=== PATIENT | male | born 1935 | race Caucasian/White ===

== ENCOUNTER 2017-01-04 19:06 | Emergency (ER) | payer BC ==
[~2017-01-04] VITALS: Ht 167.6 cm; Wt 77.5 kg
[~2017-01-04 19:06] MED LIST: ALPR0.5T PO; AMIO200T4 PO; ASPI81TA21 PO; FERR1TAB23 PO; LISI40TA PO; MULT-506 PO; NXM/40 PO; RIVA1TAB4 PO; SIMV10TA2 PO
[2017-01-04 19:08] VITALS: TEMP 36.8; Ht 167.6 cm; Wt 77.5 kg
[2017-01-04] MEDS ORDERED: METOPROLOL TARTRATE 1 MG/ML VIAL IV STA (19:35)
--- NOTE | 2017-01-04 19:36 | EMERGENCY ROOM VISIT NOTE ---
History Report prepared by Myriam: Maru Husain Under the Supervision of: Dr. Maico Martinez D.O. First contact with patient: 19:15 Chief Complaint: TACHYCARDIA Stated Complaint: RAPID HEART BEAT History of Present Illness The patient is a 81 year old male who presents to the Emergency Room with complaints of constant tachycardia beginning 2 days ago. The patient states that he had an aortic valve replacement 2 years ago and a few days after surgery had a heart rate of 192 and came back in to the hospital. He reports that he was put on a blood thinner and taken off it since then. Following his surgery, he reports that he has been healthy. Over the last 2 days he notes that he has been feeling his heart racing and notes that he has had a heart rate in the 120s. He denies any anxiety, chest pain, and missing any medication. The patient complains of shortness of breath with walking up a hill. Source of History: patient Onset: 2 days ago Position: other (global) Symptom Intensity: 120s Quality: other (heart racing) Timing: constant Associated Symptoms: + SOB, No chest pain Note: The patient denies any anxiety and missing any medication. Review of Systems See HPI for pertinent positives & negatives. A total of 10 systems reviewed and were otherwise negative. Past Medical & Surgical Medical Problems: (1) Aortic Valve Disorder (2) Hyperlipidemia Nec/Nos (3) Hypertension Nos (4) Piriformis syndrome of right side (5) Piriformis syndrome of right side (6) Sciatica Family History No pertinent family history Social History Smoking Status: Never Smoker Drug Use: none Marital Status: Housing Status: lives with significant other Occupation Status: retired Current/Historical Medications Scheduled Amlodipine (Norvasc), 10 MG PO DAILY Aspirin Enteric Coated (Ecotrin Or Generic), 81 MG PO DAILY Esomeprazole Magnesium (Nexium), 40 MG PO DAILY Ferrous Sulfate (Iron), 150 MG PO DAILY Hydrochlorothiazide (Hydrochlorothiazide), 25 MG PO DAILY Lisinopril (Prinivil), 40 MG PO DAILY Metoprolol Succ (Toprol Xl) (Toprol-Xl), 25 MG PO DAILY Multivitamin (Multivitamin), 1 TAB PO DAILY Rivaroxaban (Xarelto), 1 TAB PO DAILY Valacyclovir (Valtrex), 500 MG PO DAILY Scheduled PRN Alprazolam (Xanax), 0.5 MG PO TID PRN for Anxiety/Agitation Allergies Coded Allergies: Penicillins (Verified Allergy, Unknown, ., 06/29/14) Hydrocodone (Verified Adverse Reaction, Intermediate, hallucinations, ) Physical Exam Vital Signs Date Time Temp Pulse Resp B/P Pulse Ox O2 Delivery O2 Flow Rate FiO2 01/04/17 21:38 96 22 107/68 93 Room Air 01/04/17 20:18 80 18 92/62 96 Room Air 01/04/17 20:02 98 18 92/57 96 Room Air 01/04/17 19:52 126 94/57 01/04/17 19:41 96 Room Air 01/04/17 19:37 95 01/04/17 19:37 95 Room Air 01/04/17 19:33 124 01/04/17 19:08 36.8 128 16 98/68 90 Room Air Physical Exam CONSTITUTIONAL/VITAL SIGNS: Reviewed / noted above. GENERAL: Non-toxic in appearance. INTEGUMENTARY: Warm, dry, and [place]. HEAD: Normocephalic. EYES: without scleral icterus or trauma. ENT/OROPHARYNX: clear and moist. LYMPHADENOPATHY/NECK: Is supple without lymphadenopathy or meningismus. RESPIRATORY: Lungs clear and equal. CARDIOVASCULAR:Tachycardic rate and rhythm. GI/ABDOMEN: Soft and nontender. No organomegaly or pulsatile mass. No rebound or guarding. Normal bowel sounds. EXTREMITIES: Warm and well perfused. BACK: No CVA tenderness. NEUROLOGICAL: Intact without focal deficits. PSYCHIATRIC: normal affect. MUSCULOSKELETAL: Normally developed with good muscle tone. Medical Decision & Procedures ER Provider Diagnostic Interpretation: X ray results and stated below per my interpretation and radiology interpretation. CHEST ONE VIEW PORTABLE FINDINGS: There are median sternotomy wires. Cardiomegaly is unchanged. There is no evidence of pulmonary edema. Bibasilar opacities favor atelectasis. No consolidation is identified to suggest pneumonia. IMPRESSION: 1. No acute findings. 2. Stable cardiomegaly. 3. Linear bibasilar opacities suggestive of atelectasis. Electronically signed by: Ben Godoy M.D. 01/04/2017 8:17 PM Dictated Date/Time: 01/04/2017 8:16 PM Laboratory Results 01/04/17 19:30 Red Blood Count 5.44, Mean Corpuscular Volume 86.2, Mean Corpuscular Hemoglobin 31.3, Mean Corpuscular Hemoglobin Concent 36.2, Mean Platelet Volume 10.8, Neutrophils (%) (Auto) 69.5, Lymphocytes (%) (Auto) 20.3, Monocytes (%) (Auto) 7.6, Eosinophils (%) (Auto) 1.8, Basophils (%) (Auto) 0.2, Neutrophils # (Auto) 5.77, Lymphocytes # (Auto) 1.69, Monocytes # (Auto) 0.63, Eosinophils # (Auto) 0.15, Basophils # (Auto) 0.02 01/04/17 19:30 Test 01/04/17 19:30 White Blood Count 8.31 K/uL (4.8-10.8) Red Blood Count 5.44 M/uL (4.7-6.1) Hemoglobin 17.0 g/dL (14.0-18.0) Hematocrit 46.9 % (42-52) Mean Corpuscular Volume 86.2 fL (80-100) Mean Corpuscular Hemoglobin 31.3 pg (25-34) Mean Corpuscular Hemoglobin Concent 36.2 g/dl (32-36) Platelet Count 141 K/uL (130-400) Mean Platelet Volume 10.8 fL (7.4-10.4) Neutrophils (%) (Auto) 69.5 % Lymphocytes (%) (Auto) 20.3 % Monocytes (%) (Auto) 7.6 % Eosinophils (%) (Auto) 1.8 % Basophils (%) (Auto) 0.2 % Neutrophils # (Auto) 5.77 K/uL (1.4-6.5) Lymphocytes # (Auto) 1.69 K/uL (1.2-3.4) Monocytes # (Auto) 0.63 K/uL (0.11-0.59) Eosinophils # (Auto) 0.15 K/uL (0-0.5) Basophils # (Auto) 0.02 K/uL (0-0.2) RDW Standard Deviation 42.9 fL (36.4-46.3) RDW Coefficient of Variation 13.9 % (11.5-14.5) Immature Granulocyte % (Auto) 0.6 % Immature Granulocyte # (Auto) 0.05 K/uL (0.00-0.02) Prothrombin Time 11.3 SECONDS (9.0-12.0) Prothromb Time International Ratio 1.1 (0.9-1.1) Activated Partial Thromboplast Time 28.3 SECONDS (21.0-31.0) Partial Thromboplastin Ratio 1.1 D-Dimer 400 ug/L FEU (0-500) Anion Gap 13.0 mmol/L (3-11) Est Creatinine Clear Calc Drug Dose 36.1 ml/min Estimated GFR () 46.5 Estimated GFR (Non- 40.1 BUN/Creatinine Ratio 15.4 (10-20) Calcium Level 9.0 mg/dl (8.5-10.1) Total Creatine Kinase 144 U/L (39-308) Creatine Kinase MB 4.8 ng/ml (0.5-3.6) Creatine Kinase MB Ratio 3.3 (0-3.0) Troponin I < 0.015 ng/ml (0-0.045) Lipase 186 U/L (73-393) Thyroid Stimulating Hormone (TSH) 2.320 uIu/ml (0.300-4.500) Laboratory results as stated above per my review. Medications Administered Medications (Trade) Dose Ordered Sig/Umberto Route Start Time Stop Time Status Last Admin Dose Admin Metoprolol Tartrate (Lopressor Iv) 5 mg NOW STAT IV 01/04/17 19:35 01/04/17 19:36 DC 01/04/17 19:52 5 MG Metoprolol Succinate 12.5 mg 12.5 mg ONE ONCE PO 01/04/17 21:30 01/04/17 21:31 DC 01/04/17 21:46 12.5 MG Sodium Chloride (Nss 500ml) 500 ml @ 999 mls/hr Q31M STAT IV 01/04/17 21:27 01/04/17 21:57 DC 01/04/17 21:50 999 MLS/HR Rivaroxaban (Xarelto Tab) 20 mg ONE ONCE PO 01/04/17 21:45 01/04/17 21:46 DC 01/04/17 21:47 20 MG ECG Indication: other (heart racing) Rate (beats per minute): 122 Rhythm: other (accelerated junction 122) Findings: T-wave inversion (Lateral) Comparison ECG Date: 15-NOV-2014 Change: T wave inversions are unchanged, tachycardic rate is new. EKG 2: A-Fib, 103, no acute injury, no ectopy. ED Course 1914: Previous medical records were reviewed. The patient was evaluated in room C3. A complete history and physical examination was performed. 1934: Lopressor IV 5mg IV. 2113: The patient is in A-Fib. We are getting a repeat EKG. 2126: Sodium Chloride 500 ml @ 999 mls/hr IV. 2129: Metoprolol Succinate 12.5mg PO. 2123: I discussed the patients case with Dr. Morelos of cardiology. The patient will be discharged after medication. 2144: Xarelto Tab 20mg PO. 2149: On reevaluation, the patient is hemodynamically stable. I discussed the results and findings with the patient. He verbalized agreement of the treatment plan. The patient was discharged home. 899: Xarelto Tab 20mg PO. Medical Decision The differential was considered includes acute myocardial infarction, acute coronary syndrome, myocarditis, pericarditis, pericardial effusions /tamponade, esophageal perforation, thoracic aortic dissection, pulmonary embolism, pneumonia, pneumothorax, pancreatitis, shingles, acute cholecystitis, perforated abdominal viscus. This is an 81-year-old male who presents to the ED with a chief complaint of tachycardic heart rate. The patient states that he knows to symptoms today. He denies any other symptoms. Denies recent illness, fever or cough. Denies any chest pains or shortness of breath. Physical exam reveals tachycardic rhythm. His initial EKG showed what appeared to be a junctional rhythm at a rate of about 122. After 5 mg IV Lopressor, the patient's EKG revealed A. fib. At a rate of 100. D-dimer is negative. BUN was 25 and creatinine 1.6. Troponin was negative. TSH is normal. Chest x-ray did not show acute disease. The patient is asymptomatic. I spoke with Dr. Morelos about the patient. The patient was hydrated with IV fluids. His heart rate appears to be under control with the 5 mg IV Lopressor. After talking with Dr. Morelos, the patient will be started on Xaralto and Metoprolol XL and discontinue Norvasc (after asking the patient, he showed me a list and he is not taking Norvasc). He was given those medications here. He is felt to be stable for discharge. He will follow-up with Dr. Morelos later this week. Consults Time Called: 2119 Consulting Physician: Dr. Morelos - Cardiology Returned Call: [phone] I discussed the patients case with Dr. Morelos of cardiology. The patient will be discharged after medication. Impression Primary Impression: Atrial fibrillation with rapid ventricular response Scribe Attestation The scribe's documentation has been prepared under my direction and personally reviewed by me in its entirety. I confirm that the note above accurately reflects all work, treatment, procedures, and medical decision making performed by me. Departure Information Dispostion Home / Self-Care Prescriptions Metoprolol Succ (Toprol Xl) (Toprol-Xl) 25 Mg Tabcr 25 MG PO DAILY, #30 TAB Prov: Maico Martinez D.O. 01/04/17 Rivaroxaban (XARELTO) 20 Mg Tab 1 TAB PO DAILY for 30 Days, #30 TAB 11 Refills Prov: Maico Martinez D.O. 01/04/17 Referrals Martinez Riley JrD.O. (PCP) Patient Instructions My [facility] Additional Instructions STOP Norvasc. START: Xaralto and Toprol XL as prescribed. supply requirements officer at [facility] pharmacy tomorrow. Call the office and follow-up with Dr. Morelos this week. Return for any concerns.
[2017-01-04 19:37] VITALS: O2SAT 95
[2017-01-04 19:42] LABS: BASO % 0.2 %; BASO ABS # 0.02 K/uL (0-0.2); COMPLETE YES; EOS % 1.8 %; HEMATOCRIT 46.9 % (42-52); IG% 0.6 %; LYMPH % 20.3 %; LYMPH ABS # 1.69 K/uL (1.2-3.4); MEAN CELL VOLUME 86.2 fL (80-100); MEAN CORPUSCULAR HEMOGLOBIN 31.3 pg (25-34); MEAN CORPUSCULAR HGB CONC 36.2 g/dl (32-36); MEAN PLATELET VOLUME 10.8 fL (7.4-10.4); MONO % 7.6 %; NEUT % 69.5 %; PLATELET COUNT 141 K/uL (130-400); RED BLOOD COUNT 5.44 M/uL (4.7-6.1); WHITE BLOOD COUNT 8.31 K/uL (4.8-10.8)
[2017-01-04 19:53] LABS: INR 1.1 (0.9-1.1); PARTIAL THROMBOPLASTIN RATIO 1.1; PROTHROMBIN TIME (PATIENT) 11.3 SECONDS (9.0-12.0)
[2017-01-04 19:59] LABS: BLOOD UREA NITROGEN 25 mg/dl (7-18); BUN/CREATININE RATIO 15.4 (10-20); CARBON DIOXIDE 23 mmol/L (21-32); CHLORIDE 107 mmol/L (98-107); GLUCOSE 157 mg/dl (70-99); SODIUM 143 mmol/L (136-145)
[2017-01-04 20:10] LABS: CKMB/CK RATIO 3.3 (0-3.0)
[2017-01-04] MEDS ORDERED: VALA500T60 PO (20:10)
[2017-01-04] MEDS ORDERED: HYDR25TA5 PO (20:10)
[2017-01-04] MEDS ORDERED: AMLO-114 PO (20:10)
--- NOTE | 2017-01-04 20:18 | DIAGNOSTIC IMAGING REPORT ---
CHEST ONE VIEW PORTABLE CLINICAL HISTORY: Fever. Sepsis. COMPARISON STUDY: Chest radiograph November 14, 2014. FINDINGS: There are median sternotomy wires. Cardiomegaly is unchanged. There is no evidence of pulmonary edema. Bibasilar opacities favor atelectasis. No consolidation is identified to suggest pneumonia. IMPRESSION: 1. No acute findings. 2. Stable cardiomegaly. 3. Linear bibasilar opacities suggestive of atelectasis. Electronically signed by: Ben Godoy M.D. 01/04/2017 8:17 PM Dictated Date/Time: 01/04/2017 8:16 PM
[2017-01-04] MEDS ORDERED: SODIUM CHLORIDE 0.9% 500ML 500 ML IV STA (21:27)
[2017-01-04] MEDS ORDERED: METOPROLOL SUCC 25MG EXT REL TAB PO ONE (21:30)
[2017-01-04] MEDS ORDERED: METO25TA3 PO (21:38)
[2017-01-04] MEDS ORDERED: RIVA1TAB4 PO (21:38)
[2017-01-04] MEDS ORDERED: RIVAROXABAN 20 MG TAB PO ONE (21:45)
[2017-01-04 22:12] VITALS: BP 114/78; PULSE 101; O2SAT 95
[2017-01-05] MEDS ORDERED: RIVAROXABAN 20 MG TAB PO SCH (09:00)
[2017-04-18] MEDS ORDERED: ATOR10TA88 PO (07:07)
== END 2017-01-04 22:21 | disposition home or self-care (01) ==
LOC: C.EDB 19:07 → C.EDC 22:21
DX: I48.0 Paroxysmal atrial fibrillation (principal); Z95.2 Presence of prosthetic heart valve; E78.5 Hyperlipidemia, unspecified; I10 Essential (primary) hypertension; M54.30 Sciatica, unspecified side; Z79.82 Long term (current) use of aspirin; Z79.01 Long term (current) use of anticoagulants; Z79.899 Other long term (current) drug therapy

== ENCOUNTER 2017-04-18 06:50 | Emergency (ER) | payer BC ==
[~2017-04-18] VITALS: Ht 167.6 cm; Wt 76.5 kg
[~2017-04-18 06:50] MED LIST changes: -AMIO200T4 PO; +AMLO-114 PO; +HYDR25TA5 PO; +METO25TA3 PO; -SIMV10TA2 PO; +VALA500T60 PO
[2017-04-18 06:56] VITALS: TEMP 36.5; Ht 167.6 cm; Wt 76.5 kg
[2017-04-18] MEDS ORDERED: ATOR10TA82 PO (07:07)
--- NOTE | 2017-04-18 07:12 | EMERGENCY ROOM VISIT NOTE ---
History Report prepared by Myriam: Antwon Phelps Under the Supervision of: Dr. Camron Louis M.D. First contact with patient: 06:50 Chief Complaint: BLEEDING Stated Complaint: RECTAL BLEEDING/SPITTING UP BLOOD History of Present Illness The patient is an 81 year old male who presents to the Emergency Room with complaints of persistent rectal bleeding that started this morning. The patient woke up to the taste of blood in his mouth and noticed some blood mixed in with his spit. The patient also noticed bright red blood mixed in with his stool this morning. The stool itself was brown and normal. He did not have any treatments prior to arrival and knows of no worsening or relieving factors. The patient denies any chest pain, shortness of breath, cough, abdominal pain, or easy bruising. He is feeling fine and plans to go fishing later today. The patient is on Xarelto. He has not taken extra doses of Xarelto or Aspirin. Patient denies any recent trauma or injury. He has a history of GERD but denies history of ulcers. He denies any history of bleeding problems. The patient has had hemorrhoids in the past. Source of History: patient Onset: this morning Position: other (rectal) Quality: other (bleeding) Timing: other (persistent) Associated Symptoms: No SOB, No abdominal pain, No chest pain, No cough Note: Patient also had blood in his mouth this morning. Review of Systems See HPI for pertinent positives & negatives. A total of 10 systems reviewed and were otherwise negative. Past Medical & Surgical Medical Problems: (1) Aortic Valve Disorder (2) Hyperlipidemia Nec/Nos (3) Hypertension Nos (4) Piriformis syndrome of right side (5) Piriformis syndrome of right side (6) Sciatica Family History No pertinent family history Social History Smoking Status: Never Smoker Drug Use: none Marital Status: Housing Status: lives with significant other Occupation Status: retired Current/Historical Medications Scheduled Aspirin Enteric Coated (Ecotrin Or Generic), 81 MG PO DAILY Atorvastatin (Lipitor), 10 MG PO DAILY Azithromycin (Zithromax Z-Jameel), 1 PKT PO UD Esomeprazole Magnesium (Nexium), 40 MG PO DAILY Ferrous Sulfate (Iron), 150 MG PO DAILY Hydrochlorothiazide (Hydrochlorothiazide), 25 MG PO DAILY Lisinopril (Prinivil), 40 MG PO DAILY Metoprolol Succinate (Toprol Xl), 25 MG PO DAILY Multivitamin (Multivitamin), 1 TAB PO DAILY Rivaroxaban (Xarelto), 20 MG PO DAILY Valacyclovir (Valtrex), 500 MG PO DAILY Scheduled PRN Alprazolam (Xanax), 0.5 MG PO TID PRN for Anxiety/Agitation Allergies Coded Allergies: Penicillins (Verified Allergy, Unknown, ., 06/29/14) Hydrocodone (Verified Adverse Reaction, Intermediate, hallucinations, ) Physical Exam Vital Signs Date Time Temp Pulse Resp B/P Pulse Ox O2 Delivery O2 Flow Rate FiO2 04/18/17 08:38 53 16 150/82 95 04/18/17 08:08 53 16 150/82 95 Room Air 04/18/17 06:56 36.5 55 20 155/90 96 Room Air Physical Exam GENERAL: Patient is well appearing and in no acute distress. HEENT: No acute trauma, normocephalic atraumatic, mucous membranes moist, no nasal congestion, no scleral icterus. NECK: No stridor, no adenopathy, no meningismus, trachea is midline. LUNGS: No dyspnea. Clear to auscultation and equal bilaterally. No wheeze, no rhonchi. HEART: Regular rate and rhythm. No murmurs, rubs, gallops appreciated. ABDOMEN: Soft, nontender, bowel sounds positive, no masses appreciated, no peritonitis. BACK: No midline tenderness, no CVA tenderness EXTREMITIES: Normal motion all extremities, no cyanosis, no edema. NEUROLOGIC: Alert and oriented, no acute motor or sensory deficits, no focal weakness, cranial nerves grossly intact. SKIN: No rash, no jaundice, no diaphoresis. RECTAL: Large discolored hemorrhoid left anus with mild active bleeding medially. Normal rectal exam with large prostate. Brown-stool heme negative. Medical Decision & Procedures ER Provider Diagnostic Interpretation: X ray results are stated below per my interpretation and the radiologist's interpretation. SINGLE VIEW CHEST CLINICAL HISTORY: Hemoptysis. FINDINGS: An AP, portable, upright chest radiograph is compared to study dated 01/04/2017 and correlated with chest CT dated 07/18/2008. The examination is degraded by portable technique and patient rotation. The patient is status post midline sternotomy. The heart is enlarged. The pulmonary vasculature is noncongested. Chronic residual thickening is similar to previous. Left basilar airspace opacities likely represent atelectasis. The lungs and pleural spaces are otherwise clear. No pneumothorax is seen. The skeletal structures are osteopenic. The bony thorax is grossly intact. IMPRESSION: 1. Cardiomegaly without radiographic evidence of congestive failure. 2. There are left basilar airspace opacities. This likely represents atelectasis. Cortical clinically for evidence of a mild infectious/inflammatory pneumonitis. Electronically signed by: Hiram Perkins M.D. 04/18/2017 7:41 AM Dictated Date/Time: 04/18/2017 7:39 AM Laboratory Results 04/18/17 07:10 Red Blood Count 5.07, Mean Corpuscular Volume 87.4, Mean Corpuscular Hemoglobin 31.0, Mean Corpuscular Hemoglobin Concent 35.4, Mean Platelet Volume 10.8, Neutrophils (%) (Auto) 66.6, Lymphocytes (%) (Auto) 20.3, Monocytes (%) (Auto) 9.1, Eosinophils (%) (Auto) 3.6, Basophils (%) (Auto) 0.2, Neutrophils # (Auto) 3.68, Lymphocytes # (Auto) 1.12, Monocytes # (Auto) 0.50, Eosinophils # (Auto) 0.20, Basophils # (Auto) 0.01 04/18/17 07:10 Test 04/18/17 07:10 04/18/17 07:19 04/18/17 08:00 White Blood Count 5.52 K/uL (4.8-10.8) Red Blood Count 5.07 M/uL (4.7-6.1) Hemoglobin 15.7 g/dL (14.0-18.0) Hematocrit 44.3 % (42-52) Mean Corpuscular Volume 87.4 fL (80-100) Mean Corpuscular Hemoglobin 31.0 pg (25-34) Mean Corpuscular Hemoglobin Concent 35.4 g/dl (32-36) Platelet Count 119 K/uL (130-400) Mean Platelet Volume 10.8 fL (7.4-10.4) Neutrophils (%) (Auto) 66.6 % Lymphocytes (%) (Auto) 20.3 % Monocytes (%) (Auto) 9.1 % Eosinophils (%) (Auto) 3.6 % Basophils (%) (Auto) 0.2 % Neutrophils # (Auto) 3.68 K/uL (1.4-6.5) Lymphocytes # (Auto) 1.12 K/uL (1.2-3.4) Monocytes # (Auto) 0.50 K/uL (0.11-0.59) Eosinophils # (Auto) 0.20 K/uL (0-0.5) Basophils # (Auto) 0.01 K/uL (0-0.2) RDW Standard Deviation 42.6 fL (36.4-46.3) RDW Coefficient of Variation 13.4 % (11.5-14.5) Immature Granulocyte % (Auto) 0.2 % Immature Granulocyte # (Auto) 0.01 K/uL (0.00-0.02) Prothrombin Time 13.4 SECONDS (9.0-12.0) Prothromb Time International Ratio 1.2 (0.9-1.1) Activated Partial Thromboplast Time 37.1 SECONDS (21.0-31.0) Partial Thromboplastin Ratio 1.4 Est Creatinine Clear Calc Drug Dose 35.4 ml/min Estimated GFR () 50.2 Estimated GFR (Non- 43.3 BUN/Creatinine Ratio 14.3 (10-20) Calcium Level 8.1 mg/dl (8.5-10.1) Total Bilirubin 1.1 mg/dl (0.2-1) Direct Bilirubin 0.2 mg/dl (0-0.2) Aspartate Amino Transf (AST/SGOT) 17 U/L (15-37) Alanine Aminotransferase (ALT/SGPT) 28 U/L (12-78) Alkaline Phosphatase 63 U/L (45-117) Troponin I < 0.015 ng/ml (0-0.045) Total Protein 6.1 gm/dl (6.4-8.2) Albumin 3.5 gm/dl (3.4-5.0) Lipase 283 U/L (73-393) Bedside Hemoglobin 14.6 g/dl (14.0-18.0) Bedside Hematocrit 43 % (42-52) Bedside Sodium 140 mEq/L (135-144) Bedside Potassium 3.7 mEq/L (3.3-5.0) Bedside Chloride 100 mEq/L (101-112) Bedside Total CO2 26 mEq/l (24-31) Anion Gap 19.0 mmol/L (16-25) Bedside Blood Urea Nitrogen 22 mg/dl (7-18) Bedside Creatinine 1.2 mg/dl (0.6-1.3) Bedside Glucose (other) 113 mg/dl (70-99) Bedside Ionized Calcium (Bren) 1.14 mmol/l (1.12-1.32) Urine Color YELLOW Urine Appearance CLEAR (CLEAR) Urine pH 7.5 (4.5-7.5) Urine Specific [place] 1.015 (1.000-1.030) Urine Protein NEG (NEG) Urine Glucose (UA) NEG (NEG) Urine Ketones NEG (NEG) Urine Occult Blood NEG (NEG) Urine Nitrite NEG (NEG) Urine Bilirubin NEG (NEG) Urine Urobilinogen NEG (NEG) Urine Leukocyte Esterase NEG (NEG) Urine WBC (Auto) 0 /hpf (0-5) Urine RBC (Auto) 0-4 /hpf (0-4) Urine Hyaline Casts (Auto) 0 /lpf (0-5) Urine Epithelial Cells (Auto) 0-5 /lpf (0-5) Urine Bacteria (Auto) NEG (NEG) Laboratory results as reviewed by me. ECG Indication: other (anticoagulated) Rate (beats per minute): 53 Rhythm: sinus bradycardia Findings: 1st degree AV block, no acute ischemic change ED Course 0650: The patient was evaluated in room A2. A complete history and physical exam was performed. 0800: Reassessed the patient. He feels great and would like to go home. Discussed the findings with him. He verbalized understanding and agreement. The patient is ready for discharge. Medical Decision Differential: Diverticulitis, AVM, Coagulopathy, Colitis, Malignancy, Upper GI bleed, Fissure, Hemorrhoids, amongst other pathologies entertained. 81 yr old male arrives with complaint of blood in sputum and in stool. No nausea, vomiting, sore throat, cough, sob. Unclear where blood from upper came from but denies it was vomiting. May have just been some posterior pharynx btu with some atelectasis on CXR which could be infiltrate will treat with course zpack. Blood in stool is clearly coming from hemorrhoid. Stool is brown, heme negative. Patient is not anemic, has normal vitals and feels fine. Long history of hemorrhoids with periodic bleeding. Likely a bit more with being on blood thinner. Minor bleeding currently thus will continue normal meds at home with monitoring closely. States he will be with throughout afternoon and will return immediately if worsening or other concerns. Stable and feeling well at discharge. Impression Primary Impression: Bleeding external hemorrhoids Additional Impression: Blood-tinged sputum Scribe Attestation The scribe's documentation has been prepared under my direction and personally reviewed by me in its entirety. I confirm that the note above accurately reflects all work, treatment, procedures, and medical decision making performed by me. Departure Information Dispostion Home / Self-Care Prescriptions Azithromycin (ZITHROMAX Z-JAMEEL) 250 Mg Tab 1 PKT PO UD, #1 PKT Prov: Camron Louis M.D. 04/18/17 Referrals Martinez Riley Jr,D.O. (PCP) Forms HOME CARE DOCUMENTATION FORM, IMPORTANT VISIT INFORMATION Patient Instructions My [facility] Additional Instructions Your blood levels looked good today. It is important to have them rechecked in near future by your primary care provider. It is possible you have a small pneumonia starting. We will start antibiotics just in case Return immediately if increased bleeding, difficulty breathing, chest pain, passing out, or other concerns. Discuss Hemorrhoid surgery with your primary care provider. Problem Qualifiers
[2017-04-18] MEDS ORDERED: RIVA1TAB4 PO (07:13)
[2017-04-18] MEDS ORDERED: METO25TA3 PO (07:14)
[2017-04-18 07:31] LABS: ISTAT CREATININE 1.2 mg/dl (0.6-1.3); ISTAT HEMOGLOBIN 14.6 g/dl (14.0-18.0); ISTAT IONIZED CALCIUM 1.14 mmol/l (1.12-1.32)
[2017-04-18 07:42] LABS: BASO % 0.2 %; BASO ABS # 0.01 K/uL (0-0.2); COMPLETE YES; EOS % 3.6 %; HEMATOCRIT 44.3 % (42-52); IG% 0.2 %; LYMPH % 20.3 %; LYMPH ABS # 1.12 K/uL (1.2-3.4); MEAN CELL VOLUME 87.4 fL (80-100); MEAN CORPUSCULAR HGB CONC 35.4 g/dl (32-36); MEAN PLATELET VOLUME 10.8 fL (7.4-10.4); MONO % 9.1 %; NEUT % 66.6 %; PLATELET COUNT 119 K/uL (130-400); RED BLOOD COUNT 5.07 M/uL (4.7-6.1); WHITE BLOOD COUNT 5.52 K/uL (4.8-10.8)
--- NOTE | 2017-04-18 07:43 | DIAGNOSTIC IMAGING REPORT ---
SINGLE VIEW CHEST CLINICAL HISTORY: Hemoptysis. FINDINGS: An AP, portable, upright chest radiograph is compared to study dated 01/04/2017 and correlated with chest CT dated 07/18/2008. The examination is degraded by portable technique and patient rotation. The patient is status post midline sternotomy. The heart is enlarged. The pulmonary vasculature is noncongested. Chronic residual thickening is similar to previous. Left basilar airspace opacities likely represent atelectasis. The lungs and pleural spaces are otherwise clear. No pneumothorax is seen. The skeletal structures are osteopenic. The bony thorax is grossly intact. IMPRESSION: 1. Cardiomegaly without radiographic evidence of congestive failure. 2. There are left basilar airspace opacities. This likely represents atelectasis. Cortical clinically for evidence of a mild infectious/inflammatory pneumonitis. Electronically signed by: Hiram Perkins M.D. 04/18/2017 7:41 AM Dictated Date/Time: 04/18/2017 7:39 AM
[2017-04-18 07:50] LABS: ALT/SGPT 28 U/L (12-78); AST/SGOT 17 U/L (15-37); BLOOD UREA NITROGEN 21 mg/dl (7-18); BUN/CREATININE RATIO 14.3 (10-20); CALCIUM 8.1 mg/dl (8.5-10.1); CARBON DIOXIDE 28 mmol/L (21-32); CHLORIDE 108 mmol/L (98-107); GLUCOSE 113 mg/dl (70-99); POTASSIUM 3.7 mmol/L (3.5-5.1); SODIUM 142 mmol/L (136-145)
[2017-04-18 07:55] LABS: ALKALINE PHOSPHATASE 63 U/L (45-117)
[2017-04-18 07:56] LABS: INR 1.2 (0.9-1.1); PARTIAL THROMBOPLASTIN RATIO 1.4; PROTHROMBIN TIME (PATIENT) 13.4 SECONDS (9.0-12.0)
[2017-04-18] MEDS ORDERED: AZITTAB PO (08:09)
[2017-04-18 08:15] LABS: URINE APPEARANCE CLEAR (CLEAR); URINE BILIRUBIN NEG (NEG); URINE COLOR YELLOW; URINE EPITHELIAL CELL AUTO 0-5 /lpf (0-5); URINE NITRITE NEG (NEG); URINE PH 7.5 (4.5-7.5); URINE SPECIFIC GRAVITY 1.015 (1.000-1.030); UROBILINOGEN NEG (NEG); ZZUR CULT IF INDIC CLEAN CATCH NO
[2017-04-18 08:21] LABS: MANUAL MICROSCOPIC REQUIRED? NO; REVIEW REQ? NO
[2017-04-18 08:38] VITALS: BP 150/82; PULSE 53; O2SAT 95
== END 2017-04-18 08:41 | disposition home or self-care (01) ==
LOC: C.EDA 06:50
DX: K64.4 Residual hemorrhoidal skin tags (principal); I44.0 Atrioventricular block, first degree; I10 Essential (primary) hypertension; E78.5 Hyperlipidemia, unspecified; I35.9 Nonrheumatic aortic valve disorder, unspecified; Z79.82 Long term (current) use of aspirin; Z79.899 Other long term (current) drug therapy; Z88.0 Allergy status to penicillin; Z88.5 Allergy status to narcotic agent

== ENCOUNTER → 2017-04-27 | Outpatient (CLI) | payer BC ==
[~2017-04-27] MED LIST changes: -AMLO-114 PO; +ATOR10TA82 PO; +AZITTAB PO
[2017-04-27 09:56] LABS: ALT/SGPT 32 U/L (12-78); AST/SGOT 20 U/L (15-37); BLOOD UREA NITROGEN 25 mg/dl (7-18); CARBON DIOXIDE 29 mmol/L (21-32); CHLORIDE 107 mmol/L (98-107); CHOLESTEROL 134 mg/dl (0-200); GLUCOSE 107 mg/dl (70-99); SODIUM 144 mmol/L (136-145); TRIGLYCERIDES 93 mg/dl (0-150); VERY LOW DENSITY LIPOPROT CALC 19 mg/dl
[2017-04-27 09:58] LABS: CALCIUM 8.9 mg/dl (8.5-10.1)
[2017-04-27 09:59] LABS: HDL CHOLESTEROL 45 mg/dl; LDL CHOLESTEROL CALCULATED 70 mg/dl
== END | disposition home or self-care (01) ==
LOC: C.LAB 08:12
DX: E78.5 Hyperlipidemia, unspecified (principal); I10 Essential (primary) hypertension

== ENCOUNTER → 2017-06-30 | Outpatient (CLI) | payer BC ==
[~2017-06-30] MED LIST changes: -ATOR10TA82 PO; +ATOR10TA88 PO; -AZITTAB PO
== END | disposition home or self-care (01) ==
LOC: C.LAB 08:57
PROVIDERS: ATTEND Internal Medicine Cardiovascular Disease
DX: E78.5 Hyperlipidemia, unspecified (principal)

== ENCOUNTER → 2017-07-31 | Outpatient (CLI) | payer BC ==
[2017-07-31 09:34] LABS: BASO % 0.2 %; BASO ABS # 0.01 K/uL (0-0.2); COMPLETE YES; EOS % 3.6 %; HEMATOCRIT 47.9 % (42-52); IG% 0.3 %; LYMPH % 24.4 %; LYMPH ABS # 1.51 K/uL (1.2-3.4); MEAN CELL VOLUME 88.1 fL (80-100); MEAN CORPUSCULAR HEMOGLOBIN 29.8 pg (25-34); MEAN CORPUSCULAR HGB CONC 33.8 g/dl (32-36); MEAN PLATELET VOLUME 11.4 fL (7.4-10.4); MONO % 7.6 %; NEUT % 63.9 %; PLATELET COUNT 128 K/uL (130-400); RED BLOOD COUNT 5.44 M/uL (4.7-6.1); WHITE BLOOD COUNT 6.19 K/uL (4.8-10.8)
[2017-07-31 09:52] LABS: ALT/SGPT 34 U/L (12-78); AST/SGOT 19 U/L (15-37); BLOOD UREA NITROGEN 20 mg/dl (7-18); BUN/CREATININE RATIO 15.4 (10-20); CALCIUM 8.8 mg/dl (8.5-10.1); CARBON DIOXIDE 30 mmol/L (21-32); CHLORIDE 106 mmol/L (98-107); GLUCOSE 106 mg/dl (70-99); POTASSIUM 3.9 mmol/L (3.5-5.1); SODIUM 139 mmol/L (136-145)
[2017-07-31 09:57] LABS: FERRITIN 30.1 ng/ml (8.0-388.0); PROSTATE SPECIFIC ANTIGEN < 0.010 ng/ml (0.000-4.000)
== END | disposition home or self-care (01) ==
LOC: C.LAB 07:20
DX: C61 Malignant neoplasm of prostate (principal); K62.5 Hemorrhage of anus and rectum; E78.5 Hyperlipidemia, unspecified

== ENCOUNTER → 2017-11-03 | Outpatient (CLI) | payer BC ==
[~2017-11-03] MED LIST changes: +AMIO200T4 PO; +ATOR10TA82 PO; -ATOR10TA88 PO; +FERR324T PO; +SENNTAB23
[2017-11-03 13:06] LABS: BLOOD UREA NITROGEN 19 mg/dl (7-18); BUN/CREATININE RATIO 14.5 (10-20); CALCIUM 9.1 mg/dl (8.5-10.1); CARBON DIOXIDE 30 mmol/L (21-32); CHLORIDE 100 mmol/L (98-107); CREATININE 1.33 mg/dl (0.60-1.40); GLUCOSE 77 mg/dl (70-99); POTASSIUM 3.7 mmol/L (3.5-5.1); SODIUM 135 mmol/L (136-145)
== END | disposition home or self-care (01) ==
LOC: C.LAB1850 11:36
PROVIDERS: ATTEND Internal Medicine Cardiovascular Disease
DX: I48.92 Unspecified atrial flutter (principal)

== ENCOUNTER → 2017-11-05 | Day surgery (SDC) | payer BC ==
[~2017-11-05] VITALS: Ht 167.6 cm; Wt 75.0 kg
[~2017-11-05] MED LIST changes: +ATROPINE SULFATE 0.1 MG/ML 5ML SYR IV PRN; +EpHEDrine SULFATE INJ 50 MG/ML AMP IV PRN; +PROPOFOL IV EMULSION 10 MG/ML 20 ML VIAL IV ONE
[2017-11-05 07:07] VITALS: BP 109/82; PULSE 95; TEMP 36.5; O2SAT 98; Ht 167.6 cm; Wt 75.0 kg
[2017-11-05 08:00] VITALS: BP 109/87; PULSE 95; O2SAT 99
[2017-11-05 08:10] VITALS: BP 100/69; PULSE 94; O2SAT 99
[2017-11-05 08:15] VITALS: BP 102/62; PULSE 97; O2SAT 95
--- NOTE | 2017-11-05 08:27 | Cardiology Procedure Brief Nt ---
Preliminary Cardiology Note Procedure Date Nov 05, 2017. Pre-Procedure Diagnosis Atrial flutter with a rapid ventricular response Post-Procedure Diagnosis Normal sinus rhythm Procedure(s) Performed Electrical cardioversion Sports Intern Jethro Speech/Language Therapist(s) Ever Estimated Blood Loss None Medication(s) per anesthesia Preliminary Findings NSR Recommendations Continue current medications Specimens None Drains None Anesthesia Ever Complication(s) None Disposition
--- NOTE | 2017-11-05 08:33 | Discharge Instructions ---
Discharge Instructions Date of Service Nov 05, 2017. Admission Reason for Admission: Afib * W/ Anesthesia* Discharge Discharge Diagnosis / Problem: Normal sinus rhythm Discharge Goals Goal(s): Improve function Activity Recommendations Activity Limitations: resume your previous activity Lifting Limitations: none Exercise/Sports Limitations: none May Resume Sexual Activity: when tolerated Shower/Bathe: no limitations Driving or Machine Use: resume 1 day after discharge No driving today . Current Hospital Diet Patient's current hospital diet: Discharge Diet Recommended Diet: Regular Diet Fluid Restriction: None Procedures Procedures Performed: Electrical cardioversion Pending Studies Studies pending at discharge: no Medical Emergencies . Who to Call and When: Medical Emergencies: If at any time you feel your situation is an emergency, please call 911 immediately. . Non-Emergent Contact Non-Emergency issues call your: [employer] Call Non-Emergent contact if: you have a fever . Past History Medical & Surgical History: (1) Atrial fibrillation with rapid ventricular response . "Provider Documentation" section prepared by Akhil Morelos. . VTE Core Measure Inpt VTE Proph given/why not?: Other Anticoagulation
--- NOTE | 2017-11-05 08:49 | CARDIOVERSION ---
DATE OF OPERATION: 11/05/2017 DATE: 11/05/2017 PRINCIPAL PROCEDURE: Elective electrical cardioversion. PROTOCOL: After informed consent was obtained, and a timeout was undertaken, the patient was sedated smoothly by Dr. Andrea from anesthesia. The patient was given 100 joules of biphasic energy via hands off paddles. He successfully converted to normal sinus rhythm. Blood pressure remained stable throughout the procedure. The patient awoke and was stable. He did not have complaints. There were no complications. CONCLUSIONS: Successful cardioversion to normal sinus rhythm. I attest to the content of the Intraoperative Record and any orders documented therein. Any exception s are noted below.
--- NOTE | 2017-11-05 08:49 | Anesthesiology Progress Note ---
Anesthesia Post Op Note Date & Time Nov 05, 2017 at 08:49 Vital Signs Pain Intensity: 0 Vital Signs Past 12 Hours Date Time Temp Pulse Resp B/P (MAP) Pulse Ox O2 Delivery O2 Flow Rate FiO2 11/05/17 08:30 48 18 87/52 (64) 94 Room Air 11/05/17 08:20 52 18 88/51 (63) 94 Room Air 11/05/17 08:15 97 18 102/62 95 Nasal Cannula 4 11/05/17 08:10 94 18 100/69 99 Room Air 11/05/17 08:00 95 18 109/87 99 Room Air 11/05/17 07:07 36.5 95 18 109/82 98 Room Air Notes Mental Status: alert / awake / arousable, participated in evaluation Pt Amnestic to Procedure: Yes Nausea / Vomiting: adequately controlled Pain: adequately controlled Airway Patency, RR, SpO2: stable & adequate BP & HR: stable & adequate Hydration State: stable & adequate Anesthetic Complications: no major complications apparent
[2017-11-05 09:00] VITALS: BP 98/63; PULSE 58; O2SAT 95
== END ==
LOC: C.CATH 06:55
PROVIDERS: ATTEND Internal Medicine Cardiovascular Disease
DX: I48.0 Paroxysmal atrial fibrillation (principal); I71.2 Thoracic aortic aneurysm, without rupture; I35.1 Nonrheumatic aortic (valve) insufficiency; Z95.2 Presence of prosthetic heart valve; I10 Essential (primary) hypertension; Z79.82 Long term (current) use of aspirin; Z79.899 Other long term (current) drug therapy; Z79.01 Long term (current) use of anticoagulants; Z83.3 Family history of diabetes mellitus; Z82.49 Family history of ischemic heart disease and other diseases of the circulatory system; Z88.0 Allergy status to penicillin; Z88.5 Allergy status to narcotic agent

== ENCOUNTER → 2017-12-10 | Outpatient (CLI) | payer BC ==
[~2017-12-10] MED LIST changes: -ATROPINE SULFATE 0.1 MG/ML 5ML SYR IV PRN; -EpHEDrine SULFATE INJ 50 MG/ML AMP IV PRN; -FERR1TAB23 PO; -PROPOFOL IV EMULSION 10 MG/ML 20 ML VIAL IV ONE
--- NOTE | 2017-12-10 13:09 | DIAGNOSTIC IMAGING REPORT ---
TESTICULAR ULTRASOUND HISTORY: RT SCROTAL MASS COMPARISON: None. FINDINGS: Right testis: 4.3 x 1.9 x 3.1 cm. There is a 1.8 x 1.7 x 1.6 cm epididymal head cyst. There are few additional adjacent intratesticular cystic lesions with the largest measuring 7 mm. These have a simple appearance and are likely benign. These are adjacent to the rete testes. Normal color-flow within the right testis. Left testis: 4.4 x 3.2 x 1.7 cm. There are no intratesticular masses. Normal color flow. No hydrocele. The epididymis is unremarkable. IMPRESSION: 1. A 1.8 x 1.7 x 1.6 cm right epididymal head cyst. This corresponds the patient's abnormality. 2. There are few additional intratesticular cysts with the largest measuring 7 mm. These have a simple appearance are likely benign. Six-month follow-up is recommended to ensure stability. 3. Normal left testis. Electronically signed by: Drew Mac M.D. 12/10/2017 1:08 PM Dictated Date/Time: 12/10/2017 1:03 PM
== END | disposition home or self-care (01) ==
LOC: C.ULTRBC 12:12
DX: N50.3 Cyst of epididymis (principal); N44.2 Benign cyst of testis

== ENCOUNTER → 2018-06-11 | Outpatient (CLI) | payer BC ==
[~2018-06-11] MED LIST changes: +ASPI-319 PO; -ASPI81TA21 PO; -METO25TA3 PO; +METO25TA4 PO
[2018-06-11 09:27] LABS: BASO % 0.2 %; BASO ABS # 0.01 K/uL (0-0.2); EOS % 2.1 %; HEMATOCRIT 41.4 % (42-52); HEMOGLOBIN 13.5 g/dL (14.0-18.0); IG# 0.04 K/uL (0.00-0.02); LYMPH % 19.7 %; LYMPH ABS # 0.94 K/uL (1.2-3.4); MEAN CELL VOLUME 82.3 fL (80-100); MEAN CORPUSCULAR HEMOGLOBIN 26.8 pg (25-34); MEAN CORPUSCULAR HGB CONC 32.6 g/dl (32-36); MEAN PLATELET VOLUME 10.2 fL (7.4-10.4); MONO % 9.6 %; MONO ABS # 0.46 K/uL (0.11-0.59); NEUT % 67.6 %; NEUT ABS # 3.22 K/uL (1.4-6.5); PLATELET COUNT 123 K/uL (130-400); RED CELL DISTRIBUTION WIDTH CV 14.5 % (11.5-14.5); RED CELL DISTRIBUTION WIDTH SD 43.5 fL (36.4-46.3); WHITE BLOOD COUNT 4.77 K/uL (4.8-10.8)
[2018-06-11 10:27] LABS: ALT/SGPT 39 U/L (12-78); AST/SGOT 23 U/L (15-37); CHOLESTEROL 156 mg/dl (0-200); LDL CHOLESTEROL CALCULATED 78 mg/dl
== END | disposition home or self-care (01) ==
LOC: C.LAB 08:43
DX: E78.5 Hyperlipidemia, unspecified (principal); I10 Essential (primary) hypertension; I48.91 Unspecified atrial fibrillation; C61 Malignant neoplasm of prostate

== ENCOUNTER → 2018-06-25 | Outpatient (CLI) | payer BC ==
[2018-06-25 09:49] LABS: HEMATOCRIT 40.6 % (42-52); HEMOGLOBIN 13.9 g/dL (14.0-18.0); IG# 0.04 K/uL (0.00-0.02); LYMPH % 7.4 %; LYMPH ABS # 0.78 K/uL (1.2-3.4); MEAN CORPUSCULAR HEMOGLOBIN 28.1 pg (25-34); MEAN CORPUSCULAR HGB CONC 34.2 g/dl (32-36); MEAN PLATELET VOLUME 10.6 fL (7.4-10.4); MONO % 3.5 %; MONO ABS # 0.37 K/uL (0.11-0.59); NEUT % 88.7 %; NEUT ABS # 9.33 K/uL (1.4-6.5); PLATELET COUNT 170 K/uL (130-400); RED CELL DISTRIBUTION WIDTH CV 15.2 % (11.5-14.5); RED CELL DISTRIBUTION WIDTH SD 44.5 fL (36.4-46.3); RETIC COUNT % 2.8 % (0.5-2.0); WHITE BLOOD COUNT 10.52 K/uL (4.8-10.8)
--- NOTE | 2018-07-22 12:29 | CODING QUERY NO DIAGNOSIS ---
TREATMENT RENDERED WITHOUT A DIAGNOSIS : 36 To promote full compliance with coding requirements relating to patient care, physician participation is requested in all cases of welder gas uncertainty. Please assist us with providing a diagnosis/symptom for the test(s) below: A diagnosis/symptom was not documented on your Order. A valid diagnosis/symptom is required to bill all insurances. Please remember that we are unable to code a diagnosis of rule out, probable, possible, questionable, or suspected. Tests that require a diagnosis: DOS: 06/25/18 * CBC WITH AUTO DIFFER DIAGNOSIS: * RETIC COUNT DIAGNOSIS: * ERYTHROCYTE SEDIMENT DIAGNOSIS: * VITAMIN B12 DIAGNOSIS: * FOLIC ACID DIAGNOSIS: * FERRITIN DIAGNOSIS: * IRON DIAGNOSIS: * TRANSFERRIN DIAGNOSIS: * HAPTOGLOBIN DIAGNOSIS: Provider Signature: Date: Thank you Nuha Bolaños Health Information Management Once completed, please kindly fax back to [phone] For questions please call [phone]
== END | disposition home or self-care (01) ==
LOC: C.LAB 08:57
DX: D64.9 Anemia, unspecified (principal)

== ENCOUNTER → 2018-06-26 | Outpatient (CLI) | payer BC ==
[2018-06-28 16:16] LABS: FECAL OCCULT BLOOD #1 NEGATIVE (NEGATIVE); FECAL OCCULT BLOOD #2 NEGATIVE (NEGATIVE); FECAL OCCULT BLOOD #3 NEGATIVE (NEGATIVE)
== END | disposition home or self-care (01) ==
LOC: C.LABSPEC 15:03
DX: D64.9 Anemia, unspecified (principal)

== ENCOUNTER 2020-05-08 08:44 | Inpatient (IN) ==
[2020-05-08] MEDS ORDERED: NITROGLYCERIN SL 0.4 MG/TAB TAB ONE (08:57)
[2020-05-08] MEDS ORDERED: NITROGLYCERIN SL 0.4 MG/TAB TAB SL STA (08:58)
--- NOTE | 2020-05-08 09:05 | Emergency Department Note ---
History of Present Illness General Chief complaint: Abdominal Pain Stated complaint: abd pain Time Seen by Provider: 05/08/20 08:49 Source: patient, family (), EMS, RN notes reviewed and old records reviewed Mode of arrival: EMS Limitations: no limitations History of Present Illness Provider complaint: epigastric pain Onset (ago): hour(s) 2 Location: abdomen Radiation: non-radiation Severity: severe Pain Consistency: + colicky Current Pain Intensity: 10 Quality: + stabbing Relieved By: + immobilization Exacerbated By: + movement Associated symptoms: + nausea/vomiting; no chest pain, no diaphoresis, no fever/chills and no shortness of breath Treatments prior to arrival: none This is an 84-year-old male who has a history of aortic valve replacement that presents the emergency department complaining of severe epigastric pain that started at approximately 5 this morning. The patient reports the pain woke him from sleep. He called an ambulance. The ambulance did not give him anything for the pain. Upon arrival to the emergency department the patient is describing the pain as stabbing and 10 out of 10. He is requesting something for the pain. He reports he has never had pain like this before. He denies any history of stents. Home Medications Home Medications Medication Instructions Recorded Confirmed Type alprazolam 0.5 mg tablet 0.5 mg PO HS tab 08/23/19 05/08/20 History atorvastatin 10 mg tablet 10 mg PO QDD tab 08/23/19 05/08/20 History esomeprazole magnesium 40 mg 40 mg PO QAM cap 08/23/19 05/08/20 History capsule,delayed release ferrous sulfate 325 mg (65 mg 325 mg PO QAM tab 08/23/19 05/08/20 History iron) tablet lisinopril 40 mg tablet 40 mg PO QAM tab 08/23/19 05/08/20 History multivitamin 1 tab PO QAM 08/23/19 05/08/20 History valacyclovir 500 mg tablet 500 mg PO QDD tab 08/23/19 05/08/20 History amiodarone 200 mg PO HS 05/08/20 05/08/20 History aspirin 81 mg PO QAM 05/08/20 05/08/20 History docusate sodium [Colace] 100 mg PO QDD 05/08/20 05/08/20 History hydrochlorothiazide 12.5 mg PO QAM 05/08/20 05/08/20 History levothyroxine 100 mcg PO SUMOTUWETHFR 05/08/20 05/08/20 History rivaroxaban 20 mg PO QDD 05/08/20 05/08/20 History Allergies Allergy/AdvReac Type Severity Reaction Status Date / Time codeine Allergy Unknown HALLUCINATI Verified 05/08/20 10:10 ONS oxycodone [From OxyContin] Allergy Unknown Verified 05/08/20 10:10 Penicillins Allergy Unknown CAN'T Verified 05/08/20 10:10 REMEMBER hydrocodone AdvReac Intermediate hallucinati Verified 05/08/20 10:10 ons Past Med/Surg History Medical History Aortic regurgitation due to bicuspid aortic valve (Inactive) Atrial flutter, paroxysmal (Acute) Depression (Acute) GERD (gastroesophageal reflux disease) (Acute) Hypertension (Acute) Hypothyroidism PAF (paroxysmal atrial fibrillation) Piriformis syndrome of right side (Resolved) Prostate cancer (Acute) Subconjunctival hematoma (Inactive) Surgical History H/O hernia repair (Acute) inguinal H/O prostatectomy (Acute) S/P aortic valve replacement Family History Mother Hypertension Diabetes Father , age 50 Myocardial infarction Social History Preferred Language: Brazilian Communication Ability: Effective Grain Shipper Required: No Beliefs That Will Affect Care: None marital status: Current Living Situation: Spouse Current Living Situation Comment: lives in [place] current occupational status: retired current occupation: [employer] Other Information That Helps Us Care for You: No other: 1 daughter Feels Safe at Home: Yes Safety Concerns: Feels Safe At This Time Smoking Status: Never smoker Do You Dip or Chew Tobacco: No ; Second Hand Exposure: No ; Tobacco Cessation Education Requested by Patient: No Hx Alcohol Use: Yes Alcohol type: wine Alcohol type Comment: 1 glass wine Alcohol Intake Frequency: Daily Hx Substance Use: No Review of Systems A total of 10 systems reviewed and were otherwise negative Physical Exam Vital Signs Vital Signs - 24 hr 05/08/20 08:53 05/08/20 08:59 05/08/20 09:00 Temperature 36.9 C Temperature Source Oral Pulse Rate 60 64 58 L Pulse Rate from SpO2 Sensor 62 58 L Pulse Rhythm Regular Pulse Strength Normal Respiratory Rate 25 H 18 29 H Respiratory Effort / Characteristics Non-Labored Spontaneous Respiratory Depth Normal Respiratory Pattern Regular Blood Pressure 139/72 120/63 Blood Pressure Mean 94 79 Pulse Oximetry 94 94 94 Oxygen Delivery Method Room Air Oxygen Flow Rate Sepsis Recent Fever Within 48 Hours No Sepsis New/Unexplained Change in Mental Status No Sepsis Action Taken by Nursing No Action Required 05/08/20 09:08 05/08/20 09:10 05/08/20 09:11 Temperature Temperature Source Pulse Rate 56 L 55 L 54 L Pulse Rate from SpO2 Sensor 56 L 55 L 54 L Pulse Rhythm Pulse Strength Respiratory Rate 30 H 35 H 29 H Respiratory Effort / Characteristics Respiratory Depth Respiratory Pattern Blood Pressure 91/69 L 99/59 L 99/59 L Blood Pressure Mean 83 69 69 Pulse Oximetry 87 L 91 90 Oxygen Delivery Method Oxygen Flow Rate Sepsis Recent Fever Within 48 Hours Sepsis New/Unexplained Change in Mental Status Sepsis Action Taken by Nursing 05/08/20 09:15 05/08/20 09:20 05/08/20 09:22 Temperature Temperature Source Pulse Rate 52 L 49 L 49 L Pulse Rate from SpO2 Sensor 52 L 49 L 50 L Pulse Rhythm Pulse Strength Respiratory Rate 23 16 22 Respiratory Effort / Characteristics Respiratory Depth Respiratory Pattern Blood Pressure 90/52 L 80/49 L Blood Pressure Mean 62 63 Pulse Oximetry 91 91 91 Oxygen Delivery Method Nasal Cannula Nasal Cannula Nasal Cannula Oxygen Flow Rate 3 Sepsis Recent Fever Within 48 Hours Sepsis New/Unexplained Change in Mental Status Sepsis Action Taken by Nursing 05/08/20 09:23 05/08/20 09:41 05/08/20 09:43 Temperature Temperature Source Pulse Rate 49 L 51 L Pulse Rate from SpO2 Sensor 49 L 50 L 52 L Pulse Rhythm Pulse Strength Respiratory Rate 19 20 Respiratory Effort / Characteristics Respiratory Depth Respiratory Pattern Blood Pressure 82/49 L 125/62 Blood Pressure Mean 56 70 Pulse Oximetry 93 99 100 Oxygen Delivery Method Nasal Cannula Nasal Cannula Nasal Cannula Oxygen Flow Rate 3 Sepsis Recent Fever Within 48 Hours Sepsis New/Unexplained Change in Mental Status Sepsis Action Taken by Nursing 05/08/20 09:46 05/08/20 09:50 05/08/20 10:00 Temperature Temperature Source Pulse Rate 51 L 51 L 52 L Pulse Rate from SpO2 Sensor 51 L 51 L 52 L Pulse Rhythm Pulse Strength Respiratory Rate 20 14 19 Respiratory Effort / Characteristics Respiratory Depth Respiratory Pattern Blood Pressure 130/61 132/68 Blood Pressure Mean 72 80 Pulse Oximetry 99 99 99 Oxygen Delivery Method Room Air Oxygen Flow Rate Sepsis Recent Fever Within 48 Hours Sepsis New/Unexplained Change in Mental Status Sepsis Action Taken by Nursing 05/08/20 10:10 05/08/20 10:15 05/08/20 10:20 Temperature Temperature Source Pulse Rate 53 L 52 L 51 L Pulse Rate from SpO2 Sensor 53 L 53 L 51 L Pulse Rhythm Pulse Strength Respiratory Rate 17 20 22 Respiratory Effort / Characteristics Respiratory Depth Respiratory Pattern Blood Pressure 121/62 Blood Pressure Mean 75 Pulse Oximetry 99 99 99 Oxygen Delivery Method Oxygen Flow Rate Sepsis Recent Fever Within 48 Hours Sepsis New/Unexplained Change in Mental Status Sepsis Action Taken by Nursing 05/08/20 10:30 05/08/20 10:40 05/08/20 10:45 Temperature Temperature Source Pulse Rate 53 L 53 L 52 L Pulse Rate from SpO2 Sensor 53 L 53 L 52 L Pulse Rhythm Pulse Strength Respiratory Rate 20 17 20 Respiratory Effort / Characteristics Respiratory Depth Respiratory Pattern Blood Pressure 142/75 H 133/72 Blood Pressure Mean 83 82 Pulse Oximetry 99 99 99 Oxygen Delivery Method Oxygen Flow Rate Sepsis Recent Fever Within 48 Hours Sepsis New/Unexplained Change in Mental Status Sepsis Action Taken by Nursing 05/08/20 10:50 05/08/20 11:00 05/08/20 11:10 Temperature Temperature Source Pulse Rate 53 L 53 L 53 L Pulse Rate from SpO2 Sensor 53 L 53 L 55 L Pulse Rhythm Pulse Strength Respiratory Rate 17 15 30 H Respiratory Effort / Characteristics Respiratory Depth Respiratory Pattern Blood Pressure 142/79 H Blood Pressure Mean 85 Pulse Oximetry 98 99 90 Oxygen Delivery Method Oxygen Flow Rate Sepsis Recent Fever Within 48 Hours Sepsis New/Unexplained Change in Mental Status Sepsis Action Taken by Nursing 05/08/20 11:20 05/08/20 11:30 05/08/20 11:40 Temperature Temperature Source Pulse Rate 52 L 51 L 51 L Pulse Rate from SpO2 Sensor 52 L 51 L Pulse Rhythm Pulse Strength Respiratory Rate 20 18 25 H Respiratory Effort / Characteristics Respiratory Depth Respiratory Pattern Blood Pressure 160/86 H Blood Pressure Mean 96 Pulse Oximetry 98 95 Oxygen Delivery Method Nasal Cannula Nasal Cannula Oxygen Flow Rate 3 3 Sepsis Recent Fever Within 48 Hours Sepsis New/Unexplained Change in Mental Status Sepsis Action Taken by Nursing VITAL SIGNS - Vital signs and nursing notes were reviewed. GENERAL - 84-year-old male appearing stated age who is in no acute distress. Communicates well with provider and answers questions appropriately. SKIN - Without rashes. HEAD - NC/AT. EYES - PERRL with EOMI bilaterally. Sclera anicteric. Palpebral conjunctiva pink and moist with no injection noted. EARS - No deformities of external structures noted on gross examination bilate rally. No pain elicited with palpation of the tragus bilaterally. External auditory canals without discharge or otorrhea. Tympanic membranes pearly sparrow without retraction or bulging. No fluid or purulent material visualized behind the TM. Handle of malleus, umbo, cone of light, pars tensa/flaccid all easily visualized. NOSE - Midline and without cyanosis. No epistaxis or purulent drainage noted. Septum midline without deviation or septal hematoma noted. MOUTH/OROPHARYNX - Without perioral cyanosis. Buccal mucosa pink and moist and without leukoplakia. Tongue midline with equal elevation of palate bilaterally. No tonsillar hypertrophy, erythema, or exudates noted. dentition noted. NECK - Neck with FROM. Supple to palpation. lymphadenopathy noted. No nuchal rigidity. LUNGS - Chest wall symmetric without accessory muscle use, intercostals retractions, or central cyanosis. Normal vesicular breath sounds CTA B/L. No wheezes, rales, or rhonchi appreciated. CARDIAC - RRR with S1/S2. No murmur, rubs, or gallops appreciated. ABDOMEN - Abdominal contour without pulsations or visible masses. BS normoactive all four quadrants. mild tenderness No palpable masses, hepatosplenomegaly, or ascites noted. EXTREMITIES - No clubbing or peripheral cyanosis. No pretibial edema present. +3/5 radial, posterior tibial, and dorsalis pedis pulses palpated throughout. +5/5 strength noted in UE/LE bilaterally. NEUROLOGIC - Cranial nerves II through XII grossly intact. Sensory intact to light touch throughout. Patellar reflexes +2/4. PSYCH - A&Ox3 and cooperates fully with examiner. Pt is very pleasant and interacts well with examiner. Course Administered Medications Lactated Ringer's (Lr) 1,000 mls @ 200 mls/hr IV .Q5H JASMEET Stop: 05/08/20 16:29 Last Admin: 05/08/20 14:20 Dose: 200 mls/hr Documented by: [id number] Famotidine 20 mg/ Syringe 5 mls @ 2.5 mls/min IV BID JASMEET Stop: 06/07/20 13:59 Last Admin: 05/08/20 14:20 Dose: 2.5 mls/min Documented by: [id number] Cefoxitin Sodium 2,000 mg/ (Dextrose) 60 mls @ 100 mls/hr IV Q8H JASMEET; Protocol Stop: 05/18/20 13:59 Last Admin: 05/08/20 14:20 Dose: 100 mls/hr Documented by: [id number] Discontinued Medications Hydromorphone HCl (Dilaudid) 0.5 mg IV Q15M PRN PRN Reason: Pain Stop: 05/22/20 09:07 Last Admin: 05/08/20 12:46 Dose: 0.5 mg Documented by: [id number] Admin: 05/08/20 10:44 Dose: 0.5 mg Documented by: [id number] Admin: 05/08/20 09:15 Dose: 0.5 mg Documented by: [id number] Acetaminophen (Ofirmev) 1,000 mg in 100 mls @ 400 mls/hr IV NOW STA Stop: 05/08/20 09:22 Last Infusion: 05/08/20 09:43 Dose: 0 mls/hr Documented by: [id number] Admin: 05/08/20 09:15 Dose: 400 mls/hr Documented by: [id number] Sodium Chloride (Nss 1000ml) 1,000 mls @ 999 mls/hr IV .Q1H1M ONE Stop: 05/08/20 10:47 Last Infusion: 05/08/20 12:16 Dose: 0 mls/hr Documented by: [id number] Admin: 05/08/20 10:11 Dose: 999 mls/hr Documented by: [id number] Ceftriaxone Sodium (Rocephin) 2,000 mg in 70 mls @ 140 mls/hr IV NOW STA Stop: 05/08/20 11:00 Last Infusion: 05/08/20 12:16 Dose: 0 mls/hr Documented by: [id number] Admin: 05/08/20 10:44 Dose: 140 mls/hr Documented by: [id number] Ioversol (Optiray 320 125ml) 119 ml IV ONCE PRN PRN Reason: Interaction Checking Stop: 05/12/20 09:37 Last Admin: 05/08/20 09:39 Dose: 119 ml Documented by: [id number] Nitroglycerin (Nitrostat) Confirm Administered Dose 0.4 mg .ROUTE .STK-MED ONE Stop: 05/08/20 08:58 Last Admin: 05/08/20 10:11 Dose: Not Given Documented by: [id number] Nitroglycerin (Nitrostat) 0.4 mg SL NOW STA Stop: 05/08/20 08:59 Last Admin: 05/08/20 08:58 Dose: 0.4 mg Documented by: [id number] Ondansetron HCl (Zofran) 4 mg IV NOW STA Stop: 05/08/20 09:09 Last Admin: 05/08/20 09:14 Dose: 4 mg Documented by: [id number] Medical Decision Making Differential Diagnosis Cardiac ischemia, aortic dissection, pulmonary embolism, pneumothorax, pneumonia, pericarditis, myocarditis, esophageal rupture, GERD, cholecystitis, pancreatitis, musculoskeletal, as well as other pathologies. Medical Records Attestation: I reviewed the patient's medical records. Home Medications Current Medication List: was personally reviewed by me Laboratory Data Attestation: I reviewed the patient's lab results. Result diagrams: 05/08/20 09:05 05/08/20 09:43 Lab Results 05/08/20 05/08/20 05/08/20 Range/Units 09:05 09:05 09:05 WBC 11.85 H (4.8-10.8) K/uL RBC 5.84 (4.7-6.1) M/uL Hgb 18.7 H (14.0-18.0) g/dL POC Hgb (14.0-18.0) g/dl Hct 52.0 (42-52) % POC Hct (42-52) % MCV 89.0 (80-100) fL MCH 32.0 (25-34) pg MCHC 36.0 (32-36) g/dL RDW Std Deviation 45.1 (36.4-46.3) fL RDW Coeff of Tanvir 14.1 (11.5-14.5) % Plt Count 135 (130-400) K/uL MPV 10.6 H (7.4-10.4) fL Immature Gran % (Auto) 0.3 % Neut % (Auto) 75.4 % Lymph % (Auto) 17.0 % Crook % (Auto) 6.1 % Eos % (Auto) 1.1 % Baso % (Auto) 0.1 % Immature Gran # (Auto) 0.04 H (0.00-0.02) K/uL Neut # (Auto) 8.94 H (1.4-6.5) K/uL Lymph # (Auto) 2.01 (1.2-3.4) K/uL Crook # (Auto) 0.72 H (0.11-0.59) K/uL Eos # (Auto) 0.13 (0-0.5) K/uL Baso # (Auto) 0.01 (0-0.2) K/uL ESR (0-14) mm/hr PT Cancelled INR Cancelled APTT Cancelled PTT Ratio Cancelled POC Sodium (135-144) mmol/L Sodium Cancelled POC Potassium (3.3-5.0) mmol/L Potassium Cancelled POC Chloride (101-112) mmol/L Chloride Cancelled Carbon Dioxide Cancelled POC Total CO2 (24-31) mmol/L Anion Gap Cancelled POC Anion Gap (16-25) mmol/L POC BUN (7-18) mg/dl BUN Cancelled Creatinine Cancelled POC Creatinine (0.6-1.3) mg/dl Est Cr Clr Drug Dosing Cancelled Est GFR ( Amer) Cancelled Est GFR (Non-Af Amer) Cancelled BUN/Creatinine Ratio Cancelled Glucose Cancelled POC Glucose (other) (70-99) mg/dl Calcium Cancelled POC Ioniz Calcium Rben (1.12-1.32) mmol/l Magnesium (1.8-2.4) mg/dl Ferritin (8-388) ng/ml Total Bilirubin Cancelled AST Cancelled ALT Cancelled Alkaline Phosphatase Cancelled Lactate Dehydrogenase (87-241) U/L Total Creatine Kinase Cancelled CK-MB (CK-2) Cancelled CK/CKMB % Calc Cancelled Troponin I Cancelled C-Reactive Protein (0-0.29) mg/dl Total Protein Cancelled Albumin Cancelled Globulin Cancelled Albumin/Globulin Ratio Cancelled Lipase Cancelled Procalcitonin (0-0.5) ng/ml 05/08/20 05/08/20 05/08/20 Range/Units 09:05 09:11 09:43 WBC (4.8-10.8) K/uL RBC (4.7-6.1) M/uL Hgb (14.0-18.0) g/dL POC Hgb 18.4 H (14.0-18.0) g/dl Hct (42-52) % POC Hct 54 H (42-52) % MCV (80-100) fL MCH (25-34) pg MCHC (32-36) g/dL RDW Std Deviation (36.4-46.3) fL RDW Coeff of Tanvir (11.5-14.5) % Plt Count (130-400) K/uL MPV (7.4-10.4) fL Immature Gran % (Auto) % Neut % (Auto) % Lymph % (Auto) % Crook % (Auto) % Eos % (Auto) % Baso % (Auto) % Immature Gran # (Auto) (0.00-0.02) K/uL Neut # (Auto) (1.4-6.5) K/uL Lymph # (Auto) (1.2-3.4) K/uL Crook # (Auto) (0.11-0.59) K/uL Eos # (Auto) (0-0.5) K/uL Baso # (Auto) (0-0.2) K/uL ESR 2 (0-14) mm/hr PT INR APTT PTT Ratio POC Sodium 139 (135-144) mmol/L Sodium 140 POC Potassium 4.2 (3.3-5.0) mmol/L Potassium 3.8 POC Chloride 103 (101-112) mmol/L Chloride 108 H Carbon Dioxide 28 POC Total CO2 28 (24-31) mmol/L Anion Gap 4.0 POC Anion Gap 12.0 L (16-25) mmol/L POC BUN 22 H (7-18) mg/dl BUN 18 Creatinine 1.26 POC Creatinine 1.3 (0.6-1.3) mg/dl Est Cr Clr Drug Dosing 43.8 Est GFR ( Amer) 60.7 Est GFR (Non-Af Amer) 52.4 BUN/Creatinine Ratio 14.4 Glucose 154 H POC Glucose (other) 150 H (70-99) mg/dl Calcium 7.8 L POC Ioniz Calcium Bren 1.16 (1.12-1.32) mmol/l Magnesium (1.8-2.4) mg/dl Ferritin 97.6 (8-388) ng/ml Total Bilirubin 1.3 H AST 24 ALT 36 Alkaline Phosphatase 61 Lactate Dehydrogenase (87-241) U/L Total Creatine Kinase CK-MB (CK-2) 3.1 CK/CKMB % Calc Troponin I 0.026 C-Reactive Protein < 0.29 (0-0.29) mg/dl Total Protein 4.8 L Albumin 2.7 L Globulin 2.1 L Albumin/Globulin Ratio 1.3 Lipase 83312 H Procalcitonin (0-0.5) ng/ml 05/08/20 05/08/20 05/08/20 Range/Units 09:43 09:43 09:43 WBC (4.8-10.8) K/uL RBC (4.7-6.1) M/uL Hgb (14.0-18.0) g/dL POC Hgb (14.0-18.0) g/dl Hct (42-52) % POC Hct (42-52) % MCV (80-100) fL MCH (25-34) pg MCHC (32-36) g/dL RDW Std Deviation (36.4-46.3) fL RDW Coeff of Tanvir (11.5-14.5) % Plt Count (130-400) K/uL MPV (7.4-10.4) fL Immature Gran % (Auto) % Neut % (Auto) % Lymph % (Auto) % Crook % (Auto) % Eos % (Auto) % Baso % (Auto) % Immature Gran # (Auto) (0.00-0.02) K/uL Neut # (Auto) (1.4-6.5) K/uL Lymph # (Auto) (1.2-3.4) K/uL Crook # (Auto) (0.11-0.59) K/uL Eos # (Auto) (0-0.5) K/uL Baso # (Auto) (0-0.2) K/uL ESR (0-14) mm/hr PT 14.6 H INR 1.4 H APTT 33.7 H PTT Ratio 1.2 POC Sodium (135-144) mmol/L Sodium POC Potassium (3.3-5.0) mmol/L Potassium POC Chloride (101-112) mmol/L Chloride Carbon Dioxide POC Total CO2 (24-31) mmol/L Anion Gap POC Anion Gap (16-25) mmol/L POC BUN (7-18) mg/dl BUN Creatinine POC Creatinine (0.6-1.3) mg/dl Est Cr Clr Drug Dosing Est GFR ( Amer) Est GFR (Non-Af Amer) BUN/Creatinine Ratio Glucose POC Glucose (other) (70-99) mg/dl Calcium POC Ioniz Calcium Bren (1.12-1.32) mmol/l Magnesium (1.8-2.4) mg/dl Ferritin (8-388) ng/ml Total Bilirubin AST ALT Alkaline Phosphatase Lactate Dehydrogenase 177 (87-241) U/L Total Creatine Kinase CK-MB (CK-2) CK/CKMB % Calc Troponin I C-Reactive Protein (0-0.29) mg/dl Total Protein Albumin Globulin Albumin/Globulin Ratio Lipase Procalcitonin < 0.05 (0-0.5) ng/ml 05/08/20 Range/Units 09:43 WBC (4.8-10.8) K/uL RBC (4.7-6.1) M/uL Hgb (14.0-18.0) g/dL POC Hgb (14.0-18.0) g/dl Hct (42-52) % POC Hct (42-52) % MCV (80-100) fL MCH (25-34) pg MCHC (32-36) g/dL RDW Std Deviation (36.4-46.3) fL RDW Coeff of Tanvir (11.5-14.5) % Plt Count (130-400) K/uL MPV (7.4-10.4) fL Immature Gran % (Auto) % Neut % (Auto) % Lymph % (Auto) % Crook % (Auto) % Eos % (Auto) % Baso % (Auto) % Immature Gran # (Auto) (0.00-0.02) K/uL Neut # (Auto) (1.4-6.5) K/uL Lymph # (Auto) (1.2-3.4) K/uL Crook # (Auto) (0.11-0.59) K/uL Eos # (Auto) (0-0.5) K/uL Baso # (Auto) (0-0.2) K/uL ESR (0-14) mm/hr PT INR APTT PTT Ratio POC Sodium (135-144) mmol/L Sodium POC Potassium (3.3-5.0) mmol/L Potassium POC Chloride (101-112) mmol/L Chloride Carbon Dioxide POC Total CO2 (24-31) mmol/L Anion Gap POC Anion Gap (16-25) mmol/L POC BUN (7-18) mg/dl BUN Creatinine POC Creatinine (0.6-1.3) mg/dl Est Cr Clr Drug Dosing Est GFR ( Amer) Est GFR (Non-Af Amer) BUN/Creatinine Ratio Glucose POC Glucose (other) (70-99) mg/dl Calcium POC Ioniz Calcium Bren (1.12-1.32) mmol/l Magnesium 1.8 (1.8-2.4) mg/dl Ferritin (8-388) ng/ml Total Bilirubin AST ALT Alkaline Phosphatase Lactate Dehydrogenase (87-241) U/L Total Creatine Kinase CK-MB (CK-2) CK/CKMB % Calc Troponin I C-Reactive Protein (0-0.29) mg/dl Total Protein Albumin Globulin Albumin/Globulin Ratio Lipase Procalcitonin (0-0.5) ng/ml Imaging Data Radiologist's Impression: [place] [phone] XRay Report Patient: KANIKA TOM Admit Date: 05/08/20 MR#: [id number] Address1: [address] [place] [address] Acct ID:[id number] Address2: Date: 1935 [facility] Zip: [place] [address] Age: 84 Location: ED Sex: M Room/Bed: Att Phy: Diagnosis: abd pain Tonja Phy: Martinez Riley Jr, DO Service Date: 05/08/20 Fam Phy: Interpreting Phy: Estuardo Hernandez MD Admit Phy: Ordering Phy: Maico Arias MD cc: ~ XR chest 1V portable CLINICAL HISTORY: Chest Pain dyspnea COMPARISON STUDY: 07/12/2019 FINDINGS: Mild stable cardiomegaly. Prior median sternotomy. Infiltrate left base. Lungs otherwise appear clear. IMPRESSION: Infiltrate left base. ACT 112: Negative or not required by law. The above report was generated using voice recognition software. It may contain grammatical, syntax or spelling errors. Electronically signed by: Estuardo Hernandez M.D. 05/08/2020 9:23 AM Dictated: 05/08/20921 Transcribed: 05/08/20921 [facility] [place] [phone] Ultrasound Report Patient: KANIKA TOM Admit Date: 05/08/20 MR#: [id number] Address1: [address] [place] [address] Acct ID:[id number] Address2: Date: 1935 [facility] Zip: [place] [address] Age: 84 Location: ED Sex: M Room/Bed: Att Phy: Diagnosis: abd pain Tonja Phy: Martinez Riley Jr, DO Service Date: 05/08/20 Fam Phy: Interpreting Phy: Estuardo Hernandez MD Admit Phy: Ordering Phy: Luis Caldwell MD cc: ~ US gallbladder HISTORY: Pain pancreatitis; abnormal gall bladder on CT COMPARISON: CT 05/08/2020 FINDINGS: Trace of pelvic ascites. The pancreas is not seen due to overlying bowel content. Trace pericholecystic fluid. Gallbladder wall 3 mm. No shadowing gallstones. Right kidney is negative for hydronephrosis. Common bile duct is 7 mm. IMPRESSION: 1. Nonvisibility of the pancreas due to overlying bowel content. 2. Slight prominence of the gallbladder wall with a trace amount of pericholecystic fluid. 3. No shadowing gallstones. 4. Possibility of acalculous acute cholecystitis is considered. 5. Slight prominence of the common bile duct at 7 mm. ACT 112: Negative or not required by law. The above report was generated using voice recognition software. It may contain grammatical, syntax or spelling errors. Electronically signed by: Estuardo Hernandez M.D. 05/08/2020 12:13 PM Dictated: 05/08/201209 Transcribed: 05/08/201209 [facility] [place] [phone] CT Scan Report Patient: KANIKA TOM Admit Date: 05/08/20 MR#: [id number] Address1: [address] Acct ID:[id number] Address2: Date: 1935 [facility] Zip: [place] [id number] Age: 84 Location: ED Sex: M Room/Bed: Att Phy: Diagnosis: abd pain Tonja Phy: Martinez Riley Jr, DO Service Date: Fam Phy: Interpreting Phy: Hiram Perkins MD Admit Phy: Ordering Phy: Maico Arias MD cc: ~ CT ANGIOGRAM OF THE ABDOMEN AND PELVIS COMBO CLINICAL HISTORY: Epigastric abdominal pain. COMPARISON STUDY: Abdominal CT dated 07/18/2008. TECHNIQUE: Before and following the IV administration of 119 cc of Optiray 320, CT angiogram of the abdomen and pelvis was performed from the lung bases the proximal femora. Images are reviewed in the axial, sagittal, and coronal planes. 3-D MIPS images are created and assessed. IV contrast was administered without complication. A dose lowering technique was utilized adhering to the principles of ALARA. CT DOSE: 1229.21 mGy.cm FINDINGS: Lower chest: The patient is status post midline sternotomy. The heart is enlarged and without pericardial effusion. The coronary arteries are densely calcified. A small hiatal hernia is noted. The lung bases are clear noting dependent atelectasis. There is a small hiatal hernia. Liver: The contrast-enhanced liver is normal in size, contour, and attenuation. There is moderate intrahepatic biliary ductal dilatation. Gallbladder: The gallbladder is distended but otherwise normal in appearance. Spleen: Normal in size and attenuation noting heterogeneous arterial phase enhancement. Pancreas: The pancreas is enlarged and edematous. There is extensive peripancreatic inflammation and fluid, and the appearance is consistent with acute pancreatitis. No organized peripancreatic fluid collection is identified. The parenchyma enhances throughout. The splenic vein is not well opacified but appears patent. Adrenal glands: Unremarkable. Kidneys: The contrast enhanced kidneys demonstrate cortical atrophy and are without hydronephrosis. No renal calculi are identified on the unenhanced series. The kidneys enhance symmetrically. There are 2 left renal cysts measuring up to 5 cm. Abdominal aorta and iliac arteries: The abdominal aorta is normal in course and caliber noting moderate atherosclerotic calcification. The abdominal aorta is widely patent, and no dissection is seen. The iliac arteries are widely patent bilaterally. Major branches of the abdominal aorta: The left gastric artery arises directly from the abdominal aorta. The celiac trunk, superior mesenteric, and inferior mesenteric arteries are widely patent. Hepatic arterial anatomy is conventional. The splenic artery is patent. Single bilateral renal arteries are patent. There is mild stenosis at the origin of the left renal artery. Bowel: There is no bowel obstruction. Fecal retention is noted throughout the colon. Wall thickening and edema of the duodenum is likely related to adjacent pancreatitis. The appendix is normal as visualized. Peritoneum: No intraperitoneal free air is seen. There is. Fluid, is also trace free fluid in the pelvis. There is a small fat-containing umbilical hernia. Lymphadenopathy: None. Pelvic viscera: The prostate gland is not identified and presumed surgically absent. The bladder wall appears mildly thickened and trabeculated suggesting the sequelae of chronic outlet obstruction. There is a small fat-containing right inguinal hernia. Skeletal structures: The skeletal structures are osteopenic. There is moderate lumbosacral spondylosis. No destructive bony lesions are seen. IMPRESSION: 1. Findings are consistent with severe acute pancreatitis. 2. The pancreatic parenchyma enhances throughout and no organized peripancreatic fluid collection is identified. 3. There is intrahepatic biliary ductal dilatation as well as distention of the gallbladder. The appearance suggests biliary obstruction. 4. Wall thickening and edema of the duodenum is likely related to adjacent pancreatitis. 5. Unremarkable CT angiogram of the abdominal aorta and its major branches. 6. Marked cardiomegaly. 7. Trace pelvic ascites is likely on a reactive basis. 8. Additional findings as above. ACT 112: Negative or not required by law. Electronically signed by: Hiram Perkins M.D. 05/08/2020 10:13 AM Dictated: 05/08/20958 Transcribed: 05/08/20 [address] [place], [place] [phone] CT Scan Report Patient: KANIKA TOM JR Admit Date: 05/08/20 MR#: [id number] Address1: [address] [place] [address] Acct ID:[id number] Address2: Date: [address] [facility] Zip: [place] [address] Age: 84 Location: ED Sex: M Room/Bed: Att Phy: Diagnosis: abd pain Tonja Phy: Martinez Riley Jr, DO Service Date: 05/08/20 [facility] Phy: Interpreting Phy: Will Lee Admit Phy: Ordering Phy: Maico Arias MD cc: ~ CT angio chest dissec wo/w con HISTORY: 84 years-old Male Pt hx of aorta repair, severe chest pain acute severe chest pain with epigastric pain. History of prior aortic repair. COMPARISON: CTA abdomen pelvis of same day, chest radiograph 07/18/2008 TECHNIQUE: CTA of the chest was obtained both with and without the use of 119 mL Optiray 320. 3-D coronal and sagittal MIPS were obtained from the axial data set and were submitted for review. All measurements were obtained according to NASCET criteria. A dose lowering technique was used consistent with the principals of JACOB. FINDINGS: CTA: Moderate to marked cardiomegaly. No pericardial effusion. Moderate mixed plaque of the thoracic aortic arch. No thoracic aortic aneurysm or dissection. Patency of the imaged great vessels. Prior median sternotomy with CABG. Dilation of the main pulmonary artery, 4.2 cm transversely. No filling defects to suggest thromboembolic disease. No intramural or mediastinal hematoma. CT CHEST: No thyroid nodule. Nonspecific prominent precarinal lymph nodes measure up to 9 mm. No pneumothorax or pleural effusion. No overt pulmonary edema. Mild dependent bibasilar groundglass densities suggest atelectasis. 3 mm subpleural solid nodule of the inferior segment lingular, image 168 of series 9, unchanged compatible with benign etiology. There is a linear consolidative opacity of the medial basal segment right lower lobe on image 149 series 9 which measures 3.3 x 1.6 cm suggestive of probable scarring/atelectasis. Central airways are patent. Partially imaged intraparenchymal and peripancreatic inflammatory stranding. Mild gallbladder distention. Soft tissues are unremarkable. Degenerative changes of the shoulders and spine. IMPRESSION: 1. 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 2. No aortic aneurysm or dissection. 3. Suggestion of pulmonary artery hypertension. 4. Partially imaged findings of acute pancreatitis. Correlate with the CT abdomen and pelvis study of same day. ACT 112: Negative or not required by law. The above report was generated using voice recognition software. It may contain grammatical, syntax or spelling errors. Electronically signed by: Mani Lee M.D. 05/08/2020 10:23 AM Dictated: 05/08/2045 Transcribed: 05/08/20944 ECG Data Attestation: I personally reviewed and interpreted this ECG as follows: Indication: abdominal pain Rate (beats per minute): 57 Rhythm: sinus bradycardia Findings: + Q waves (Anterior) and + T-wave inversion (Lateral) Comparison ECG Date: from (11/11/2018) Change: no significant change Additional Comments: Reverse: 8:55 sinus bradycardia rate of 59 old anterior lateral infarct no ST elevation or depression QTC is 441. MDM Narrative Patient was seen and evaluated as above in room C11B. Review was performed of nursing notes and vital signs. I did review pertinent previous visits and patient history. After obtaining a thorough history and physical examination the above work up was performed. An order was placed for continuous cardiac monitoring. The monitor shows a rate of 51 with Normal Sinus rhythm. This is an 84-year-old male who presents emergency department complaining of acute epigastric pain. The patient does admit to drinking 1 alcoholic beverage per night. Due to the patient's acuity he was immediately sent for CAT scan of the chest abdomen and pelvis. This is concerning for acute pancreatitis. His lipase was found to be grossly elevated and he does have an elevation in his white blood cell count. For this reason the patient was pancultured and started on broad-spectrum antibiotics. I did discuss the case with the hospitalist service who did agree to admit the patient. Patient was given Dilaudid here for his pain. Patient and are in agreement with the treatment plan. The patient was evaluated during the global COVID-19 pandemic, and that diagnosis was suspected/considered upon their initial presentation. Their evaluation, treatment and testing was consistent with current guidelines for patients who present with complaints or symptoms that may be related to COVID- 19. Impression & Plan Acute pancreatitis, Abdominal pain, acute, epigastric Discharge Plan Visit Data *Final* Discharge Date/Time: 05/08/20 12:49 Chief Complaint: Abdominal Pain Stated Complaint: abd pain ED Provider: Maico Arias Discharge Problem: Acute pancreatitis, Abdominal pain, acute, epigastric Patient Disposition: Admitted As Inpatient Discharge Instructions Interventions: ED Discharge Assessment Last Done: 05/08/20 12:49 Discharge Problem: Acute pancreatitis Qualifiers: Pancreatitis type: unspecified pancreatitis type Acute pancreatitis complication: unspecified Qualified Code(s): K85.90 - Acute pancreatitis without necrosis or infection, unspecified
[2020-05-08] MEDS ORDERED: ONDANSETRON INJ 2 MG/ML 2 ML VIAL IV STA (09:08)
[2020-05-08] MEDS ORDERED: ACETAMINOPHEN 1,000 MG/100 ML VIAL IV STA (09:08)
[2020-05-08] MEDS: HYDROmorphone INJ 0.5 MG/0.5 ML SYR IV PRN ×4 (09:15→20:07)
[2020-05-08 09:23] LABS: iSTAT Creatinine 1.3 mg/dl (0.6-1.3); iSTAT Hemoglobin 18.4 g/dl (14.0-18.0); iSTAT Ionized Calcium 1.16 mmol/l (1.12-1.32); iSTAT Potassium 4.2 mmol/L (3.3-5.0)
--- NOTE | 2020-05-08 09:24 | XRay Report ---
XR chest 1V portable CLINICAL HISTORY: Chest Pain dyspnea COMPARISON STUDY: 07/12/2019 FINDINGS: Mild stable cardiomegaly. Prior median sternotomy. Infiltrate left base. Lungs otherwise appear clear. IMPRESSION: Infiltrate left base. ACT 112: Negative or not required by law. The above report was generated using voice recognition software. It may contain grammatical, syntax or spelling errors. Electronically signed by: Estuardo Hernandez M.D. 05/08/2020 9:23 AM
[2020-05-08 09:27] LABS: Basophils # (auto) 0.01 K/uL (0-0.2); Basophils % (auto) 0.1 %; Eosinophils # (auto) 0.13 K/uL (0-0.5); Eosinophils % (auto) 1.1 %; Hemoglobin 18.7 g/dL (14.0-18.0); Immature Granulocytes # (auto) 0.04 K/uL (0.00-0.02); Immature Granulocytes % (auto) 0.3 %; Lymphocytes # (auto) 2.01 K/uL (1.2-3.4); Mean Platelet Volume 10.6 fL (7.4-10.4); Monocytes # (auto) 0.72 K/uL (0.11-0.59); Monocytes % (auto) 6.1 %; Neutrophils # (auto) 8.94 K/uL (1.4-6.5); Neutrophils % (auto) 75.4 %; Platelet Count 135 K/uL (130-400); RDW Coefficient of Variation 14.1 % (11.5-14.5); RDW Standard Deviation 45.1 fL (36.4-46.3); Red Blood Count 5.84 M/uL (4.7-6.1); White Blood Count 11.85 K/uL (4.8-10.8)
[2020-05-08] MEDS ORDERED: OPTIRAY 320 125ml IV PRN (09:38)
[2020-05-08] MEDS ORDERED: SODIUM CHLORIDE 0.9% 1000ML 1,000 ML IV ONE (09:47)
--- NOTE | 2020-05-08 10:14 | CT Scan Report ---
CT ANGIOGRAM OF THE ABDOMEN AND PELVIS COMBO CLINICAL HISTORY: Epigastric abdominal pain. COMPARISON STUDY: Abdominal CT dated 07/18/2008. TECHNIQUE: Before and following the IV administration of 119 cc of Optiray 320, CT angiogram of the a bdomen and pelvis was performed from the lung bases the proximal femora. Images are reviewed in the a xial, sagittal, and coronal planes. 3-D MIPS images are created and assessed. IV contrast was adminis tered without complication. A dose lowering technique was utilized adhering to the principles of ALA RA. CT DOSE: 1229.21 mGy.cm FINDINGS: Lower chest: The patient is status post midline sternotomy. The heart is enlarged and without pericar dial effusion. The coronary arteries are densely calcified. A small hiatal hernia is noted. The lung bases are clear noting dependent atelectasis. There is a small hiatal hernia. Liver: The contrast-enhanced liver is normal in size, contour, and attenuation. There is moderate int rahepatic biliary ductal dilatation. Gallbladder: The gallbladder is distended but otherwise normal in appearance. Spleen: Normal in size and attenuation noting heterogeneous arterial phase enhancement. Pancreas: The pancreas is enlarged and edematous. There is extensive peripancreatic inflammation and fluid, and the appearance is consistent with acute pancreatitis. No organized peripancreatic fluid co llection is identified. The parenchyma enhances throughout. The splenic vein is not well opacified bu t appears patent. Adrenal glands: Unremarkable. Kidneys: The contrast enhanced kidneys demonstrate cortical atrophy and are without hydronephrosis. N o renal calculi are identified on the unenhanced series. The kidneys enhance symmetrically. There are 2 left renal cysts measuring up to 5 cm. Abdominal aorta and iliac arteries: The abdominal aorta is normal in course and caliber noting modera te atherosclerotic calcification. The abdominal aorta is widely patent, and no dissection is seen. Th e iliac arteries are widely patent bilaterally. Major branches of the abdominal aorta: The left gastric artery arises directly from the abdominal aor ta. The celiac trunk, superior mesenteric, and inferior mesenteric arteries are widely patent. Hepati c arterial anatomy is conventional. The splenic artery is patent. Single bilateral renal arteries are patent. There is mild stenosis at the origin of the left renal artery. Bowel: There is no bowel obstruction. Fecal retention is noted throughout the colon. Wall thickening and edema of the duodenum is likely related to adjacent pancreatitis. The appendix is normal as visu alized. Peritoneum: No intraperitoneal free air is seen. There is. Fluid, is also trace free fluid in the pelvis. There is a small fat-containing umbilical hernia. Lymphadenopathy: None. Pelvic viscera: The prostate gland is not identified and presumed surgically absent. The bladder wall appears mildly thickened and trabeculated suggesting the sequelae of chronic outlet obstruction. The re is a small fat-containing right inguinal hernia. Skeletal structures: The skeletal structures are osteopenic. There is moderate lumbosacral spondylosi s. No destructive bony lesions are seen. IMPRESSION: 1. Findings are consistent with severe acute pancreatitis. 2. The pancreatic parenchyma enhances throughout and no organized peripancreatic fluid collection is identified. 3. There is intrahepatic biliary ductal dilatation as well as distention of the gallbladder. The appe arance suggests biliary obstruction. 4. Wall thickening and edema of the duodenum is likely related to adjacent pancreatitis. 5. Unremarkable CT angiogram of the abdominal aorta and its major branches. 6. Marked cardiomegaly. 7. Trace pelvic ascites is likely on a reactive basis. 8. Additional findings as above. ACT 112: Negative or not required by law. Electronically signed by: Hiram Perkins M.D. 05/08/2020 10:13 AM
[2020-05-08 10:16] LABS: INR 1.4 (0.9-1.1); Partial Thromboplastin Ratio 1.2; Partial Thromboplastin Time 33.7 Seconds (21.0-31.0); Prothrombin Time 14.6 Seconds (9.0-12.0)
[2020-05-08 10:21] LABS: Alanine Aminotransferase 36 U/L (12-78); Albumin Level 2.7 gm/dl (3.4-5.0); Aspartate Aminotransferase 24 U/L (15-37); BUN Creatinine Ratio 14.4 (10-20); Blood Urea Nitrogen 18 mg/dl (7-18); Calcium 7.8 mg/dl (8.5-10.1); Carbon Dioxide 28 mmol/L (21-32); Chloride 108 mmol/L (98-107); Creatinine Clr Calc Pharmacy 43.8 ml/min; Est GFR (African American) 60.7; Est GFR (Non-African American) 52.4; Glucose 154 mg/dl (70-99); Potassium 3.8 mmol/L (3.5-5.1); Sodium 140 mmol/L (136-145)
--- NOTE | 2020-05-08 10:24 | CT Scan Report ---
CT angio chest dissec wo/w con HISTORY: 84 years-old Male Pt hx of aorta repair, severe chest pain acute severe chest pain with epi gastric pain. History of prior aortic repair. COMPARISON: CTA abdomen pelvis of same day, chest radiograph 07/18/2008 TECHNIQUE: CTA of the chest was obtained both with and without the use of 119 mL Optiray 320. 3-D cor onal and sagittal MIPS were obtained from the axial data set and were submitted for review. All measu rements were obtained according to NASCET criteria. A dose lowering technique was used consistent wit h the principals junito JAMES. FINDINGS: CTA: Moderate to marked cardiomegaly. No pericardial effusion. Moderate mixed plaque of the thoracic aorti c arch. No thoracic aortic aneurysm or dissection. Patency of the imaged great vessels. Prior median sternotomy with CABG. Dilation of the main pulmonary artery, 4.2 cm transversely. No filling defects to suggest thromboembolic disease. No intramural or mediastinal hematoma. CT CHEST: No thyroid nodule. Nonspecific prominent precarinal lymph nodes measure up to 9 mm. No pneumothorax o r pleural effusion. No overt pulmonary edema. Mild dependent bibasilar groundglass densities suggest atelectasis. 3 mm subpleural solid nodule of the inferior segment lingular, image 168 of series 9, un changed compatible with benign etiology. There is a linear consolidative opacity of the medial basal segment right lower lobe on image 149 series 9 which measures 3.3 x 1.6 cm suggestive of probable sca rring/atelectasis. Central airways are patent. Partially imaged intraparenchymal and peripancreatic inflammatory stranding. Mild gallbladder distent ion. Soft tissues are unremarkable. Degenerative changes of the shoulders and spine. IMPRESSION: 1. 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 2. No aortic aneurysm or dissection. 3. Suggestion of pulmonary artery hypertension. 4. Partially imaged findings of acute pancreatitis. Correlate with the CT abdomen and pelvis study of same day. ACT 112: Negative or not required by law. The above report was generated using voice recognition software. It may contain grammatical, syntax o r spelling errors. Electronically signed by: Mani Lee M.D. 05/08/2020 10:23 AM
[2020-05-08 10:27] LABS: Albumin Globulin Ratio 1.3 (0.9-2); Alkaline Phosphatase 61 U/L (45-117); Bilirubin,Total 1.3 mg/dl (0.2-1); C Reactive Protein < 0.29 mg/dl (0-0.29); Creatine Kinase MB 3.1 ng/ml (0.5-3.6); Ferritin 97.6 ng/ml (8-388); Globulin 2.1 gm/dl (2.5-4.0); Total Protein 4.8 gm/dl (6.4-8.2); Troponin I 0.026 ng/ml (0-0.045)
[2020-05-08] MEDS ORDERED: cefTRIAXone SODIUM 2,000 MG/70 ML BAG IV STA (10:31)
[2020-05-08 10:45] LABS: Lipase 22775 U/L (73-393)
--- NOTE | 2020-05-08 10:49 | History & Physical Report ---
Date of Service May 08, 2020 Assessment & Plan (1) Acute pancreatitis: Biochemically, clinically and radiographically. Lipase >20,000. Drinks 1 glass of wine/night thus doubtful that etoh is the culprit. Distended gall bladder on CT with intra-hepatic biliary ductal dilatation and minimally elevated total bili. Concerning that the pancreatitis is due to biliary tract disease. Plan - * NPO * copious IVF -- LR at 200cc/hr x 1 liter, then 150cc/hr thereafter * dilaudid prn pain * zofran prn nausea/emesis * STAT gall bladder u/s * if u/s is unrevealing consider MRCP * results of imaging will dictate plan of care (GI consultation, gen surg consultation, etc) * hold ISAAC as ISAAC inhibitor class can cause pancreatitis * no recent illness to suggest viral etiology (2) Hypertension: hold ISAAC due to pancreatitis hold HCTZ due to need for copious IVF if BP control is needed consider hydralazine IV prn avoid beta guillermo due to bradycardia (3) PAF (paroxysmal atrial fibrillation): place on tele hold xarelto in the event he needs a procedure (ERCP, lap parviz, etc) cont amiodarone (4) Hypothyroidism: TSH 03/2020 wnl cont synthroid at home dosing (5) Dyslipidemia: hold statin for now triglycerides last month were <150 (6) GERD (gastroesophageal reflux disease): hold PO PPI place on IV pepcid BID (7) Abnormal EKG: ST segment depressions in I/AVL anterior Q waves no h/o CAD, acute [place], etc. 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 no significant murmur on exam I cannot find a recent echo in the EMR consider echo this admission if surgery is needed (9) DVT prophylaxis: hold xarelto in the event he needs a surgical procedure SCDs has dementia pt is primary care companion for her I informed social media project manager in ER of this situation we are making arrangements for her to be with him in his patient room daughter coming from [place] later today who will then pick her up on her arrival I updated daughter by phone this am History of Present Illness Chief Complaint: abdominal pain Primary Care Provider: Martinez Riley Jr, DO 84yo male with h/o bicuspid aortic valve s/p bioprosthetic AVR, atrial flutter/fib on amiodarone & xarelto, hypothyroidism, and HTN who presents with severe abdominal pain. He woke up about 0730 this morning and had the pain right away. Present in the epigastric region. Had emesis in the ER. No fever. No radiation of pain. Constant in nature. Pain was 10/10 upon arrival to ER; now 6/10. No recent abdominal pain episodes or indigestion. He has felt well over the last few weeks/months and keeping an active lifestyle (fishes nearly daily). Denies fevers/chills. No chest pain or dyspnea. Allergies Allergy/AdvReac Type Severity Reaction Status Date / Time codeine Allergy Unknown HALLUCINATI Verified 05/08/20 10:10 ONS oxycodone [From OxyContin] Allergy Unknown Verified 05/08/20 10:10 Penicillins Allergy Unknown CAN'T Verified 05/08/20 10:10 REMEMBER hydrocodone AdvReac Intermediate hallucinati Verified 05/08/20 10:10 ons Home Medications Home Medications Medication Instructions Recorded Confirmed Type alprazolam 0.5 mg tablet 0.5 mg PO HS tab 08/23/19 05/08/20 History atorvastatin 10 mg tablet 10 mg PO QDD tab 08/23/19 05/08/20 History esomeprazole magnesium 40 mg 40 mg PO QAM cap 08/23/19 05/08/20 History capsule,delayed release ferrous sulfate 325 mg (65 mg 325 mg PO QAM tab 08/23/19 05/08/20 History iron) tablet lisinopril 40 mg tablet 40 mg PO QAM tab 08/23/19 05/08/20 History multivitamin 1 tab PO QAM 08/23/19 05/08/20 History valacyclovir 500 mg tablet 500 mg PO QDD tab 08/23/19 05/08/20 History amiodarone 200 mg PO HS 05/08/20 05/08/20 History aspirin 81 mg PO QAM 05/08/20 05/08/20 History docusate sodium [Colace] 100 mg PO QDD 05/08/20 05/08/20 History hydrochlorothiazide 12.5 mg PO QAM 05/08/20 05/08/20 History levothyroxine 100 mcg PO SUMOTUWETHFR 05/08/20 05/08/20 History rivaroxaban 20 mg PO QDD 05/08/20 05/08/20 History Past Med/Surg History Medical History (Updated 05/08/20 @ 11:58 by Luis Caldwell) Aortic regurgitation due to bicuspid aortic valve (Inactive) Atrial flutter, paroxysmal (Acute) Depression (Acute) GERD (gastroesophageal reflux disease) (Acute) Hypertension (Acute) Hypothyroidism PAF (paroxysmal atrial fibrillation) Piriformis syndrome of right side (Resolved) Prostate cancer (Acute) Subconjunctival hematoma (Inactive) Surgical History (Updated 05/08/20 @ 12:04 by Luis Caldwell) H/O hernia repair (Acute) inguinal H/O prostatectomy (Acute) S/P aortic valve replacement Family History Mother Hypertension Diabetes Father , age 50 Myocardial infarction Social History (Updated 05/08/20 @ 11:20 by Luis Caldwell) Preferred Language: Mongolian Communication Ability: Effective Grants Administrator Required: No Beliefs That Will Affect Care: None marital status: Current Living Situation: Spouse Current Living Situation Comment: lives in [place] current occupational status: retired current occupation: [employer] Other Information That Helps Us Care for You: No other: 1 daughter Feels Safe at Home: Yes Safety Concerns: Feels Safe At This Time Smoking Status: Never smoker Do You Dip or Chew Tobacco: No ; Second Hand Exposure: No ; Tobacco Cessation Education Requested by Patient: No Hx Alcohol Use: Yes Alcohol type: wine Alcohol type Comment: 1 glass wine Alcohol Intake Frequency: Daily Hx Substance Use: No Review of Systems Constitutional: no fever, no chills, no anorexia and no weight loss Eyes: no worsening vision Ear, Nose, Mouth, Throat: no sore throat and no dysphagia loss of taste/smell x 2 years Respiratory: + cough (intermittent; x 2 years ); no dyspnea Cardiovascular: no chest pain, no orthopnea, no paroxysmal nocturnal dyspnea and no edema Gastrointestinal: + nausea and + vomiting; no diarrhea/loose stools and no blood in stools Genitourinary: no dysuria Musculoskeletal: no back pain and no neck pain Integumentary: no rash Neurologic: no loss of sensation Psychiatric: no depression Endocrine: no diabetes Hematologic / Lymphatic: + easy bruising Physical Exam Constitutional: well developed and well nourished; no acute distress and no altered mental status Eyes: + anicteric sclerae and PERRL ENMT: external ear and nose normal, oropharynx normal Mouth: + lip abnormality (healed ulceration/tissue injury lower lip) Neck: trachea midline, no thyromegaly Respiratory: normal respiratory effort, lungs clear to auscultation Cardiovascular: Rate/Rhythm: regular rate and regular rhythm Heart Sounds: normal S1 and normal S2; no murmur Vessels: posterior tibial pulses present and dorsalis pedis pulses present; no JVD Extremities: + varicosities; no edema Gastrointestinal (Abdomen): Inspection/Auscultation: + abdomen distended (minimal) and normal bowel sounds Percussion/Palpation: + abdomen tender (RUQ and epigastric region ) and + hernia (tiny - periumbilical ); no guarding and no hepatosplenomegaly Musculoskeletal: no cyanosis or clubbing, extremities motor strength 5/5 Skin: no rashes, warm and dry Neurologic: deep tendon reflexes 2+ bilaterally and moves all extremities Psychiatric: A+Ox3, euthymic affect Lymphatic: no cervical lymphadenopathy Results & Data Results & Data ([facility]) Vital Signs (Past 12 Hours) Vital Signs Temp Pulse Resp BP Pulse Ox 05/08/20 08:59 36.9 C 64 18 139/72 94 Laboratory Results Laboratory Results - last 24 hr 05/08/20 05/08/20 05/08/20 09:05 09:05 09:05 WBC 11.85 H RBC 5.84 Hgb 18.7 H POC Hgb Hct 52.0 POC Hct MCV 89.0 MCH 32.0 MCHC 36.0 RDW Std Deviation 45.1 RDW Coeff of Tanvir 14.1 Plt Count 135 MPV 10.6 H Immature Gran % (Auto) 0.3 Neut % (Auto) 75.4 Lymph % (Auto) 17.0 Kimble % (Auto) 6.1 Eos % (Auto) 1.1 Baso % (Auto) 0.1 Immature Gran # (Auto) 0.04 H Neut # (Auto) 8.94 H Lymph # (Auto) 2.01 Kimble # (Auto) 0.72 H Eos # (Auto) 0.13 Baso # (Auto) 0.01 ESR PT Cancelled INR Cancelled APTT Cancelled PTT Ratio Cancelled POC Sodium Sodium Cancelled POC Potassium Potassium Cancelled POC Chloride Chloride Cancelled Carbon Dioxide Cancelled POC Total CO2 Anion Gap Cancelled POC Anion Gap POC BUN BUN Cancelled Creatinine Cancelled POC Creatinine Est Cr Clr Drug Dosing Cancelled Est GFR ( Amer) Cancelled Est GFR (Non-Af Amer) Cancelled BUN/Creatinine Ratio Cancelled Glucose Cancelled POC Glucose (other) Calcium Cancelled POC Ioniz Calcium Bren Ferritin Total Bilirubin Cancelled AST Cancelled ALT Cancelled Alkaline Phosphatase Cancelled Lactate Dehydrogenase Total Creatine Kinase Cancelled CK-MB (CK-2) Cancelled CK/CKMB % Calc Cancelled Troponin I Cancelled C-Reactive Protein Total Protein Cancelled Albumin Cancelled Globulin Cancelled Albumin/Globulin Ratio Cancelled Lipase Cancelled Procalcitonin 05/08/20 05/08/20 05/08/20 09:05 09:11 09:43 WBC RBC Hgb POC Hgb 18.4 H Hct POC Hct 54 H MCV MCH MCHC RDW Std Deviation RDW Coeff of Tanvir Plt Count MPV Immature Gran % (Auto) Neut % (Auto) Lymph % (Auto) Kimble % (Auto) Eos % (Auto) Baso % (Auto) Immature Gran # (Auto) Neut # (Auto) Lymph # (Auto) Kimble # (Auto) Eos # (Auto) Baso # (Auto) ESR 2 PT INR APTT PTT Ratio POC Sodium 139 Sodium 140 POC Potassium 4.2 Potassium 3.8 POC Chloride 103 Chloride 108 H Carbon Dioxide 28 POC Total CO2 28 Anion Gap 4.0 POC Anion Gap 12.0 L POC BUN 22 H BUN 18 Creatinine 1.26 POC Creatinine 1.3 Est Cr Clr Drug Dosing 43.8 Est GFR ( Amer) 60.7 Est GFR (Non-Af Amer) 52.4 BUN/Creatinine Ratio 14.4 Glucose 154 H POC Glucose (other) 150 H Calcium 7.8 L POC Ioniz Calcium Bren 1.16 Ferritin 97.6 Total Bilirubin 1.3 H AST 24 ALT 36 Alkaline Phosphatase 61 Lactate Dehydrogenase Total Creatine Kinase CK-MB (CK-2) 3.1 CK/CKMB % Calc Troponin I 0.026 C-Reactive Protein < 0.29 Total Protein 4.8 L Albumin 2.7 L Globulin 2.1 L Albumin/Globulin Ratio 1.3 Lipase 66648 H Procalcitonin 05/08/20 05/08/20 05/08/20 09:43 09:43 09:43 WBC RBC Hgb POC Hgb Hct POC Hct MCV MCH MCHC RDW Std Deviation RDW Coeff of Tanvir Plt Count MPV Immature Gran % (Auto) Neut % (Auto) Lymph % (Auto) Kimble % (Auto) Eos % (Auto) Baso % (Auto) Immature Gran # (Auto) Neut # (Auto) Lymph # (Auto) Kimble # (Auto) Eos # (Auto) Baso # (Auto) ESR PT 14.6 H INR 1.4 H APTT 33.7 H PTT Ratio 1.2 POC Sodium Sodium POC Potassium Potassium POC Chloride Chloride Carbon Dioxide POC Total CO2 Anion Gap POC Anion Gap POC BUN BUN Creatinine POC Creatinine Est Cr Clr Drug Dosing Est GFR ( Amer) Est GFR (Non-Af Amer) BUN/Creatinine Ratio Glucose POC Glucose (other) Calcium POC Ioniz Calcium Bren Ferritin Total Bilirubin AST ALT Alkaline Phosphatase Lactate Dehydrogenase 177 Total Creatine Kinase CK-MB (CK-2) CK/CKMB % Calc Troponin I C-Reactive Protein Total Protein Albumin Globulin Albumin/Globulin Ratio Lipase Procalcitonin < 0.05 Diagnostic Findings 1. CTA chest - IMPRESSION: 1. 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 2. No aortic aneurysm or dissection. 3. Suggestion of pulmonary artery hypertension. 4. Partially imaged findings of acute pancreatitis. Correlate with the CT abdomen and pelvis study of same day. 2. CTA abd/pelvis - IMPRESSION: 1. Findings are consistent with severe acute pancreatitis. 2. The pancreatic parenchyma enhances throughout and no organized peripancreatic fluid collection is identified. 3. There is intrahepatic biliary ductal dilatation as well as distention of the gallbladder. The appearance suggests biliary obstruction. 4. Wall thickening and edema of the duodenum is likely related to adjacent pancreatitis. 5. Unremarkable CT angiogram of the abdominal aorta and its major branches. 6. Marked cardiomegaly. 7. Trace pelvic ascites is likely on a reactive basis. 3. EKG - my reading - NSR with PACs, first degree AV block, ST segment depression I/AVL; anterior Q waves Code Status & VTE Plan Code Status full - but would NOT want indefinite ventilation VTE Prophylaxis Plan VTE Prophylaxis will be ordered: Yes PG Care Time/CCT Total # of Minutes Spent Total Time Spent with Patient: Total time spent is greater than 50% in coordination of care (as documented) at patient's floor/unit and/or counseling patient: Coding Level of Care Code 09684 Initial Inpt Care Lvl 3 Diagnoses Acute pancreatitis K85.80 Pancreatitis type: other Acute pancreatitis complication: no infection or necrosis Hypertension I10 Hypertension type: essential hypertension PAF (paroxysmal atrial fibrillation) I48.0 Hypothyroidism E03.9 Hypothyroidism type: acquired Dyslipidemia E78.5 GERD (gastroesophageal reflux disease) K21.9 Esophagitis presence: esophagitis presence not specified Abnormal EKG R94.31 S/P aortic valve replacement Z95.2 DVT prophylaxis Z29.9 (1) Hypothyroidism Hypothyroidism type: acquired Qualified Code(s): E03.9 - Hypothyroidism, unspecified (2) GERD (gastroesophageal reflux disease) Esophagitis presence: esophagitis presence not specified Qualified Code(s): K21.9 - Gastro-esophageal reflux disease without esophagitis (3) Hypertension Hypertension type: essential hypertension Qualified Code(s): I10 - Essential (primary) hypertension (4) Acute pancreatitis Pancreatitis type: other Acute pancreatitis complication: no infection or necrosis Qualified Code(s): K85.80 - Other acute pancreatitis without necrosis or infection
[2020-05-08] MEDS ORDERED: LACTATED RINGER'S 1,000 ML IV SCH (11:30)
[2020-05-08] MEDS ORDERED: HYDROmorphone INJ 0.5 MG/0.5 ML SYR IV PRN (11:46)
--- NOTE | 2020-05-08 12:15 | Ultrasound Report ---
US gallbladder HISTORY: Pain pancreatitis; abnormal gall bladder on CT COMPARISON: CT 05/08/2020 FINDINGS: Trace of pelvic ascites. The pancreas is not seen due to overlying bowel content. Trace pericholecystic fluid. Gallbladder wall 3 mm. No shadowing gallstones. Right kidney is negative for hydronephrosis. Common bile duct is 7 mm. IMPRESSION: 1. Nonvisibility of the pancreas due to overlying bowel content. 2. Slight prominence of the gallbladder wall with a trace amount of pericholecystic fluid. 3. No shadowing gallstones. 4. Possibility of acalculous acute cholecystitis is considered. 5. Slight prominence of the common bile duct at 7 mm. ACT 112: Negative or not required by law. The above report was generated using voice recognition software. It may contain grammatical, syntax or spelling errors. Electronically signed by: Estuardo Hernandez M.D. 05/08/2020 12:13 PM
--- NOTE | 2020-05-08 12:19 | Electrocardiogram Report ---
Test Reason : Blood Pressure : / mmHG Vent. Rate : 057 BPM Atrial Rate : 057 BPM P-R Int : 208 ms QRS Dur : 112 ms QT Int : 456 ms P-R-T Axes : 041 015 110 degrees QTc Int : 443 ms Poor data quality, interpretation may be adversely affected Sinus bradycardia with Premature atrial complexes Abnormal ECG When compared with ECG of 11-NOV-2018 09:57, Premature atrial complexes are now Present ST now depressed in Lateral leads Confirmed by Russell Tripathi ([id number]) on 05/08/2020 12:18:46 PM Referred By: Confirmed By:Thaddeus Tripathi
--- NOTE | 2020-05-08 12:20 | Electrocardiogram Report ---
Test Reason : Blood Pressure : / mmHG Vent. Rate : 059 BPM Atrial Rate : 058 BPM P-R Int : 000 ms QRS Dur : 100 ms QT Int : 446 ms P-R-T Axes : 000 018 123 degrees QTc Int : 441 ms Poor data quality, interpretation may be adversely affected Sinus rhythm with PACs and 1st degree AV block Anterolateral infarct (cited on or before 11-NOV-2018) Abnormal ECG Confirmed by Russell Tripathi ([id number]) on 05/08/2020 12:19:36 PM Referred By: Confirmed By:Thaddeus Tripathi
[2020-05-08] MEDS ORDERED: ONDANSETRON INJ 2 MG/ML 2 ML VIAL IV PRN (13:16)
[2020-05-08] MEDS ORDERED: HydrALAZINE HCL 20 MG/ML VIAL IV PRN (13:16)
--- NOTE | 2020-05-08 14:10 | Surgery Consultation ---
Date of Consultation May 08, 2020 Assessment & Plan (1) Acute pancreatitis: This is an 84yM with a PMH of afib on xarelto, aortic valve replacement, prostate cancer, GERD and hypothyroidism who presents to the [facility] ED on 05/08/20 with complaints of severe abdominal pain. Workup in the ED revealed findings consistent for severe acute pancreatitis with a lipase: 37429. LFTs show tbili: 1.3, AST: 24, ALT: 36, Alkp:61. Imaging revealed no gallstones and patient without history of significant alcohol intake. At this time we recommend a formal consultation by GI and probable MRCP for further workup. Patient will need cardiac clearance and possible echo if patient ultimately requires surgery. Pt seen and examined with Dr. Koenig Supervising Physician Co-Signing Physician Notes Patient seen and examined, labs and imaging reviewed, agree with above. 84-year-old male admitted with acute pancreatitis. Lipase 22,000, CT scan with biliary duct dilatation and distended gallbladder as well as acute pancreatitis. Ultrasound showed distended gallbladder with 7 mm common bile duct and some pericholecystic fluid, no evidence of gallstones. On exam he is tender to palpation in the epigastrium and right upper quadrant, negative Lugo sign. He drinks 1 glass of red wine with dinner each night and had no changes in this prior to this event. No prior episodes, no history of postprandial pain. At this point there is no evidence that he has a biliary source for his pancreatitis. He would benefit from an MRCP, as well as GI consultation to consider ERCP and/or endoscopic ultrasound. If he does not have an up-to-date echocardiogram this should be performed as well as a possible cardiology consultation. Hold his anticoagulation if he does need procedures or surgeries during this stay. Surgery will continue to follow, call with questions or concerns History of Present Illness Attending Physician: Luis Caldwell History of Present Illness This is an 84yM with a PMH of afib on xarelto, aortic valve replacement, prostate cancer, GERD and hypothyroidism who presents to the [facility] ED on 05/08/20 with complaints of severe abdominal pain. Patient reports the pain started around 7:30 AM when he woke up this morning. The pain was severe so he came to the ED for further evaluation. In the ED workup revealed a WBC: 11.8, Lipase: 87435, and CT a/p with signs concerning for severe acute pancreatitis with no organized fluid collection. It also showed distention of the gallbladder with intrahepatic ductal dilation. A RUQ US showed no gallstones with slight prominence of the gallbladder wall and trace amount of pericholecystic fluid. Since admission patient's pain is still present, but lessened. He reports he drinks 1 glass of wine a night with dinner, but does not drink much else otherwise. Past abdominal surgical history includes an inguinal hernia repair. Allergies Allergy/AdvReac Type Severity Reaction Status Date / Time codeine Allergy Unknown HALLUCINATI Verified 05/08/20 10:10 ONS oxycodone [From OxyContin] Allergy Unknown Verified 05/08/20 10:10 Penicillins Allergy Unknown CAN'T Verified 05/08/20 10:10 REMEMBER hydrocodone AdvReac Intermediate hallucinati Verified 05/08/20 10:10 ons Home Medications Home Medications Medication Instructions Recorded Confirmed Type alprazolam 0.5 mg tablet 0.5 mg PO HS tab 08/23/19 05/08/20 History atorvastatin 10 mg tablet 10 mg PO QDD tab 08/23/19 05/08/20 History esomeprazole magnesium 40 mg 40 mg PO QAM cap 08/23/19 05/08/20 History capsule,delayed release ferrous sulfate 325 mg (65 mg 325 mg PO QAM tab 08/23/19 05/08/20 History iron) tablet lisinopril 40 mg tablet 40 mg PO QAM tab 08/23/19 05/08/20 History multivitamin 1 tab PO QAM 08/23/19 05/08/20 History valacyclovir 500 mg tablet 500 mg PO QDD tab 08/23/19 05/08/20 History amiodarone 200 mg PO HS 05/08/20 05/08/20 History aspirin 81 mg PO QAM 05/08/20 05/08/20 History docusate sodium [Colace] 100 mg PO QDD 05/08/20 05/08/20 History hydrochlorothiazide 12.5 mg PO QAM 05/08/20 05/08/20 History levothyroxine 100 mcg PO SUMOTUWETHFR 05/08/20 05/08/20 History rivaroxaban 20 mg PO QDD 05/08/20 05/08/20 History Patient History Medical History Aortic regurgitation due to bicuspid aortic valve (Inactive) Atrial flutter, paroxysmal (Acute) Depression (Acute) GERD (gastroesophageal reflux disease) (Acute) Hypertension (Acute) Hypothyroidism PAF (paroxysmal atrial fibrillation) Piriformis syndrome of right side (Resolved) Prostate cancer (Acute) Subconjunctival hematoma (Inactive) Surgical History H/O hernia repair (Acute) inguinal H/O prostatectomy (Acute) S/P aortic valve replacement Family History Mother Hypertension Diabetes Father , age 50 Myocardial infarction Social History Preferred Language: Marshallese Communication Ability: Effective Operations Officer Required: No Beliefs That Will Affect Care: None marital status: Current Living Situation: Spouse Current Living Situation Comment: lives in [place] current occupational status: retired current occupation: [employer] Other Information That Helps Us Care for You: No other: 1 daughter Feels Safe at Home: Yes Safety Concerns: Feels Safe At This Time Smoking Status: Never smoker Do You Dip or Chew Tobacco: No ; Second Hand Exposure: No ; Tobacco Cessation Education Requested by Patient: No Hx Alcohol Use: Yes Alcohol type: wine Alcohol type Comment: 1 glass wine Alcohol Intake Frequency: Daily Hx Substance Use: No Review of Systems Gastrointestinal: + abdominal pain (upper abdominal pain), + nausea and + vomiting Physical Exam Physical Exam: awake/alert Gastrointestinal (Abdomen): Percussion/Palpation: + abdomen tender (ttp in epigastric region and minimal RUQ tenderness) and abdomen soft Results & Data Vital Signs (Past 12 Hours) Vital Signs Temp Pulse Resp BP Pulse Ox 05/08/20 12:46 52 L 18 161/81 H 93 05/08/20 12:40 52 L 23 90 05/08/20 12:30 52 L 26 H 90 05/08/20 12:25 51 L 21 158/61 H 94 05/08/20 12:24 50 L 19 05/08/20 11:40 51 L 25 H 95 05/08/20 11:30 51 L 18 160/86 H 05/08/20 11:20 52 L 20 98 05/08/20 11:10 53 L 30 H 90 05/08/20 11:00 53 L 15 142/79 H 99 05/08/20 10:50 53 L 17 98 05/08/20 10:45 52 L 20 133/72 99 05/08/20 10:40 53 L 17 99 05/08/20 10:30 53 L 20 142/75 H 99 05/08/20 10:20 51 L 22 99 05/08/20 10:15 52 L 20 121/62 99 05/08/20 10:10 53 L 17 99 05/08/20 10:00 52 L 19 132/68 99 05/08/20 09:50 51 L 14 99 05/08/20 09:46 51 L 20 130/61 99 05/08/20 09:43 51 L 20 125/62 100 05/08/20 09:41 99 05/08/20 09:23 49 L 19 82/49 L 93 05/08/20 09:22 49 L 22 80/49 L 91 05/08/20 09:20 49 L 16 91 05/08/20 09:15 52 L 23 90/52 L 91 05/08/20 09:11 54 L 29 H 99/59 L 90 05/08/20 09:10 55 L 35 H 99/59 L 91 05/08/20 09:08 56 L 30 H 91/69 L 87 L 05/08/20 09:00 58 L 29 H 120/63 94 05/08/20 08:59 36.9 C 64 18 139/72 94 05/08/20 08:53 60 25 H 94 US gallbladder HISTORY: Pain pancreatitis; abnormal gall bladder on CT COMPARISON: CT 05/08/2020 FINDINGS: Trace of pelvic ascites. The pancreas is not seen due to overlying bowel content. Trace pericholecystic fluid. Gallbladder wall 3 mm. No shadowing gallstones. Right kidney is negative for hydronephrosis. Common bile duct is 7 mm. IMPRESSION: 1. Nonvisibility of the pancreas due to overlying bowel content. 2. Slight prominence of the gallbladder wall with a trace amount of pericholecystic fluid. 3. No shadowing gallstones. 4. Possibility of acalculous acute cholecystitis is considered. 5. Slight prominence of the common bile duct at 7 mm. ACT 112: Negative or not required by law. The above report was generated using voice recognition software. It may contain grammatical, syntax or spelling errors. Electronically signed by: Estuardo Hernandez M.D. 05/08/2020 12:13 PM Dictated: 05/08/20 1210 Transcribed: 05/08/[address] ANGIOGRAM OF THE ABDOMEN AND PELVIS COMBO CLINICAL HISTORY: Epigastric abdominal pain. COMPARISON STUDY: Abdominal CT dated 07/18/2008. TECHNIQUE: Before and following the IV administration of 119 cc of Optiray 320, CT angiogram of the abdomen and pelvis was performed from the lung bases the proximal femora. Images are reviewed in the axial, sagittal, and coronal planes. 3-D MIPS images are created and assessed. IV contrast was administered without complication. A dose lowering technique was utilized adhering to the principles of ALARA. CT DOSE: 1229.21 mGy.cm FINDINGS: Lower chest: The patient is status post midline sternotomy. The heart is enlarged and without pericardial effusion. The coronary arteries are densely calcified. A small hiatal hernia is noted. The lung bases are clear noting dependent atelectasis. There is a small hiatal hernia. Liver: The contrast-enhanced liver is normal in size, contour, and attenuation. There is moderate intrahepatic biliary ductal dilatation. Gallbladder: The gallbladder is distended but otherwise normal in appearance. Spleen: Normal in size and attenuation noting heterogeneous arterial phase enhancement. Pancreas: The pancreas is enlarged and edematous. There is extensive peripancreatic inflammation and fluid, and the appearance is consistent with acute pancreatitis. No organized peripancreatic fluid collection is identified. The parenchyma enhances throughout. The splenic vein is not well opacified but appears patent. Adrenal glands: Unremarkable. Kidneys: The contrast enhanced kidneys demonstrate cortical atrophy and are without hydronephrosis. No renal calculi are identified on the unenhanced series. The kidneys enhance symmetrically. There are 2 left renal cysts measuring up to 5 cm. Abdominal aorta and iliac arteries: The abdominal aorta is normal in course and caliber noting moderate atherosclerotic calcification. The abdominal aorta is widely patent, and no dissection is seen. The iliac arteries are widely patent bilaterally. Major branches of the abdominal aorta: The left gastric artery arises directly from the abdominal aorta. The celiac trunk, superior mesenteric, and inferior mesenteric arteries are widely patent. Hepatic arterial anatomy is conventional. The splenic artery is patent. Single bilateral renal arteries are patent. There is mild stenosis at the origin of the left renal artery. Bowel: There is no bowel obstruction. Fecal retention is noted throughout the colon. Wall thickening and edema of the duodenum is likely related to adjacent pancreatitis. The appendix is normal as visualized. Peritoneum: No intraperitoneal free air is seen. There is. Fluid, is also trace free fluid in the pelvis. There is a small fat-containing umbilical hernia. Lymphadenopathy: None. Pelvic viscera: The prostate gland is not identified and presumed surgically ab sent. The bladder wall appears mildly thickened and trabeculated suggesting the sequelae of chronic outlet obstruction. There is a small fat-containing right inguinal hernia. Skeletal structures: The skeletal structures are osteopenic. There is moderate lumbosacral spondylosis. No destructive bony lesions are seen. IMPRESSION: 1. Findings are consistent with severe acute pancreatitis. 2. The pancreatic parenchyma enhances throughout and no organized peripancreatic fluid collection is identified. 3. There is intrahepatic biliary ductal dilatation as well as distention of the gallbladder. The appearance suggests biliary obstruction. 4. Wall thickening and edema of the duodenum is likely related to adjacent pancreatitis. 5. Unremarkable CT angiogram of the abdominal aorta and its major branches. 6. Marked cardiomegaly. 7. Trace pelvic ascites is likely on a reactive basis. 8. Additional findings as above. ACT 112: Negative or not required by law. Electronically signed by: Hiram Perkins M.D. 05/08/2020 10:13 AM PG Care Time/CCT Total # of Minutes Spent Total Time Spent with Patient: Total time spent is greater than 50% in coordination of care (as documented) at patient's floor/unit and/or counseling patient: Coding Level of Care Code 89237 Initial Inpt Care Lvl 1 Diagnoses Acute pancreatitis K85.90 Acute pancreatitis complication: unspecified Pancreatitis type: unspecified pancreatitis type (1) Acute pancreatitis Acute pancreatitis complication: unspecified Pancreatitis type: unspecified pancreatitis type Qualified Code(s): K85.90 - Acute pancreatitis without necrosis or infection, unspecified
[2020-05-08] MEDS: cefOXitin 2,000 MG in DEXTROSE 5% 50 ML IV SCH ×2 (14:20→21:44)
[2020-05-08] MEDS: FAMOTIDINE 20 MG in SYRINGE 3 ML IV SCH ×2 (14:20→20:11)
--- NOTE | 2020-05-08 15:43 | Gastrointestinal Consultation ---
Date of Consultation May 08, 2020 History of Present Illness Attending Physician: Luis Caldwell 84 yo M admitted with abrupt onset of severe epigastric pain last night, associated with one episode of vomiting. No prior fever, jaundice/pruritus/dark urine. No prodromal symptoms. No prior h/o similar symptoms. On admit, noted to have marked increased lipase, increased hgb to 18, creat at baseline, normal transaminases, bili 1.3. Imaging showed IHDD, severe intertitiatl pancreatitis. No concern for cholangitis, with no fever and normal procalcitonin. Denies EtOH, trigs prev ok. PE: Appears comfortable HEENT: anicteric, mildly dry CV: RRR Resp: CTA Abd: tender epigastrium without rebound/guarding Labs reviewed A/P: Pancreatitis, presumbaly gallstones - no cholangitis and bili < 4. Agree with hydration, analgesia. Plan MRCP tomorrow. Will follow with you. Allergies Allergy/AdvReac Type Severity Reaction Status Date / Time codeine Allergy Unknown HALLUCINATI Verified 05/08/20 10:10 ONS oxycodone [From OxyContin] Allergy Unknown Verified 05/08/20 10:10 Penicillins Allergy Unknown CAN'T Verified 05/08/20 10:10 REMEMBER hydrocodone AdvReac Intermediate hallucinati Verified 05/08/20 10:10 ons Home Medications Home Medications Medication Instructions Recorded Confirmed Type alprazolam 0.5 mg tablet 0.5 mg PO HS tab 08/23/19 05/08/20 History atorvastatin 10 mg tablet 10 mg PO QDD tab 08/23/19 05/08/20 History esomeprazole magnesium 40 mg 40 mg PO QAM cap 08/23/19 05/08/20 History capsule,delayed release ferrous sulfate 325 mg (65 mg 325 mg PO QAM tab 08/23/19 05/08/20 History iron) tablet lisinopril 40 mg tablet 40 mg PO QAM tab 08/23/19 05/08/20 History multivitamin 1 tab PO QAM 08/23/19 05/08/20 History valacyclovir 500 mg tablet 500 mg PO QDD tab 08/23/19 05/08/20 History amiodarone 200 mg PO HS 05/08/20 05/08/20 History aspirin 81 mg PO QAM 05/08/20 05/08/20 History docusate sodium [Colace] 100 mg PO QDD 05/08/20 05/08/20 History hydrochlorothiazide 12.5 mg PO QAM 05/08/20 05/08/20 History levothyroxine 100 mcg PO SUMOTUWETHFR 05/08/20 05/08/20 History rivaroxaban 20 mg PO QDD 05/08/20 05/08/20 History Patient History Medical History Aortic regurgitation due to bicuspid aortic valve (Inactive) Atrial flutter, paroxysmal (Acute) Depression (Acute) GERD (gastroesophageal reflux disease) (Acute) Hypertension (Acute) Hypothyroidism PAF (paroxysmal atrial fibrillation) Piriformis syndrome of right side (Resolved) Prostate cancer (Acute) Subconjunctival hematoma (Inactive) Surgical History H/O hernia repair (Acute) inguinal H/O prostatectomy (Acute) S/P aortic valve replacement Family History Mother Hypertension Diabetes Father , age 50 Myocardial infarction Social History Preferred Language: Mongolian Communication Ability: Effective Chief Psychology Required: No Beliefs That Will Affect Care: None marital status: Current Living Situation: Spouse Current Living Situation Comment: lives in [place] current occupational status: retired current occupation: [employer] Other Information That Helps Us Care for You: No other: 1 daughter Feels Safe at Home: Yes Safety Concerns: Feels Safe At This Time Smoking Status: Never smoker Do You Dip or Chew Tobacco: No ; Second Hand Exposure: No ; Tobacco Cessation Education Requested by Patient: No Hx Alcohol Use: Yes Alcohol type: wine Alcohol type Comment: 1 glass wine Alcohol Intake Frequency: Daily Hx Substance Use: No Results & Data ([facility]) Vital Signs (Past 12 Hours) Vital Signs Temp Pulse Resp BP Pulse Ox 05/08/20 12:46 52 L 18 161/81 H 93 05/08/20 12:40 52 L 23 90 05/08/20 12:30 52 L 26 H 90 05/08/20 12:25 51 L 21 158/61 H 94 05/08/20 12:24 50 L 19 05/08/20 11:40 51 L 25 H 95 05/08/20 11:30 51 L 18 160/86 H 05/08/20 11:20 52 L 20 98 05/08/20 11:10 53 L 30 H 90 05/08/20 11:00 53 L 15 142/79 H 99 05/08/20 10:50 53 L 17 98 05/08/20 10:45 52 L 20 133/72 99 05/08/20 10:40 53 L 17 99 05/08/20 10:30 53 L 20 142/75 H 99 05/08/20 10:20 51 L 22 99 05/08/20 10:15 52 L 20 121/62 99 05/08/20 10:10 53 L 17 99 05/08/20 10:00 52 L 19 132/68 99 05/08/20 09:50 51 L 14 99 05/08/20 09:46 51 L 20 130/61 99 05/08/20 09:43 51 L 20 125/62 100 05/08/20 09:41 99 05/08/20 09:23 49 L 19 82/49 L 93 05/08/20 09:22 49 L 22 80/49 L 91 05/08/20 09:20 49 L 16 91 05/08/20 09:15 52 L 23 90/52 L 91 05/08/20 09:11 54 L 29 H 99/59 L 90 05/08/20 09:10 55 L 35 H 99/59 L 91 05/08/20 09:08 56 L 30 H 91/69 L 87 L 05/08/20 09:00 58 L 29 H 120/63 94 05/08/20 08:59 36.9 C 64 18 139/72 94 05/08/20 08:53 60 25 H 94
[2020-05-08] MEDS: LEVOTHYROXINE SODIUM 100 MCG TABLET PO SCH (15:57)
[2020-05-08] MEDS: VALACYCLOVIR HCL 500 MG TABLET PO SCH (17:11)
[2020-05-08] MEDS: LACTATED RINGER'S 1,000 ML IV SCH (17:41)
[2020-05-08] MEDS: AMIODARONE 200 MG TAB PO SCH (20:08)
[2020-05-08] MEDS: ALPRAZolam 0.5 MG TABLET PO SCH (21:44)
[2020-05-09] MEDS: HYDROmorphone INJ 0.5 MG/0.5 ML SYR IV PRN ×6 (00:33→22:58)
[2020-05-09] MEDS: LACTATED RINGER'S 1,000 ML IV SCH ×5 (03:34→22:58)
[2020-05-09] MEDS: LEVOTHYROXINE SODIUM 100 MCG TABLET PO SCH (05:46)
[2020-05-09] MEDS: cefOXitin 2,000 MG in DEXTROSE 5% 50 ML IV SCH ×3 (05:51→22:09)
[2020-05-09 06:10] LABS: Hematocrit (blood only) 50.2 % (42-52); Hemoglobin 17.6 g/dL (14.0-18.0); Mean Corpuscular Hemoglobin 31.7 pg (25-34); Mean Corpuscular Hgb Conc 35.1 g/dL (32-36); Mean Corpuscular Volume 90.3 fL (80-100); Mean Platelet Volume 10.6 fL (7.4-10.4); Platelet Count 118 K/uL (130-400); RDW Coefficient of Variation 14.3 % (11.5-14.5); RDW Standard Deviation 46.7 fL (36.4-46.3); Red Blood Count 5.56 M/uL (4.7-6.1); White Blood Count 13.53 K/uL (4.8-10.8)
[2020-05-09 06:53] LABS: Albumin Globulin Ratio 1.3 (0.9-2); Albumin Level 3.2 gm/dl (3.4-5.0); BUN Creatinine Ratio 12.3 (10-20); Bilirubin,Total 1.3 mg/dl (0.2-1); Calcium 8.2 mg/dl (8.5-10.1); Creatinine Clr Calc Pharmacy 39.5 ml/min; Est GFR (African American) 59.6; Est GFR (Non-African American) 51.4; Globulin 2.5 gm/dl (2.5-4.0); Potassium 4.7 mmol/L (3.5-5.1); Total Protein 5.7 gm/dl (6.4-8.2)
--- NOTE | 2020-05-09 09:03 | Gastroenterology Progress Note ---
Date of Service May 09, 2020 Assessment & Plan (1) Acute pancreatitis: 84 year old male with acute pancreatitis, rule out gallstone etiology, MRCP pending - Given age, severity of pancreatitis, consider telemetry monitoring - I will reach out to the primary team to discuss - Ensure DVT prophylaxis - Clears as tolerated. -- Decrease IVF's. 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 Please call with any acute changes, questions or concerns. Please see addendum below with additional recommendation from my supervising physician. Present on Admission?: Yes Admission and Anticipated Discharge Date Admission Date: May 08, 2020 Supervising Physician Co-Signing Physician Notes Attg add: I interviewed and examined pt, reviewed chart and labs. Pt with persistent pain that is mildly improved compared to yesterday. Decreased Appetite, minimal flatus. On exam, he has persistent tenderness in epigastrium. Pancreatitis - stones? Occult cancer? F/u MRCP. Decrease IVFs to 150 cc/hr. Subjective Pt was seen and evaluated, chart reviewed. No acute changes overnight Persistent abd pain No nausea, vomiting Passing gas, no stool MRCP yet to be obtained TB 1.3 w/ normal transaminases Lipase 3000 Review of Systems Constitutional: no fever and no chills Respiratory: no cough and no dyspnea Cardiovascular: no chest pain and no dyspnea Gastrointestinal: + abdominal pain and + nausea; no coffee ground emesis, no hematemesis, no blood in stools and no melena Physical Exam Constitutional: no acute distress elderly appearing male Neck: trachea midline Respiratory: normal respiratory effort Cardiovascular: Rate/Rhythm: regular rate and regular rhythm Gastrointestinal (Abdomen): Percussion/Palpation: + abdomen tender and abdomen soft; no guarding and abdomen not rigid Skin: no rashes, warm and dry Results & Data ([facility]) Vital Signs (Past 12 Hours) Vital Signs Temp Pulse Pulse Resp BP BP Pulse Ox 05/09/20 07:52 154/77 H 05/09/20 07:20 36.7 C 64 18 184/90 H 95 05/09/20 03:05 87 L 05/09/20 03:04 37.0 C 64 18 170/85 H 92 05/09/20 00:21 63 05/08/20 23:33 37.0 C 72 21 175/81 H 95 05/08/20 21:43 165/83 H Laboratory Results 05/09/20 05/09/20 05/08/20 Range/Units 05:29 05:29 09:43 WBC 13.53 H (4.8-10.8) K/uL RBC 5.56 (4.7-6.1) M/uL Hgb 17.6 (14.0-18.0) g/dL POC Hgb (14.0-18.0) g/dl Hct 50.2 (42-52) % POC Hct (42-52) % MCV 90.3 (80-100) fL MCH 31.7 (25-34) pg MCHC 35.1 (32-36) g/dL RDW Std Deviation 46.7 H (36.4-46.3) fL RDW Coeff of Tanvir 14.3 (11.5-14.5) % Plt Count 118 L (130-400) K/uL MPV 10.6 H (7.4-10.4) fL Immature Gran % (Auto) % Neut % (Auto) % Lymph % (Auto) % [place] % (Auto) % Eos % (Auto) % Baso % (Auto) % Immature Gran # (Auto) (0.00-0.02) K/uL Neut # (Auto) (1.4-6.5) K/uL Lymph # (Auto) (1.2-3.4) K/uL [place] # (Auto) (0.11-0.59) K/uL Eos # (Auto) (0-0.5) K/uL Baso # (Auto) (0-0.2) K/uL ESR (0-14) mm/hr PT INR APTT PTT Ratio POC Sodium (135-144) mmol/L Sodium 140 POC Potassium (3.3-5.0) mmol/L Potassium 4.7 D POC Chloride (101-112) mmol/L Chloride 106 Carbon Dioxide 28 POC Total CO2 (24-31) mmol/L Anion Gap 6.0 POC Anion Gap (16-25) mmol/L POC BUN (7-18) mg/dl BUN 16 Creatinine 1.28 POC Creatinine (0.6-1.3) mg/dl Est Cr Clr Drug Dosing 39.5 Est GFR ( Amer) 59.6 Est GFR (Non-Af Amer) 51.4 BUN/Creatinine Ratio 12.3 Glucose 132 H POC Glucose (other) (70-99) mg/dl Calcium 8.2 L POC Ioniz Calcium Bren (1.12-1.32) mmol/l Magnesium 1.8 (1.8-2.4) mg/dl Ferritin (8-388) ng/ml Total Bilirubin 1.3 H AST 20 ALT 42 Alkaline Phosphatase 69 Lactate Dehydrogenase (87-241) U/L Total Creatine Kinase CK-MB (CK-2) CK/CKMB % Calc Troponin I C-Reactive Protein (0-0.29) mg/dl Total Protein 5.7 L Albumin 3.2 L Globulin 2.5 Albumin/Globulin Ratio 1.3 Lipase 2764 H Procalcitonin (0-0.5) ng/ml 05/08/20 05/08/20 05/08/20 Range/Units 09:43 09:43 09:43 WBC (4.8-10.8) K/uL RBC (4.7-6.1) M/uL Hgb (14.0-18.0) g/dL POC Hgb (14.0-18.0) g/dl Hct (42-52) % POC Hct (42-52) % MCV (80-100) fL MCH (25-34) pg MCHC (32-36) g/dL RDW Std Deviation (36.4-46.3) fL RDW Coeff of Tanvir (11.5-14.5) % Plt Count (130-400) K/uL MPV (7.4-10.4) fL Immature Gran % (Auto) % Neut % (Auto) % Lymph % (Auto) % [place] % (Auto) % Eos % (Auto) % Baso % (Auto) % Immature Gran # (Auto) (0.00-0.02) K/uL Neut # (Auto) (1.4-6.5) K/uL Lymph # (Auto) (1.2-3.4) K/uL [place] # (Auto) (0.11-0.59) K/uL Eos # (Auto) (0-0.5) K/uL Baso # (Auto) (0-0.2) K/uL ESR (0-14) mm/hr PT 14.6 H INR 1.4 H APTT 33.7 H PTT Ratio 1.2 POC Sodium (135-144) mmol/L Sodium POC Potassium (3.3-5.0) mmol/L Potassium POC Chloride (101-112) mmol/L Chloride Carbon Dioxide POC Total CO2 (24-31) mmol/L Anion Gap POC Anion Gap (16-25) mmol/L POC BUN (7-18) mg/dl BUN Creatinine POC Creatinine (0.6-1.3) mg/dl Est Cr Clr Drug Dosing Est GFR ( Amer) Est GFR (Non-Af Amer) BUN/Creatinine Ratio Glucose POC Glucose (other) (70-99) mg/dl Calcium POC Ioniz Calcium Bren (1.12-1.32) mmol/l Magnesium (1.8-2.4) mg/dl Ferritin (8-388) ng/ml Total Bilirubin AST ALT Alkaline Phosphatase Lactate Dehydrogenase 177 (87-241) U/L Total Creatine Kinase CK-MB (CK-2) CK/CKMB % Calc Troponin I C-Reactive Protein (0-0.29) mg/dl Total Protein Albumin Globulin Albumin/Globulin Ratio Lipase Procalcitonin < 0.05 (0-0.5) ng/ml 05/08/20 05/08/20 05/08/20 Range/Units 09:43 09:11 09:05 WBC (4.8-10.8) K/uL RBC (4.7-6.1) M/uL Hgb (14.0-18.0) g/dL POC Hgb 18.4 H (14.0-18.0) g/dl Hct (42-52) % POC Hct 54 H (42-52) % MCV (80-100) fL MCH (25-34) pg MCHC (32-36) g/dL RDW Std Deviation (36.4-46.3) fL RDW Coeff of Tanvir (11.5-14.5) % Plt Count (130-400) K/uL MPV (7.4-10.4) fL Immature Gran % (Auto) % Neut % (Auto) % Lymph % (Auto) % [place] % (Auto) % Eos % (Auto) % Baso % (Auto) % Immature Gran # (Auto) (0.00-0.02) K/uL Neut # (Auto) (1.4-6.5) K/uL Lymph # (Auto) (1.2-3.4) K/uL [place] # (Auto) (0.11-0.59) K/uL Eos # (Auto) (0-0.5) K/uL Baso # (Auto) (0-0.2) K/uL ESR 2 (0-14) mm/hr PT INR APTT PTT Ratio POC Sodium 139 (135-144) mmol/L Sodium 140 POC Potassium 4.2 (3.3-5.0) mmol/L Potassium 3.8 POC Chloride 103 (101-112) mmol/L Chloride 108 H Carbon Dioxide 28 POC Total CO2 28 (24-31) mmol/L Anion Gap 4.0 POC Anion Gap 12.0 L (16-25) mmol/L POC BUN 22 H (7-18) mg/dl BUN 18 Creatinine 1.26 POC Creatinine 1.3 (0.6-1.3) mg/dl Est Cr Clr Drug Dosing 43.8 Est GFR ( Amer) 60.7 Est GFR (Non-Af Amer) 52.4 BUN/Creatinine Ratio 14.4 Glucose 154 H POC Glucose (other) 150 H (70-99) mg/dl Calcium 7.8 L POC Ioniz Calcium Bren 1.16 (1.12-1.32) mmol/l Magnesium (1.8-2.4) mg/dl Ferritin 97.6 (8-388) ng/ml Total Bilirubin 1.3 H AST 24 ALT 36 Alkaline Phosphatase 61 Lactate Dehydrogenase (87-241) U/L Total Creatine Kinase CK-MB (CK-2) 3.1 CK/CKMB % Calc Troponin I 0.026 C-Reactive Protein < 0.29 (0-0.29) mg/dl Total Protein 4.8 L Albumin 2.7 L Globulin 2.1 L Albumin/Globulin Ratio 1.3 Lipase 94261 H Procalcitonin (0-0.5) ng/ml 05/08/20 05/08/20 05/08/20 Range/Units 09:05 09:05 09:05 WBC 11.85 H (4.8-10.8) K/uL RBC 5.84 (4.7-6.1) M/uL Hgb 18.7 H (14.0-18.0) g/dL POC Hgb (14.0-18.0) g/dl Hct 52.0 (42-52) % POC Hct (42-52) % MCV 89.0 (80-100) fL MCH 32.0 (25-34) pg MCHC 36.0 (32-36) g/dL RDW Std Deviation 45.1 (36.4-46.3) fL RDW Coeff of Tanvir 14.1 (11.5-14.5) % Plt Count 135 (130-400) K/uL MPV 10.6 H (7.4-10.4) fL Immature Gran % (Auto) 0.3 % Neut % (Auto) 75.4 % Lymph % (Auto) 17.0 % [place] % (Auto) 6.1 % Eos % (Auto) 1.1 % Baso % (Auto) 0.1 % Immature Gran # (Auto) 0.04 H (0.00-0.02) K/uL Neut # (Auto) 8.94 H (1.4-6.5) K/uL Lymph # (Auto) 2.01 (1.2-3.4) K/uL [place] # (Auto) 0.72 H (0.11-0.59) K/uL Eos # (Auto) 0.13 (0-0.5) K/uL Baso # (Auto) 0.01 (0-0.2) K/uL ESR (0-14) mm/hr PT Cancelled INR Cancelled APTT Cancelled PTT Ratio Cancelled POC Sodium (135-144) mmol/L Sodium Cancelled POC Potassium (3.3-5.0) mmol/L Potassium Cancelled POC Chloride (101-112) mmol/L Chloride Cancelled Carbon Dioxide Cancelled POC Total CO2 (24-31) mmol/L Anion Gap Cancelled POC Anion Gap (16-25) mmol/L POC BUN (7-18) mg/dl BUN Cancelled Creatinine Cancelled POC Creatinine (0.6-1.3) mg/dl Est Cr Clr Drug Dosing Cancelled Est GFR ( Amer) Cancelled Est GFR (Non-Af Amer) Cancelled BUN/Creatinine Ratio Cancelled Glucose Cancelled POC Glucose (other) (70-99) mg/dl Calcium Cancelled POC Ioniz Calcium Bren (1.12-1.32) mmol/l Magnesium (1.8-2.4) mg/dl Ferritin (8-388) ng/ml Total Bilirubin Cancelled AST Cancelled ALT Cancelled Alkaline Phosphatase Cancelled Lactate Dehydrogenase (87-241) U/L Total Creatine Kinase Cancelled CK-MB (CK-2) Cancelled CK/CKMB % Calc Cancelled Troponin I Cancelled C-Reactive Protein (0-0.29) mg/dl Total Protein Cancelled Albumin Cancelled Globulin Cancelled Albumin/Globulin Ratio Cancelled Lipase Cancelled Procalcitonin (0-0.5) ng/ml (1) Acute pancreatitis Acute pancreatitis complication: unspecified Pancreatitis type: unspecified pancreatitis type Qualified Code(s): K85.90 - Acute pancreatitis without necrosis or infection, unspecified
[2020-05-09] MEDS: FAMOTIDINE 20 MG in SYRINGE 3 ML IV SCH ×2 (09:23→20:46)
--- NOTE | 2020-05-09 09:40 | Surgery Progress Note ---
Date of Service May 09, 2020 Assessment & Plan (1) Acute pancreatitis: Patient here with acute pancreatitis Patient's pain is about the same, some relief with prn pain meds Lipase downtrending 2764 today LFTs show Tbili: 1.3, AST: 20, ALT: 42, Alkp: 69 GI ordered MRCP for today, will follow up on results Supervising Physician Co-Signing Physician Notes Patient seen and examined, labs and imaging reviewed, agree with above. Pancreatitis appears to be resolving, lipase downtrending and abdominal pain improving. Still with some tenderness in the upper abdomen. MRCP pending today, appreciate GI input. Continue n.p.o., continue to hold Xarelto. If evidence of biliary source, then will plan for laparoscopic cholecystectomy as pancreatitis improves. We did briefly discuss the risks and benefits of surgery . Subjective Patient states his pain is about the same. When he doesn't get pain meds he rates it an 8/10. Currently denies nausea, last emesis was yesterday in the ED . Physical Exam Physical Exam: awake/alert Gastrointestinal (Abdomen): Inspection/Auscultation: + abdomen distended (mild) Percussion/Palpation: + abdomen tender (ttp mostly in epigastric region) and abdomen soft Results & Data Vital Signs (Past 12 Hours) Vital Signs Temp Pulse Pulse Resp BP BP Pulse Ox 05/09/20 07:52 154/77 H 05/09/20 07:20 36.7 C 64 18 184/90 H 95 05/09/20 03:05 87 L 05/09/20 03:04 37.0 C 64 18 170/85 H 92 05/09/20 00:21 63 05/08/20 23:33 37.0 C 72 21 175/81 H 95 05/08/20 21:43 165/83 H PG Care Time/CCT Total # of Minutes Spent Total Time Spent with Patient: Total time spent is greater than 50% in coordination of care (as documented) at patient's floor/unit and/or counseling patient: Coding Level of Care Code 34112 Subseq Hosp Care Lvl 1 Diagnoses Acute pancreatitis K85.90 Acute pancreatitis complication: unspecified Pancreatitis type: unspecified pancreatitis type (1) Acute pancreatitis Acute pancreatitis complication: unspecified Pancreatitis type: unspecified pancreatitis type Qualified Code(s): K85.90 - Acute pancreatitis without necrosis or infection, unspecified
--- NOTE | 2020-05-09 16:02 | Magnetic Resonance Report ---
MRCP CLINICAL HISTORY: Pancreatitis. COMPARISON STUDY: Abdominal CT and abdominal ultrasound dated 05/08/2020. TECHNIQUE: Abdominal MRCP is performed using various T2-weighted sequences in the axial and coronal p lanes. IV contrast was not administered for this examination. 3-D reformats are created and assessed. FINDINGS: The gallbladder is distended. The gallbladder wall appears mildly thickened and there is pericholecys tic fluid. No gallstones are identified. There is no intra or extrahepatic biliary ductal dilatation. The common bile duct measures up to 5 mm in diameter. There are no filling defects to suggest choled ocholithiasis. The pancreatic duct is normal in caliber. There is peripancreatic inflammation and fluid consistent with acute pancreatitis. No peripancreatic fluid collection is identified. There is a small volume of upper abdominal ascites as well as small p leural effusions. A subcentimeter cyst is noted in the right lobe of the liver. The unenhanced liver and spleen are grossly unremarkable. The kidneys demonstrate cortical atrophy and are without hydrone phrosis. There are 2 left renal cyst which measure up to 5 cm. The abdominal aorta is normal in calib er. No upper abdominal lymphadenopathy is identified. There is no bowel obstruction. Fecal retention is noted in the colon. The heart is enlarged and midline sternotomy wires are noted. There is no pericardial effusion. A sma ll hiatal hernia is noted. No osseous abnormality is identified. IMPRESSION: 1. Findings are consistent with acute pancreatitis. No organized peripancreatic fluid collection is i dentified. 2. No gallstones are identified. There is no intra or extrahepatic biliary duct dilatation, and no ev idence of choledocholithiasis. 3. The gallbladder appears distended and abnormal. Findings are equivocal for acute cholecystitis. If there is clinical concern for cholecystitis a nuclear hepatobiliary scan should be considered. 4. Upper abdominal ascites and small pleural effusions. 5. Additional findings as above. Electronically signed by: Hiram Perkins M.D. 05/09/2020 4:01 PM
[2020-05-09] MEDS: VALACYCLOVIR HCL 500 MG TABLET PO SCH (16:08)
[2020-05-09] MEDS: ALPRAZolam 0.5 MG TABLET PO SCH (20:42)
[2020-05-09] MEDS: AMIODARONE 200 MG TAB PO SCH (20:42)
--- NOTE | 2020-05-09 23:17 | Hospitalist Progress Note ---
Date of Service May 09, 2020 Assessment & Plan (1) Acute pancreatitis: Biochemically, clinically and radiographically. Lipase >20,000. Drinks 1 glass of wine/night thus doubtful that etoh is the culprit. Distended gall bladder on CT with intra-hepatic biliary ductal dilatation and minimally elevated total bili. Concerning that the pancreatitis is due to biliary tract disease. Plan - * Will NPO * Lipase has significantly improved. * Patient will remain in med on tele monitor. * continue LR 150 ml/hr * dilaudid prn pain * zofran prn nausea/emesis * consider MRCP * awaiting input from GI and Gen surgery. * hold ISAAC as ISAAC inhibitor class can cause pancreatitis * no recent illness to suggest viral etiology (2) Hypertension: hold ISAAC due to pancreatitis hold HCTZ due to need for copious IVF if BP control is needed consider hydralazine IV prn avoid beta guillermo due to bradycardia (3) PAF (paroxysmal atrial fibrillation): place on tele hold xarelto in the event he needs a procedure (ERCP, lap parviz, etc) cont amiodarone (4) Hypothyroidism: TSH 03/2020 wnl cont synthroid at home dosing (5) Dyslipidemia: hold statin for now triglycerides last month were <150 (6) GERD (gastroesophageal reflux disease): hold PO PPI place on IV pepcid BID (7) Abnormal EKG: ST segment depressions in I/AVL anterior Q waves no h/o CAD, acute TX, etc. 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 Patient reports he no longer is having nausea, or vomiting. Patient is curious and asking if he can eat. Review of Systems Ear, Nose, Mouth, Throat: loss of taste/smell x 2 years Respiratory: + cough (intermittent; x 2 years ); no dyspnea Gastrointestinal: no nausea, no vomiting, no diarrhea/loose stools and no blood in stools Endocrine: no diabetes Hematologic / Lymphatic: + easy bruising Physical Exam Physical Exam: Constitutional: well developed and well nourished; no acute distress and no altered mental status Eyes: + anicteric sclerae and PERRL ENMT: external ear and nose normal, oropharynx normal Mouth: + lip abnormality (healed ulceration/tissue injury lower lip) Neck: trachea midline, no thyromegaly Respiratory: normal respiratory effort, lungs clear to auscultation Cardiovascular: Rate/Rhythm: regular rate and regular rhythm Heart Sounds: normal S1 and normal S2; no murmur Vessels: posterior tibial pulses present and dorsalis pedis pulses present; no JVD Extremities: + varicosities; no edema Gastrointestinal (Abdomen): Inspection/Auscultation: + abdomen distended (minimal) and normal bowel sounds Percussion/Palpation: + abdomen tender (RUQ and epigastric region ) and + hernia (tiny - periumbilical ); no guarding and no hepatosplenomegaly Musculoskeletal: no cyanosis or clubbing, extremities motor strength 5/5 Skin: no rashes, warm and dry Neurologic: deep tendon reflexes 2+ bilaterally and moves all extremities Psychiatric: A+Ox3, euthymic affect Lymphatic: no cervical lymphadenopathy Results & Data Results & Data ([facility]) Vital Signs (Past 12 Hours) Vital Signs Temp Pulse Pulse Resp BP BP Pulse Ox 05/09/20 19:32 37.4 C 74 18 170/78 H 90 05/09/20 16:02 65 05/09/20 11:38 37 C 63 18 150/97 H 95 PG Care Time/CCT Total # of Minutes Spent Total Time Spent with Patient: Total time spent is greater than 50% in coordination of care (as documented) at patient's floor/unit and/or counseling patient: Coding Level of Care Code 59573 Subseq Hosp Care Lvl 3 Diagnoses Acute pancreatitis K85.90 Acute pancreatitis complication: unspecified Pancreatitis type: unspecified pancreatitis type Hypertension I10 Hypertension type: essential hypertension PAF (paroxysmal atrial fibrillation) I48.0 Hypothyroidism E03.9 Hypothyroidism type: acquired Dyslipidemia E78.5 GERD (gastroesophageal reflux disease) K21.9 Esophagitis presence: esophagitis presence not specified Abnormal EKG R94.31 S/P aortic valve replacement Z95.2 DVT prophylaxis Z29.9 Time Spent (min) 35 (1) Hypothyroidism Hypothyroidism type: acquired Qualified Code(s): E03.9 - Hypothyroidism, unspecified (2) GERD (gastroesophageal reflux disease) Esophagitis presence: esophagitis presence not specified Qualified Code(s): K21.9 - Gastro-esophageal reflux disease without esophagitis (3) Hypertension Hypertension type: essential hypertension Qualified Code(s): I10 - Essential (primary) hypertension (4) Acute pancreatitis Acute pancreatitis complication: unspecified Pancreatitis type: unspecified pancreatitis type Qualified Code(s): K85.90 - Acute pancreatitis without necrosis or infection, unspecified
[2020-05-10] MEDS: LEVOTHYROXINE SODIUM 100 MCG TABLET PO SCH (05:35)
[2020-05-10] MEDS: cefOXitin 2,000 MG in DEXTROSE 5% 50 ML IV SCH ×3 (05:37→21:02)
[2020-05-10] MEDS: HYDROmorphone INJ 0.5 MG/0.5 ML SYR IV PRN ×2 (05:38→07:57)
[2020-05-10] MEDS: LACTATED RINGER'S 1,000 ML IV SCH ×3 (05:42→21:02)
[2020-05-10 07:05] LABS: Creatinine Clr Calc Pharmacy 41.4 ml/min; Est GFR (African American) 63.2; Est GFR (Non-African American) 54.5
[2020-05-10] MEDS: FAMOTIDINE 20 MG in SYRINGE 3 ML IV SCH ×2 (08:24→21:02)
[2020-05-10 08:36] LABS: Basophils # (auto) 0.01 K/uL (0-0.2); Basophils % (auto) 0.1 %; Eosinophils # (auto) 0.01 K/uL (0-0.5); Eosinophils % (auto) 0.1 %; Hemoglobin 15.4 g/dL (14.0-18.0); Immature Granulocytes # (auto) 0.06 K/uL (0.00-0.02); Immature Granulocytes % (auto) 0.3 %; Lymphocytes % (auto) 3.4 %; Mean Corpuscular Hemoglobin 31.4 pg (25-34); Mean Corpuscular Hgb Conc 34.2 g/dL (32-36); Mean Corpuscular Volume 91.6 fL (80-100); Mean Platelet Volume 10.5 fL (7.4-10.4); Monocytes # (auto) 1.07 K/uL (0.11-0.59); Neutrophils # (auto) 15.99 K/uL (1.4-6.5); Neutrophils % (auto) 90.1 %; Platelet Count 101 K/uL (130-400); RDW Standard Deviation 46.4 fL (36.4-46.3); Red Blood Count 4.91 M/uL (4.7-6.1); White Blood Count 17.74 K/uL (4.8-10.8)
[2020-05-10 08:41] LABS: Albumin Globulin Ratio 1.1 (0.9-2); Albumin Level 2.8 gm/dl (3.4-5.0); BUN Creatinine Ratio 9.7 (10-20); Calcium 8.4 mg/dl (8.5-10.1); Creatinine Clr Calc Pharmacy 40.7 ml/min; Est GFR (African American) 61.9; Est GFR (Non-African American) 53.4; Globulin 2.7 gm/dl (2.5-4.0); Potassium 3.9 mmol/L (3.5-5.1); Total Protein 5.5 gm/dl (6.4-8.2)
--- NOTE | 2020-05-10 08:59 | Gastroenterology Progress Note ---
Date of Service May 10, 2020 Assessment & Plan (1) Acute pancreatitis: 84 year old male with acute pancreatitis, rule out gallstone etiology, MRCP without evidence of biliary obstruction to consider CCY today given concern for acute cholecystitis - GI to watch peripherally - CCY per general surgery - Ensure DVT prophylaxis - IVF's maintenance - Antiemetics PRN - Analgesia PRN - OP EUS in 4-6 weks Thank you for allowing us to participate in the care of this patient. Please call with any acute changes, questions or concerns. Please see addendum below with additional recommendation from my supervising physician. Admission and Anticipated Discharge Date Admission Date: May 08, 2020 Subjective MRCP reviewed. No acute concerns overnight. Persistent abd pain No nausea, vomiting. Tentative plan for CCY. Review of Systems Constitutional: no fever, no chills and no fatigue Respiratory: no cough and no dyspnea Cardiovascular: no chest pain and no dyspnea Gastrointestinal: + abdominal pain; no nausea, no coffee ground emesis, no blood in stools and no melena Physical Exam Constitutional: well developed and well nourished; no acute distress Respiratory: normal respiratory effort, lungs clear to auscultation Cardiovascular: Rate/Rhythm: regular rate Gastrointestinal (Abdomen): normal bowel sounds, soft, nontender, no hepatosplenomegaly Skin: no rashes, warm and dry Results & Data ([facility]) Vital Signs (Past 12 Hours) Vital Signs Temp Pulse Pulse Resp BP BP Pulse Ox 05/10/20 07:10 37 C 75 18 181/84 H 94 05/10/20 04:03 88 05/10/20 03:17 36.6 C 66 22 162/66 H 96 05/09/20 23:00 37.5 C 81 18 168/83 H 90 (1) Acute pancreatitis Pancreatitis type: unspecified pancreatitis type Acute pancreatitis complication: unspecified Qualified Code(s): K85.90 - Acute pancreatitis without necrosis or infection, unspecified
--- NOTE | 2020-05-10 09:54 | Surgery Progress Note ---
Date of Service May 10, 2020 Assessment & Plan (1) Cholecystitis: 84-year-old male admitted with pancreatitis which appears to be resolving, and also concern for cholecystitis. None of his imaging studies have demonstrated gallstones, however discussion with the patient and GI it was agree d that he would benefit from cholecystectomy. Plan for laparoscopic cholecystectomy with possible cholangiogram The risk of the procedure were discussed to include but not limited to bleeding, infection, open surgery, retained stone, bile leak, damage to surrounding structures including common bile duct, need for future more extensive surgery, failure to treat symptoms, and the risk of anesthesia (2) Acute pancreatitis: (3) S/P aortic valve replacement: (4) Hypertension: (5) PAF (paroxysmal atrial fibrillation): Subjective 84-year-old male admitted with pancreatitis of unknown etiology. His pain is somewhat improved this morning, and his lipase is downtrending. He is still having some discomfort however, and feels like it may be more in the right upper quadrant. His MRCP yesterday showed no bile duct obstruction or mass, but did again demonstrated dilated gallbladder with some pericholecystic fluid. Physical Exam Constitutional: WD/WN, vitals as above Gastrointestinal (Abdomen): Percussion/Palpation: + abdomen tender (Tenderness to palpation in epigastrium and right upper quadrant, negative Lugo sign) and abdomen soft; no guarding, abdomen not rigid and no hepatosplenomegaly Results & Data Vital Signs (Past 12 Hours) Vital Signs Temp Pulse Pulse Resp BP BP Pulse Ox 05/10/20 09:02 165/83 H 05/10/20 07:10 37 C 75 18 181/84 H 94 05/10/20 04:03 88 05/10/20 03:17 36.6 C 66 22 162/66 H 96 05/09/20 23:00 37.5 C 81 18 168/83 H 90 Laboratory Results Laboratory Results - last 24 hr 05/10/20 05/10/20 05/10/20 05:57 06:02 06:02 WBC 17.74 H RBC 4.91 Hgb 15.4 Hct 45.0 MCV 91.6 MCH 31.4 MCHC 34.2 RDW Std Deviation 46.4 H RDW Coeff of Tanvir 14.0 Plt Count 101 L MPV 10.5 H Immature Gran % (Auto) 0.3 Neut % (Auto) 90.1 Lymph % (Auto) 3.4 Harney % (Auto) 6.0 Eos % (Auto) 0.1 Baso % (Auto) 0.1 Immature Gran # (Auto) 0.06 H Neut # (Auto) 15.99 H Lymph # (Auto) 0.60 L Harney # (Auto) 1.07 H Eos # (Auto) 0.01 Baso # (Auto) 0.01 Sodium 135 L Potassium 3.9 D Chloride 101 Carbon Dioxide 28 Anion Gap 6.0 BUN 12 Creatinine 1.22 1.24 Est Cr Clr Drug Dosing 41.4 40.7 Est GFR ( Amer) 63.2 61.9 Est GFR (Non-Af Amer) 54.5 53.4 BUN/Creatinine Ratio 9.7 L Glucose 120 H Calcium 8.4 L Total Bilirubin 2.0 H D AST 18 ALT 29 Alkaline Phosphatase 66 Total Protein 5.5 L Albumin 2.8 L Globulin 2.7 Albumin/Globulin Ratio 1.1 Lipase 590 H Diagnostic Findings MRCP CLINICAL HISTORY: Pancreatitis. COMPARISON STUDY: Abdominal CT and abdominal ultrasound dated 05/08/2020. TECHNIQUE: Abdominal MRCP is performed using various T2-weighted sequences in the axial and coronal planes. IV contrast was not administered for this examination. 3-D reformats are created and assessed. FINDINGS: The gallbladder is distended. The gallbladder wall appears mildly thickened and there is pericholecystic fluid. No gallstones are identified. There is no intra or extrahepatic biliary ductal dilatation. The common bile duct measures up to 5 mm in diameter. There are no filling defects to suggest choledocholithiasis. The pancreatic duct is normal in caliber. There is peripancreatic inflammation and fluid consistent with acute pancreatitis. No peripancreatic fluid collection is identified. There is a small volume of upper abdominal ascites as well as small pleural effusions. A subcentimeter cyst is noted in the right lobe of the liver. The unenhanced liver and spleen are grossly unremarkable. The kidneys demonstrate cortical atrophy and are without hydronephrosis. There are 2 left renal cyst which measure up to 5 cm. The abdominal aorta is normal in caliber. No upper abdominal lymphadenopathy is identified. There is no bowel obstruction. Fecal retention is noted in the colon. The heart is enlarged and midline sternotomy wires are noted. There is no pericardial effusion. A small hiatal hernia is noted. No osseous abnormality is identified. IMPRESSION: 1. Findings are consistent with acute pancreatitis. No organized peripancreatic fluid collection is identified. 2. No gallstones are identified. There is no intra or extrahepatic biliary duct dilatation, and no evidence of choledocholithiasis. 3. The gallbladder appears distended and abnormal. Findings are equivocal for acute cholecystitis. If there is clinical concern for cholecystitis a nuclear hepatobiliary scan should be considered. 4. Upper abdominal ascites and small pleural effusions. 5. Additional findings as above. PG Care Time/CCT Total # of Minutes Spent Total Time Spent with Patient: Total time spent is greater than 50% in coordination of care (as documented) at patient's floor/unit and/or counseling patient: Coding Level of Care Code 39259 Subseq Hosp Care Lvl 2 Diagnoses Cholecystitis K81.9 Acute pancreatitis K85.90 Pancreatitis type: unspecified pancreatitis type Acute pancreatitis complication: unspecified S/P aortic valve replacement Z95.2 Hypertension I10 Hypertension type: essential hypertension PAF (paroxysmal atrial fibrillation) I48.0 (1) Acute pancreatitis Pancreatitis type: unspecified pancreatitis type Acute pancreatitis complication: unspecified Qualified Code(s): K85.90 - Acute pancreatitis without necrosis or infection, unspecified (2) Hypertension Hypertension type: essential hypertension Qualified Code(s): I10 - Essential (primary) hypertension
--- NOTE | 2020-05-10 11:34 | Communication Note ---
Date of Service: May 10, 2020 Patient is low -intermediate risk for a low intermediate risk procedure. Given rising WBC, and elevated bilirrubin, do not feel any additional testing should be obtained prior to surgery. Patient currently is hemodynamically stable and does not show signs of congestive heart failure after being seen by me this AM..
[2020-05-10] MEDS ORDERED: BUPIVACAINE 0.5 % 5 MG/1 ML MPF 30ML VIAL ONE (11:39)
[2020-05-10] MEDS ORDERED: CONRAY 60% 50 ML VIAL ONE (11:39)
[2020-05-10] MEDS ORDERED: fentaNYL citrate 100 MCG/2 ML VIAL ONE ×2 (11:54→13:51)
[2020-05-10] MEDS ORDERED: ROCURONIUM BROMIDE 10 MG/ML 5 ML VIAL IV ONE (11:56)
[2020-05-10] MEDS ORDERED: LIDOCAINE HCL 2% 2 ML VIAL/AMP(20MG/ML) INFIL ONE (11:56)
[2020-05-10] MEDS ORDERED: ONDANSETRON INJ 2 MG/ML 2 ML VIAL ONE (11:56)
[2020-05-10] MEDS ORDERED: DEXAMETHASONE SOD INJ 4 MG/ML VIAL ONE (11:56)
[2020-05-10] MEDS ORDERED: PROPOFOL IV EMULSION 10 MG/ML 20 ML VIAL IV ONE (11:56)
--- NOTE | 2020-05-10 12:01 | Anesthesiology Consultation ---
Date of Service May 10, 2020 Assessment & Plan (1) Encounter for pre-operative examination: Chart Review Chart Review: Acceptable Risk for Surgery and Patient NOT seen in Pre Admission Testing Consults Requested none Per hospitalist, cardiac clearance and echo are no longer indicated prior to going to the operating room ASA [id number] Proposed Anesthesia Anesthesia Type: General Risk / Benefits Reviewed With: PT / POA / Parent / Guardian, Accepts Plan and Informed Consent Obtained History Surgery Operation Date: 05/10/20 10:40 Proposed Procedures p Laparoscopic Cholecystectomy, Possible Cholangiogram - Edi Koenig DO, FACS Height/Weight Height: 5 ft 6 in Weight: 75.4 kg Allergies Allergy/AdvReac Type Severity Reaction Status Date / Time codeine Allergy Unknown HALLUCINATI Verified 05/08/20 10:10 ONS oxycodone [From OxyContin] Allergy Unknown Verified 05/08/20 10:10 Penicillins Allergy Unknown CAN'T Verified 05/08/20 10:10 REMEMBER hydrocodone AdvReac Intermediate hallucinati Verified 05/08/20 10:10 ons Medications Home Medications Medication Instructions Recorded Confirmed Last Taken alprazolam 0.5 mg tablet 0.5 mg PO HS tab 08/23/19 05/08/20 05/07/20 atorvastatin 10 mg tablet 10 mg PO QDD tab 08/23/19 05/08/20 05/07/20 esomeprazole magnesium 40 mg 40 mg PO QAM cap 08/23/19 05/08/20 05/07/20 capsule,delayed release ferrous sulfate 325 mg (65 mg 325 mg PO QAM tab 08/23/19 05/08/20 05/07/20 iron) tablet lisinopril 40 mg tablet 40 mg PO QAM tab 08/23/19 05/08/20 05/07/20 multivitamin 1 tab PO QAM 08/23/19 05/08/20 05/07/20 valacyclovir 500 mg tablet 500 mg PO QDD tab 08/23/19 05/08/20 05/07/20 amiodarone 200 mg PO HS 05/08/20 05/08/20 05/07/20 aspirin 81 mg PO QAM 05/08/20 05/08/20 05/07/20 docusate sodium [Colace] 100 mg PO QDD 06/16/20 06/16/20 06/15/20 hydrochlorothiazide 12.5 mg PO QAM 05/08/20 05/08/20 05/07/20 levothyroxine 100 mcg PO SUMOTUWETHFR 05/08/20 05/08/20 05/07/20 rivaroxaban 20 mg PO QDD 05/08/20 05/08/20 05/07/20 Active Medications Generic Name Dose Route Start Last Admin Trade Name Freq PRN Reason Stop Dose Admin Alprazolam 0.5 mg 05/08/20 21:00 05/09/20 20:42 Xanax PO 06/07/20 20:59 0.5 mg HS JASMEET Administration Amiodarone HCl 200 mg 05/08/20 21:00 05/09/20 20:42 Cordarone PO 06/07/20 20:59 200 mg HS JASMEET Administration Hydralazine HCl 5 mg 05/08/20 13:16 05/10/20 07:57 Hydralazine Hcl IV 06/07/20 13:15 5 mg Q8H PRN Administration for systolic BP > 170 Hydromorphone HCl 0.5 mg 05/09/20 08:42 05/10/20 07:57 Dilaudid IV 05/22/20 19:41 0.5 mg Q3H PRN Administration Pain Lactated Ringer's 1,000 mls @ 150 mls/hr 05/08/20 16:30 05/10/20 05:42 Lr IV 06/07/20 16:29 150 mls/hr .Q6H40M JASMEET Administration Famotidine 20 mg/ Syringe 5 mls @ 2.5 mls/min 05/08/20 14:00 05/10/20 08:24 IV 06/07/20 13:59 2.5 mls/min BID JASMEET Administration Cefoxitin Sodium 2,000 mg/ 60 mls @ 100 mls/hr 05/08/20 14:00 05/10/20 06:22 Dextrose IV 05/18/20 13:59 Infused Q8H JASMEET Infusion Protocol Levothyroxine Sodium 100 mcg 05/08/20 13:45 05/10/20 05:35 Synthroid PO 06/07/20 13:44 Not Given [id number] JASMEET Ondansetron HCl 4 mg 05/08/20 13:16 05/08/20 17:42 Zofran IV 06/07/20 13:15 4 mg Q6H PRN Administration Nausea Valacyclovir HCl 500 mg 05/08/20 16:30 05/09/20 16:08 Valtrex PO 06/07/20 16:29 500 mg QDD JASMEET Administration NPO Date Last Intake of Fluids: 05/09/20 Time Last Intake of Fluids: 19:00 Date Last Intake of Solids: 05/09/20 Time Last Intake of Solids: 19:00 Past Medical History Medical History Aortic regurgitation due to bicuspid aortic valve (Inactive) Atrial flutter, paroxysmal (Acute) Cholecystitis Depression (Acute) GERD (gastroesophageal reflux disease) (Acute) Hypertension (Acute) Hypothyroidism PAF (paroxysmal atrial fibrillation) Piriformis syndrome of right side (Resolved) Prostate cancer (Acute) Subconjunctival hematoma (Inactive) Exercise / Class Metabolic Activity II 4-5 Yardwork/Stairs/Walk up hill Negative for chest pain or shortness of breath. Past Family History Family History Mother Hypertension Diabetes Father , age 50 Myocardial infarction Past Surgical History Surgical History H/O hernia repair (Acute) inguinal H/O prostatectomy (Acute) S/P aortic valve replacement Past Anesthesia History No Hx of Anesthesia Complications History of PONV No Hx of PONV Social History Smoking Status: Never smoker Do You Dip or Chew Tobacco: No Hx Alcohol Use: Yes Alcohol type: wine alcohol intake frequency: other Alcohol Intake Frequency Comment: daily Hx Substance Use: No substance use type: does not use Review of Systems Patient denies active symptoms of GERD. Physical Exam Vital Signs Last Vital Signs Temp 36.9 C 05/10/20 11:20 Pulse 69 05/10/20 11:25 Resp 20 05/10/20 11:20 BP 148/81 H 05/10/20 11:20 Pulse Ox 95 05/10/20 11:20 Constitutional not obese ENMT Mouth: no TMJ abnormality and oral opening not small Thyromental Distance: > or= 3.5 Finger Breadths Mallampati Class: II Neck normal visual inspection; neck extension not limited Respiratory normal respiratory effort Auscultation: lungs clear to auscultation bilaterally Cardiovascular Rate/Rhythm: regular rate and regular rhythm Heart Sounds: no murmur Neurologic moves all extremities Psychiatric Orientation: alert and oriented x 3 Testing Laboratory Results 05/10/20 06:02 05/10/20 06:02 PT 14.6 Seconds (9.0-12.0) H 05/08/20 09:43 INR 1.4 (0.9-1.1) H 05/08/20 09:43 APTT 33.7 Seconds (21.0-31.0) H 05/08/20 09:43 05/08/20 10:23 Aerobic Blood Culture - Preliminary Blood No growth in Aerobic bottle after 24 hours. Anaerobic Blood Culture - Final 05/08/20 10:07 Aerobic Blood Culture - Preliminary Blood No growth in Aerobic bottle after 24 hours. Anaerobic Blood Culture - Preliminary No growth in Anaerobic bottle after 24 hours. Electrocardiogram Date: 05/08/20 Sinus rhythm with PACs and 1st degree AV block Anterolateral infarct (cited on or before 11-NOV-2018)
[2020-05-10] MEDS ORDERED: ATROPINE SULFATE 0.1 MG/ML 10ML SYR IV PRN ×2 (12:37→14:25)
[2020-05-10] MEDS ORDERED: ePHEDrine sulfate 50 MG/ML AMP IV PRN ×2 (12:37→14:25)
[2020-05-10] MEDS ORDERED: ONDANSETRON INJ 2 MG/ML 2 ML VIAL IV PRN ×3 (12:37→15:55)
[2020-05-10] MEDS ORDERED: fentaNYL citrate 100 MCG/2 ML VIAL IV PRN ×2 (12:37→14:25)
[2020-05-10] MEDS ORDERED: ePHEDrine sulfate 50 MG/ML SYR ONE (13:01)
[2020-05-10] MEDS ORDERED: PHENYLEPHRINE 100MCG/ML 5ML SYR ONE (13:05)
[2020-05-10] MEDS ORDERED: HydrALAZINE HCL 20 MG/ML VIAL ONE (13:26)
[2020-05-10] MEDS ORDERED: NEOSTIGMINE METHYLSULFATE 5 MG/5 ML SYR ONE (13:46)
[2020-05-10] MEDS ORDERED: GLYCOPYRROLATE 0.2 MG/ML VIAL ONE (13:46)
--- NOTE | 2020-05-10 14:03 | Operative Report ---
PG Post Operative Report Pre & Post Diagnosis Operation Date: 05/10/20 10:40 Pre-Op Diagnosis: Acute Pancreatitis Post-Op Diagnosis: Acute Pancreatitis I identified the patient and participated in the time-out.: Yes Procedure Operation Date: 05/10/20 10:40 Actual Procedures p Laparoscopic Cholecystectomy with Intraoperative Cholangiogram(Not Applicable) - Edi Koenig DO, FACS Surgeon Edi Koenig DO, JOSE Program Attendant Ofelia Venegas Estimated Blood Loss 5 Findings Consistent with Post-Op Diagnosis Reactive ascites in the right upper quadrant. Mild chronic cholecystitis. Critical view of safety obtained. Cholangiogram performed with no filling defects. Cystic duct and artery doubly clipped and divided. Specimens Gallbladder incontinent Anesthesia Type General Complications none Disposition Accompanied Patient To Recovery: No Disposition: Recovery Room Indications 84-year-old male admitted with pancreatitis. MRCP with no filling defects or stones, but multiple studies suggest cholecystitis. After discussion with the patient and gastroenterology, plan for laparoscopic cholecystectomy with possible cholangiogram. The risks of the procedure were discussed, all questions were answered, and the patient agreed to proceed with surgery as planned. Description of Procedure The patient was properly identified, consented, and taken to the operating room where he was placed in the supine position. General endotracheal anesthesia was induced. SCDs and a safety belt were placed. Preoperative antibiotics were administered. The patient's abdomen was prepped and draped in the standard sterile fashion. A surgical timeout was performed and all parties were in agreement that this was the correct patient and procedure to be performed and we continued as planned. An incision was made superior and to the left of the umbilicus overlying the rectus muscle and the Veress needle was inserted. Saline drop test confirmed entry into the peritoneum. The abdomen was insufflated with carbon dioxide which the patient tolerated without incident. The abdomen was then entered using the Optiview technique and a 5 mm trocar. The laparoscope was inserted and no damage from initial trocar or Veress needle placement was noted, no gross abnormalities were noted within the 4 quadrants of the abdomen. An 11 mm port was placed in the subxiphoid position and two 5 mm ports were then placed in the right subcostal position. The patient was placed in reverse Trendelenburg position and rotated towards the left. There was some mild reactive ascites in the right upper quadrant which was suctioned. The gallbladder appeared mildly and chronically inflamed. The dome of the gallbladder was retracted towards the left upper quadrant and the infundibulum was retracted toward the right lower quadrant revealing Calot's triangle. Peritoneal attachments were taken down with electrocautery and blunt dissection. The cystic duct and artery were circumferentially dissected. A window of safety was obtained showing the cystic duct entering the gallbladder with no aberrant structures noted. A David cholangiocatheter was then inserted after making a small opening in the cystic duct. Cholangiogram was performed which showed no filling defects in the common bile duct with some filling of the hepatic radicles. Contrast flowed freely into the duodenum. The cholangiocatheter was removed and the the cystic duct and artery were doubly clipped and divided. The gallbladder was then lifted off the gallbladder fossa with electrocautery. The gallbladder was placed in an Endo Catch bag and removed through the subxiphoid port site. The right upper quadrant was irrigated and hemostasis was found to be good. The remainder of the abdomen was inspected and there appeared to be a slight ileus but no other abnormalities were noted. 5 mm trochars were removed under direct visualization and the abdomen was allowed to collapse. The subxiphoid port site fascia was closed with 0 Vicryl suture utilizing the Arash-Florence device. The wound was irrigated, and the skin of all ports was closed with 4-0 Monocryl subcuticular sutures. Dermabond was placed over the wounds. The patient was extubated in the operating room and taken to the PACU where he recovered without apparent incident. All sponge, instrument and needle counts were correct at the conclusion of the procedure. The patient tolerated the procedure well. The physician's facilities assistant was present and scrubbed for the entirety of the case and was essential in positioning the patient, prepping and draping, retraction and exposure, driving the laparoscope, removal of the gallbladder, closure the incisions, and placement of the dressings. I attest to the content of the Intraoperative Record and any orders documented therein. Any exceptions are noted below.
--- NOTE | 2020-05-10 14:11 | Fluoroscopy Report ---
[place] cholangiogram OR HISTORY: Post cholecystectomy. FLUOROSCOPY TIME: 24 seconds. FINDINGS: Fluoroscopy was provided for an intraoperative cholangiogram status post cholecystectomy. C ontrast was injected through the cystic duct remnant. The common bile duct is normal in course and ca liber. There are no filling defects seen within the common bile duct to suggest a retained stone. Co ntrast extends into the small bowel. There is no intrahepatic bile duct dilatation. IMPRESSION: Fluoroscopy provided for an intraoperative cholangiogram status post cholecystectomy. No filling defects within the common bile duct. ACT 112: Negative or not required by law. The above report was generated using voice recognition software. It may contain grammatical, syntax or spelling errors. Electronically signed by: Estuardo Hernandez M.D. 05/10/2020 2:10 PM
[2020-05-10] MEDS ORDERED: IPRATROPIUM BROMIDE NEB SOLN 0.02% 2.5 ML VIAL INH PRN (14:55)
--- NOTE | 2020-05-10 15:24 | Anesthesiology Progress Note ---
Date of Service May 10, 2020 Anesthesia Post Procedure Vital Signs Vital Signs: Temp Pulse Pulse Pulse Resp BP BP 05/10/20 15:05 73 21 125/63 05/10/20 14:55 72 20 120/57 L 05/10/20 14:45 74 23 127/62 05/10/20 14:35 79 21 127/63 05/10/20 14:28 36.7 C 77 21 115/61 05/10/20 11:25 69 05/10/20 11:20 36.9 C 72 20 148/81 H 05/10/20 09:02 165/83 H 05/10/20 07:10 37 C 75 18 181/84 H 05/10/20 04:03 88 05/10/20 03:17 36.6 C 66 22 162/66 H 05/09/20 23:00 37.5 C 81 18 168/83 H 05/09/20 19:32 37.4 C 74 18 170/78 H 05/09/20 16:02 65 Pulse Ox 05/10/20 15:05 90 05/10/20 14:55 90 05/10/20 14:45 93 05/10/20 14:35 94 05/10/20 14:28 93 05/10/20 11:25 05/10/20 11:20 95 05/10/20 09:02 05/10/20 07:10 94 05/10/20 04:03 05/10/20 03:17 96 05/09/20 23:00 90 05/09/20 19:32 90 05/09/20 16:02 Pain Intensity Bilateral Upper Abdomen: Pain Intensity: 0 Transfer of Care Handoff Completed per policy Notes Mental Status: alert / awake / arousable and participated in evaluation Patient Amnestic to Procedure: Yes Nausea / Vomiting: adequately controlled Pain: adequately controlled Airway Patency, RR, SpO2: stable & adequate BP & HR: stable & adequate Hydration State: stable & adequate Anesthetic Complications: no major complications apparent and Pt Satisfied with anesthetic care
[2020-05-10] MEDS ORDERED: TRAMADOL HCL 50 MG TABLET PO PRN ×2 (15:55)
[2020-05-10] MEDS ORDERED: HYDROmorphone INJ 1 MG/ML SYRINGE IV PRN (15:55)
[2020-05-10] MEDS ORDERED: HYDROmorphone INJ 0.5 MG/0.5 ML SYR IV PRN (15:55)
[2020-05-10] MEDS: VALACYCLOVIR HCL 500 MG TABLET PO SCH (16:40)
[2020-05-10] MEDS: AMIODARONE 200 MG TAB PO SCH (21:01)
[2020-05-10] MEDS: ALPRAZolam 0.5 MG TABLET PO SCH (21:01)
--- NOTE | 2020-05-10 22:32 | Hospitalist Progress Note ---
Date of Service May 10, 2020 Assessment & Plan (1) Acute pancreatitis: Biochemically, clinically and radiographically. Lipase >20,000. Drinks 1 glass of wine/night thus doubtful that etoh is the culprit. Distended gall bladder on CT with intra-hepatic biliary ductal dilatation and minimally elevated total bili. Concerning that the pancreatitis is due to biliary tract disease. Plan - * Will NPO * Lipase has significantly improved. * Patient will remain in med on tele monitor. * continue LR 150 ml/hr * Going for cholecystectomy today. * dilaudid prn pain * zofran prn nausea/emesis * hold ISAAC as ISAAC inhibitor class can cause pancreatitis * no recent illness to suggest viral etiology (2) Hypertension: hold ISAAC due to pancreatitis hold HCTZ due to need for copious IVF if BP control is needed consider hydralazine IV prn avoid beta guillermo due to bradycardia (3) PAF (paroxysmal atrial fibrillation): place on tele hold xarelto in the event he needs a procedure (ERCP, lap parviz, etc) cont amiodarone (4) Hypothyroidism: TSH 03/2020 wnl cont synthroid at home dosing (5) Dyslipidemia: hold statin for now triglycerides last month were <150 (6) GERD (gastroesophageal reflux disease): hold PO PPI place on IV pepcid BID (7) Abnormal EKG: ST segment depressions in I/AVL anterior Q waves no h/o CAD, acute [place], etc. 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 (9) DVT prophylaxis: hold xarelto in the event he needs a surgical procedure [facility] Admission and Anticipated Discharge Date Admission Date: May 08, 2020 Subjective 84 yo male reports feeling well. He has some mild discomfort in his abdomen. He states he is ready for surgery and is agreeable to the cholecystectomy. Review of Systems Review of Systems: All systems reviewed & are unremarkable except as noted in HPI & below Physical Exam Physical Exam: Constitutional: well developed and well nourished; no acute distress and no altered mental status Eyes: + anicteric sclerae and PERRL ENMT: external ear and nose normal, oropharynx normal Mouth: + lip abnormality (healed ulceration/tissue injury lower lip) Neck: trachea midline, no thyromegaly Respiratory: normal respiratory effort, lungs clear to auscultation Cardiovascular: Rate/Rhythm: regular rate and regular rhythm Heart Sounds: normal S1 and normal S2; no murmur Vessels: posterior tibial pulses present and dorsalis pedis pulses present; no JVD Extremities: + varicosities; no edema Gastrointestinal (Abdomen): Inspection/Auscultation: + abdomen distended (minimal) and normal bowel sounds Percussion/Palpation: + abdomen tender (RUQ and epigastric region ) and + hernia (tiny - periumbilical ); no guarding and no hepatosplenomegaly Musculoskeletal: no cyanosis or clubbing, extremities motor strength 5/5 Skin: no rashes, warm and dry Neurologic: deep tendon reflexes 2+ bilaterally and moves all extremities Psychiatric: A+Ox3, euthymic affect Lymphatic: no cervical lymphadenopathy Results & Data Results & Data ([facility]) Vital Signs (Past 12 Hours) Vital Signs Temp Pulse Pulse Pulse Resp BP BP 05/10/20 19:58 36.7 C 69 20 134/67 05/10/20 15:25 71 20 116/64 05/10/20 15:15 36.8 C 71 26 H 123/62 05/10/20 15:05 73 21 125/63 05/10/20 14:55 72 20 120/57 L 05/10/20 14:45 74 23 127/62 05/10/20 14:35 79 21 127/63 05/10/20 14:28 36.7 C 77 21 115/61 05/10/20 11:25 69 05/10/20 11:20 36.9 C 72 20 148/81 H Pulse Ox 05/10/20 19:58 92 05/10/20 15:25 97 05/10/20 15:15 97 05/10/20 15:05 90 05/10/20 14:55 90 05/10/20 14:45 93 05/10/20 14:35 94 05/10/20 14:28 93 05/10/20 11:25 05/10/20 11:20 95 PG Care Time/CCT Total # of Minutes Spent Total Time Spent with Patient: Total time spent is greater than 50% in coordination of care (as documented) at patient's floor/unit and/or counseling patient: Coding Level of Care Code 58024 Subseq Hosp Care Lvl 3 Diagnoses Acute pancreatitis K85.90 Acute pancreatitis complication: unspecified Pancreatitis type: unspecified pancreatitis type Hypertension I10 Hypertension type: essential hypertension PAF (paroxysmal atrial fibrillation) I48.0 Hypothyroidism E03.9 Hypothyroidism type: acquired Dyslipidemia E78.5 GERD (gastroesophageal reflux disease) K21.9 Esophagitis presence: esophagitis presence not specified Abnormal EKG R94.31 S/P aortic valve replacement Z95.2 DVT prophylaxis Z29.9 Time Spent (min) 35 (1) Hypothyroidism Hypothyroidism type: acquired Qualified Code(s): E03.9 - Hypothyroidism, unspecified (2) GERD (gastroesophageal reflux disease) Esophagitis presence: esophagitis presence not specified Qualified Code(s): K21.9 - Gastro-esophageal reflux disease without esophagitis (3) Hypertension Hypertension type: essential hypertension Qualified Code(s): I10 - Essential (primary) hypertension (4) Acute pancreatitis Acute pancreatitis complication: unspecified Pancreatitis type: unspecified pancreatitis type Qualified Code(s): K85.90 - Acute pancreatitis without necrosis or infection, unspecified
[2020-05-11] MEDS: LACTATED RINGER'S 1,000 ML IV SCH ×3 (03:41→19:03)
[2020-05-11] MEDS: cefOXitin 2,000 MG in DEXTROSE 5% 50 ML IV SCH ×3 (05:24→22:02)
[2020-05-11] MEDS: LEVOTHYROXINE SODIUM 100 MCG TABLET PO SCH (06:03)
[2020-05-11] MEDS: FAMOTIDINE 20 MG in SYRINGE 3 ML IV SCH ×2 (07:35→20:10)
[2020-05-11 08:09] LABS: Hemoglobin 14.1 g/dL (14.0-18.0); Mean Corpuscular Hemoglobin 31.3 pg (25-34); Mean Corpuscular Hgb Conc 35.3 g/dL (32-36); Mean Corpuscular Volume 88.9 fL (80-100); RDW Coefficient of Variation 13.7 % (11.5-14.5); RDW Standard Deviation 44.8 fL (36.4-46.3); White Blood Count 15.27 K/uL (4.8-10.8)
[2020-05-11 08:27] LABS: Platelet Count 92 K/uL (130-400)
[2020-05-11 08:28] LABS: Basophils # (auto) 0.01 K/uL (0-0.2); Basophils % (auto) 0.1 %; Immature Granulocytes # (auto) 0.05 K/uL (0.00-0.02); Immature Granulocytes % (auto) 0.3 %; Lymphocytes # (auto) 0.39 K/uL (1.2-3.4); Lymphocytes % (auto) 2.6 %; Monocytes # (auto) 0.93 K/uL (0.11-0.59); Monocytes % (auto) 6.1 %; Neutrophils # (auto) 13.89 K/uL (1.4-6.5); Neutrophils % (auto) 90.9 %; Platelet Estimate Decreased (Normal)
[2020-05-11 08:37] LABS: Albumin Level 2.4 gm/dl (3.4-5.0); BUN Creatinine Ratio 10.6 (10-20); Bilirubin Direct 0.4 mg/dl (0-0.2); Calcium 8.4 mg/dl (8.5-10.1); Creatinine Clr Calc Pharmacy 35.1 ml/min; Est GFR (African American) 51.7; Est GFR (Non-African American) 44.6; Potassium 3.7 mmol/L (3.5-5.1)
[2020-05-11 08:40] LABS: Albumin Globulin Ratio 0.8 (0.9-2); Bilirubin,Total 1.8 mg/dl (0.2-1); Total Protein 5.4 gm/dl (6.4-8.2)
--- NOTE | 2020-05-11 10:11 | Surgery Progress Note ---
Date of Service May 11, 2020 Assessment & Plan (1) Cholecystitis: POD #1 laparoscopic cholecystectomy with cholangiogram, doing well Advanced diet as tolerated Plan for likely discharge tomorrow Activity restrictions and wound care instructions reviewed Dr. Ramos covering over the weekend Subjective 84-year-old male admitted with pancreatitis and cholecystitis, POD #1 laparoscopic cholecystectomy with cholangiogram. Overall doing well, no pain, feels better than he has in days. Physical Exam Constitutional: WD/WN, vitals as above Gastrointestinal (Abdomen): normal bowel sounds, soft, nontender, no hepatosplenomegaly Inspection/Auscultation: + abdominal surgical incision (Incisions with Dermabond in place, healing well) Percussion/Palpation: abdomen soft; abdomen nontender, no guarding, abdomen not rigid and no hepatosplenomegaly Results & Data Vital Signs (Past 12 Hours) Vital Signs Temp Pulse Pulse Resp BP BP Pulse Ox 05/11/20 08:13 75 05/11/20 08:06 36.9 C 73 18 155/83 H 91 05/11/20 04:00 37.0 C 78 16 116/62 90 05/10/20 23:31 81 05/10/20 23:00 36.8 C 94 H 16 154/70 H 90 Laboratory Results Laboratory Results - last 24 hr 05/11/20 05/11/20 07:56 07:56 WBC 15.27 H RBC 4.50 L Hgb 14.1 Hct 40.0 L MCV 88.9 MCH 31.3 MCHC 35.3 RDW Std Deviation 44.8 RDW Coeff of Tanvir 13.7 Plt Count 92 L MPV 10.0 Immature Gran % (Auto) 0.3 Neut % (Auto) 90.9 Lymph % (Auto) 2.6 Kenedy % (Auto) 6.1 Eos % (Auto) 0.0 Baso % (Auto) 0.1 Immature Gran # (Auto) 0.05 H Neut # (Auto) 13.89 H Lymph # (Auto) 0.39 L K[place]y # (Auto) 0.93 H Eos # (Auto) 0.00 Baso # (Auto) 0.01 Platelet Estimate Decreased L Sodium 136 Potassium 3.7 Chloride 103 Carbon Dioxide 25 Anion Gap 8.0 BUN 15 Creatinine 1.44 H Est Cr Clr Drug Dosing 35.1 Est GFR ( Amer) 51.7 Est GFR (Non-Af Amer) 44.6 BUN/Creatinine Ratio 10.6 Glucose 132 H Calcium 8.4 L Total Bilirubin 1.8 H Direct Bilirubin 0.4 H AST 28 ALT 44 Alkaline Phosphatase 64 Total Protein 5.4 L Albumin 2.4 L Globulin 3.0 Albumin/Globulin Ratio 0.8 L Lipase 104 PG Care Time/CCT Total # of Minutes Spent Total Time Spent with Patient: Total time spent is greater than 50% in coordination of care (as documented) at patient's floor/unit and/or counseling patient: Coding Level of Care Code None Diagnoses Cholecystitis K81.9
[2020-05-11] MEDS: VALACYCLOVIR HCL 500 MG TABLET PO SCH (15:33)
[2020-05-11] MEDS: ALPRAZolam 0.5 MG TABLET PO SCH (20:10)
[2020-05-11] MEDS: AMIODARONE 200 MG TAB PO SCH (20:10)
--- NOTE | 2020-05-11 22:40 | Hospitalist Progress Note ---
Date of Service May 11, 2020 Assessment & Plan (1) Acute pancreatitis: Biochemically, clinically and radiographically. Lipase >20,000. Drinks 1 glass of wine/night thus doubtful that etoh is the culprit. Distended gall bladder on CT with intra-hepatic biliary ductal dilatation and minimally elevated total bili. Concerning that the pancreatitis is due to biliary tract disease. Plan - * Advanced diet, tolerated full liquid. * Will place on regular for the evening. * Lipase has close to normalize * Patient will remain in med on tele monitor. * continue LR 150 ml/hr * S/P cholecystectomu * dilaudid prn pain * zofran prn nausea/emesis * hold ISAAC as ISAAC inhibitor class can cause pancreatitis * no recent illness to suggest viral etiology (2) Hypertension: hold ISAAC due to pancreatitis hold HCTZ due to need for copious IVF if BP control is needed consider hydralazine IV prn avoid beta guillermo due to bradycardia (3) PAF (paroxysmal atrial fibrillation): place on tele hold xarelto in the event he needs a procedure (ERCP, lap parviz, etc) cont amiodarone (4) Hypothyroidism: TSH 03/2020 wnl cont synthroid at home dosing (5) Dyslipidemia: hold statin for now triglycerides last month were <150 (6) GERD (gastroesophageal reflux disease): hold PO PPI place on IV pepcid BID (7) Abnormal EKG: ST segment depressions in I/AVL anterior Q waves no h/o CAD, acute [place], etc. 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 (9) DVT prophylaxis: hold xarelto in the event he needs a surgical procedure [facility] Admission and Anticipated Discharge Date Admission Date: May 08, 2020 Subjective Patient reports feeling well. He has no new complaints. He is asking to have his diet advanced to a regular diet. He has no abd. pain, nausea, or vomiting. Review of Systems Review of Systems: All systems reviewed & are unremarkable except as noted in HPI & below Physical Exam Physical Exam: Constitutional: well developed and well nourished; no acute distress and no altered mental status Eyes: + anicteric sclerae and PERRL ENMT: external ear and nose normal, oropharynx normal Mouth: + lip abnorm ality (healed ulceration/tissue injury lower lip) Neck: trachea midline, no thyromegaly Respiratory: normal respiratory effort, lungs clear to auscultation Cardiovascular: Rate/Rhythm: regular rate and regular rhythm Heart Sounds: normal S1 and normal S2; no murmur Vessels: posterior tibial pulses present and dorsalis pedis pulses present; no JVD Extremities: + varicosities; no edema Gastrointestinal (Abdomen): Inspection/Auscultation: + abdomen distended (minimal) and normal bowel sounds Percussion/Palpation:non-tender and + hernia (tiny - periumbilical ); no guarding and no hepatosplenomegaly Musculoskeletal: no cyanosis or clubbing, extremities motor strength 5/5 Skin: no rashes, warm and dry Neurologic: deep tendon reflexes 2+ bilaterally and moves all extremities Psychiatric: A+Ox3, euthymic affect Lymphatic: no cervical lymphadenopathy Results & Data Results & Data ([facility]) Vital Signs (Past 12 Hours) Vital Signs Temp Pulse Resp BP Pulse Ox 05/11/20 11:17 36.3 C L 74 18 166/84 H 94 PG Care Time/CCT Total # of Minutes Spent Total Time Spent with Patient: Total time spent is greater than 50% in coordination of care (as documented) at patient's floor/unit and/or counseling patient: Coding Level of Care Code 47833 Subseq Hosp Care Lvl 3 Diagnoses Acute pancreatitis K85.90 Acute pancreatitis complication: unspecified Pancreatitis type: unspecified pancreatitis type Hypertension I10 Hypertension type: essential hypertension PAF (paroxysmal atrial fibrillation) I48.0 Hypothyroidism E03.9 Hypothyroidism type: acquired Dyslipidemia E78.5 GERD (gastroesophageal reflux disease) K21.9 Esophagitis presence: esophagitis presence not specified Abnormal EKG R94.31 S/P aortic valve replacement Z95.2 DVT prophylaxis Z29.9 Time Spent (min) 35 (1) Hypothyroidism Hypothyroidism type: acquired Qualified Code(s): E03.9 - Hypothyroidism, unspecified (2) GERD (gastroesophageal reflux disease) Esophagitis presence: esophagitis presence not specified Qualified Code(s): K21.9 - Gastro-esophageal reflux disease without esophagitis (3) Hypertension Hypertension type: essential hypertension Qualified Code(s): I10 - Essential (primary) hypertension (4) Acute pancreatitis Acute pancreatitis complication: unspecified Pancreatitis type: unspecified pancreatitis type Qualified Code(s): K85.90 - Acute pancreatitis without necrosis or infection, unspecified
[2020-05-12] MEDS: LACTATED RINGER'S 1,000 ML IV SCH ×2 (01:48→08:59)
[2020-05-12] MEDS: cefOXitin 2,000 MG in DEXTROSE 5% 50 ML IV SCH (06:03)
[2020-05-12 08:18] LABS: Creatinine Clr Calc Pharmacy 42.3 ml/min; Est GFR (African American) 58.5; Est GFR (Non-African American) 50.5
[2020-05-12] MEDS: FAMOTIDINE 20 MG in SYRINGE 3 ML IV SCH (08:59)
--- NOTE | 2020-05-12 09:27 | Surgery Progress Note ---
Date of Service May 12, 2020 Assessment & Plan (1) Cholecystitis: Postoperative day 2 status post laparoscopic cholecystectomy Platelet count noted Doing well from surgical standpoint Can be discharged to home Will need to follow-up with Dr. Koenig in about 2 weeks Discussed postoperative activity restrictions Subjective Postoperative day #2 status post laparoscopic cholecystectomy Had pancreatitis Feels very well this morning Tolerated regular diet without nausea or vomiting Has not had much pain and it is under good control Has not been able to sleep well because of the bed Physical Exam Gastrointestinal (Abdomen): Inspection/Auscultation: normal bowel sounds; abdomen not distended Percussion/Palpation: abdomen soft; abdomen nontender Results & Data Vital Signs (Past 12 Hours) Vital Signs Temp Pulse Resp BP Pulse Ox 05/12/20 07:30 36.6 C 73 18 164/80 H 93 05/11/20 23:15 36.9 C 18 162/88 H 93 Laboratory Results 05/12/20 Range/Units 07:20 Creatinine 1.30 (0.6-1.4) mg/dl Est Cr Clr Drug Dosing 42.3 ml/min Est GFR ( Amer) 58.5 Est GFR (Non-Af Amer) 50.5
[2020-05-12 09:58] LABS: Albumin Level 2.5 gm/dl (3.4-5.0); BUN Creatinine Ratio 9.6 (10-20); Calcium 8.3 mg/dl (8.5-10.1); Creatinine Clr Calc Pharmacy 40.7 ml/min; Est GFR (African American) 55.9; Est GFR (Non-African American) 48.2; Potassium 3.7 mmol/L (3.5-5.1)
[2020-05-12 10:01] LABS: Albumin Globulin Ratio 0.8 (0.9-2); Globulin 3.1 gm/dl (2.5-4.0); Total Protein 5.6 gm/dl (6.4-8.2)
[2020-05-12 11:00] LABS: Basophils # (auto) 0.01 K/uL (0-0.2); Basophils % (auto) 0.1 %; Eosinophils # (auto) 0.17 K/uL (0-0.5); Hematocrit (blood only) 43.4 % (42-52); Immature Granulocytes # (auto) 0.05 K/uL (0.00-0.02); Immature Granulocytes % (auto) 0.3 %; Lymphocytes # (auto) 0.59 K/uL (1.2-3.4); Lymphocytes % (auto) 3.6 %; Mean Corpuscular Hemoglobin 31.2 pg (25-34); Mean Corpuscular Hgb Conc 34.6 g/dL (32-36); Mean Corpuscular Volume 90.2 fL (80-100); Mean Platelet Volume 10.3 fL (7.4-10.4); Monocytes % (auto) 8.5 %; Neutrophils # (auto) 14.22 K/uL (1.4-6.5); Neutrophils % (auto) 86.5 %; Platelet Count 124 K/uL (130-400); RDW Coefficient of Variation 13.6 % (11.5-14.5); RDW Standard Deviation 44.6 fL (36.4-46.3); Red Blood Count 4.81 M/uL (4.7-6.1); White Blood Count 16.44 K/uL (4.8-10.8)
[2020-05-12 11:41] LABS: Appearance Urine Clear (Clear); Bacteria Urine Automated Negative (Negative); Bilirubin Urine Negative (Negative); Blood Urine Trace (Negative); Color Urine Yellow; Glucose Urine UA Negative (Negative); Ketones Urine Trace (Negative); Leukocyte Esterase Urine Negative (Negative); Nitrite Urine Negative (Negative); RBC Urine Automated 0-4 /hpf (0-4); Specific Gravity Urine 1.015 (1.000-1.030); Urobilinogen Urine Negative (Negative); pH Urine 8.5 (4.5-7.5)
[2020-05-12 11:57] LABS: Protein Urine 1+ (Negative); Sulfosalicylic Acid Urine Positive (Negative)
--- NOTE | 2020-05-20 08:46 | Discharge Summary ---
Date of Service May 12, 2020 Admission HPI Per Admitting Provider 84yo male with h/o bicuspid aortic valve s/p bioprosthetic AVR, atrial flutter/fib on amiodarone & xarelto, hypothyroidism, and HTN who presents with severe abdominal pain. He woke up about 0730 this morning and had the pain right away. Present in the epigastric region. Had emesis in the ER. No fever. No radiation of pain. Constant in nature. Pain was 10/10 upon arrival to ER; now 6/10. No recent abdominal pain episodes or indigestion. He has felt well over the last few weeks/months and keeping an active lifestyle (fishes nearly daily). Denies fevers/chills. No chest pain or dyspnea. Principal Diagnosis Acute Pancreatitis Discharge Exam Constitutional: well developed and well nourished; no acute distress and no altered mental status Eyes: + anicteric sclerae and PERRL ENMT: external ear and nose normal, oropharynx normal Mouth: + lip abnormality (healed ulceration/tissue injury lower lip) Neck: trachea midline, no thyromegaly Respiratory: normal respiratory effort, lungs clear to auscultation Cardiovascular: Rate/Rhythm: regular rate and regular rhythm Heart Sounds: normal S1 and normal S2; no murmur Vessels: posterior tibial pulses present and dorsalis pedis pulses present; no JVD Extremities: + varicosities; no edema Gastrointestinal (Abdomen): Inspection/Auscultation: + abdomen distended (minimal) and normal bowel sounds Percussion/Palpation:non-tender and + hernia (tiny - periumbilical ); no guarding and no hepatosplenomegaly Musculoskeletal: no cyanosis or clubbing, extremities motor strength 5/5 Skin: no rashes, warm and dry Neurologic: deep tendon reflexes 2+ bilaterally and moves all extremities Psychiatric: A+Ox3, euthymic affect Lymphatic: no cervical lymphadenopathy Discharge Data Allergies Allergy/AdvReac Type Severity Reaction Status Date / Time codeine Allergy Unknown HALLUCINATI Verified 05/14/20 12:30 ONS oxycodone [From OxyContin] Allergy Unknown Verified 05/14/20 12:30 Penicillins Allergy Unknown CAN'T Verified 05/14/20 12:30 REMEMBER hydrocodone AdvReac Intermediate hallucinati Verified 05/14/20 12:30 ons Consultations 05/08/20 10:54 ED Decision to Admit Stat 05/08/20 13:36 Consult Gastroenterology Routine Consult General Surgery Routine Procedures Performed Operation Date: 05/10/20 10:40 Actual Procedures p Laparoscopic Cholecystectomy with Intraoperative Cholangiogram(Not Applicable) - Edi Koenig, DO, FACS Ordered Studies 05/08/20 08:58 CT angio chest dissec wo/w con Stat 05/08/20 09:06 CT angio abd pelvis wo/w con Stat 05/08/20 11:26 US gallbladder Stat 05/09/20 07:53 MR MRCP Routine 05/10/20 13:36 [place] cholangiogram OR Routine Hospital Course (1) Acute pancreatitis: Biochemically, clinically and radiographically. Lipase >20,000. Drinks 1 glass of wine/night thus doubtful that etoh is the culprit. Distended gall bladder on CT with intra-hepatic biliary ductal dilatation and minimally elevated total bili. Concerning that the pancreatitis is due to biliary tract disease. Plan - * Advanced diet, tolerated regular diet * Lipase has close to normalize * on med surg * S/P cholecystectomu * dilaudid prn pain * zofran prn nausea/emesis * hold ISAAC as ISAAC inhibitor class can cause pancreatitis * no recent illness to suggest viral etiology * WBC is gradually going up, howwver no signs of sepsis, no tachycardia, fever, chills. * Patient has no symptoms and feels like he is back to his baseline. * will discharge. * However, will have patient repeat CBC in 1-2 days as well as bilirrubin. * D/W gen surgery (2) Hypertension: held ISAAC due to pancreatitis held HCTZ due to need for copious IVF/ this james be resumed avoid beta guillermo due to bradycardia (3) PAF (paroxysmal atrial fibrillation): place on tele hold xarelto in the event he needs a procedure (ERCP, lap parviz, etc) cont amiodarone (4) Hypothyroidism: TSH 03/2020 wnl cont synthroid at home dosing (5) Dyslipidemia: hold statin for now triglycerides last month were <150 (6) GERD (gastroesophageal reflux disease): will resume PO PPI (7) Abnormal EKG: ST segment depressions in I/AVL anterior Q waves no h/o CAD, acute WA, etc. 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 (9) DVT prophylaxis: SCDs Total Time Total Time Spent Total Time Spent (In Minutes): 35 Discharge Plan Discharge Items Patient Disposition: Home - Self-Care Reason For Visit: ACUTE PANCREATITIS Discharge Diagnosis: Acute pancreatitis Activity: Resume your previous activity Lifting: No more than 10 pounds Bathing Comment: may shower, no soaking in tubs Exercise/Sports: Wait until after follow-up appointment Driving/Machine Use: Resume 3 days after discharge Non-emergency contact: Primary Care Provider Call non-emergency contact if: you have any medication questions, your symptoms worsen, your pain is not controlled, your pain is worsening, your pain is unusual for you, you have a fever, your temperature is above 101.5, your wound has increased redness, your wound has increased drainage and your wound pain has increased Follow-up/Referrals: Edi Koenig DO, JOSE [Physician] - (Please call to schedule follow up in clinic within 2 weeks) Martinez Riley Jr, DO [Primary Care Provider] - Diet: Heart Healthy Addmichelle Attending Provider Instructions: You have been hospitalized for an acute medical problem. During your stay at [facility], we have made an effort to correct the problem that brought you to the hospital while keeping you as comfortable as possible. Medications were used to bring your condition under control and your discharge instructions will include directions for any medications you should take after leaving the hospital. Please make sure you see your Primary Care Provider as part of your follow up plan. Recommend rechecking labs in 2-3 days. Followup with PCP in 1-2 weeks. Addtl Telecine Operator Provider Instructions: Post-Surgical ~Discharge Instructions Activity Recommendations: - lifting limitation: (10 pounds for 2 weeks), - exercise/sex/sports limit: (nonstrenuous for 2 weeks), - driving or machine use limit: (none for 1 week), - Shower/bathe limit: (may shower beginning tomorrow) Diet: - Resume previous diet SPECIAL CARE INSTRUCTIONS: - May shower in 24 hours. Let water run over area and pat dry. - Call the surgeon's office with any questions or concerns - (ex. temperature higher than 101 degrees F, excessive bleeding or pain). MEDICATIONS: - Resume previous medications unless instructed otherwise by your surgeon. - Ibuprofen 600 mg every 6 hours with food - Percocet 1 every 4 hours, as needed for pain FOLLOW UP VISIT: - If not already scheduled, please call the office to schedule a follow-up appointment. Office number Pending Studies at Discharge: No Stand-Alone Forms: My [facility], Smoking Cessation Medications and DC Order Prescriptions: Continued alprazolam 0.5 mg tablet 0.5 mg PO HS RF: 0 esomeprazole magnesium 40 mg capsule,delayed release(DR/EC) 40 mg PO QAM RF: 0 valacyclovir 500 mg tablet 500 mg PO QDD RF: 0 ferrous sulfate 325 mg (65 mg iron) tablet 325 mg PO QAM RF: 0 multivitamin [Daily Multi-Vitamin] tablet 1 tab PO QAM RF: 0 docusate sodium [Colace] 100 mg Capsule 100 mg PO HS RF: 0 hydrochlorothiazide 25 mg Tablet 12.5 mg PO QAM RF: 0 amiodarone 200 mg tablet 200 mg PO HS RF: 0 levothyroxine 100 mcg tablet 100 mcg PO 6XWK RF: 0 rivaroxaban 20 mg tablet 20 mg PO QDD RF: 0 Discontinued lisinopril 40 mg tablet 40 mg PO QAM RF: 0 atorvastatin 10 mg tablet 10 mg PO QDD RF: 0 aspirin 81 mg Tablet,Delayed Release (Dr/Ec) 81 mg PO QAM RF: 0 Discharge Orders: Discharge Order (Routine); Ordered 05/12/20 Ordered By: Celio Joseph/Other Patient Handouts: Having Laparoscopic Cholecystectomy, Cholecystectomy Laparoscopic Dc Admission Data Admit Date/Time: 05/08/20 11:42 Attending Provider: Celio Quigley Admit Provider: Luis Caldwell Primary Care Provider: Martinez Riley Jr Other Providers: Edi Koenig ; Juan Raines ; Taina Monk ; Estuardo Ramos Other Interventions: Discharge Summary Assessment (RN) Last Done: 05/12/20 10:46 DC Date/Time DO NOT enter until pt leaves facility: 05/12/20 12:32 Coding Level of Care Code D/C Day Management >30 mins Diagnoses Acute pancreatitis K85.90 Pancreatitis type: unspecified pancreatitis type Acute pancreatitis complication: unspecified Hypertension I10 Hypertension type: essential hypertension PAF (paroxysmal atrial fibrillation) I48.0 Hypothyroidism E03.9 Hypothyroidism type: acquired Dyslipidemia E78.5 GERD (gastroesophageal reflux disease) K21.9 Esophagitis presence: esophagitis presence not specified Abnormal EKG R94.31 S/P aortic valve replacement Z95.2 DVT prophylaxis Z29.9 Time Spent (min) 35
== END 2020-05-12 12:32 | disposition home or self-care (01) | DRG 417 ==
LOC: ED 08:44 → 2N 11:42 → SUATTDRO 11:42 → 2N 12:49 → 3N 05-11 11:49
DX: E03.9 Hypothyroidism, unspecified; K81.0 Acute cholecystitis; E78.5 Hyperlipidemia, unspecified; I48.0 Paroxysmal atrial fibrillation; I10 Essential (primary) hypertension; K21.9 Gastro-esophageal reflux disease without esophagitis; Z95.2 Presence of prosthetic heart valve; Z79.899 Other long term (current) drug therapy; K85.10 Biliary acute pancreatitis without necrosis or infection; R94.31 Abnormal electrocardiogram [ECG] [EKG]; Z79.01 Long term (current) use of anticoagulants; Z79.890 Hormone replacement therapy; Z88.0 Allergy status to penicillin; Z88.5 Allergy status to narcotic agent; Z79.82 Long term (current) use of aspirin; Z82.49 Family history of ischemic heart disease and other diseases of the circulatory system

== ENCOUNTER 2020-05-14 11:02 | Inpatient (IN) ==
[2020-05-14] MEDS ORDERED: SODIUM CHLORIDE 0.9% 1000ML 1,000 ML IV SCH (11:45)
[2020-05-14 11:48] LABS: Basophils # (auto) 0.02 K/uL (0-0.2); Basophils % (auto) 0.1 %; Eosinophils # (auto) 0.14 K/uL (0-0.5); Eosinophils % (auto) 0.6 %; Hematocrit (blood only) 49.1 % (42-52); Hemoglobin 17.6 g/dL (14.0-18.0); Immature Granulocytes # (auto) 0.21 K/uL (0.00-0.02); Lymphocytes # (auto) 1.06 K/uL (1.2-3.4); Lymphocytes % (auto) 4.8 %; Mean Corpuscular Hemoglobin 32.1 pg (25-34); Mean Corpuscular Hgb Conc 35.8 g/dL (32-36); Mean Corpuscular Volume 89.4 fL (80-100); Mean Platelet Volume 10.1 fL (7.4-10.4); Monocytes # (auto) 1.29 K/uL (0.11-0.59); Monocytes % (auto) 5.9 %; Neutrophils # (auto) 19.19 K/uL (1.4-6.5); Neutrophils % (auto) 87.6 %; Platelet Count 184 K/uL (130-400); RDW Coefficient of Variation 13.5 % (11.5-14.5); RDW Standard Deviation 44.2 fL (36.4-46.3); Red Blood Count 5.49 M/uL (4.7-6.1); White Blood Count 21.91 K/uL (4.8-10.8)
[2020-05-14 11:56] LABS: Alanine Aminotransferase 53 U/L (12-78); Aspartate Aminotransferase 23 U/L (15-37); BUN Creatinine Ratio 13.3 (10-20); Blood Urea Nitrogen 18 mg/dl (7-18); Calcium 8.7 mg/dl (8.5-10.1); Carbon Dioxide 27 mmol/L (21-32); Chloride 98 mmol/L (98-107); Est GFR (African American) 54.4; Est GFR (Non-African American) 46.9; Glucose 190 mg/dl (70-99); Magnesium 2.1 mg/dl (1.8-2.4); Potassium 3.1 mmol/L (3.5-5.1); Sodium 134 mmol/L (136-145)
--- NOTE | 2020-05-14 12:04 | Electrocardiogram Report ---
Test Reason : Blood Pressure : / mmHG Vent. Rate : 069 BPM Atrial Rate : 069 BPM P-R Int : 200 ms QRS Dur : 106 ms QT Int : 430 ms P-R-T Axes : 094 -05 137 degrees QTc Int : 460 ms Normal sinus rhythm Anterior infarct (cited on or before 08-MAY-2020) Left ventricular hypertrophy 2st Abnormal ECG When compared with ECG of 08-MAY-2020 08:55, No significant change Confirmed by Akhil Morelos ([id number]) on 05/14/2020 12:04:30 PM Referred By: Confirmed By:Akhil Morelos
[2020-05-14 12:06] LABS: Albumin Globulin Ratio 0.7 (0.9-2); Alkaline Phosphatase 110 U/L (45-117); Bilirubin,Total 2.1 mg/dl (0.2-1); Globulin 4.2 gm/dl (2.5-4.0); Total Protein 7.2 gm/dl (6.4-8.2); Troponin I 0.018 ng/ml (0-0.045)
[2020-05-14] MEDS ORDERED: cefOXitin 2,000 MG/60 ML BAG IV STA (12:06)
[2020-05-14 12:07] LABS: INR 1.2 (0.9-1.1); Partial Thromboplastin Ratio 1.2; Partial Thromboplastin Time 33.6 Seconds (21.0-31.0); Prothrombin Time 12.6 Seconds (9.0-12.0)
--- NOTE | 2020-05-14 12:22 | XRay Report ---
XR chest 1V portable CLINICAL HISTORY: weakness COMPARISON STUDY: 05/08/2020 FINDINGS: There are postsurgical changes of midline sternotomy. The heart is mildly enlarged. There a re linear basilar opacities likely representing subsegmental atelectasis. There are no large pleural effusions.[ IMPRESSION: Mild cardiomegaly and basilar subsegmental atelectatic changes. No evidence of failure. N o evidence of lobar consolidation ACT 112: Negative or not required by law. Electronically signed by: Mele Grant M.D. 05/14/2020 12:20 PM
[2020-05-14] MEDS ORDERED: IOVERSOL 100ml IV PRN (12:58)
--- NOTE | 2020-05-14 13:16 | CT Scan Report ---
CT OF THE ABDOMEN AND PELVIS WITH IV CONTRAST CLINICAL HISTORY: Status post cholecystectomy. Nausea and vomiting. Generalized abdominal pain. COMPARISON STUDY: Abdominal CT dated 05/08/2020. TECHNIQUE: Following the IV administration of 94 cc of Optiray 320, CT scan of the abdomen and pelvis was performed from the lung bases the proximal femora. Images are reviewed in the axial, sagittal, a nd coronal planes. IV contrast was administered without complication. A dose lowering technique was utilized adhering to the principles of ALARA. CT DOSE: 653.90 mGycm FINDINGS: Lower chest: The patient is status post midline sternotomy. The heart is enlarged and without pericar dial effusion. The coronary arteries are densely calcified. A small hiatal hernia is noted. There are small right and trace left pleural effusions with dependent atelectasis. There is a small hiatal her areli. Liver: The contrast-enhanced liver is normal in size, contour, and attenuation. There is no intrahepa tic biliary ductal dilatation. The hepatic veins and portal veins are patent. Scattered subcentimeter hepatic cysts are noted. Gallbladder: The gallbladder is surgically absent noting clips in the gallbladder fossa. Trace fluid in the gallbladder fossa is an expected postoperative finding. No organized fluid collection is ident ified. Spleen: Normal in size and attenuation noting heterogeneous arterial phase enhancement. Pancreas: The pancreas is enlarged and edematous. There is extensive peripancreatic inflammation and fluid, and the appearance is consistent with acute pancreatitis. No organized peripancreatic fluid co llection is identified. The parenchyma enhances throughout. The splenic vein is patent. Adrenal glands: Unremarkable. Kidneys: The contrast enhanced kidneys demonstrate cortical atrophy and are without hydronephrosis. T he kidneys enhance symmetrically. There are 2 left renal cysts measuring up to 5 cm. Additional subce ntimeter cortical hypodensities also likely represent cysts but are too small for definitive characte rization. Abdominal vasculature: The abdominal aorta is normal in caliber noting moderate to advanced atheroscl erotic calcification. Bowel: There is no bowel obstruction. Fecal retention is noted throughout the colon. Wall thickening and edema of the duodenum is likely related to adjacent pancreatitis. A transient intussusception of small bowel is incidentally noted on image #[id number]. This is of doubtful significance. Residual enteric c ontrast is noted in the colon. The appendix is normal as visualized. Peritoneum: No intraperitoneal free air is seen. Trace free fluid is noted in the paracolic gutters a nd pelvis. There is a small fat-containing umbilical hernia. Lymphadenopathy: None. Pelvic viscera: The prostate gland is not identified and presumed surgically absent. The bladder is n ormal as visualized. There is a small fat-containing right inguinal hernia. Skeletal structures: The skeletal structures are osteopenic. There is moderate lumbosacral spondylosi s. No destructive bony lesions are seen. IMPRESSION: 1. Findings of acute pancreatitis are similar to the 05/08/2020 examination. 2. The pancreatic parenchyma enhances throughout and no organized peripancreatic fluid collection is identified. 3. The gallbladder is surgically absent. There is no CT evidence of operative complication. 4. Wall thickening and edema of the duodenum is likely related to adjacent pancreatitis. 5. Trace abdominopelvic ascites. 6. Marked cardiomegaly. 7. Small right and trace left pleural effusions. 8. Additional findings as above. ACT 112: Negative or not required by law. Electronically signed by: Hiram Perkins M.D. 05/14/2020 1:15 PM
[2020-05-14] MEDS ORDERED: SODIUM CHLORIDE 0.9% 1000ML 500 ML IV ONE (13:36)
--- NOTE | 2020-05-14 13:44 | Emergency Department Note ---
History of Present Illness General Chief complaint: Weakness Stated complaint: POST SURG THURS, CAN'T PEE/BOWEL MOVEMENT, SLEEPY Time Seen by Provider: 05/14/20 11:25 Source: patient Mode of arrival: ambulatory Limitations: no limitations History of Present Illness Provider complaint: Abdominal pain, fatigue Onset (ago): day(s) 2 Maximum Pain Intensity: 7 This patient is an 84-year-old male who presents emergency department with complaints of generalized fatigue and "the double flu." Patient states he was admitted to the hospital last week with an acute pancreatitis and had a cholecystectomy performed towards the end of the week. He was discharged 2 days ago and was advised to have laboratory work performed, which she had done yesterday. Patient states he feels badly enough that he "does not care if (I) live or ." Patient denies any fevers, vomiting, severe abdominal pain or diarrhea. He has been eating and does not have significant pain afterwards although his appetite is diminished. He admits he has been urinating without difficulty but has not had a bowel movement in the better part of a week. Home Medications Home Medications Medication Instructions Recorded Confirmed Type alprazolam 0.5 mg tablet 0.5 mg PO HS tab 08/23/19 05/14/20 History esomeprazole magnesium 40 mg 40 mg PO QAM cap 08/23/19 05/14/20 History capsule,delayed release ferrous sulfate 325 mg (65 mg 325 mg PO QAM tab 08/23/19 05/14/20 History iron) tablet multivitamin 1 tab PO QAM 08/23/19 05/14/20 History valacyclovir 500 mg tablet 500 mg PO QDD tab 08/23/19 05/14/20 History amiodarone 200 mg PO HS 05/08/20 05/14/20 History docusate sodium [Colace] 100 mg PO HS 05/08/20 05/14/20 History hydrochlorothiazide 12.5 mg PO QAM 05/08/20 05/14/20 History levothyroxine 100 mcg PO 6XWK 05/08/20 05/14/20 History rivaroxaban 20 mg PO QDD 05/08/20 05/14/20 History Allergies Allergy/AdvReac Type Severity Reaction Status Date / Time codeine Allergy Unknown HALLUCINATI Verified 05/14/20 12:30 ONS oxycodone [From OxyContin] Allergy Unknown Verified 05/14/20 12:30 Penicillins Allergy Unknown CAN'T Verified 05/14/20 12:30 REMEMBER hydrocodone AdvReac Intermediate hallucinati Verified 05/14/20 12:30 ons Past Med/Surg History Medical History Aortic regurgitation due to bicuspid aortic valve (Inactive) Atrial flutter, paroxysmal (Acute) Cholecystitis Depression (Acute) GERD (gastroesophageal reflux disease) (Acute) Hypertension (Acute) Hypothyroidism PAF (paroxysmal atrial fibrillation) Piriformis syndrome of right side (Resolved) Prostate cancer (Acute) Subconjunctival hematoma (Inactive) Surgical History H/O hernia repair (Acute) inguinal H/O prostatectomy (Acute) S/P aortic valve replacement Family History Mother Hypertension Diabetes Father , age 50 Myocardial infarction Social History Preferred Language: Moldovan Communication Ability: Effective [employer] Reading Teacher Required: No Beliefs That Will Affect Care: None marital status: Current Living Situation: Spouse Current Living Situation Comment: lives in [place] current occupational status: retired current occupation: [employer] other: 1 daughter Feels Safe at Home: Yes Smoking Status: Never smoker Second Hand Exposure: No ; Hx Alcohol Use: Yes Alcohol type: wine Alcohol type Comment: 1 glass wine Alcohol Intake Frequency: Daily Hx Substance Use: No Review of Systems See HPI for pertinent positives & negatives. and A total of 10 systems reviewed and were otherwise negative Physical Exam Vital Signs Vital Signs - 24 hr 05/14/20 11:06 05/14/20 11:30 05/14/20 11:41 Temperature 36.9 C Temperature Source Oral Pulse Rate - Lying Pulse Rate - Sitting Pulse Rate - Standing Pulse Rate 72 Respiratory Rate 18 Blood Pressure - Lying Blood Pressure - Sitting Blood Pressure- Standing Blood Pressure 162/82 H Blood Pressure Mean 108 Blood Pressure Position Sitting Pulse Oximetry 94 Oxygen Delivery Method Room Air Room Air Sepsis Recent Fever Within 48 Hours No Sepsis New/Unexplained Change in Mental Status No Sepsis Action Taken by Nursing No Action Required 05/14/20 11:48 05/14/20 11:50 05/14/20 11:55 Temperature Temperature Source Pulse Rate - Lying 65 Pulse Rate - Sitting 70 Pulse Rate - Standing 77 Pulse Rate 70 69 Respiratory Rate 18 25 H Blood Pressure - Lying 108/55 L Blood Pressure - Sitting 93/52 L Blood Pressure- Standing 97/68 L Blood Pressure 97/68 L Blood Pressure Mean 83 Blood Pressure Position Pulse Oximetry Oxygen Delivery Method Sepsis Recent Fever Within 48 Hours Sepsis New/Unexplained Change in Mental Status Sepsis Action Taken by Nursing 05/14/20 12:00 05/14/20 12:10 05/14/20 12:30 Temperature Temperature Source Pulse Rate - Lying Pulse Rate - Sitting Pulse Rate - Standing Pulse Rate 68 67 67 Respiratory Rate 25 H 18 Blood Pressure - Lying Blood Pressure - Sitting Blood Pressure- Standing Blood Pressure 115/59 L Blood Pressure Mean 83 Blood Pressure Position Pulse Oximetry Oxygen Delivery Method Sepsis Recent Fever Within 48 Hours Sepsis New/Unexplained Change in Mental Status Sepsis Action Taken by Nursing 05/14/20 13:04 05/14/20 13:30 05/14/20 14:00 Temperature Temperature Source Pulse Rate - Lying Pulse Rate - Sitting Pulse Rate - Standing Pulse Rate 61 60 61 Respiratory Rate 23 21 21 Blood Pressure - Lying Blood Pressure - Sitting Blood Pressure- Standing Blood Pressure Blood Pressure Mean Blood Pressure Position Pulse Oximetry 99 Oxygen Delivery Method Room Air Sepsis Recent Fever Within 48 Hours Sepsis New/Unexplained Change in Mental Status Sepsis Action Taken by Nursing 05/14/20 14:27 05/14/20 14:30 05/14/20 15:00 Temperature Temperature Source Pulse Rate - Lying Pulse Rate - Sitting Pulse Rate - Standing Pulse Rate 60 61 58 L Respiratory Rate 23 25 H 19 Blood Pressure - Lying Blood Pressure - Sitting Blood Pressure- Standing Blood Pressure 136/65 149/74 H 139/79 Blood Pressure Mean 78 80 109 Blood Pressure Position Pulse Oximetry Oxygen Delivery Method Sepsis Recent Fever Within 48 Hours Sepsis New/Unexplained Change in Mental Status Sepsis Action Taken by Nursing Vital signs reviewed. General: Well-appearing 84 yo male, in no significant distress. HEENT: No scleral icterus, PERRLA, neck supple. Atraumatic. Cardiovascular: Regular rate and rhythm, no extra sounds. Pulmonary: Clear to auscultation bilaterally, normal work of breathing. Abdomen: Soft, tender to palpation of the epigastrium, nondistended, positive bowel sounds. Musculoskeletal: Atraumatic, no peripheral edema. Neurologic: Patient awake alert and oriented x 3 Skin: Warm, dry, several postsurgical incisions that appear to be well-healing with ecchymosis to the most dependent portion of the abdomen Course Administered Medications Sodium Chloride (Nss 1000ml) 1,000 mls @ 125 mls/hr IV .Q8H JASMEET Stop: 05/14/20 19:44 Last Admin: 05/14/20 11:59 Dose: 125 mls/hr Documented by: [id number] Ioversol (Optiray 320 100ml) 94 ml IV ONCE PRN PRN Reason: Interaction Checking Stop: 05/18/20 12:57 Last Admin: 05/14/20 12:58 Dose: 94 ml Documented by: [id number] Discontinued Medications Cefoxitin Sodium (Mefoxin) 2,000 mg in 60 mls @ 100 mls/hr IV NOW STA Stop: 05/14/20 12:41 Last Infusion: 05/14/20 13:06 Dose: 0 mls/hr Documented by: [id number] Admin: 05/14/20 12:26 Dose: 100 mls/hr Documented by: [id number] Sodium Chloride (Nss 1000ml) 500 mls @ 999 mls/hr IV .Q31M ONE Stop: 05/14/20 14:06 Last Admin: 05/14/20 13:51 Dose: 999 mls/hr Documented by: [id number] Medical Decision Making Differential Diagnosis Differential diagnosis: Etiologies such as bile leak, hepatitis, pancreatitis, cardiac disease, pancreatitis, gastritis, peptic ulcer disease, appendicitis, cystitis, diverticulitis, mesenteric ischemia, inflammatory bowel disease, ileus, bowel obstruction, testicular torsion, aortic pathology, shingles, as well as others were considered. Home Medications Current Medication List: was personally reviewed by me Laboratory Data Attestation: I reviewed the patient's lab results. Result diagrams: 05/14/20 11:27 05/14/20 11:27 Lab Results 05/14/20 05/14/20 05/14/20 Range/Units 11:27 11:27 11:27 WBC 21.91 H (4.8-10.8) K/uL RBC 5.49 (4.7-6.1) M/uL Hgb 17.6 (14.0-18.0) g/dL Hct 49.1 (42-52) % MCV 89.4 (80-100) fL MCH 32.1 (25-34) pg MCHC 35.8 (32-36) g/dL RDW Std Deviation 44.2 (36.4-46.3) fL RDW Coeff of Tanvir 13.5 (11.5-14.5) % Plt Count 184 (130-400) K/uL MPV 10.1 (7.4-10.4) fL Immature Gran % (Auto) 1.0 % Neut % (Auto) 87.6 % Lymph % (Auto) 4.8 % [place] % (Auto) 5.9 % Eos % (Auto) 0.6 % Baso % (Auto) 0.1 % Neut # (Auto) 19.19 H (1.4-6.5) K/uL Lymph # (Auto) 1.06 L (1.2-3.4) K/uL [place] # (Auto) 1.29 H (0.11-0.59) K/uL Eos # (Auto) 0.14 (0-0.5) K/uL Baso # (Auto) 0.02 (0-0.2) K/uL Immature Gran # (Auto) 0.21 H (0.00-0.02) K/uL PT 12.6 H (9.0-12.0) Seconds INR 1.2 H (0.9-1.1) APTT 33.6 H (21.0-31.0) Seconds PTT Ratio 1.2 Sodium 134 L (136-145) mmol/L Potassium 3.1 L (3.5-5.1) mmol/L Chloride 98 (98-107) mmol/L Carbon Dioxide 27 (21-32) mmol/L Anion Gap 9.0 (3-11) BUN 18 (7-18) mg/dl Creatinine 1.38 (0.6-1.4) mg/dl Est Cr Clr Drug Dosing Not Reportable Est GFR ( Amer) 54.4 Est GFR (Non-Af Amer) 46.9 BUN/Creatinine Ratio 13.3 (10-20) Glucose 190 H (70-99) mg/dl Calcium 8.7 (8.5-10.1) mg/dl Magnesium 2.1 (1.8-2.4) mg/dl Total Bilirubin 2.1 H (0.2-1) mg/dl AST 23 (15-37) U/L ALT 53 (12-78) U/L Alkaline Phosphatase 110 (45-117) U/L Troponin I 0.018 (0-0.045) ng/ml Total Protein 7.2 (6.4-8.2) gm/dl Albumin 3.0 L (3.4-5.0) gm/dl Globulin 4.2 H (2.5-4.0) gm/dl Albumin/Globulin Ratio 0.7 L (0.9-2) Amylase (25-115) U/L Lipase (73-393) U/L TSH 2.170 (0.300-4.500) uIu/ml 05/14/20 Range/Units 11:27 WBC (4.8-10.8) K/uL RBC (4.7-6.1) M/uL Hgb (14.0-18.0) g/dL Hct (42-52) % MCV (80-100) fL MCH (25-34) pg MCHC (32-36) g/dL RDW Std Deviation (36.4-46.3) fL RDW Coeff of Tanvir (11.5-14.5) % Plt Count (130-400) K/uL MPV (7.4-10.4) fL Immature Gran % (Auto) % Neut % (Auto) % Lymph % (Auto) % [place] % (Auto) % Eos % (Auto) % Baso % (Auto) % Neut # (Auto) (1.4-6.5) K/uL Lymph # (Auto) (1.2-3.4) K/uL [place] # (Auto) (0.11-0.59) K/uL Eos # (Auto) (0-0.5) K/uL Baso # (Auto) (0-0.2) K/uL Immature Gran # (Auto) (0.00-0.02) K/uL PT (9.0-12.0) Seconds INR (0.9-1.1) APTT (21.0-31.0) Seconds PTT Ratio Sodium (136-145) mmol/L Potassium (3.5-5.1) mmol/L Chloride (98-107) mmol/L Carbon Dioxide (21-32) mmol/L Anion Gap (3-11) BUN (7-18) mg/dl Creatinine (0.6-1.4) mg/dl Est Cr Clr Drug Dosing Est GFR ( Amer) Est GFR (Non-Af Amer) BUN/Creatinine Ratio (10-20) Glucose (70-99) mg/dl Calcium (8.5-10.1) mg/dl Magnesium (1.8-2.4) mg/dl Total Bilirubin (0.2-1) mg/dl AST (15-37) U/L ALT (12-78) U/L Alkaline Phosphatase (45-117) U/L Troponin I (0-0.045) ng/ml Total Protein (6.4-8.2) gm/dl Albumin (3.4-5.0) gm/dl Globulin (2.5-4.0) gm/dl Albumin/Globulin Ratio (0.9-2) Amylase 67 (25-115) U/L Lipase 341 (73-393) U/L TSH (0.300-4.500) uIu/ml Imaging Data Radiologist's Impression: XR chest 1V portable CLINICAL HISTORY: weakness COMPARISON STUDY: 05/08/2020 FINDINGS: There are postsurgical changes of midline sternotomy. The heart is mildly enlarged. There are linear basilar opacities likely representing subsegmental atelectasis. There are no large pleural effusions.[ IMPRESSION: Mild cardiomegaly and basilar subsegmental atelectatic changes. No evidence of failure. No evidence of lobar consolidation ACT 112: Negative or not required by law. Electronically signed by: Mele Grant M.D. 05/14/2020 12:20 PM Dictated: 05/14/20 1220 Transcribed: 05/14/[address] OF THE ABDOMEN AND PELVIS WITH IV CONTRAST CLINICAL HISTORY: Status post cholecystectomy. Nausea and vomiting. Generalized abdominal pain. COMPARISON STUDY: Abdominal CT dated 05/08/2020. TECHNIQUE: Following the IV administration of 94 cc of Optiray 320, CT scan of the abdomen and pelvis was performed from the lung bases the proximal femora. Images are reviewed in the axial, sagittal, and coronal planes. IV contrast was administered without complication. A dose lowering technique was utilized adhering to the principles of ALARA. CT DOSE: 653.90 mGycm FINDINGS: Lower chest: The patient is status post midline sternotomy. The heart is enlarged and without pericardial effusion. The coronary arteries are densely calcified. A small hiatal hernia is noted. There are small right and trace left pleural effusions with dependent atelectasis. There is a small hiatal hernia. Liver: The contrast-enhanced liver is normal in size, contour, and attenuation. There is no intrahepatic biliary ductal dilatation. The hepatic veins and portal veins are patent. Scattered subcentimeter hepatic cysts are noted. Gallbladder: The gallbladder is surgically absent noting clips in the gallbladder fossa. Trace fluid in the gallbladder fossa is an expected postoperative finding. No organized fluid collection is identified. Spleen: Normal in size and attenuation noting heterogeneous arterial phase enhancement. Pancreas: The pancreas is enlarged and edematous. There is extensive peripancreatic inflammation and fluid, and the appearance is consistent with acute pancreatitis. No organized peripancreatic fluid collection is identified. The parenchyma enhances throughout. The splenic vein is patent. Adrenal glands: Unremarkable. Kidneys: The contrast enhanced kidneys demonstrate cortical atrophy and are without hydronephrosis. The kidneys enhance symmetrically. There are 2 left renal cysts measuring up to 5 cm. Additional subcentimeter cortical hypodensities also likely represent cysts but are too small for definitive characterization. Abdominal vasculature: The abdominal aorta is normal in caliber noting moderate to advanced atherosclerotic calcification. Bowel: There is no bowel obstruction. Fecal retention is noted throughout the colon. Wall thickening and edema of the duodenum is likely related to adjacent pancreatitis. A transient intussusception of small bowel is incidentally noted on image #[id number]. This is of doubtful significance. Residual enteric contrast is noted in the colon. The appendix is normal as visualized. Peritoneum: No intraperitoneal free air is seen. Trace free fluid is noted in the paracolic gutters and pelvis. There is a small fat-containing umbilical hernia. Lymphadenopathy: None. Pelvic viscera: The prostate gland is not identified and presumed surgically absent. The bladder is normal as visualized. There is a small fat-containing right inguinal hernia. Skeletal structures: The skeletal structures are osteopenic. There is moderate lumbosacral spondylosis. No destructive bony lesions are seen. IMPRESSION: 1. Findings of acute pancreatitis are similar to the 05/08/2020 examination. 2. The pancreatic parenchyma enhances throughout and no organized peripancreatic fluid collection is identified. 3. The gallbladder is surgically absent. There is no CT evidence of operative complication. 4. Wall thickening and edema of the duodenum is likely related to adjacent pancreatitis. 5. Trace abdominopelvic ascites. 6. Marked cardiomegaly. 7. Small right and trace left pleural effusions. 8. Additional findings as above. ACT 112: Negative or not required by law. Electronically signed by: Hiram Perkins M.D. 05/14/2020 1:15 PM Dictated: 05/14/20 1303 Transcribed: 05/14/20 1303 ECG Data Attestation: I personally reviewed and interpreted this ECG as follows: Indication: + abdominal pain and + weakness Rate (beats per minute): 69 Rhythm: + normal sinus ECG Intervals/blocks: + Normal QT-c ECG ST segments: + Nonspecific ST abnormalities ECG Findings: + Q waves (Anterior) Blood Pressure Blood Pressure Findings: Elevated blood pressure Blood Pressure Disposition: further management by hospitalist MDM Narrative This patient is an 84-year-old male who presents emergency department with complaints of generalized weakness, flulike symptoms. He did not appear to be in any significant distress on my evaluation. An order for cardiac monitoring was placed and the patient is found to be in a normal sinus rhythm at 60 bpm. IV fluids were initiated. The patient declined the need for any pain medication. Laboratory evaluation reveals a white blood cell count of 21,000. CT imaging was performed of the abdomen which is consistent with an unchanged pancreatitis from about 1 week ago. Lipase is 340 today. Incidentally the patient has had a cholecystectomy in the meantime. 2 g of IV Mefoxin were ordered and a 500 cc bolus of normal saline solution for slightly positive orthostatics. Urinalysis is ordered but has yet to be provided. Patient's case was discussed with the hospitalist service, Dr. Lawton who will evaluate the patient for admission and further management. Patient is aware of the plan and agrees. Impression & Plan Acute pancreatitis, Status post cholecystectomy Discharge Plan Visit Data Chief Complaint: Weakness Stated Complaint: POST SURG THURS, CAN'T PEE/BOWEL MOVEMENT, SLEEPY ED Provider: Kristi Nicholas Discharge Problem: Acute pancreatitis, Status post cholecystectomy Discharge Instructions Interventions: ED Discharge Assessment Last Done: 05/14/20 15:17 Discharge Problem: Acute pancreatitis Qualifiers: Pancreatitis type: other Acute pancreatitis complication: no infection or necrosis Qualified Code(s): K85.80 - Other acute pancreatitis without necrosis or infection
[2020-05-14 13:52] LABS: Amylase 67 U/L (25-115); Lipase 341 U/L (73-393)
--- NOTE | 2020-05-14 14:38 | History & Physical Report ---
Date of Service May 14, 2020 Assessment & Plan (1) Pancreatitis: Continuation of recent pancreatitis on last admission due to biliary obstruction although no stones seen on MRCP, he was confirmed to have cholecystitis and underwent cholecystectomy on May [address] Koenig with subsequent surgical pathology confirming chronic mild cholecystitis. Increasing lipase (mildly), WBC since discharge with ongoing stable inflammation of the pancreas on imaging No change in LFTs to suggest obstruction to liver Plan for EBUS as outpatient Lipid panel in AM to assess for triglycerides for completeness Clear Liquids IV LR 125ml/hr (2) Leukocytosis: Trending up since May 11, despite continuation of cefoxitin until May 12 and significant IV fluids also until discharge on May 12. No indication of source to suggest need to continue antibiotics currently, no significant RUQ pain to suggest cholangitis No fluid collection to suggest abscess Cefoxitin notably given in ER but will hold off further antibiotics at this time (3) Fecal retention: No bowel movement since May 08 prior to his last admission. MiraLAX QID Colace 100mg HS If no BM overnight consider addition of Senna (4) Right lower quadrant abdominal pain: Suspect related to fecal retention as above (5) GERD (gastroesophageal reflux disease): Switch esomeprazole for pantoprazole as per hospital formulary (6) S/P aortic valve replacement: Noted history of this. Porcine. (7) CAD (coronary artery disease): Continue rivaroxaban, (8) PAF (paroxysmal atrial fibrillation): Continue amiodarone for rhythm control Continue rivaroxaban (9) Hypertension: Hold HCTZ as likely contributing towards dehydration and patient unable to keep up with fluid intake (10) Prostate cancer: History of this. PSAs consistently negative (last performed May 2019) (11) DVT prophylaxis: Continue rivaroxaban Admission and Anticipated Discharge Date Admission Date: May 14, 2020 History of Present Illness Chief Complaint: Generalized weakness, fatigue, poor appetite Primary Care Provider: Martinez Riley Jr, DO Luis Herring is an 84-year-old male who presents to the ER after recent discharge for acute pancreatitis and cholecystitis with ongoing generalized weakness, fatigue, poor appetite. He reports not having a bowel movement since May 08 (prior to his recent admission for pancreatitis and cholecystitis). Since coming to the ER and receiving IV fluids and antibiotics he feels significantly improved. He denies any abdominal pain, nausea or vomiting although reports he never had these symptoms recently when he was diagnosed with pancreatitis with a lipase of over 20,000. The patient reports he was actually getting more sleep at home and his appetite was improving. In the ER he underwent CT scan showing ongoing inflammation of the pancreas. Of most concern his white blood count has been rising since discharge. Review of his previous hospitalization shows he given cefoxitin throughout his admission. He was not given any antibiotics on discharge. He was also given lactated Ringer's 150 mL/h throughout admission until discharge. On discussion with his daughter over the phone. She reports his appetite has been extremely poor since discharge, which is her biggest concern. He has been lethargic and sleeping throughout a lot of the day. Allergies Allergy/AdvReac Type Severity Reaction Status Date / Time codeine Allergy Unknown HALLUCINATI Verified 05/14/20 12:30 ONS oxycodone [From OxyContin] Allergy Unknown Verified 05/14/20 12:30 Penicillins Allergy Unknown CAN'T Verified 05/14/20 12:30 REMEMBER hydrocodone AdvReac Intermediate hallucinati Verified 05/14/20 12:30 ons Home Medications Home Medications Medication Instructions Recorded Confirmed Type alprazolam 0.5 mg tablet 0.5 mg PO HS tab 08/23/19 05/14/20 History esomeprazole magnesium 40 mg 40 mg PO QAM cap 08/23/19 05/14/20 History capsule,delayed release ferrous sulfate 325 mg (65 mg 325 mg PO QAM tab 08/23/19 05/14/20 History iron) tablet multivitamin 1 tab PO QAM 08/23/19 05/14/20 History valacyclovir 500 mg tablet 500 mg PO QDD tab 08/23/19 05/14/20 History amiodarone 200 mg PO HS 05/08/20 05/14/20 History docusate sodium [Colace] 100 mg PO HS 05/08/20 05/14/20 History hydrochlorothiazide 12.5 mg PO QAM 05/08/20 05/14/20 History levothyroxine 100 mcg PO 6XWK 05/08/20 05/14/20 History rivaroxaban 20 mg PO QDD 05/08/20 05/14/20 History Past Med/Surg History Medical History Aortic regurgitation due to bicuspid aortic valve (Inactive) Atrial flutter, paroxysmal (Acute) Cholecystitis Depression (Acute) GERD (gastroesophageal reflux disease) (Acute) Hypertension (Acute) Hypothyroidism PAF (paroxysmal atrial fibrillation) Piriformis syndrome of right side (Resolved) Prostate cancer (Acute) Subconjunctival hematoma (Inactive) Surgical History H/O hernia repair (Acute) inguinal H/O prostatectomy (Acute) S/P aortic valve replacement Family History Mother Hypertension Diabetes Father , age 50 Myocardial infarction Social History Preferred Language: Moldovan Communication Ability: Effective Hub Inventory Specialist Required: No Beliefs That Will Affect Care: None marital status: Current Living Situation: Spouse and Family Current Living Situation Comment: lives in [place] current occupational status: retired current occupation: [employer] Other Information That Helps Us Care for You: No other: 1 daughter Feels Safe at Home: Yes Safety Concerns: Feels Safe At This Time Smoking Status: Never smoker Second Hand Exposure: No ; Hx Alcohol Use: Yes Alcohol type: wine Alcohol type Comment: 1 glass wine Alcohol Intake Frequency: Daily Hx Substance Use: No Review of Systems Review of Systems: All systems reviewed & are unremarkable except as noted in HPI & below Physical Exam Constitutional: well developed; + not well nourished and no acute distress Eyes: + anicteric sclerae; normal pupil size ENMT: external ear and nose normal, oropharynx normal Neck: trachea midline, no thyromegaly Respiratory: normal respiratory effort, lungs clear to auscultation Cardiovascular: Rate/Rhythm: regular rate and regular rhythm Heart Sounds: no murmur Vessels: no JVD Extremities: normal capillary refill; no calf tenderness and no pedal edema Gastrointestinal (Abdomen): Inspection/Auscultation: normal bowel sounds; abdomen not distended Percussion/Palpation: + abdomen tender (RLQ on deep palpation) and abdomen soft; no guarding and abdomen not rigid Musculoskeletal: no cyanosis or clubbing, extremities motor strength 5/5 Skin: no rashes, warm and dry Neurologic: moves all extremities and awake; no focal motor deficits and not confused Speech / Cognition: normal speech Motor/Sensory: no tremor, no pronator drift and no sensory deficit Psychiatric: A+Ox3, euthymic affect Genitourinary: no CVA tenderness Lymphatic: no cervical or axillary lymphadenopathy Results & Data Results & Data ([facility]) Vital Signs (Past 12 Hours) Vital Signs Temp Pulse Resp BP Pulse Ox 05/14/20 13:04 61 23 99 05/14/20 12:30 67 18 05/14/20 12:10 67 115/59 L 05/14/20 12:00 68 25 H 05/14/20 11:50 69 25 H 05/14/20 11:48 70 18 97/68 L 05/14/20 11:06 36.9 C 72 18 162/[address] OF THE ABDOMEN AND PELVIS WITH IV CONTRAST IMPRESSION: 1. Findings of acute pancreatitis are similar to the 05/08/2020 examination. 2. The pancreatic parenchyma enhances throughout and no organized peripancreatic fluid collection is identified. 3. The gallbladder is surgically absent. There is no CT evidence of operative complication. 4. Wall thickening and edema of the duodenum is likely related to adjacent pancreatitis. 5. Trace abdominopelvic ascites. 6. Marked cardiomegaly. 7. Small right and trace left pleural effusions. 8. Additional findings as above. ECG Indication: weakness Rate (beats per minute): 69 Rhythm: normal sinus Comparison ECG Date: from (May 08, 2020) Change: no significant change Code Status & VTE Plan Code Status Full, as discussed with the patient VTE Prophylaxis Plan VTE Prophylaxis will be ordered: Yes PG Care Time/CCT Total # of Minutes Spent Total Time Spent with Patient: Total time spent is greater than 50% in coordination of care (as documented) at patient's floor/unit and/or counseling patient: Coding Level of Care Code 25417 Initial Inpt Care Lvl 3 Diagnoses Pancreatitis K85.10 Acute pancreatitis complication: no infection or necrosis Chronicity: acute Pancreatitis type: biliary Leukocytosis D72.829 Fecal retention K59.00 Right lower quadrant abdominal pain R10.31 GERD (gastroesophageal reflux disease) K21.9 Esophagitis presence: esophagitis presence not specified S/P aortic valve replacement Z95.2 CAD (coronary artery disease) I25.10 PAF (paroxysmal atrial fibrillation) I48.0 Hypertension I10 Hypertension type: essential hypertension Prostate cancer C61 DVT prophylaxis Z29.9 (1) Pancreatitis Acute pancreatitis complication: no infection or necrosis Chronicity: acute Pancreatitis type: biliary Qualified Code(s): K85.10 - Biliary acute pancreatitis without necrosis or infection (2) GERD (gastroesophageal reflux disease) Esophagitis presence: esophagitis presence not specified Qualified Code(s): K21.9 - Gastro-esophageal reflux disease without esophagitis (3) Hypertension Hypertension type: essential hypertension Qualified Code(s): I10 - Essential (primary) hypertension
[2020-05-14] MEDS ORDERED: ALUMINUM/MAGNESIUM SUSP 30 ML UDC PO PRN (16:03)
[2020-05-14] MEDS ORDERED: MAGNESIUM HYDROXIDE SUSP 30 ML UDC PO PRN (16:03)
[2020-05-14] MEDS ORDERED: ONDANSETRON INJ 2 MG/ML 2 ML VIAL IV PRN (16:03)
[2020-05-14] MEDS ORDERED: POLYETHYLENE (MIRALAX) 17 GM PACK PO PRN (16:03)
[2020-05-14] MEDS ORDERED: ACETAMINOPHEN 325 MG TAB PO PRN (16:03)
[2020-05-14] MEDS ORDERED: RIVAROXABAN 15 MG TAB PO SCH (16:45)
[2020-05-14] MEDS: VALACYCLOVIR HCL 500 MG TABLET PO SCH (17:52)
[2020-05-14] MEDS: POLYETHYLENE (MIRALAX) 17 GM PACK PO SCH ×2 (17:59→20:46)
[2020-05-14] MEDS ORDERED: POTASSIUM CHLORIDE 20 MEQ TABCR PO ONE (20:00)
[2020-05-14] MEDS ORDERED: ALPRAZolam 0.5 MG TABLET PO SCH (21:00)
[2020-05-14] MEDS ORDERED: AMIODARONE 200 MG TAB PO SCH (21:00)
[2020-05-14] MEDS ORDERED: DOCUSATE SODIUM 100 MG CAP PO SCH (21:00)
[2020-05-14 21:01] LABS: Appearance Urine Clear (Clear); Bacteria Urine Automated Negative (Negative); Bilirubin Urine Negative (Negative); Blood Urine 1+ (Negative); Color Urine Dark Yellow; Glucose Urine UA Negative (Negative); Ketones Urine Trace (Negative); Leukocyte Esterase Urine Negative (Negative); Nitrite Urine Negative (Negative); Protein Urine 1+ (Negative); Specific Gravity Urine > 1.045 (1.000-1.030); Urobilinogen Urine Negative (Negative)
[2020-05-14] MEDS: LACTATED RINGER'S 1,000 ML IV SCH (22:21)
[2020-05-15] MEDS: LACTATED RINGER'S 1,000 ML IV SCH ×2 (05:00→12:38)
[2020-05-15 05:59] LABS: Basophils # (auto) 0.02 K/uL (0-0.2); Basophils % (auto) 0.1 %; Eosinophils # (auto) 0.18 K/uL (0-0.5); Eosinophils % (auto) 1.2 %; Hemoglobin 14.7 g/dL (14.0-18.0); Immature Granulocytes # (auto) 0.19 K/uL (0.00-0.02); Immature Granulocytes % (auto) 1.3 %; Lymphocytes # (auto) 0.68 K/uL (1.2-3.4); Lymphocytes % (auto) 4.5 %; Mean Corpuscular Hemoglobin 30.1 pg (25-34); Mean Corpuscular Hgb Conc 33.4 g/dL (32-36); Mean Platelet Volume 10.1 fL (7.4-10.4); Monocytes # (auto) 1.67 K/uL (0.11-0.59); Neutrophils % (auto) 81.9 %; Platelet Count 152 K/uL (130-400); RDW Coefficient of Variation 13.6 % (11.5-14.5); RDW Standard Deviation 44.4 fL (36.4-46.3); Red Blood Count 4.89 M/uL (4.7-6.1); White Blood Count 15.14 K/uL (4.8-10.8)
[2020-05-15 06:29] LABS: Albumin Globulin Ratio 0.7 (0.9-2); Albumin Level 2.3 gm/dl (3.4-5.0); Bilirubin,Total 1.7 mg/dl (0.2-1); Calcium 7.9 mg/dl (8.5-10.1); Est GFR (African American) 78.4; Est GFR (Non-African American) 67.7; Globulin 3.2 gm/dl (2.5-4.0); Potassium 3.6 mmol/L (3.5-5.1); Total Protein 5.5 gm/dl (6.4-8.2)
[2020-05-15] MEDS ORDERED: LEVOTHYROXINE SODIUM 100 MCG TABLET PO SCH (06:30)
[2020-05-15] MEDS ORDERED: MULTIVITAMIN TAB PO SCH (09:00)
[2020-05-15] MEDS ORDERED: PANTOprazole 40 MG TAB PO SCH (09:00)
[2020-05-15] MEDS: POLYETHYLENE (MIRALAX) 17 GM PACK PO SCH ×3 (09:00→18:11)
[2020-05-15] MEDS: VALACYCLOVIR HCL 500 MG TABLET PO SCH (17:25)
--- NOTE | 2020-05-15 18:23 | Discharge Summary ---
Date of Service May 15, 2020 Admission HPI Per Admitting Provider Luis Herring is an 84-year-old male who presents to the ER after recent discharge for acute pancreatitis and cholecystitis with ongoing generalized weakness, fatigue, poor appetite. He reports not having a bowel movement since May 08 (prior to his recent admission for pancreatitis and cholecystitis). Since coming to the ER and receiving IV fluids and antibiotics he feels significantly improved. He denies any abdominal pain, nausea or vomiting although reports he never had these symptoms recently when he was diagnosed with pancreatitis with a lipase of over 20,000. The patient reports he was actually getting more sleep at home and his appetite was improving. In the ER he underwent CT scan showing ongoing inflammation of the pancreas. Of most concern his white blood count has been rising since discharge. Review of his previous hospitalization shows he given cefoxitin throughout his admission. He was not given any antibiotics on discharge. He was also given lactated Ringer's 150 mL/h throughout admission until discharge. On discussion with his daughter over the phone. She reports his appetite has been extremely poor since discharge, which is her biggest concern. He has been lethargic and sleeping throughout a lot of the day. Principal Diagnosis Fecal retention Discharge Exam Constitutional WD/WN, vitals as above Eyes PERRL, conjunctivae normal, anicteric sclerae Neck normal visual inspection Respiratory normal respiratory effort, lungs clear to auscultation Cardiovascular Rate/Rhythm: regular rate and regular rhythm Heart Sounds: normal S1 and normal S2; no gallop, no murmur and no cardiac rub Gastrointestinal (Abdomen) normal bowel sounds, soft, nontender, no hepatosplenomegaly Musculoskeletal no cyanosis or clubbing, extremities motor strength 5/5 Skin no rashes, warm and dry Psychiatric A+Ox3, euthymic affect Discharge Data Allergies Allergy/AdvReac Type Severity Reaction Status Date / Time codeine Allergy Unknown HALLUCINATI Verified 05/14/20 12:30 ONS oxycodone [From OxyContin] Allergy Unknown Verified 05/14/20 12:30 Penicillins Allergy Unknown CAN'T Verified 05/14/20 12:30 REMEMBER hydrocodone AdvReac Intermediate hallucinati Verified 05/14/20 12:30 ons Consultations 05/14/20 14:22 ED Decision to Admit Stat Ordered Studies 05/14/20 12:05 CT abd pelvis IV con only Stat Hospital Course (1) Fecal retention: - CT abdomen/pelvis: Fecal retention is noted throughout the colon. Wall thickening and edema of the duodenum is likely related to adjacent pancreatitis. - after having several bowel movements throughout the day, had relief of abdominal discomfort - tolerated oral intake of clear liquids, full liquids, and regular meals - constipation likely secondary to recent abdominal surgery and inflammation secondary to pancreatitis - goals following discharge are to maintain at least one bowel movement daily, with continuation of metamucil and OTC miralax as needed; while maintaining hydration and continuing to maintain oral intake through smaller meals throughout the day to limit gastric distention Total Time Total Time Spent Total Time Spent (In Minutes): <30 Discharge Plan Discharge Items Patient Disposition: Home - Self-Care Reason For Visit: PANCREATITIS Discharge Diagnosis: Constipation Activity: Per Instructions section Non-emergency contact: Primary Care Provider Call non-emergency contact if: you have any medication questions, your symptoms worsen and you have a fever Follow-up/Referrals: Martinez Riley Jr, DO [Primary Care Provider] - Diet: Regular Addtl Attending Provider Instructions: You were seen and admitted for some lower abdominal pain; during this admission, your abdominal scanned demonstrated that you had a large amount of stool throughout your colon and after several large bowel movements your abdominal pain improved. As you were able to tolerate a regular diet, and have not had return of your abdominal pain, it seems appropriate to discharge you at this time. With your recent history of pancreatitis, it is common to have slowed bowel movements due to the amount of inflammation of the surrounding area. As a result of this, it is important to continue to have bowel movements and continue to eat food on a regular basis. This is important to continue to keep your strength up, and make sure that you continue to heal well following your surgery. Pending Studies at Discharge: No Stand-Alone Forms: My [facility] [employer], Smoking Cessation Medications and DC Order Prescriptions: Continued alprazolam 0.5 mg tablet 0.5 mg PO HS RF: 0 esomeprazole magnesium 40 mg capsule,delayed release(DR/EC) 40 mg PO QAM RF: 0 valacyclovir 500 mg tablet 500 mg PO QDD RF: 0 ferrous sulfate 325 mg (65 mg iron) tablet 325 mg PO QAM RF: 0 multivitamin [Daily Multi-Vitamin] tablet 1 tab PO QAM RF: 0 docusate sodium [Colace] 100 mg Capsule 100 mg PO HS RF: 0 hydrochlorothiazide 25 mg Tablet 12.5 mg PO QAM RF: 0 amiodarone 200 mg tablet 200 mg PO HS RF: 0 levothyroxine 100 mcg tablet 100 mcg PO 6XWK RF: 0 rivaroxaban 20 mg tablet 20 mg PO QDD RF: 0 Discharge Orders: Discharge Order (Routine); Ordered 05/15/20 Ordered By: Ronan Joseph/Other Patient Handouts: Cholecystectomy, Understanding Pancreatitis, Discharge Instructions for Acute Pancreatitis Admission Data Admit Date/Time: 05/14/20 14:33 Attending Provider: Payam Calvillo Admit Provider: Luis Lawton Primary Care Provider: Martinez Riley Jr Other Providers: Luis Lawton Other Interventions: Discharge Summary Assessment (RN) Last Done: 05/15/20 18:44 DC Date/Time DO NOT enter until pt leaves facility: 05/15/20 19:45 Supervising Physician Co-Signing Physician Notes I personally examined the patient and verified all padilla points of history and exam, discussed case, and agree with decision making with Dr Winston. feeling better after several large BMs. eating well and very much wants to go home. vitals noted nad heent nc at mmm breathing unlabored no accessory muscles good effort abd soft nd nt no masses no organomegaly abdominal pain / poor PO intake -given large amount of stool on CT, as well as how much better he felt/ate after large BMs - and given that this would fit with a common scenario after pancreatitis - i strongly suspect he was suffering from post pancreatitis related constipation (vs mild ileus, either way -has resolved) rather than ongoing or worsening of the pancreatitis itself. his lipase was normal, he was able to eat, had no epigastric tenderness, and on visualization on CT while pancreas appeared swollen in both - seemed a little more clearly delineated in most recent (would defer to radiology in this regard, but i would consider this a "soft" finding anyway given the rest of his clinical picture looking so improved from a pancreatitis standpoint and so c/w a constipation type standpoint) stable for home Resident Activity Tracking Resident Involvement: Resident Care Provided Care Provided: Adult Hospital Medicine
[2020-05-15] MEDS ORDERED: APIXABAN 2.5 MG TAB PO SCH (21:00)
--- NOTE | 2020-05-16 17:17 | Billing Data ---
Date of Service May 15, 2020 Coding Level of Care Code D/C Day Management <30 mins
--- NOTE | 2020-05-18 07:40 | Coding Query ---
CODING QUERY To promote full compliance with coding requirements relating to patient care, provider participation is requested in all cases of annual campaign manager uncertainty. Please assist us with the question(s) below: Coding Question(s): The Discharge Summary documents possible mild ileus. Please specify below, in your clinical opinion, regarding the most likely etiology of the possible mild ileus. ( ) possible mild ileus due to Unspecified etiology ( ) possible mild ileus due to possible complication resulting from recent cholecystectomy surgery ( x) possible mild ileus due to recent pancreatitis ( ) possible mild ileus due to Other: Please Specify Physician's Response(s): Thank you Yolanda Turner Principal Diagnosis: "that condition established after study, to be chiefly responsible for occasioning the admission of the patient to the hospital for care." Co-Existing Principal Diagnosis: "when two or more diagnoses equally meet the criteria for principal diagnosis as determined by the circumstances of admission, diagnostic work up, and/or therapy provided, and the Alphabetic Index, Tabular List, or another coding guideline does not provide sequencing direction, any one of the diagnoses may be sequenced first." "When the physician has documented what appears to be a current diagnosis in the body of the record, but has not included the diagnosis in the final diagnostic statement, the physician should be asked whether the diagnosis should be added." (Source Coding [facility] 2 QTR90. p3-4) LEATHA
== END 2020-05-15 19:45 | disposition home or self-care (01) | DRG 388 ==
LOC: ED 11:02 → SUATTDRO 14:33 → 2N 14:33 → 3W 05-15 00:55

== ENCOUNTER 2020-06-27 01:27 | Observation (INO) ==
[2020-06-27] MEDS ORDERED: fentaNYL citrate 100 MCG/2 ML VIAL IV STA (01:41)
[2020-06-27] MEDS ORDERED: ONDANSETRON INJ 2 MG/ML 2 ML VIAL IV STA (01:41)
--- NOTE | 2020-06-27 01:48 | Emergency Department Note ---
History of Present Illness General Chief complaint: Abdominal Pain Stated complaint: ABDOMINAL PAIN History of Present Illness Maximum Pain Intensity: 9 This 85-year-old presents to the ER complaining of abdominal pain Location: Epigastric region Quality: Painful Severity: Moderate Duration: Yesterday Timing: Started shortly after he was discharged Context: Pain persisted and patient came in Modifying factors: better with nothing; worse with nothing Patient has gallbladder removed last month. He had an ERCP done yesterday and had a stent removed. Since he has gotten home he has had increasing pain. Feels similar to his prior pancreatitis. Patient denies chest pain, dyspnea, fevers, vomiting, diarrhea. Home Medications Home Medications Medication Instructions Recorded Confirmed Type alprazolam 0.5 mg tablet 0.5 mg PO HS tab 08/23/19 06/27/20 History esomeprazole magnesium 40 mg 40 mg PO QAM cap 08/23/19 06/27/20 History capsule,delayed release ferrous sulfate 325 mg (65 mg 325 mg PO QAM tab 08/23/19 06/27/20 History iron) tablet multivitamin 1 tab PO QAM 08/23/19 06/27/20 History valacyclovir 500 mg tablet 500 mg PO QDD tab 08/23/19 06/27/20 History amiodarone 200 mg PO HS 05/08/20 06/27/20 History docusate sodium [Colace] 100 mg PO HS 05/08/20 06/27/20 History levothyroxine 100 mcg PO 6XWK 05/08/20 06/27/20 History rivaroxaban 20 mg PO QDD 05/08/20 06/27/20 History aspirin 81 mg tablet,delayed 81 mg PO DAILY 06/22/20 06/27/20 History release atorvastatin 10 mg PO HS 06/27/20 06/27/20 History ciprofloxacin HCl 500 mg PO BID 06/27/20 06/27/20 History lisinopril 40 mg PO DAILY 06/27/20 06/27/20 History Allergies Allergy/AdvReac Type Severity Reaction Status Date / Time codeine Allergy Unknown HALLUCINATI Verified 06/27/20 02:05 ONS oxycodone [From OxyContin] Allergy Unknown CAN'T Verified 06/27/20 02:05 REMEMBER Penicillins Allergy Unknown CAN'T Verified 06/27/20 02:05 REMEMBER hydrocodone AdvReac Intermediate hallucinati Verified 06/27/20 02:05 ons Past Med/Surg History Medical History Aortic regurgitation due to bicuspid aortic valve (Inactive) Atrial flutter, paroxysmal (Acute) Cholecystitis Depression (Acute) GERD (gastroesophageal reflux disease) (Acute) Hypertension (Acute) Hypothyroidism PAF (paroxysmal atrial fibrillation) Piriformis syndrome of right side (Resolved) Prostate cancer (Acute) Subconjunctival hematoma (Inactive) Surgical History H/O hernia repair (Acute) inguinal H/O prostatectomy (Acute) S/P aortic valve replacement S/P laparoscopic cholecystectomy (05/28/20) Laparoscopic Cholecystectomy with Intraoperative Cholangiogram Dr. Koenig 05/10/20 Family History Mother Hypertension Diabetes Father , age 50 Myocardial infarction Social History Smoking Status: Never smoker Second Hand Exposure: No; Hx Alcohol Use: Yes Alcohol type: wine Alcohol type Comment: 1 glass wine Hx Substance Use: No Preferred Language: Mexican Communication Ability: Effective Seaweed Harvester Required: No Beliefs That Will Affect Care: None marital status: Current Living Situation: Spouse and Family Current Living Situation Comment: lives in [place] current occupational status: retired current occupation: [employer] other: 1 daughter Feels Safe at Home: Yes Review of Systems A total of 10 systems reviewed and were otherwise negative Physical Exam Vital Signs Vital Signs - 24 hr 06/27/20 01:30 06/27/20 01:33 06/27/20 01:46 Temperature 36.5 C Temperature Source Oral Pulse Rate 63 67 Pulse Rate from SpO2 Sensor 64 Respiratory Rate 22 12 Respiratory Effort / Characteristics Non-Labored Spontaneous Respiratory Depth Normal Blood Pressure 167/91 H 167/91 H Blood Pressure Mean 107 116 Blood Pressure Position Sitting Pulse Oximetry 97 95 97 Oxygen Delivery Method Room Air Room Air Sepsis Recent Fever Within 48 Hours No Sepsis New/Unexplained Change in Mental Status No Sepsis Action Taken by Nursing No Action Required 06/27/20 02:00 06/27/20 02:39 Temperature Temperature Source Pulse Rate 60 59 L Pulse Rate from SpO2 Sensor 60 59 L Respiratory Rate 16 23 Respiratory Effort / Characteristics Respiratory Depth Blood Pressure 141/79 H 133/71 Blood Pressure Mean 104 85 Blood Pressure Position Pulse Oximetry 92 96 Oxygen Delivery Method Sepsis Recent Fever Within 48 Hours Sepsis New/Unexplained Change in Mental Status Sepsis Action Taken by Nursing VITALS: Vitals are noted on the nurse's note and reviewed by myself. Vital signs stable. GENERAL: Pleasant male who appears in pain, in no acute distress, nondiaphoretic, well-developed well-nourished. SKIN: Capillary reflex less than 2 seconds. HEENT: Normocephalic. PERRLA. EOMI. Nares patent. Mucous membranes moist. Neck is supple without nuchal rigidity. HEART: Regular rate and rhythm LUNGS: Clear to auscultation bilaterally without wheezes, rales or rhonchi. No retractions or accessory muscle use. ABDOMEN: Positive bowel sounds x 4. Normal tympanic percussion. Soft, tender to palpation epigastric region, without masses or organomegaly. Lugo sign negative. No guarding or rebound tenderness. MUSCULOSKELETAL: No gross musculoskeletal defects. NEURO: Patient was alert and oriented to person place and time. No focal neurological deficits. Course Administered Medications Ciprofloxacin (Cipro / D5w) 400 mg in 200 mls @ 100 mls/hr IV NOW STA; Protocol Stop: 06/27/20 04:53 Last Admin: 06/27/20 03:00 Dose: 100 mls/hr Documented by: [id number] Metronidazole (Flagyl) 500 mg in 100 mls @ 100 mls/hr IV NOW STA Stop: 06/27/20 03:53 Last Admin: 06/27/20 03:01 Dose: 100 mls/hr Documented by: [id number] Discontinued Medications Fentanyl Citrate (Fentanyl Citrate) 50 mcg IV NOW STA Stop: 06/27/20 01:42 Last Admin: 06/27/20 01:51 Dose: 50 mcg Documented by: [id number] Ioversol (Optiray 320 100ml) 100 ml IV ONCE ONE Stop: 06/27/20 02:17 Last Admin: 06/27/20 02:16 Dose: 93 ml Documented by: [id number] Ondansetron HCl (Zofran) 4 mg IV NOW STA Stop: 06/27/20 01:42 Last Admin: 06/27/20 01:52 Dose: 4 mg Documented by: [id number] Medical Decision Making Medical Records Attestation: I reviewed the patient's medical records. Home Medications Current Medication List: was personally reviewed by me Laboratory Data Attestation: I reviewed the patient's lab results. Result diagrams: 06/27/20 01:40 06/27/20 01:40 Lab Results 06/27/20 06/27/20 Range/Units 01:40 01:40 WBC 8.96 (4.8-10.8) K/uL RBC 4.77 (4.7-6.1) M/uL Hgb 14.9 (14.0-18.0) g/dL Hct 41.8 L (42-52) % MCV 87.6 (80-100) fL MCH 31.2 (25-34) pg MCHC 35.6 (32-36) g/dL RDW Std Deviation 46.5 H (36.4-46.3) fL RDW Coeff of Tanvir 14.5 (11.5-14.5) % Plt Count 120 L (130-400) K/uL MPV 10.2 (7.4-10.4) fL Immature Gran % (Auto) 0.4 % Neut % (Auto) 91.5 % Lymph % (Auto) 3.9 % Kings % (Auto) 4.2 % Eos % (Auto) 0.0 % Baso % (Auto) 0.0 % Neut # (Auto) 8.19 H (1.4-6.5) K/uL Lymph # (Auto) 0.35 L (1.2-3.4) K/uL Kings # (Auto) 0.38 (0.11-0.59) K/uL Eos # (Auto) 0.00 (0-0.5) K/uL Baso # (Auto) 0.00 (0-0.2) K/uL Immature Gran # (Auto) 0.04 H (0.00-0.02) K/uL Sodium 141 (136-145) mmol/L Potassium 4.1 (3.5-5.1) mmol/L Chloride 109 H (98-107) mmol/L Carbon Dioxide 24 (21-32) mmol/L Anion Gap 8.0 (3-11) BUN 15 (7-18) mg/dl Creatinine 1.07 (0.6-1.4) mg/dl Est Cr Clr Drug Dosing 42.9 ml/min Est GFR ( Amer) 73.5 Est GFR (Non-Af Amer) 63.4 BUN/Creatinine Ratio 14.2 (10-20) Glucose 125 H (70-99) mg/dl Calcium 8.0 L (8.5-10.1) mg/dl Total Bilirubin 1.9 H (0.2-1) mg/dl AST 93 H (15-37) U/L ALT 87 H (12-78) U/L Alkaline Phosphatase 139 H (45-117) U/L Troponin I 0.022 (0-0.045) ng/ml Total Protein 6.2 L (6.4-8.2) gm/dl Albumin 3.4 (3.4-5.0) gm/dl Globulin 2.8 (2.5-4.0) gm/dl Albumin/Globulin Ratio 1.2 (0.9-2) Lipase 902 H (73-393) U/L Imaging Data Attestation: I personally reviewed and interpreted this imaging study as follows: Blood Pressure Blood Pressure Findings: Elevated blood pressure Blood Pressure Disposition: Referred to patients primary care provider [facility] Narrative Prior records/ancillary studies reviewed. Triage Nursing notes reviewed. The patient's history was concerning for abdominal pain. Differential diagnosis: Etiologies such as post procedure complication, appendicitis, diverticulitis, PUD, biliary pathology, UTI, pancreatitis, obstruction, mesenteric ischemia, aortic pathology, infections, inflammatory bowel disease, renal colic, as well as others were entertained. Physical examination findings: As above. ER treatment provided: An order was placed for continuous cardiac monitoring. The monitor shows a rate of 60-100 with a sinus rhythm. Fentanyl, Zofran On reassessment the patient felt better. Diagnostics interpreted by me: ECG: Ordered for epigastric pain EKG: Normal sinus, first-degree AV block, no acute ST-T wave changes, rate of 63. Impression first-degree AV block interpreted by myself I think arrhythmia is unlikely. EKG shows normal sinus rhythm with no interval abnormalities such as QT prolongation or WPW. There are no findings to suggest Brugada syndrome. Cardiac monitoring in the emergency department reveals no tachycardic or bradycardic dysrhythmia. Hypertrophic cardiomyopathy was considered but there are no clear historical elements pointing toward this. EKG is not suggestive. The QRS voltage is not extremely large and there are no suggestive Q waves. The labs revealed elevated lipase. Negative troponin Imaging studies: Chest x-ray with no acute consolidation, pneumothorax or free air per my interpretation CT ABDOMEN & PELVIS With Contrast: Comparison: 05/14/2020 No change in aortic root and coronary calcifications. Mild cardiomegaly. Small hiatal hernia. Status post cholecystectomy with increased mild intrahepatic ductal dilation. Peripancreatic streaky changes and the fat consistent with pancreatitis. Stent is seen extending from the duodenum into the pancreatic duct up to the neck of the pancreas. Tiny focus of gas is also seen. Please correlate with clinical/surgical history to evaluate if this is the inten ded position versus stent migration. Mild splenomegaly Gastrohepatic ligament scattered small lymph nodes are unchanged. Decreased inflammatory fluid. Bilateral renal cysts largest measuring up to 5.6 cm and posterior left kidney midpole. Small right pelvic free fluid. Bones: No lytic or blastic bony lesion. Mild convex left curvature of the lumbar spine. Multilevel vacuum disc phenomena. Radiologist: Enoc Lofton MD Consultation: A consultation was placed with the GI, Dr. Hobson. The case was discussed and diagnostics were reviewed. She recommends medical admission and antibiotics. GI will evaluate the patient in the morning. Medicine was consulted and will evaluate the patient. Exam and history seem consistent with pancreatitis most likely related to recent ERCP with stone removal. Patient was started on antibiotics and medicated as above. Medicine and GI were consulted. He will be evaluated for possible admission. Patient is agreeable treatment plan of admission. By the evaluation outlined above emergent etiologies such as appendicitis, diverticulitis, PUD, UTI, obstruction, mesenteric ischemia, aortic pathology, inflammatory bowel disease, renal colic, as well as others were deemed relatively unlikely. The pt informed about the findings as listed above. All questions were answered and pleased with the treatment. The chart was completed utilizing [employer] voice recognition software. Grammatical errors, random word insertions, pronoun errors, and incomplete sentences are an occassional consequence of this system due to software limitat ions, ambient noise, and hardware issues. Any formal questions or concerns about the content, text, or information contained within the body of this dictation should be directly addressed to the physician assistant gm of content & delivery for clarification. Impression & Plan Pancreatitis Discharge Plan Visit Data Chief Complaint: Abdominal Pain Stated Complaint: ABDOMINAL PAIN ED Provider: Annamaria Singh ED Midlevel Provider: Ivelisse Bowie Discharge Problem: Pancreatitis Patient Disposition: Being Evaluated by Hospitalist Condition: Fair Forms Stand Alone Forms: My [facility] Prescriptions Prescriptions: No Action aspirin [Adult Low Dose Aspirin] 81 mg tablet,delayed release (DR/EC) 81 mg PO DAILY RF: 0 alprazolam 0.5 mg tablet 0.5 mg PO HS RF: 0 esomeprazole magnesium 40 mg capsule,delayed release(DR/EC) 40 mg PO QAM RF: 0 valacyclovir 500 mg tablet 500 mg PO QDD RF: 0 ferrous sulfate 325 mg (65 mg iron) tablet 325 mg PO QAM RF: 0 multivitamin [Daily Multi-Vitamin] tablet 1 tab PO QAM RF: 0 atorvastatin 10 mg tablet 10 mg PO HS RF: 0 ciprofloxacin HCl 500 mg tablet 500 mg PO BID RF: 0 lisinopril 40 mg tablet 40 mg PO DAILY RF: 0 docusate sodium [Colace] 100 mg Capsule 100 mg PO HS RF: 0 amiodarone 200 mg tablet 200 mg PO HS RF: 0 levothyroxine 100 mcg tablet 100 mcg PO 6XWK RF: 0 rivaroxaban 20 mg tablet 20 mg PO QDD RF: 0 Referrals Referrals: Martinez Riley Jr, [Primary Care Provider] -
[2020-06-27 01:55] LABS: Hematocrit (blood only) 41.8 % (42-52); Hemoglobin 14.9 g/dL (14.0-18.0); Immature Granulocytes # (auto) 0.04 K/uL (0.00-0.02); Immature Granulocytes % (auto) 0.4 %; Lymphocytes # (auto) 0.35 K/uL (1.2-3.4); Lymphocytes % (auto) 3.9 %; Mean Corpuscular Hemoglobin 31.2 pg (25-34); Mean Corpuscular Hgb Conc 35.6 g/dL (32-36); Mean Corpuscular Volume 87.6 fL (80-100); Mean Platelet Volume 10.2 fL (7.4-10.4); Monocytes # (auto) 0.38 K/uL (0.11-0.59); Monocytes % (auto) 4.2 %; Neutrophils # (auto) 8.19 K/uL (1.4-6.5); Neutrophils % (auto) 91.5 %; Platelet Count 120 K/uL (130-400); RDW Coefficient of Variation 14.5 % (11.5-14.5); RDW Standard Deviation 46.5 fL (36.4-46.3); Red Blood Count 4.77 M/uL (4.7-6.1); White Blood Count 8.96 K/uL (4.8-10.8)
[2020-06-27 02:12] LABS: Albumin Level 3.4 gm/dl (3.4-5.0); BUN Creatinine Ratio 14.2 (10-20); Creatinine Clr Calc Pharmacy 42.9 ml/min; Est GFR (African American) 73.5; Est GFR (Non-African American) 63.4; Potassium 4.1 mmol/L (3.5-5.1)
[2020-06-27] MEDS ORDERED: IOVERSOL 100ml IV ONE (02:16)
[2020-06-27 02:17] LABS: Albumin Globulin Ratio 1.2 (0.9-2); Bilirubin,Total 1.9 mg/dl (0.2-1); Globulin 2.8 gm/dl (2.5-4.0); Total Protein 6.2 gm/dl (6.4-8.2); Troponin I 0.022 ng/ml (0-0.045)
[2020-06-27] MEDS ORDERED: metroNIDAZOLE 500 MG/100 ML BAG IV STA (02:54)
[2020-06-27] MEDS ORDERED: CIPROFLOXACIN / D5W 400 MG/200 ML BAG IV STA (02:54)
--- NOTE | 2020-06-27 03:14 | Emergency Department Note ---
ED Visit Note Patient seen at bedside after discussion with Ivelisse Bowie PA-C. Please refer to her note for additional details. Patient states his pain is much better following a dose of fentanyl. Patient is awaiting evaluation by the inpatient hospitalist team. Vital signs are stable at this time. Patient states he is aware of all results and plan. .
--- NOTE | 2020-06-27 03:55 | History & Physical Report ---
Date of Service June 27, 2020 Assessment & Plan (1) Post-ERCP acute pancreatitis: Post ERCP acute pancreatitis/status post stent placement- Admit to medical surgical floor. NPO except essential medications NSS + KCl 20 mEq at 100 mils per hour Cipro 400 mg IV every 12 hours Flagyl 500 mg IV every 8 hours Zofran 4 mg IV every 6 hours PRN Famotidine 20 mg IV every 12 hours Dilaudid 0.2 mg IV every 3 hours as needed severe pain Consult gastroenterology Present on Admission?: Yes (2) Status post cholecystectomy: Operation performed on 05/10/2020 Present on Admission?: Yes (3) CAD (coronary artery disease): CAD/hypertension/status post AVR/paroxysmal atrial flutter and fibrillation- Continue amiodarone 200 mg p.o. daily Per post procedure notes, patient was to resume Xarelto 48 hours after procedure. Hold aspirin and lisinopril Present on Admission?: Yes (4) S/P aortic valve replacement: See above Present on Admission?: Yes (5) On amiodarone therapy: See above Present on Admission?: Yes (6) Atrial flutter, paroxysmal: See above Present on Admission?: Yes (7) Hypothyroidism: Hold levothyroxine Present on Admission?: Yes History of Present Illness Chief Complaint: The patient presents to the emergency department with complaint of severe abdominal pain that worsened as he was going to bed this evening. Primary Care Provider: Martinez Riley Jr, DO The patient is a 85-year-old male with a past medical history including AVR, prostate cancer, GERD, paroxysmal atrial fibrillation/flutter, hypothyroidism, dyslipidemia, depression with anxiety, aortic arch aneurysm, CAD, hypertension and pancreatitis. Patient underwent ERCP with stone extraction and stent placement at [facility] earlier in the day on 06/26. He reports that he had some discomfort postprocedure, but upon going to bed this evening the pain became significantly worse,, and he presented to the emergency department for assessment. Work-up in ED included laboratories which showed elevated lipase of 902, AST of 93, ALT 87 and total bilirubin of 1.9. CT scan of the abdomen and pelvis was consistent with pancreatitis. A stent from the duodenum to the pancreatic duct to the neck of the pancreas was noted. Allergies Allergy/AdvReac Type Severity Reaction Status Date / Time codeine Allergy Unknown HALLUCINATI Verified 06/27/20 02:05 ONS oxycodone [From OxyContin] Allergy Unknown CAN'T Verified 06/27/20 02:05 REMEMBER Penicillins Allergy Unknown CAN'T Verified 06/27/20 02:05 REMEMBER hydrocodone AdvReac Intermediate hallucinati Verified 06/27/20 02:05 ons Home Medications Home Medications Medication Instructions Recorded Confirmed Type alprazolam 0.5 mg tablet 0.5 mg PO HS tab 08/23/19 06/27/20 History esomeprazole magnesium 40 mg 40 mg PO QAM cap 08/23/19 06/27/20 History capsule,delayed release ferrous sulfate 325 mg (65 mg 325 mg PO QAM tab 08/23/19 06/27/20 History iron) tablet multivitamin 1 tab PO QAM 08/23/19 06/27/20 History valacyclovir 500 mg tablet 500 mg PO QDD tab 08/23/19 06/27/20 History amiodarone 200 mg PO HS 05/08/20 06/27/20 History docusate sodium [Colace] 100 mg PO HS 05/08/20 06/27/20 History levothyroxine 100 mcg PO 6XWK 05/08/20 06/27/20 History rivaroxaban 20 mg PO QDD 05/08/20 06/27/20 History aspirin 81 mg tablet,delayed 81 mg PO DAILY 06/22/20 06/27/20 History release atorvastatin 10 mg PO HS 06/27/20 06/27/20 History ciprofloxacin HCl 500 mg PO BID 06/27/20 06/27/20 History lisinopril 40 mg PO DAILY 06/27/20 06/27/20 History Past Med/Surg History Medical History Aortic regurgitation due to bicuspid aortic valve (Inactive) Atrial flutter, paroxysmal (Acute) Cholecystitis Depression (Acute) GERD (gastroesophageal reflux disease) (Acute) Hypertension (Acute) Hypothyroidism PAF (paroxysmal atrial fibrillation) Piriformis syndrome of right side (Resolved) Prostate cancer (Acute) Subconjunctival hematoma (Inactive) Surgical History H/O hernia repair (Acute) inguinal H/O prostatectomy (Acute) S/P aortic valve replacement S/P laparoscopic cholecystectomy (05/28/20) Laparoscopic Cholecystectomy with Intraoperative Cholangiogram Dr. Koenig 05/10/20 Family History Mother Hypertension Diabetes Father , age 50 Myocardial infarction Social History Smoking Status: Never smoker Second Hand Exposure: No; Hx Alcohol Use: Yes Alcohol type: wine Alcohol type Comment: 1 glass wine Hx Substance Use: No Preferred Language: Turkmen Communication Ability: Effective Wage Hand Required: No Beliefs That Will Affect Care: None marital status: Current Living Situation: Spouse and Family Current Living Situation Comment: lives in [place] current occupational status: retired current occupation: [employer] other: 1 daughter Feels Safe at Home: Yes Review of Systems Review of Systems: The patient denies chest pain, palpitations, shortness of breath, dyspnea on exertion, cough, lower extremity swelling, sore throat, fevers, chills, sweats, vomiting, diarrhea , constipation, blood in urine or stool, dysuria, urinary frequency or urgency, lightheadedness, dizziness, headache, memory loss, loss of consciousness, rash, abnormal bruising or bleeding, imbalance, focal or generalized weakness, numbness or tingling in arms or legs, generalized arthralgias or myalgias, neck pain, or night sweats. The review of systems is otherwise negative other than for that already noted above, and at least 10 systems have been reviewed. Physical Exam Physical Exam: The patient is awake, alert and oriented 3, normocephalic and atraumatic, lying in bed and in no acute distress. HEENT--PERRL, EOMI, mucous membranes and oropharynx dry. Neck--supple. No JVD. No bruits. Thyroid normal, trachea midline, no adenopathy. Heart--normal S1 and S2. No murmurs, rubs or gallops. Lungs--clear bilaterally, no respiratory distress, no accessory muscle use. Abdomen--normal bowel sounds and soft. Nontender post fentanyl IV. Nondistended Extremities--no cyanosis or clubbing. No edema. Dermatologic--normal skin turgor, normal color, no abnormal lymph nodes, no rash. Neurologic--cranial nerves II through XII grossly intact. Rheumatologic--normal range of motion. Psychiatric--normal affect. Results & Data Results & Data ([facility]) Vital Signs (Past 12 Hours) Vital Signs Temp Pulse Resp BP Pulse Ox 06/27/20 03:30 57 L 16 137/72 94 06/27/20 02:39 59 L 23 133/71 96 06/27/20 02:00 60 16 141/79 H 92 06/27/20 01:46 97 06/27/20 01:33 97.7 F 67 12 167/91 H 95 06/27/20 01:30 63 22 167/91 H 97 Laboratory Results Laboratory Results WBC 8.96 K/uL (4.8-10.8) 06/27/20 01:40 RBC 4.77 M/uL (4.7-6.1) 06/27/20 01:40 Hgb 14.9 g/dL (14.0-18.0) 06/27/20 01:40 Hct 41.8 % (42-52) L 06/27/20 01:40 MCV 87.6 fL (80-100) 06/27/20 01:40 MCH 31.2 pg (25-34) 06/27/20 01:40 MCHC 35.6 g/dL (32-36) 06/27/20 01:40 RDW Std Deviation 46.5 fL (36.4-46.3) H 06/27/20 01:40 RDW Coeff of Tanvir 14.5 % (11.5-14.5) 06/27/20 01:40 Plt Count 120 K/uL (130-400) L 06/27/20 01:40 MPV 10.2 fL (7.4-10.4) 06/27/20 01:40 Immature Gran % (Auto) 0.4 % 06/27/20 01:40 Neut % (Auto) 91.5 % 06/27/20 01:40 Lymph % (Auto) 3.9 % 06/27/20 01:40 Haskell % (Auto) 4.2 % 06/27/20 01:40 Eos % (Auto) 0.0 % 06/27/20 01:40 Baso % (Auto) 0.0 % 06/27/20 01:40 Neut # (Auto) 8.19 K/uL (1.4-6.5) H 06/27/20 01:40 Lymph # (Auto) 0.35 K/uL (1.2-3.4) L 06/27/20 01:40 Haskell # (Auto) 0.38 K/uL (0.11-0.59) 06/27/20 01:40 Eos # (Auto) 0.00 K/uL (0-0.5) 06/27/20 01:40 Baso # (Auto) 0.00 K/uL (0-0.2) 06/27/20 01:40 Immature Gran # (Auto) 0.04 K/uL (0.00-0.02) H 06/27/20 01:40 Sodium 141 mmol/L (136-145) 06/27/20 01:40 Potassium 4.1 mmol/L (3.5-5.1) 06/27/20 01:40 Chloride 109 mmol/L (98-107) H 06/27/20 01:40 Carbon Dioxide 24 mmol/L (21-32) 06/27/20 01:40 Anion Gap 8.0 (3-11) 06/27/20 01:40 BUN 15 mg/dl (7-18) 06/27/20 01:40 Creatinine 1.07 mg/dl (0.6-1.4) 06/27/20 01:40 Est Cr Clr Drug Dosing 42.9 ml/min 06/27/20 01:40 Est GFR ( Amer) 73.5 06/27/20 01:40 Est GFR (Non-Af Amer) 63.4 06/27/20 01:40 BUN/Creatinine Ratio 14.2 (10-20) 06/27/20 01:40 Glucose 125 mg/dl (70-99) H 06/27/20 01:40 Calcium 8.0 mg/dl (8.5-10.1) L 06/27/20 01:40 Total Bilirubin 1.9 mg/dl (0.2-1) H 06/27/20 01:40 AST 93 U/L (15-37) H 06/27/20 01:40 ALT 87 U/L (12-78) H 06/27/20 01:40 Alkaline Phosphatase 139 U/L (45-117) H 06/27/20 01:40 Troponin I 0.022 ng/ml (0-0.045) 06/27/20 01:40 Total Protein 6.2 gm/dl (6.4-8.2) L 06/27/20 01:40 Albumin 3.4 gm/dl (3.4-5.0) 06/27/20 01:40 Globulin 2.8 gm/dl (2.5-4.0) 06/27/20 01:40 Albumin/Globulin Ratio 1.2 (0.9-2) 06/27/20 01:40 Lipase 902 U/L (73-393) H 06/27/20 01:40 Diagnostic Findings [facility] Patient: KANIKA TOM JR (Male) : 37 Status: ER Date: 06/27/20 02:40 Room #: History: SEVERE EPIGASTRIC PAIN, ERCP DONE ON 06-25-20, STONE REMOVED Slices: [phone] Priors: Tech: Addy Lorenzo @ [phone] Exams: CT ABDOMEN & PELVIS With Contrast Contrast: IV Amt: 93 ML OPTIRAY 320 Accession Numbers: [id number] Preliminary Findings Only See Final Report For Complete Findings CT ABDOMEN & PELVIS With Contrast: Comparison: 05/14/2020 No change in aortic root and coronary calcifications. Mild cardiomegaly. Small hiatal hernia. Status post cholecystectomy with increased mild intrahepatic ductal dilation. Peripancreatic streaky changes and the fat consistent with pancreatitis. Stent is seen extending from the duodenum into the pancreatic duct up to the neck of the pancreas. Tiny focus of gas is also seen. Please correlate with clinical/surgical history to evaluate if this is the intended position versus stent migration. Mild splenomegaly Gastrohepatic ligament scattered small lymph nodes are unchanged. Decreased inflammatory fluid. Bilateral renal cysts largest measuring up to 5.6 cm and posterior left kidney midpole. Small right pelvic free fluid. Bones: No lytic or blastic bony lesion. Mild convex left curvature of the lumbar spine. Multilevel vacuum disc phenomena. Radiologist: Enoc Lofton MD Study ready at 02:43 and initial results transmitted at 02:51 *This report constitutes a preliminary interpretation only. Non-acute findings felt to be unrelated to the clinical presentation may not be discussed in this report. The study will be interpreted and a final report will be generated by the local Radiologist the following shift. To reach the hospital radiology department call [phone]. If a discrepancy is found between the preliminary and final interpretations of this study, please notify us via our Client Portal at [email or web address] QA Exams.You can also fax this report with a description of the discrepancy, or include the final report, to our daytime fax number [phone].If faxing, please indicate the severity of discrepancy using one of the following categories: [ ] 1 - Agree/Informational [ ] 2 - Unlikely to Affect Management [ ] 3 - Possible Eventual Change of Management [ ] 4 - Probable Immediate Change of Management For all other patient related information, please fax us at [phone]. [id number] Code Status & VTE Plan Code Status Full code VTE Prophylaxis Plan VTE Prophylaxis will be ordered: Yes PG Care Time/CCT Total # of Minutes Spent Total Time Spent with Patient: Total time spent is greater than 50% in coordination of care (as documented) at patient's floor/unit and/or counseling patient: Coding Level of Care Code 09092 OBS Care - Level 3 Diagnoses Post-ERCP acute pancreatitis K91.89; K85.90 Status post cholecystectomy Z90.49 CAD (coronary artery disease) I25.10 S/P aortic valve replacement Z95.2 On amiodarone therapy Z79.899 Atrial flutter, paroxysmal I48.92 Hypothyroidism E03.9 Hypothyroidism type: acquired (1) Hypothyroidism Hypothyroidism type: acquired Qualified Code(s): E03.9 - Hypothyroidism, unspecified
[2020-06-27 04:38] LABS: Appearance Urine Clear (Clear); Bilirubin Urine Negative (Negative); Blood Urine Negative (Negative); Color Urine Yellow; Glucose Urine UA Negative (Negative); Ketones Urine Trace (Negative); Leukocyte Esterase Urine Negative (Negative); Nitrite Urine Negative (Negative); Protein Urine Negative (Negative); Specific Gravity Urine 1.042 (1.000-1.030); Urobilinogen Urine Negative (Negative)
[2020-06-27] MEDS ORDERED: NSS + 20MEQ KCL 20 MEQ/1,000 ML BAG IV SCH (04:43)
[2020-06-27] MEDS ORDERED: ONDANSETRON INJ 2 MG/ML 2 ML VIAL IV PRN (04:43)
[2020-06-27] MEDS: HYDROmorphone INJ 0.5 MG/0.5 ML SYR IV PRN ×3 (05:00→14:11)
--- NOTE | 2020-06-27 06:42 | XRay Report ---
XR chest 1V portable CLINICAL HISTORY: epi pain pain COMPARISON STUDY: 05/14/2020 FINDINGS: Moderate cardiomegaly. Prior median sternotomy. Lungs are clear. IMPRESSION: Moderate cardiomegaly. No acute process. ACT 112: Negative or not required by law. The above report was generated using voice recognition software. It may contain grammatical, syntax or spelling errors. Electronically signed by: Estuardo Hernandez M.D. 06/27/2020 6:41 AM
--- NOTE | 2020-06-27 07:20 | CT Scan Report ---
CT abd pelvis IV con only CT DOSE: 475.01 mGycm HISTORY: Pain severe epi pain, ERCP yesterday w/ stone removal TECHNIQUE: Multiaxial CT images of the abdomen and pelvis were performed following the use of intrave nous contrast. A dose lowering technique was utilized adhering to the principles of ALARA. COMPARISON STUDY: 05/14/2020 FINDINGS: Slightly progressive bibasilar interstitial change. Moderately improved pleural effusion ri ght lung base with previous the noted basilar atelectatic change. Slight increase in biliary ductal prominence compared to the prior study. Interval placement of a beard creatic duct stent. Moderately improved inflammatory tissue in the region of the celiac axis versus improving reactive ad enopathy. Infiltrative change and peripancreatic region is moderately improved. No evidence for drainable abscess or collection. Pancreas itself remains mildly edematous. There is a stent extending from the duodenal sweep to t the pancreatic duct. Mild reactive wall thickening of the duodenal sweep. No evidence for drainable abscess or collection. Prior cholecystectomy. Trace free fluid within the pelvic cul-de-sac. Bladder is midline. Bowel timoteo meme is nonobstructive. IMPRESSION: 1. Interval placement of a stent extending from the duodenum into the pancreatic duct. 2. Interval development of mildly progressive prominence of the intrahepatic biliary ductal system. 3. Prior cholecystectomy. 4. Mildly improved pancreatitis with improved inflammatory/reactive adenopathy changes in the region of the celiac axis. 5. No evidence for drainable abscess or collection. ACT 112: Negative or not required by law. The above report was generated using voice recognition software. It may contain grammatical, syntax or spelling errors. Electronically signed by: Estuardo Hernandez M.D. 06/27/2020 7:18 AM
--- NOTE | 2020-06-27 08:05 | Gastrointestinal Consultation ---
Date of Consultation June 27, 2020 Assessment & Plan (1) Acute pancreatitis: Most likely secondary to recent ERCP. Plan: 1. IV fluids: LR at 150 cc/hr 2. Bowel rest 3. No indication for antibiotics 4. Will continue to follow Present on Admission?: Yes Supervising Physician Co-Signing Physician Notes Attg add (late entry, patient examined and interviewed yesterday): I interviewed and examined pt, reviewed chart and labs. Pt with moderate abdominal pain post recent ERCP. Lipase increased, mildly increased bili. Ct shows PD stent in place and mild pancreatitis. Plan IVFs, bowel rest, analgesics, laxatives. History of Present Illness Reason for Consultation: post ERCP pancreatitis Requesting Physician: Dr. Beach Attending Physician: Payam Calvillo, History of Present Illness Mr. Luis Herring is an 85 yr old male patient of Dr. Riley with a history of CAD, hyperlipidemia, hypertension, depression, hypothyroidism, A. fib (on ri varoxaban), valvular heart disease status post valve replacement who experienced acute pancreatitis in April 2020 and underwent laparoscopic cholecystectomy. ON Thursday, 06/25, he underwent EUS with findings of a CBD stone. Then, yesterday he underwent ERCP with sphincterotomy, sweeping of the bile duct, removing a distal CBD stone. A Pancreatic stent was placed. Last evening, he had mild upper abd omen discomfort that escalated and he presented to the ED early this morning. On arrival, lipase = 902, LFTs are mildly elevated with AST 93, ALT 87, T bili 1.9, alk phos 139. CT with IV contrast on arrival showed inflammation suggestive of acute pancreatitis though improved compared to April 2020. He does not have fever, leukocytosis or tachycardia and kidney function is normal. He tells me that he currently has minimal abdominal pain but that the pain returns near the end of the narcotic dosing interval. Allergies Allergy/AdvReac Type Severity Reaction Status Date / Time codeine Allergy Unknown HALLUCINATI Verified 06/27/20 02:05 ONS oxycodone [From OxyContin] Allergy Unknown CAN'T Verified 06/27/20 02:05 REMEMBER Penicillins Allergy Unknown CAN'T Verified 06/27/20 02:05 REMEMBER hydrocodone AdvReac Intermediate hallucinati Verified 06/27/20 02:05 ons Home Medications Home Medications Medication Instructions Recorded Confirmed Type alprazolam 0.5 mg tablet 0.5 mg PO HS tab 08/23/19 06/27/20 History esomeprazole magnesium 40 mg 40 mg PO QAM cap 08/23/19 06/27/20 History capsule,delayed release ferrous sulfate 325 mg (65 mg 325 mg PO QAM tab 08/23/19 06/27/20 History iron) tablet multivitamin 1 tab PO QAM 08/23/19 06/27/20 History valacyclovir 500 mg tablet 500 mg PO QDD tab 08/23/19 06/27/20 History amiodarone 200 mg PO HS 05/08/20 06/27/20 History docusate sodium [Colace] 100 mg PO HS 05/08/20 06/27/20 History levothyroxine 100 mcg PO 6XWK 05/08/20 06/27/20 History rivaroxaban 20 mg PO QDD 05/08/20 06/27/20 History aspirin 81 mg tablet,delayed 81 mg PO DAILY 06/22/20 06/27/20 History release atorvastatin 10 mg PO HS 06/27/20 06/27/20 History ciprofloxacin HCl 500 mg PO BID 06/27/20 06/27/20 History lisinopril 40 mg PO DAILY 06/27/20 06/27/20 History Patient History Medical History Aortic regurgitation due to bicuspid aortic valve (Inactive) Atrial flutter, paroxysmal (Acute) Cholecystitis Depression (Acute) GERD (gastroesophageal reflux disease) (Acute) Hypertension (Acute) Hypothyroidism PAF (paroxysmal atrial fibrillation) Piriformis syndrome of right side (Resolved) Prostate cancer (Acute) Subconjunctival hematoma (Inactive) Surgical History H/O hernia repair (Acute) inguinal H/O prostatectomy (Acute) S/P aortic valve replacement S/P laparoscopic cholecystectomy (05/28/20) Laparoscopic Cholecystectomy with Intraoperative Cholangiogram Dr. Koenig 05/10/20 Family History Mother Hypertension Diabetes Father , age 50 Myocardial infarction Social History Smoking Status: Never smoker Second Hand Exposure: No; Hx Alcohol Use: Yes Alcohol type: wine Alcohol type Comment: 1 glass wine Hx Substance Use: No Preferred Language: Central African Communication Ability: Effective Bottom Brusher Required: No Beliefs That Will Affect Care: None marital status: Current Living Situation: Spouse Current Living Situation Comment: lives in [place] current occupational status: retired current occupation: [employer] other: 1 daughter Feels Safe at Home: Yes Review of Systems Review of Systems: ROS: Gen: Denies weakness, fevers, weight loss Eyes: No eye redness, or pain, no recent vision changes Resp: No SOB, no cough Cardio: No palpitations/irregular beats, no chest pain GI: As per HPI, otherwise (-) : Denies pain on urination Skin: No jaundice, itching or new rashes Physical Exam Constitutional: WD/WN, vitals as above Eyes: PERRL, conjunctivae normal, anicteric sclerae ENMT: external ear and nose normal, oropharynx normal Neck: trachea midline, no thyromegaly Respiratory: normal respiratory effort, lungs clear to auscultation Cardiovascular: RRR, no murmur, no edema Gastrointestinal (Abdomen): Inspection/Auscultation: abdomen normal to inspection Percussion/Palpation: + abdomen tender (moderate epigastric tenderness) and abdomen soft hypoactive BS present Skin: no rashes, warm and dry + turgor decreased; no jaundice Neurologic: PERRL, EOMI, accommodation nl, no face palsy, no dysarthria Psychiatric: A+Ox3, euthymic affect Lymphatic: no cervical or axillary lymphadenopathy Results & Data ([facility]) Vital Signs (Past 12 Hours) Vital Signs Temp Pulse Pulse Resp BP BP BP 06/27/20 07:28 36.6 C 51 L 15 132/71 06/27/20 04:44 36.5 C 16 153/80 H 06/27/20 04:00 56 L 16 141/72 H 06/27/20 03:30 57 L 16 137/72 06/27/20 02:39 59 L 23 133/71 06/27/20 02:00 60 16 141/79 H 06/27/20 01:46 06/27/20 01:33 36.5 C 67 12 167/91 H 06/27/20 01:30 63 22 167/91 H Pulse Ox 08/05/20 07:28 95 06/27/20 04:44 99 06/27/20 04:00 96 06/27/20 03:30 94 06/27/20 02:39 96 06/27/20 02:00 92 06/27/20 01:46 97 06/27/20 01:33 95 06/27/20 01:30 97 Laboratory Results WBC 8, Hb 14.9, HCT 41.8, platelets 120, NA 141, K4.1, BUN 15, CR 1.07, T BIli 1.9, AST 93, ALT 87, ALk Phos 139. Diagnostic Findings CT abd/pelvis with IV fluid on 06/27/20: 1. Interval placement of a stent extending from the duodenum into the pancreatic duct. 2. Interval development of mildly progressive prominence of the intrahepatic biliary ductal system. 3. Prior cholecystectomy. 4. Mildly improved pancreatitis with improved inflammatory/reactive adenopathy changes in the region of the celiac axis. 5. No evidence for drainable abscess or collection. EUS 06/26/20 (prior to ERCP): - There was no sign of significant pathology in the ampulla. - One stone was visualized endosonographically in the distal common bile duct. CBD diameter is 8 mm. - Evidence of a cholecystectomy. - There was no evidence of significant pathology in the visualized portion of the liver. - A 3 mm cyst was seen in the pancreatic body and 8 mm cyst in the pancreatic tail, likely side branch IPMN, no worrisome features.. - Pancreatic parenchymal abnormalities consisting of hyperechoic strands and hyperechoic foci were noted in the pancreatic head. PD is 4 mm in the head and 2 mm in the body. No clear mass lesion seen. - A 14 mm hypoechoic area was seen in the pancreatic tail. Fine needle aspiration performed however debris were aspirated suggestive of likely a developing pseudocyst. - Endosonographic images of the left adrenal gland were unremarkable. - The celiac trunk was endosonographically normal. ERCP 06/26/[address] Otto: - Biliary papillary stenosis, benign. - Choledocholithiasis was found. Complete removal was accomplished by biliary sphincterotomy, balloon sphincteroplasty and balloon extraction. - One plastic pancreatic stent was placed into the ventral pancreatic duct and Indomethacin given to decrease risk of post-ERCP pancreatitis. Medications Administered Currently receiving NS with 20mequ K at 100/hr. (1) Acute pancreatitis Acute pancreatitis complication: no infection or necrosis Pancreatitis type: other Qualified Code(s): K85.80 - Other acute pancreatitis without necrosis or infection
[2020-06-27] MEDS: FAMOTIDINE 20 MG in SYRINGE 3 ML IV SCH ×2 (09:11→20:21)
[2020-06-27] MEDS: LACTATED RINGER'S 1,000 ML IV SCH ×3 (10:44→21:25)
[2020-06-27] MEDS ORDERED: metroNIDAZOLE 500 MG/100 ML BAG IV SCH (11:00)
[2020-06-27] MEDS ORDERED: ACETAMINOPHEN 1,000 MG/100 ML VIAL IV ONE (11:30)
--- NOTE | 2020-06-27 11:48 | Electrocardiogram Report ---
Test Reason : Blood Pressure : / mmHG Vent. Rate : 063 BPM Atrial Rate : 062 BPM P-R Int : 000 ms QRS Dur : 116 ms QT Int : 442 ms P-R-T Axes : 000 -02 081 degrees QTc Int : 452 ms Sinus rhythm with 1st degree AV block Incomplete left bundle block Nonspecific ST and T wave abnormality Abnormal ECG Confirmed by Russell Tripathi ([id number]) on 06/27/2020 11:47:57 AM Referred By: REFERRED SELF Confirmed By:Thaddeus Tripathi
--- NOTE | 2020-06-27 13:08 | Medical Student Progress Note ---
Date of Service June 27, 2020 Supervising Attestation I personally examined the patient and verified all padilla points of history and exam, discussed case, and agree with decision making with Jo-Ann Sung MS3. feeling better than when he came in but still not great. belly pain off and on but dilauded helps some but not always enough IV tyelnol helped but not enough. vitals noted nad heent nc at mmm breathing unlabored no accessory muscles good effort skin no rashes no pallor or icterus pancreatitis - post ERCP - stable - improve pain control, increase fluids, supportive care. given that he had fairly severe constipation after first bout w pancreatitis - will presumptively add bowel regimen to help guard against this since he's still needing significant pain meds. otherwise as above Subjective Subjective Mr. Herring reports continued epigastric pain. He describes it as sharp and constant. With the 0.2 mg dilaudid q3h, he states that the pain decreases from an 8 out of 10 to a 2 out of 10; however, the pain relief is not lasting the entirety of the 3 hours. He does not endorse nausea, vomiting, chills, diaphoresis, or chest pain. He has not moved his bowels; however, he has been fasting since Thursday prior to his ERCP. Objective On exam, he is resting comfortably in bed and is no acute distress. Abdomen: Slightly distended and firm. Tender to palpation in the epigastric region. Cardiac: RRR, no rubs, murmurs, or gallops. Pulm: Clear bilaterally to auscultation. No wheezes, rhonchi, or crackles. Assessment Mr. Herring is an 85-year-old male with a history of CAD, atrial fibrillation/flutter, GERD, and pancreatitis secondary to cholelithiasis s/p cholecystectomy and choledocholithiasis s/p ERCP who is on hospital day #1 for post-ERCP acute pancreatitis. He does not have good pain control with the dilaudid but does not endorse nausea or vomiting. Plan Post-ERCP Acute Pancreatitis - NPO except essential medications. - LR increased to 200 mL/h to improve pancreatic perfusion. - Ciprofloxacin and metronidazole discontinued, no concern for infection at this time given clinical presentation. - Zofran 4 mg IV every 6 hours PRN. - Famotidine 20 mg IV every 12 hours. - Dilaudid 0.2 mg IV every 3 hours as needed severe pain. - Started 1 g IV acetaminophen q8h for better pain coverage given synergy with dilaudid. - Appreciate gastroenterology consult. CAD (coronary artery disease): CAD/hypertension/status post AVR/paroxysmal atrial flutter and fibrillation: - Continue amiodarone 200 mg PO daily. - Per post procedure notes, patient was to resume Xarelto 48 hours after procedure. - Hold aspirin and lisinopril. Results & Data ([facility]) Vital Signs (Past 12 Hours) Vital Signs Temp Pulse Pulse Resp BP BP BP 06/27/20 07:28 36.6 C 51 L 15 132/71 06/27/20 04:44 36.5 C 16 153/80 H 06/27/20 04:00 56 L 16 141/72 H 06/27/20 03:30 57 L 16 137/72 06/27/20 02:39 59 L 23 133/71 06/27/20 02:00 60 16 141/79 H 06/27/20 01:46 06/27/20 01:33 36.5 C 67 12 167/91 H 06/27/20 01:30 63 22 167/91 H Pulse Ox 06/27/20 07:28 95 06/27/20 04:44 99 06/27/20 04:00 96 06/27/20 03:30 94 06/27/20 02:39 96 06/27/20 02:00 92 06/27/20 01:46 97 06/27/20 01:33 95 06/27/20 01:30 97
[2020-06-27] MEDS ORDERED: CIPROFLOXACIN / D5W 400 MG/200 ML BAG IV SCH (15:00)
[2020-06-27] MEDS ORDERED: ACETAMINOPHEN 1,000 MG/100 ML VIAL IV PRN (15:38)
[2020-06-27] MEDS ORDERED: HYDROmorphone INJ 0.5 MG/0.5 ML SYR IV PRN ×2 (16:22→19:03)
[2020-06-27] MEDS ORDERED: POLYETHYLENE (MIRALAX) 17 GM PACK PO PRN (16:23)
[2020-06-27] MEDS ORDERED: ALUMINUM/MAGNESIUM/SIMETH (MAALOX MAX) 30 ML UDC PO PRN (18:19)
[2020-06-27] MEDS ORDERED: CALCIUM CARBONATE 500 MG CHEWABLE TAB PO PRN (18:19)
[2020-06-27] MEDS ORDERED: MELATONIN 3 MG TAB PO PRN (18:19)
[2020-06-27] MEDS ORDERED: Nursing to Pharmacy Communication SCH (18:45)
[2020-06-27] MEDS: POLYETHYLENE (MIRALAX) 17 GM PACK PO SCH (20:22)
[2020-06-28] MEDS: LACTATED RINGER'S 1,000 ML IV SCH ×3 (02:12→11:55)
[2020-06-28 06:00] LABS: Basophils # (auto) 0.01 K/uL (0-0.2); Basophils % (auto) 0.1 %; Eosinophils # (auto) 0.08 K/uL (0-0.5); Eosinophils % (auto) 0.8 %; Hematocrit (blood only) 38.9 % (42-52); Hemoglobin 13.5 g/dL (14.0-18.0); Immature Granulocytes # (auto) 0.02 K/uL (0.00-0.02); Immature Granulocytes % (auto) 0.2 %; Lymphocytes # (auto) 0.82 K/uL (1.2-3.4); Lymphocytes % (auto) 8.6 %; Mean Corpuscular Hemoglobin 30.5 pg (25-34); Mean Corpuscular Hgb Conc 34.7 g/dL (32-36); Mean Corpuscular Volume 87.8 fL (80-100); Mean Platelet Volume 10.3 fL (7.4-10.4); Monocytes # (auto) 0.73 K/uL (0.11-0.59); Monocytes % (auto) 7.7 %; Neutrophils # (auto) 7.82 K/uL (1.4-6.5); Neutrophils % (auto) 82.6 %; Platelet Count 121 K/uL (130-400); RDW Coefficient of Variation 14.9 % (11.5-14.5); RDW Standard Deviation 47.9 fL (36.4-46.3); Red Blood Count 4.43 M/uL (4.7-6.1); White Blood Count 9.48 K/uL (4.8-10.8)
[2020-06-28 06:34] LABS: Albumin Globulin Ratio 1.1 (0.9-2); Albumin Level 2.8 gm/dl (3.4-5.0); BUN Creatinine Ratio 11.1 (10-20); Bilirubin,Total 1.5 mg/dl (0.2-1); Calcium 7.8 mg/dl (8.5-10.1); Creatinine Clr Calc Pharmacy 55.8 ml/min; Est GFR (Non-African American) 78.5; Globulin 2.5 gm/dl (2.5-4.0); Potassium 3.6 mmol/L (3.5-5.1); Total Protein 5.3 gm/dl (6.4-8.2)
[2020-06-28] MEDS: FAMOTIDINE 20 MG in SYRINGE 3 ML IV SCH (07:54)
[2020-06-28] MEDS: POLYETHYLENE (MIRALAX) 17 GM PACK PO SCH (07:55)
--- NOTE | 2020-06-28 11:34 | Med Student Discharge Summary ---
Date of Service June 28, 2020 Admission HPI Per Admitting Provider The patient is a 85-year-old male with a past medical history including AVR, prostate cancer, GERD, paroxysmal atrial fibrillation/flutter, hypothyroidism, dyslipidemia, depression with anxiety, aortic arch aneurysm, CAD, hypertension and pancreatitis. Patient underwent ERCP with stone extraction and stent placement at [facility] earlier in the day on 06/26. He reports that he had some discomfort postprocedure, but upon going to bed this evening the pain became significantly worse, and he presented to the emergency department for assessment. Work-up in ED included laboratories which showed elevated lipase of 902, AST of 93, ALT 87 and total bilirubin of 1.9. CT scan of the abdomen and pelvis was consistent with pancreatitis. A stent from the duodenum to the pancreatic duct to the neck of the pancreas was noted. Admission Exam (Per Admitting) Constitutional WD/WN, vitals as above Eyes PERRL, conjunctivae normal, anicteric sclerae ENMT external ear and nose normal, oropharynx normal Neck trachea midline, no thyromegaly Respiratory normal respiratory effort, lungs clear to auscultation Cardiovascular RRR, no murmur, no edema Gastrointestinal (Abdomen) Inspection/Auscultation: abdomen normal to inspection Percussion/Palpation: + abdomen tender (moderate epigastric tenderness) and abdomen soft Skin no rashes, warm and dry + turgor decreased; no jaundice Neurologic PERRL, EOMI, accommodation nl, no face palsy, no dysarthria Psychiatric A+Ox3, euthymic affect Lymphatic no cervical or axillary lymphadenopathy Discharge Data Consultations 06/27/20 03:07 ED Decision to Admit Stat 06/27/20 04:43 Consult Case Management - Discharge Planning Routine Consult Gastroenterology Routine Hospital Course (1) Post-ERCP acute pancreatitis: Mr. Herring is an 85-year-old male with a history of cholecystitis s/p cholecystectomy (April 2020) and choledocholithiasis s/p ERCP (06/26/20) who presented to the ED with severe abdominal pain. Given CT findings, elevated lipase, and clinical picture, he was found to have post-ERCP acute pancreatitis. The patient had a previous episode of pancreatitis approximately 2 months prior. He was started on ciprofloxacin and metronidazole but these were later discontinued due to his non-toxic clinical picture. He was hydrated w/ IV fluids, increased to 200mL/hr. He was started on a regimen of .2 mg IV dilaudid q3h. While this reduced his pain initially, the effect wore off before the next dose was administered. IV 1g acetaminophen q8h was added for its synergistic effect to better control the pain. Pain was still poorly controlled and the dose of dilaudid was later increased to .5 mg but this resulted in altered mental status and it was thus reduced again to .25 mg. On day of discharge, he reported that his pain was a 0 of 10 (with last administration of pain medication 12 hours prior) and he did not endorse any additional symptoms. His feeds were advanced from clear liquids to regular diet and he was instructed to keep a low-fat/low-protein/high carb diet for 1-2 weeks post-admission. On admission he had an AST of 93, ALT 87, and total bilirubin of 1.9 which had decreased to 37(AST), 85(ALT), and 1.5(total bili) by discharge. His LFTs should be checked in approximately 2-3 months to ensure return to baseline. (2) Hypocalcemia: Patient was incidentally found to have a calcium of 8.0 on admission which decreased to 7.8 on day #2 of hospitalization. This may largely be due to undernourishment in the setting of pancreatitis followed by the dilutional effect of IVF. However, it seems as if this number may generally run low looking at his previous lab results. He is at this time not reporting any symptoms of carpopedal spasm, tetany, or seizure and therefore it is not indicated to give calcium gluconate. Follow up with a BMP in the outpatient setting. Discharge Plan Discharge Items Patient Disposition: Home - Self-Care Reason For Visit: POST ERCP PANCREATITIS Discharge Diagnosis: acute pancreatitis Condition on Discharge: Good Activity: Resume your previous activity Non-emergency contact: Primary Care Provider Call non-emergency contact if: you have any medication questions, your symptoms worsen and your pain is not controlled Follow-up/Referrals: Martinez Riley Jr, [Primary Care Provider] - Diet: Regular Addtl Attending Provider Instructions: You were treated for pancreatitis which is an inflammation of the pancreas and your pain flared up after having a recent procedure that you had on Thursday to remove the gallstone from your bile ducts. We gave you medication to treat your pain (dilaudid and acetaminophen) and kept you on IV fluids while you rested your gastrointestinal tract. Over the next week, we recommend staying from fatty foods and eating mostly starches, such as bread, pasta, and potatoes. This will prevent your pancreas from being strained. If feeling well next week, can try a small amount of chicken and see how you feel. If not feeling well with that, continue another week of starches after that and then return to regular diet. Follow up with your primary care doctor, Dr. Riley, in a week. Please call them when you get home in order to make this appointment. Your calcium level was a little low in the hospital. Get a calcium/vitamin D supplement over the counter and take according to the directions on the bottle. Your doctor will check this level again in the office. We prescribed some Miralax for constipation. It is optional, take as needed. If you begin to have severe pain, you can take the pain medicine that we provided. However, try to avoid if you do not need it. If you develop any new or worsening symptoms including fever, chills, sweats, chest pain, chest pressure, difficulty breathing, uncontrolled nausea/vomiting, rash, wheezing, passing out or nearly passing out, bleeding, black/bloody bowel movements, or other new or concerning symptoms please call your primary care physician, or call 911 for re-evaluation in the emergency department if you are very concerned. Pending Studies at Discharge: No Stand-Alone Forms: [facility] [employer], Smoking Cessation Medications and DC Order Prescriptions: New polyethylene glycol 3350 [Miralax] 17 gram Powder In Packet 17 g PO BID Qty: 21 RF: 0 oxycodone 5 mg capsule 5 mg PO HS PRN (Reason: pain) Qty: 3 RF: 0 Continued aspirin [Adult Low Dose Aspirin] 81 mg tablet,delayed release (DR/EC) 81 mg PO DAILY RF: 0 alprazolam 0.5 mg tablet 0.5 mg PO HS RF: 0 esomeprazole magnesium 40 mg capsule,delayed release(DR/EC) 40 mg PO QAM RF: 0 valacyclovir 500 mg tablet 500 mg PO QDD RF: 0 ferrous sulfate 325 mg (65 mg iron) tablet 325 mg PO QAM RF: 0 multivitamin [Daily Multi-Vitamin] tablet 1 tab PO QAM RF: 0 atorvastatin 10 mg tablet 10 mg PO HS RF: 0 lisinopril 40 mg tablet 40 mg PO DAILY RF: 0 docusate sodium [Colace] 100 mg Capsule 100 mg PO HS RF: 0 amiodarone 200 mg tablet 200 mg PO HS RF: 0 levothyroxine 100 mcg tablet 100 mcg PO 6XWK RF: 0 rivaroxaban 20 mg tablet 20 mg PO QDD RF: 0 Discontinued ciprofloxacin HCl 500 mg tablet 500 mg PO BID RF: 0 Discharge Orders: Discharge Order (Routine); Ordered 06/28/20 Ordered By: Sean Joseph/Other Patient Handouts: Understanding Pancreatitis Admission Data Admit Date/Time: 06/27/20 03:53 Attending Provider: Payam Calvillo Admit Provider: Jem Beach Primary Care Provider: Martinez Riley Jr Other Providers: Jem Beach ; Sherley Hobson Other Interventions: Discharge Summary Assessment (RN) Last Done: 06/28/20 18:07 DC Date/Time DO NOT enter until pt leaves facility: 06/28/20 18:50 Supervising Attestation I personally examined the patient and verified all padilla points of history and exam, discussed case, and agree with decision making with Jo-Ann Sung MS3. feeling good would like to go home belly better discussed diet, etc vitals noted nad heent nc at mmm breathing unlabored no accessory muscles good effort skin no rashes no pallor or icterus pancreatitis - post ERCP - improved and stable for home. otherwise as above and as per discharge instructions otherwise as above Resident Activity Tracking Resident Involvement: Resident Care Provided Care Provided: Adult Hospital Medicine
--- NOTE | 2020-06-28 14:36 | Gastroenterology Progress Note ---
Date of Service June 28, 2020 Assessment & Plan (1) Acute pancreatitis: Resolving. Continue to advance diet. IF can tolerate a low fat diet then OK for discharge. Has OP x-ray ordered to check for migration of the pancreatic stent in 3 weeks and if still in place, our office will call him to arrange EGD to remove. Managed by Dr. Moore. GI will sign off. Attg add: I interviewed and examined pt, reviewed chart and labs. Pt with resolution of pain, ki clears, passing gas. Abd exam benign. OK for d/c home if ki solids. OK to resume Xarelto tomorro. Admission and Anticipated Discharge Date Admission Date: June 27, 2020 Subjective 85 male, hx CAD, PAF, Hypothyroid, HTN, bioprosthetic (porcine) aortic valve. ERCP on 06/26. Developed upper abd pain. CT with acute pancreatitis and lipase >902. LFTs also elevated, improved today. T Bili 1.9-> 1.5, AST 93->37, ALT 87-> 85, Alk Phos 139->113. Today: pain resolved. Most recently took analgesics last evening. No nausea/vomiting after clear liquid lunch. Review of Systems Review of Systems: ROS: Gen: Denies weakness, fevers, weight loss Eyes: No eye redness, or pain, no recent vision changes Resp: No SOB, no cough Cardio: No palpitations/irregular beats, no chest pain GI: As per HPI, otherwise (-) : Denies pain on urination Skin: No jaundice, itching or new rashes Physical Exam Constitutional: WD/WN, vitals as above Eyes: PERRL, conjunctivae normal, anicteric sclerae ENMT: external ear and nose normal, oropharynx normal Neck: trachea midline, no thyromegaly Respiratory: normal respiratory effort, lungs clear to auscultation Cardiovascular: RRR, no murmur, no edema Gastrointestinal (Abdomen): normal bowel sounds, soft, nontender, no hepatosplenomegaly Skin: no rashes, warm and dry Neurologic: PERRL, EOMI, accommodation nl, no face palsy, no dysarthria Psychiatric: A+Ox3, euthymic affect Lymphatic: no cervical or axillary lymphadenopathy Results & Data ([facility]) Vital Signs (Past 12 Hours) Vital Signs Temp Resp BP Pulse Ox 06/28/20 07:17 37.5 C 16 147/73 H 92 (1) Acute pancreatitis Acute pancreatitis complication: no infection or necrosis Pancreatitis type: other Qualified Code(s): K85.80 - Other acute pancreatitis without necrosis or infection
[2020-06-28] MEDS ORDERED: CALCIUM 600MG + VIT D 400 IU TAB PO ONE (17:50)
--- NOTE | 2020-06-28 19:23 | Billing Data ---
Date of Service June 28, 2020 Coding Level of Care Code D/C Day Management <30 mins
== END 2020-06-28 18:50 | disposition home or self-care (01) ==
LOC: ED 01:27 → 3N 01:27 → SUATTDRO 03:53 → 3N 04:28

== ENCOUNTER 2020-07-14 09:59 | Observation (INO) ==
--- NOTE | 2020-07-14 10:57 | Emergency Department Note ---
Impression & Plan Intractable low back pain ED Provider Note INFORMANT: Patient ED PROVIDER(S): Neto Paez MD CHIEF COMPLAINT: Right hip pain PLAN: Disposition: Admitted Condition: Good MEDICAL DECISION MAKING: Patient presented to the emergency [place] complaining of ongoing right sided pain. His examination is consistent with a sciatic type presentation. I tried to get the patient comfortable with multiple doses of IV Dilaudid and perform an MRI. His laboratory testing was unremarkable. Unfortunate the patient could not lie flat for MR imaging. He could not even get up and walk around. Because of this he needs to be admitted for further management, pain control and additional imaging. I did discuss this with the patient and . He was in agreement. I also consulted with Dr. Lawton of internal medicine. The patient was evaluated in the ER for further management. Triage Nursing notes reviewed and agree them. Additional history obtained from patient's Prior medical records reviewed previous ER visit reviewed. Vital Signs: reviewed and remarkable for no significant abnormalities Differential diagnosis: Musculoskeletal, disc herniation, fracture, metastatic disease, cord compression, discitis, sciatica, cauda equina, infection, aortic disease, renal colic, gastrointestinal, as well as other pathologies. Diagnostics interpreted by me: Cardiac Monitoring: Cardiac monitoring ordered by me: The patient was placed on continuous cardiac monitoring and observed. It revealed a normal sinus rhythm at 60 beats per minute without ectopy or evidence of dysrhythmia. Imaging studies: MR imaging ordered however the patient could not lie still secondary to pain Consultation(s): [facility] HPI: The patient is a 85 year old male who presents to the Emergency Room with complaints of right hip pain. This started one week ago and is worsening. The patient also notes the following associated symptoms, trembling secondary to pain. The patient has found no relieving factors. Current pain is rated as 10/10. Was in the ED 07/[address] Bryant. Had injections the following day in the hip. This didn't help. The patient went back and had a spinal injection. That too didn't help. Pt denies LOC, headache, fevers, chills, diaphoresis, visual changes, neck pain, chest pain, breathing difficulties, nausea, vomiting, abdominal pain, melena, hematochezia, urinary symptoms, numbness, weakness, lymphadenopathy, rash, or other complaints. ROS: See above HPI for pertinent positives & negatives. A total of 10 systems reviewed and were otherwise negative. PAST MEDICAL HISTORY:See Below anticoagulated PAST SURGICAL HISTORY:See Below s/p AVR FAMILY HISTORY:See Below SOCIAL HISTORY:See Below HOME MEDICATIONS:See Below ALLERGIES:See Below VITALS:See Below PHYSICAL EXAMINATION: GENERAL: Awake, alert, uncomfortable-appearing, in no distress HENT: Normocephalic, atraumatic. Oropharynx unremarkable. EYES: Normal conjunctiva. Sclera non-icteric. NECK: Inspection normal. Non-tender. Supple. No nuchal rigidity. FROM. No masses. RESPIRATORY: Clear to auscultation. No wheezes. No rales. Normal respiratory effort. CARDIAC: Normal rate. Normal rhythm. No murmurs. No rubs. Extremities warm and well perfused. Pulses equal. No JVD. GI: Soft, non-distended. No tenderness to palpation. No rebound or guarding. No masses. RECTAL: Deferred. MUSCULOSKELETAL: Atraumatic. Chest examination reveals no tenderness. The back is symmetrical on inspection without obvious abnormality. There is no CVA tenderness to palpation. right lumbar TTP, right sciatic notch ttp. No joint edema. Good range of motion of the right hip. No trochanter tenderness to palpation. LOWER EXTREMITIES: Calves are equal size bilaterally and non-tender. No edema. No discoloration. NEURO: Normal sensorium. No sensory or motor deficits noted. SKIN: No rash or jaundice noted. ED COURSE: Critical Care: None Neto Paez MD Past Med/Surg History Medical History (Updated 07/14/20 @ 18:56 by Neto Paez MD) Aortic regurgitation due to bicuspid aortic valve Atrial flutter, paroxysmal Cholecystitis Depression GERD (gastroesophageal reflux disease) Hypertension Hypothyroidism PAF (paroxysmal atrial fibrillation) Piriformis syndrome of right side Prostate cancer Subconjunctival hematoma Surgical History H/O hernia repair inguinal H/O prostatectomy S/P aortic valve replacement S/P laparoscopic cholecystectomy (05/28/20) Laparoscopic Cholecystectomy with Intraoperative Cholangiogram Dr. Koenig 05/10/20 Family History Mother Hypertension Diabetes Father , age 50 Myocardial infarction Social History Smoking Status: Never smoker Second Hand Exposure: No; Do You Dip or Chew Tobacco: No; Tobacco Cessation Education Requested by Patient: No Hx Alcohol Use: Yes Alcohol type: wine Alcohol type Comment: 1 glass wine Hx Substance Use: No Preferred Language: Arabic Communication Ability: Effective Training Personnel Supervisor Required: No Beliefs That Will Affect Care: None marital status: Current Living Situation: Spouse Current Living Situation Comment: lives in [place] current occupational status: retired current occupation: [employer] Other Information That Helps Us Care for You: No other: 1 daughter Feels Safe at Home: Yes Allergies Allergies Allergy/AdvReac Type Severity Reaction Status Date / Time codeine Allergy Unknown HALLUCINATI Verified 07/14/20 10:48 ONS oxycodone [From OxyContin] Allergy Unknown CAN'T Verified 07/14/20 10:48 REMEMBER Penicillins Allergy Unknown CAN'T Verified 07/14/20 10:48 REMEMBER hydrocodone AdvReac Intermediate hallucinati Verified 07/14/20 10:48 ons Home Meds Home Medications Medication Instructions Recorded Confirmed alprazolam 0.5 mg tablet 0.5 mg PO HS tab 08/23/19 07/14/20 esomeprazole magnesium 40 mg 40 mg PO QAM cap 08/23/19 07/14/20 capsule,delayed release ferrous sulfate 325 mg (65 mg 325 mg PO QAM tab 08/23/19 07/14/20 iron) tablet multivitamin 1 tab PO QAM 08/23/19 07/14/20 valacyclovir 500 mg tablet 500 mg PO QDD tab 08/23/19 07/14/20 amiodarone 200 mg PO HS 05/08/20 07/14/20 docusate sodium [Colace] 100 mg PO HS 05/08/20 07/14/20 levothyroxine 100 mcg PO 6XWK 05/08/20 07/14/20 rivaroxaban 20 mg PO QDD 05/08/20 07/14/20 aspirin 81 mg tablet,delayed 81 mg PO DAILY 06/22/20 07/14/20 release atorvastatin 10 mg PO HS 06/27/20 07/14/20 lisinopril 40 mg PO DAILY 06/27/20 07/14/20 Previous Rx's Medication Instructions Recorded oxycodone 5 mg PO HS PRN #3 cap 06/28/20 polyethylene glycol 3350 [Miralax] 17 g PO BID #21 ea 06/28/20 lidocaine 1 patch TOP DAILY PRN #15 ea 07/09/20 Results & Data (ED) Vital Signs Vital Signs - 24 hr 07/14/20 10:10 07/14/20 11:00 07/14/20 12:42 Temperature 36.6 C Temperature Source Oral Pulse Rate 54 L Pulse Rate [Apical] 58 L Pulse Rhythm [Apical] Regular Pulse Strength [Apical] Normal Respiratory Rate 21 18 Respiratory Effort / Characteristics Non-Labored Non-Labored Spontaneous Respiratory Depth Normal Normal Respiratory Pattern Blood Pressure 159/89 H Blood Pressure [Left Arm] 132/76 Blood Pressure Mean 112 Blood Pressure Mean [Left Arm] 94 Blood Pressure Position [Left Arm] Pulse Oximetry 97 99 Oxygen Delivery Method Room Air Room Air Room Air Sepsis Recent Fever Within 48 Hours No Sepsis New/Unexplained Change in Mental Status No Sepsis Action Taken by Nursing No Action Required 07/14/20 13:41 07/14/20 14:26 07/14/20 16:00 Temperature Temperature Source Pulse Rate Pulse Rate [Apical] 54 L 57 L Pulse Rhythm [Apical] Regular Regular Pulse Strength [Apical] Normal Normal Respiratory Rate 16 18 Respiratory Effort / Characteristics Non-Labored Spontaneous Non-Labored Respiratory Depth Normal Normal Respiratory Pattern Regular Blood Pressure Blood Pressure [Left Arm] 169/75 H 131/87 Blood Pressure Mean Blood Pressure Mean [Left Arm] 106 101 Blood Pressure Position [Left Arm] Lying Pulse Oximetry 91 93 98 Oxygen Delivery Method Room Air Room Air Room Air Sepsis Recent Fever Within 48 Hours Sepsis New/Unexplained Change in Mental Status Sepsis Action Taken by Nursing Laboratory Data Result diagrams: 07/14/20 11:20 07/14/20 11:20 Lab Results 07/14/20 07/14/20 07/14/20 Range/Units 11:20 11:20 11:20 WBC 9.89 (4.8-10.8) K/uL RBC 5.07 (4.7-6.1) M/uL Hgb 15.6 (14.0-18.0) g/dL Hct 45.0 (42-52) % MCV 88.8 (80-100) fL MCH 30.8 (25-34) pg MCHC 34.7 (32-36) g/dL RDW Std Deviation 45.2 (36.4-46.3) fL RDW Coeff of Tanvir 14.3 (11.5-14.5) % Plt Count 231 (130-400) K/uL MPV 9.6 (7.4-10.4) fL Immature Gran % (Auto) 0.6 % Neut % (Auto) 78.1 % Lymph % (Auto) 14.7 % Iron % (Auto) 6.2 % Eos % (Auto) 0.3 % Baso % (Auto) 0.1 % Neut # (Auto) 7.73 H (1.4-6.5) K/uL Lymph # (Auto) 1.45 (1.2-3.4) K/uL Iron # (Auto) 0.61 H (0.11-0.59) K/uL Eos # (Auto) 0.03 (0-0.5) K/uL Baso # (Auto) 0.01 (0-0.2) K/uL Immature Gran # (Auto) 0.06 H (0.00-0.02) K/uL PT 12.4 H (9.0-12.0) Seconds INR 1.2 H (0.9-1.1) APTT 31.8 H (21.0-31.0) Seconds PTT Ratio 1.1 Sodium 139 (136-145) mmol/L Potassium 3.6 (3.5-5.1) mmol/L Chloride 108 H (98-107) mmol/L Carbon Dioxide 27 (21-32) mmol/L Anion Gap 4.0 (3-11) BUN 17 (7-18) mg/dl Creatinine 0.92 (0.6-1.4) mg/dl Est Cr Clr Drug Dosing Not Reportable Est GFR ( Amer) 88.2 Est GFR (Non-Af Amer) 76.1 BUN/Creatinine Ratio 18.2 (10-20) Glucose 108 H (70-99) mg/dl Calcium 9.4 (8.5-10.1) mg/dl Total Bilirubin 0.8 (0.2-1) mg/dl AST 14 L (15-37) U/L ALT 24 (12-78) U/L Alkaline Phosphatase 78 (45-117) U/L C-Reactive Protein < 0.29 (0-0.29) mg/dl Total Protein 6.1 L (6.4-8.2) gm/dl Albumin 3.3 L (3.4-5.0) gm/dl Globulin 2.8 (2.5-4.0) gm/dl Albumin/Globulin Ratio 1.2 (0.9-2) Administered Medications Hydromorphone HCl (Hydromorphone Inj 0.5 Mg/0.5 Ml Syr) 0.5 mg IV Q15M PRN PRN Reason: Pain Stop: 07/28/20 11:00 Last Admin: 07/14/20 13:35 Dose: 0.5 mg Documented by: [id number] Admin: 07/14/20 12:14 Dose: 0.5 mg Documented by: [id number] Admin: 07/14/20 11:17 Dose: 0.5 mg Documented by: [id number] Lidocaine (Lidocaine 5% 1 Patch) 1 patch TD QAM [facility] Stop: 08/13/20 17:32 Last Admin: 07/14/20 18:40 Dose: 1 patch Documented by: [id number] Oxycodone HCl (Oxycodone Hcl Ir 5 Mg Tab (Immediate Release)) 5 mg PO HS PRN PRN Reason: pain Stop: 07/21/20 17:32 Last Admin: 07/14/20 18:02 Dose: 5 mg Documented by: [id number] Rivaroxaban (Rivaroxaban 20 Mg Tab) 20 mg PO QDD [facility] Stop: 08/13/20 17:32 Last Admin: 07/14/20 18:50 Dose: 20 mg Documented by: [id number] Valacyclovir HCl (Valacyclovir Hcl 500 Mg Tablet) 500 mg PO QDD [facility] Stop: 08/13/20 17:32 Last Admin: 07/14/20 18:49 Dose: 500 mg Documented by: [id number] Discontinued Medications Ondansetron HCl (Ondansetron Inj 2 Mg/Ml 2 Ml Vial) 4 mg IV NOW STA Stop: 07/14/20 11:02 Last Admin: 07/14/20 11:17 Dose: 4 mg Documented by: [id number] Discharge Plan Visit Data Chief Complaint: Hip Pain Stated Complaint: RIGHT HIP PAIN ED Provider: Neto Paez Discharge Problem: Intractable low back pain Patient Disposition: Admitted As Inpatient Discharge Instructions Interventions: ED Discharge Assessment Last Done: 07/14/20 16:51
[2020-07-14] MEDS ORDERED: ONDANSETRON INJ 2 MG/ML 2 ML VIAL IV STA (11:01)
[2020-07-14] MEDS: HYDROmorphone INJ 0.5 MG/0.5 ML SYR IV PRN ×4 (11:17→23:34)
[2020-07-14 11:32] LABS: Basophils # (auto) 0.01 K/uL (0-0.2); Basophils % (auto) 0.1 %; Eosinophils # (auto) 0.03 K/uL (0-0.5); Eosinophils % (auto) 0.3 %; Hemoglobin 15.6 g/dL (14.0-18.0); Immature Granulocytes # (auto) 0.06 K/uL (0.00-0.02); Immature Granulocytes % (auto) 0.6 %; Lymphocytes # (auto) 1.45 K/uL (1.2-3.4); Lymphocytes % (auto) 14.7 %; Mean Corpuscular Hemoglobin 30.8 pg (25-34); Mean Corpuscular Hgb Conc 34.7 g/dL (32-36); Mean Corpuscular Volume 88.8 fL (80-100); Mean Platelet Volume 9.6 fL (7.4-10.4); Monocytes # (auto) 0.61 K/uL (0.11-0.59); Monocytes % (auto) 6.2 %; Neutrophils # (auto) 7.73 K/uL (1.4-6.5); Neutrophils % (auto) 78.1 %; Platelet Count 231 K/uL (130-400); RDW Coefficient of Variation 14.3 % (11.5-14.5); RDW Standard Deviation 45.2 fL (36.4-46.3); Red Blood Count 5.07 M/uL (4.7-6.1); White Blood Count 9.89 K/uL (4.8-10.8)
[2020-07-14 11:43] LABS: INR 1.2 (0.9-1.1); Partial Thromboplastin Ratio 1.1; Partial Thromboplastin Time 31.8 Seconds (21.0-31.0); Prothrombin Time 12.4 Seconds (9.0-12.0)
[2020-07-14 11:58] LABS: Alanine Aminotransferase 24 U/L (12-78); Albumin Level 3.3 gm/dl (3.4-5.0); Aspartate Aminotransferase 14 U/L (15-37); BUN Creatinine Ratio 18.2 (10-20); Blood Urea Nitrogen 17 mg/dl (7-18); Calcium 9.4 mg/dl (8.5-10.1); Carbon Dioxide 27 mmol/L (21-32); Chloride 108 mmol/L (98-107); Est GFR (African American) 88.2; Est GFR (Non-African American) 76.1; Glucose 108 mg/dl (70-99); Potassium 3.6 mmol/L (3.5-5.1); Sodium 139 mmol/L (136-145)
[2020-07-14 12:01] LABS: Albumin Globulin Ratio 1.2 (0.9-2); Alkaline Phosphatase 78 U/L (45-117); Bilirubin,Total 0.8 mg/dl (0.2-1); C Reactive Protein < 0.29 mg/dl (0-0.29); Globulin 2.8 gm/dl (2.5-4.0); Total Protein 6.1 gm/dl (6.4-8.2)
--- NOTE | 2020-07-14 16:11 | History & Physical Report ---
Date of Service July 14, 2020 Assessment & Plan (1) Tendinopathy of right gluteus medius: Lidocaine patch, diclofenac gel. Acetaminophen PRN Tramadol PRN is above not working Dilaudid if severe pain and above not working Avoiding use of NSAIDs given concurrent Xarelto use however could consider a short course if continues to have pain difficult to control without IV opiates, recommend naproxen given recent acute pancreatitis (lower risk of this). No need for further imaging given "successful" outpatient trigger point injection for diagnostic purposes - the local anesthetic worked, just not the steroid part. PT eval History of Present Illness Chief Complaint: Right back pain Primary Care Provider: Martinez Riley Jr, Luis Herring is an 85-year-old male who presents to the ER due to excruciating right back pain. He has had multiple health care provider visits due to this pain. It originally occurred while twisting while trying to reattach a dryer vent 1 week ago today. He felt a slight twinge at the time but no immediate pain. The pain started later that evening and was much worse the next morning. He went to a chiropractor who recommended going to the ER. When he had imaging in the ER he reports this made it much worse. He was set up with Dr. Bryant in pain management the following day. He reports having an injection over the site of the pain with initial relief. However the pain came back within approximately 1 hour. He went back to pain management and received a second injection 2 days later and again had good relief initially. The following morning however he was in excruciating pain without any relief from [id number] medication, including a lidocaine patch. In the ER he was x3 0.5 mg Dilaudid IV and is now much more comfortable. However he does not feel he can go home as the pain is starting to return and he is concerned this is always been worse in the mornings. This patient is well-known to the service after recent admissions in April for acute pancreatitis and cholecystitis with eventual ERCP performed on June 26 and subsequent post ERCP pancreatitis. He reports he is doing very well from this standpoint and has no diet restrictions. Allergies Allergy/AdvReac Type Severity Reaction Status Date / Time codeine Allergy Unknown HALLUCINATI Verified 07/14/20 10:48 ONS oxycodone [From OxyContin] Allergy Unknown CAN'T Verified 07/14/20 10:48 REMEMBER Penicillins Allergy Unknown CAN'T Verified 07/14/20 10:48 REMEMBER hydrocodone AdvReac Intermediate hallucinati Verified 07/14/20 10:48 ons Home Medications Home Medications Medication Instructions Recorded Confirmed Type alprazolam 0.5 mg tablet 0.5 mg PO HS tab 08/23/19 07/14/20 History esomeprazole magnesium 40 mg 40 mg PO QAM cap 08/23/19 07/14/20 History capsule,delayed release ferrous sulfate 325 mg (65 mg 325 mg PO QAM tab 08/23/19 07/14/20 History iron) tablet multivitamin 1 tab PO QAM 08/23/19 07/14/20 History valacyclovir 500 mg tablet 500 mg PO QDD tab 08/23/19 07/14/20 History amiodarone 200 mg PO HS 05/08/20 07/14/20 History docusate sodium [Colace] 100 mg PO HS 05/08/20 07/14/20 History levothyroxine 100 mcg PO 6XWK 05/08/20 07/14/20 History rivaroxaban 20 mg PO QDD 05/08/20 07/14/20 History aspirin 81 mg tablet,delayed 81 mg PO DAILY 06/22/20 07/14/20 History release atorvastatin 10 mg PO HS 06/27/20 07/14/20 History lisinopril 40 mg PO DAILY 06/27/20 07/14/20 History polyethylene glycol 3350 [Miralax] 17 g PO BID #21 ea 06/28/20 07/14/20 Rx lidocaine 1 patch TOP DAILY PRN #15 ea 07/09/20 07/14/20 Rx baclofen 5 mg PO HS PRN #7 tab 07/15/20 Rx diclofenac sodium [Voltaren] 4 g EXT BID PRN 10 Days #100 g 07/15/20 Rx tramadol 50 mg PO Q4H PRN 10 Days #40 tab 07/15/20 Rx Past Med/Surg History Medical History Aortic regurgitation due to bicuspid aortic valve Atrial flutter, paroxysmal Cholecystitis Depression GERD (gastroesophageal reflux disease) Hypertension Hypothyroidism PAF (paroxysmal atrial fibrillation) Piriformis syndrome of right side Prostate cancer Subconjunctival hematoma Surgical History H/O hernia repair inguinal H/O prostatectomy S/P aortic valve replacement S/P laparoscopic cholecystectomy (05/28/20) Laparoscopic Cholecystectomy with Intraoperative Cholangiogram Dr. Koenig 05/10/20 Family History Mother Hypertension Diabetes Father , age 50 Myocardial infarction Social History Smoking Status: Never smoker Second Hand Exposure: No; Do You Dip or Chew Tobacco: No; Tobacco Cessation Education Requested by Patient: No Hx Alcohol Use: Yes Alcohol type: wine Alcohol type Comment: 1 glass wine Hx Substance Use: No Preferred Language: Fijian Communication Ability: Effective Archeologist Classical Required: No Beliefs That Will Affect Care: None marital status: Current Living Situation: Spouse Current Living Situation Comment: lives in [place] current occupational status: retired current occupation: [employer] Other Information That Helps Us Care for You: No other: 1 daughter Feels Safe at Home: Yes Review of Systems Review of Systems: All systems reviewed & are unremarkable except as noted in HPI & below Physical Exam Constitutional: WD/WN, vitals as above Gastrointestinal (Abdomen): normal bowel sounds, soft, nontender, no hepatosplenomegaly Musculoskeletal: Localized pain on palpation of the right gluteus medius proximally and distally on insertion to the greater trochanter. No pain with internal and external rotation of the hip. He is able to stand up without pain but it is much worse on walking. No pain on palpation over trochanteric bursa No central or paraspinal tenderness on palpation. Limited lumbar extension and flexion due to pain. Knee flexion and extension without pain, no knee effusion. Skin: no rashes, warm and dry Neurologic: moves all extremities and awake; no focal motor deficits and not confused Results & Data Results & Data ([facility]) Vital Signs (Past 12 Hours) Vital Signs Temp Pulse Pulse Resp BP BP Pulse Ox 07/14/20 14:26 54 L 16 169/75 H 93 07/14/20 13:41 91 07/14/20 12:42 58 L 18 132/76 99 07/14/20 10:10 36.6 C 54 L 21 159/89 H 97 Code Status & VTE Plan Code Status DNR/DNI as discussed with the patient and his at bedside VTE Prophylaxis Plan VTE Prophylaxis will be ordered: No PG Care Time/CCT Total # of Minutes Spent Total Time Spent with Patient: Total time spent is greater than 50% in coordination of care (as documented) at patient's floor/unit and/or counseling patient: Coding Level of Care Code 83955 OBS Care - Level 2 Diagnoses Tendinopathy of right gluteus medius M67.98
[2020-07-14] MEDS ORDERED: POLYETHYLENE (MIRALAX) 17 GM PACK PO PRN (17:33)
[2020-07-14] MEDS ORDERED: ALUMINUM/MAGNESIUM SUSP 30 ML UDC PO PRN (17:33)
[2020-07-14] MEDS ORDERED: RIVAROXABAN 20 MG TAB PO SCH (17:33)
[2020-07-14] MEDS ORDERED: VALACYCLOVIR HCL 500 MG TABLET PO SCH (17:33)
[2020-07-14] MEDS ORDERED: OXYCODONE HCL IR 5 MG TAB (IMMEDIATE RELEASE) PO PRN (17:33)
[2020-07-14] MEDS ORDERED: LIDOCAINE 5% 1 PATCH TD PRN (17:33)
[2020-07-14] MEDS ORDERED: ACETAMINOPHEN 325 MG TAB PO PRN (17:33)
[2020-07-14] MEDS: LIDOCAINE 5% 1 PATCH TD SCH (18:40)
[2020-07-14] MEDS: TRAMADOL HCL 50 MG TABLET PO PRN (20:30)
[2020-07-14] MEDS ORDERED: ATORVASTATIN 10 MG TAB PO SCH (21:00)
[2020-07-14] MEDS ORDERED: DOCUSATE SODIUM 100 MG CAP PO SCH (21:00)
[2020-07-14] MEDS ORDERED: ALPRAZolam 0.5 MG TABLET PO SCH (21:00)
[2020-07-14] MEDS ORDERED: AMIODARONE 200 MG TAB PO SCH (21:00)
[2020-07-14] MEDS: DICLOFENAC SOD 1% GEL 100 GM TUBE EXT PRN (22:27)
[2020-07-15] MEDS ORDERED: HYDROmorphone INJ 0.5 MG/0.5 ML SYR IV PRN (00:49)
[2020-07-15] MEDS ORDERED: LEVOTHYROXINE SODIUM 100 MCG TABLET PO SCH (06:30)
[2020-07-15] MEDS: TRAMADOL HCL 50 MG TABLET PO PRN ×2 (07:45→13:25)
[2020-07-15] MEDS: LIDOCAINE 5% 1 PATCH TD SCH (08:29)
[2020-07-15] MEDS: DICLOFENAC SOD 1% GEL 100 GM TUBE EXT PRN (08:30)
[2020-07-15] MEDS ORDERED: PANTOprazole 40 MG TAB PO SCH (09:00)
[2020-07-15] MEDS ORDERED: MULTIVITAMIN TAB PO SCH (09:00)
[2020-07-15] MEDS ORDERED: ASPIRIN 81 MG ECTAB PO SCH (09:00)
[2020-07-15] MEDS ORDERED: FERROUS SULFATE 325 MG TAB PO SCH (09:00)
[2020-07-15] MEDS ORDERED: lisinopriL 40 MG TAB PO SCH (09:00)
--- NOTE | 2020-07-15 13:03 | Discharge Summary ---
Date of Service July 15, 2020 Admission HPI Per Admitting Provider Luis Herring is an 85-year-old male who presents to the ER due to excruciating right back pain. He has had multiple health care provider visits due to this pain. It originally occurred while twisting while trying to reattach a dryer vent 1 week ago today. He felt a slight twinge at the time but no immediate pain. The pain started later that evening and was much worse the next morning. He went to a chiropractor who recommended going to the ER. When he had imaging in the ER he reports this made it much worse. He was set up with Dr. Bryant in pain management the following day. He reports having an injection over the site of the pain with initial relief. However the pain came back within approximately 1 hour. He went back to pain management and received a second injection 2 days later and again had good relief initially. The following morning however he was in excruciating pain without any relief from [id number] medication, including a lidocaine patch. In the ER he was x3 0.5 mg Dilaudid IV and is now much more comfortable. However he does not feel he can go home as the pain is starting to return and he is concerned this is always been worse in the mornings. This patient is well-known to the service after recent admissions in April for acute pancreatitis and cholecystitis with eventual ERCP performed on June 26 and subsequent post ERCP pancreatitis. He reports he is doing very well from this standpoint and has no diet restrictions. Principal Diagnosis Intractable pain right gluteus and right lumbar spine Discharge Exam Constitutional WD/WN, vitals as above Eyes PERRL, conjunctivae normal, anicteric sclerae ENMT external ear and nose normal, oropharynx normal Neck trachea midline, no thyromegaly Respiratory normal respiratory effort, lungs clear to auscultation Cardiovascular RRR, no murmur, no edema Gastrointestinal (Abdomen) normal bowel sounds, soft, nontender, no hepatosplenomegaly Musculoskeletal no cyanosis or clubbing, extremities motor strength 5/5 Spine: + limited thoraco-lumbar ROM (due to right sided pain) and + paraspinal tenderness Extremities: + limited ROM of extremities (right leg due to pain in gluteus) Skin no rashes, warm and dry Neurologic patellar DTR's 2+ bilat, sensation intact and PERRL, EOMI, accommodation nl, no face palsy, no dysarthria Psychiatric A+Ox3, euthymic affect Lymphatic no cervical or axillary lymphadenopathy Discharge Data Allergies Allergy/AdvReac Type Severity Reaction Status Date / Time codeine Allergy Unknown HALLUCINATI Verified 07/16/20 10:11 ONS oxycodone [From OxyContin] Allergy Unknown CAN'T Verified 07/16/20 10:11 REMEMBER Penicillins Allergy Unknown CAN'T Verified 07/16/20 10:11 REMEMBER hydrocodone AdvReac Intermediate hallucinati Verified 07/16/20 10:11 ons Consultations 07/14/20 16:00 ED Decision to Admit Stat Hospital Course (1) Tendinopathy of right gluteus medius: pain is improved with Voltaren gel, Lidocaine patch, Ultram PRN, Tylenol patient feels that he can manage at home he plans to follow up with Dr. Riley and Dr. Bryant plan to use Ultram PRN, Lidocaine, Voltaren gel instructed to apply heat TID for 20 minutes at a time gently stretch right gluteus throughout the day no heavy lifting, no bending or twisting at the waist patient feeling a lot better and wants to go home Total Time Total Time Spent Total Time Spent (In Minutes): 25 Total Time Includes: Examination of the Patient, Discharge Planning and Medication Reconciliation Discharge Plan Discharge Items Patient Disposition: Home - Self-Care Reason For Visit: INTRACTABLE BACK PAIN Discharge Diagnosis: Intractable low back and buttock pain Muscle spasm Condition on Discharge: Good Goals: improve pain control main mobility and stretch out buttocks gently follow up with Dr. Riley later this week, Dr. Bryant next week Activity: Per Instructions section Lifting: No more than 5 pounds Bathing: No limitations Exercise/Sports: Gradually increase as tolerated Driving/Machine Use: do not drive after taking tramadol, wait 4 hours Weightbearing: Full weightbearing Non-emergency contact: Primary Care Provider Call non-emergency contact if: you have any medication questions and your pain is not controlled Follow-up/Referrals: Martinez Riley Jr, [Primary Care Provider] - (later this week) Diet: Heart Healthy Addtl Attending Provider Instructions: Medications: - BACLOFEN: take 5mg at night to help with pain, this is a gentle muscle relaxer, if you tolerate well Dr. Riley could possibly increase dose or frequency - ULTRAM: 50mg every 4 hours as needed for pain - TYLENOL: recommend taking 650mg every 6 hours scheduled to keep a steady state pain control - VOLTAREN GEL: apply 4gm twice a day to the affected area of right lower back and buttock - LIDOCAINE: continue to apply patches as prescribed you can use heat but typically I recommend to apply it three times a day for 20 minutes at a time, do not apply heat longer than 20 minutes do not lift anything heavier than 5 lbs, avoid bending and twisting at the waist if you are interested in physical therapy Dr. Riley can prescribe it, otherwise stay active Pending Studies at Discharge: No Stand-Alone Forms: My [facility] XYZE, Opioid Pain Management, Smoking Cessation Medications and DC Order Prescriptions: New diclofenac sodium [Voltaren] 1 % Gel 4 g EXT BID PRN (Reason: pain) 10 Days Qty: 100 RF: 0 tramadol 50 mg Tablet 50 mg PO Q4H PRN (Reason: pain) 10 Days Qty: 40 RF: 0 baclofen 5 mg tablet 5 mg PO HS PRN (Reason: pain) Qty: 7 RF: 0 Continued alprazolam 0.5 mg tablet 0.5 mg PO HS RF: 0 esomeprazole magnesium 40 mg capsule,delayed release(DR/EC) 40 mg PO QAM RF: 0 valacyclovir 500 mg tablet 500 mg PO QDD RF: 0 ferrous sulfate 325 mg (65 mg iron) tablet 325 mg PO QAM RF: 0 atorvastatin 10 mg tablet 10 mg PO HS RF: 0 lisinopril 40 mg tablet 40 mg PO DAILY RF: 0 docusate sodium [Colace] 100 mg Capsule 100 mg PO HS RF: 0 amiodarone 200 mg tablet 200 mg PO HS RF: 0 levothyroxine 100 mcg tablet 100 mcg PO 6XWK RF: 0 rivaroxaban 20 mg tablet 20 mg PO QDD RF: 0 lidocaine 5 % adhesive patch,medicated 1 patch TOP DAILY PRN (Reason: pain) Qty: 15 RF: 0 Discontinued oxycodone 5 mg capsule 5 mg PO HS PRN (Reason: pain) Qty: 3 RF: 0 No Action prednisone 10 mg tablet 10 mg PO DAILY Qty: 5 RF: 0 Discharge Orders: Discharge Order (Routine); Ordered 07/15/20 Ordered By: Alton Joseph/Other Patient Handouts: Tramadol tablets, Baclofen tablets Admission Data Admit Date/Time: 07/14/20 16:08 Attending Provider: Alton Mohr Admit Provider: Luis Lawton Primary Care Provider: Martinez Riley Jr Other Providers: Luis Lawton Other Interventions: Discharge Summary Assessment (RN) Last Done: 07/15/20 13:36 Coding Level of Care Code 82108 OBS Care - Discharge Diagnoses Tendinopathy of right gluteus medius M67.98
== END 2020-07-15 14:48 | disposition home or self-care (01) ==
LOC: ED 09:59 → 3N 09:59 → SUATTDRO 16:08 → 3N 16:51

== ENCOUNTER 2022-08-24 11:27 | Inpatient (IN) ==
[2022-08-24 12:26] LABS: Albumin Globulin Ratio 1.9 (0.9-2); BUN Creatinine Ratio 18.3 (10-20); Bilirubin,Total 0.8 mg/dl (0.2-1.0); Calcium 9.1 mg/dl (8.5-10.1); Creatinine Clr Calc Pharmacy 41.6 ml/min; Est GFR (African American) 66.4 ml/min; Est GFR (Non-African American) 57.3 ml/min; Globulin 2.1 gm/dl (2.5-4.0); Magnesium 1.9 mg/dl (1.7-2.4); Potassium 3.7 mmol/L (3.5-5.1); Total Protein 6.1 gm/dl (6.0-8.3)
--- NOTE | 2022-08-24 12:28 | Emergency Department Note ---
Impression & Plan Bradycardia, Chest pain of uncertain etiology, Dizziness Admit to the [facility] ED Provider Note NAME: KANIKA TOM JR AGE: 87 SEX: M ARRIVES VIA: Ambulance INFORMANT: Patient ED PROVIDER(S): Stacie Burris DO CHIEF COMPLAINT: Dizziness PLAN: Disposition: Admit Condition: Fair MEDICAL DECISION MAKING: This is an 87-year-old male patient who presents to the emergency department after having a sudden onset of epigastric pain and dizziness. Upon arrival to the emergency department, the patient is in a sinus bradycardia at a rate of 54 which is typical for him. However for EMS, the patient complained of epigastric pain which radiated to his chest and was noted to be bradycardic with a rate of 30. He required atropine to increase his heart rate. He had significant dizziness and was near syncopal at the house. Laboratory studies are fairly un remarkable. The patient does give a history of recent tooth extraction secondary to infection for which she was placed on clindamycin. [facility]. Triage Nursing notes reviewed and agree with them. Prior medical records reviewed Vital Signs: reviewed and remarkable for bradycardia Differential diagnosis: Medication side effects, primary heart failure, heart block, cardiac dysrhythmia, electrolyte abnormality Diagnostics interpreted by me: ECG: Sinus bradycardia at a rate of 54 with first-degree heart block. There is no ST segment elevation or signs of ischemia. There is no ectopy. Cardiac Monitoring: Sinus bradycardia at 50 Laboratory studies: See below Imaging studies: As per radiology Portable chest x-ray: See report HPI: 87/M arrives for evaluation of epigastric pain and dizziness. The patient was sitting in breakfast this morning and developed sudden episode of epigastric pain and feeling of off balance. He then began to sweat. The patient felt as if he was going to . He called EMS. Upon their arrival, they found the patient to be significantly bradycardic with heart rate in the 30s. They initiated IV atropine. Patient then described chest discomfort. He has never had an episode like this in the past. ROS: See above HPI for pertinent positives & negatives. A total of 10 systems reviewed and were otherwise negative. PAST MEDICAL HISTORY:See Below PAST SURGICAL HISTORY:See Below FAMILY HISTORY:See Below SOCIAL HISTORY:See Below HOME MEDICATIONS:See list ALLERGIES:See list VITALS:See Below PHYSICAL EXAMINATION: HEENT: Head - normocephalic and atraumatic. Pupils are equal, round, and reactive to light. Extraocular eye muscles are intact, and sclera are anicteric. Nose - moist nasal mucosa without discharge. Mouth - moist buccal mucosa. Oropharynx is nonerythematous and there is no tonsillar exudate or edema noted. Neck: Supple; no JVD Heart: Bradycardic rate with a regular rhythm. There is a normal S1 and S2 with no murmurs, clicks, or gallops appreciated. Lungs: Clear to auscultation bilaterally with no wheezes, rales, or rhonchi. Abdomen: Soft, completely nontender, nondistended, with good bowel sounds. There are no palpable pulsatile masses or hepatosplenomegaly. There is no guarding, rigidity, or rebound noted. Extremities: No evidence of cyanosis, clubbing, or edema. There are easily palpable peripheral pulses. Skin: warm and dry with good turgor and no rashes. ED COURSE:1130: The patient was evaluated in room C6. A complete history and physical was performed. An order was placed for continuous cardiac monitoring. The patient was in a sinus bradycardia at a rate of 50 A twelve-lead EKG was obtained as described above. Laboratory studies were drawn as above. The patient a portable chest x-ray performed. [facility] for further management. 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 Koenig 05/10/20 Family History Mother Hypertension Diabetes Father Myocardial infarction Other Heart disease No family history of adverse response to anesthesia No family history of bleeding disorder Social History Smoking Status: Never smoker Second Hand Exposure: No; Hx Alcohol Use: Yes Alcohol type: wine Alcohol type Comment: 1 glass wine Alcohol Intake Frequency: 4 or More x per/Week Hx Substance Use: No Preferred Language: Arabic Communication Ability: Effective Visual Impairment: No Limitations Hearing Ability: Normal Gauge Machine Operator Required: No Beliefs That Will Affect Care: None marital status: / Current Living Situation: Alone Current Living Situation Comment: lives in [place] current occupational status: retired current occupation: [employer] other: 1 daughter Feels Safe at Home: Yes Diet Comment: regular Dental Care, Regularly: Yes Physical Activity Frequency: Daily Seatbelt Use: always Sunscreen Use: Yes Assistive Devices: Glasses Allergies Allergies Allergy/AdvReac Type Severity Reaction Status Date / Time oxycodone [From OxyContin] Allergy Unknown CAN'T Verified 07/11/22 09:57 REMEMBER Penicillins Allergy Unknown CAN'T Verified 07/11/22 09:57 REMEMBER codeine AdvReac Intermediate HALLUCINATI Verified 07/11/22 09:57 ONS hydrocodone AdvReac Intermediate hallucinati Verified 07/11/22 09:57 ons menthol AdvReac Mild "Can't Verified 07/11/22 09:57 [From explain Salonpas(m.salicylate-menthol)] it. Muscles Jittery, body nervous, sluggish" methyl salicylate AdvReac Mild "Can't Verified 07/11/22 09:57 [From explain Salonpas(m.salicylate-menthol)] it. Muscles Jittery, body nervous, sluggish" morphine AdvReac Mild Nervousness Verified 07/11/22 09:57 and Irritability Home Meds Home Medications Medication Instructions Recorded Confirmed esomeprazole magnesium 40 mg 40 mg PO QAM 08/23/19 07/11/22 capsule,delayed release ferrous sulfate 325 mg (65 mg 325 mg PO QAM 08/23/19 07/11/22 iron) tablet valacyclovir 500 mg tablet 500 mg PO QPM 08/23/19 07/11/22 docusate sodium 100 mg capsule 200 mg PO QPM 05/08/20 07/11/22 (Colace) atorvastatin 10 mg tablet 10 mg PO QAM 06/27/20 07/11/22 acetaminophen 500 mg tablet 500 mg PO Q6H PRN Pain 07/16/20 07/11/22 (Tylenol Extra Strength) psyllium 1 packet PO HS PRN Constipation 07/16/20 07/11/22 cholecalciferol (vitamin D3) 50 50 mcg PO QPM 03/19/21 07/11/22 mcg (2,000 unit) capsule zinc 50 mg tablet 50 mg PO QAM 03/19/21 07/11/22 ascorbic acid (vitamin C) 500 mg 500 mg PO QAM 05/13/21 07/11/22 tablet (Vitamin C) hydrochlorothiazide 25 mg tablet 25 mg PO QAM 05/13/21 07/11/22 levothyroxine 100 mcg tablet 100 mcg PO QAM 02/19/22 07/11/22 lisinopril 20 mg tablet 20 mg PO HS 02/19/22 07/11/22 Previous Rx's Medication Instructions Recorded rivaroxaban 20 mg tablet 20 mg PO QPM #90 tabs 12/23/21 amiodarone 200 mg tablet 200 mg PO QPM #90 tabs 12/30/21 alprazolam 0.5 mg tablet 0.5 mg PO Q6H PRN anxiety #90 tabs 08/22/22 Results & Data (ED) Vital Signs Vital Signs - 24 hr 08/24/22 11:38 08/24/22 11:38 08/24/22 12:00 Temperature 36.6 C Temperature Source Oral Pulse Rate 54 L 52 L Pulse Rate from SpO2 Sensor 52 L Respiratory Rate 18 22 Blood Pressure 126/75 113/73 Blood Pressure Mean 92 86 Blood Pressure Position Lying Pulse Oximetry 98 98 96 Oxygen Delivery Method Room Air Room Air Sepsis Recent Fever Within 48 Hours No Sepsis New/Unexplained Change in Mental Status N/A Sepsis Action Taken by Nursing No Action Required 08/24/22 12:01 08/24/22 12:30 08/24/22 12:46 Temperature Temperature Source Pulse Rate 58 L 49 L 48 L Pulse Rate from SpO2 Sensor 54 L 50 L 48 L Respiratory Rate 22 17 16 Blood Pressure 117/83 124/68 109/71 Blood Pressure Mean 94 86 83 Blood Pressure Position Pulse Oximetry 96 95 94 Oxygen Delivery Method Sepsis Recent Fever Within 48 Hours Sepsis New/Unexplained Change in Mental Status Sepsis Action Taken by Nursing 08/24/22 13:00 Temperature Temperature Source Pulse Rate 48 L Pulse Rate from SpO2 Sensor 47 L Respiratory Rate 14 Blood Pressure 125/61 Blood Pressure Mean 82 Blood Pressure Position Pulse Oximetry 99 Oxygen Delivery Method Sepsis Recent Fever Within 48 Hours Sepsis New/Unexplained Change in Mental Status Sepsis Action Taken by Nursing Laboratory Data Result diagrams: 08/24/22 11:30 08/24/22 11:30 Lab Results 08/24/22 08/24/22 08/24/22 Range/Units 11:30 11:30 11:30 WBC 7.70 (4.8-10.8) K/ul RBC 5.31 (4.63-6.08) M/uL Hgb 16.8 (14.0-18.0) g/dl Hct 47.3 (40.1-51.0) % MCV 89.1 (80.0-100.0) fL MCH 31.6 (25.0-34.0) pg MCHC 35.5 (32.0-36.0) g/dL RDW Std Deviation 42.9 (36.4-46.3) fL RDW Coeff of Tanvir 13.2 (11.5-14.5) % Plt Count 137 (130-400) K/uL MPV 10.3 (9.4-12.4) fL Neutrophils % (Manual) 66 % Lymphocytes % (Manual) 10 % Monocytes % (Manual) 4 % Eosinophils % (Manual) 4 % Neutrophils # (Manual) 5.08 (1.4-6.5) K/uL Total Absolute Neuts 5.08 (1.4-6.5) K/uL Lymphocytes # (Manual) 0.77 L (1.2-3.4) K/uL Total Abs Lymphocytes 2.08 (1.2-3.4) K/uL Monocytes # (Manual) 0.31 (0.24-0.82) K/uL Eosinophils # (Manual) 0.31 (0-0.50) K/uL Large Granular Lymphs 17 % # Lrg Granular Lymphs 1.31 K/uL Platelet Estimate Decreased L (Normal) Sodium 138 (136-145) mmol/L Potassium 3.7 (3.5-5.1) mmol/L Chloride 105 (98-107) mmol/L Carbon Dioxide 24 (21-32) mmol/L Anion Gap 9 (3-11) BUN 21 (6-23) mg/dl Creatinine 1.15 (0.6-1.4) mg/dl Est Cr Clr Drug Dosing 41.6 ml/min Est GFR ( Amer) 66.4 ml/min Est GFR (Non-Af Amer) 57.3 ml/min BUN/Creatinine Ratio 18.3 (10-20) Glucose 148 H (70-99(Fasting)) mg/dl Calcium 9.1 (8.5-10.1) mg/dl Magnesium 1.9 (1.7-2.4) mg/dl Total Bilirubin 0.8 (0.2-1.0) mg/dl AST 21 (13-39) U/L ALT 33 (7-52) U/L Alkaline Phosphatase 67 (34-104) U/L Troponin I High Sens 14.6 (0-20) pg/ml Total Protein 6.1 (6.0-8.3) gm/dl Albumin 4.0 (3.4-5.0) gm/dl Globulin 2.1 L (2.5-4.0) gm/dl Albumin/Globulin Ratio 1.9 (0.9-2) TSH 4.659 H (0.300-4.500) uIu/ml Free T4 1.21 (0.61-1.60) ng/dl SARS-CoV-2, RNA, NAAT (NEGATIVE) 08/24/22 Range/Units 13:11 WBC (4.8-10.8) K/ul RBC (4.63-6.08) M/uL Hgb (14.0-18.0) g/dl Hct (40.1-51.0) % MCV (80.0-100.0) fL MCH (25.0-34.0) pg MCHC (32.0-36.0) g/dL RDW Std Deviation (36.4-46.3) fL RDW Coeff of Tanvir (11.5-14.5) % Plt Count (130-400) K/uL MPV (9.4-12.4) fL Neutrophils % (Manual) % Lymphocytes % (Manual) % Monocytes % (Manual) % Eosinophils % (Manual) % Neutrophils # (Manual) (1.4-6.5) K/uL Total Absolute Neuts (1.4-6.5) K/uL Lymphocytes # (Manual) (1.2-3.4) K/uL Total Abs Lymphocytes (1.2-3.4) K/uL Monocytes # (Manual) (0.24-0.82) K/uL Eosinophils # (Manual) (0-0.50) K/uL Large Granular Lymphs % # Lrg Granular Lymphs K/uL Platelet Estimate (Normal) Sodium (136-145) mmol/L Potassium (3.5-5.1) mmol/L Chloride (98-107) mmol/L Carbon Dioxide (21-32) mmol/L Anion Gap (3-11) BUN (6-23) mg/dl Creatinine (0.6-1.4) mg/dl Est Cr Clr Drug Dosing ml/min Est GFR ( Amer) ml/min Est GFR (Non-Af Amer) ml/min BUN/Creatinine Ratio (10-20) Glucose (70-99(Fasting)) mg/dl Calcium (8.5-10.1) mg/dl Magnesium (1.7-2.4) mg/dl Total Bilirubin (0.2-1.0) mg/dl AST (13-39) U/L ALT (7-52) U/L Alkaline Phosphatase (34-104) U/L Troponin I High Sens (0-20) pg/ml Total Protein (6.0-8.3) gm/dl Albumin (3.4-5.0) gm/dl Globulin (2.5-4.0) gm/dl Albumin/Globulin Ratio (0.9-2) TSH (0.300-4.500) uIu/ml Free T4 (0.61-1.60) ng/dl SARS-CoV-2, RNA, NAAT NEGATIVE (NEGATIVE) Discharge Plan Visit Data Chief Complaint: Chest Pain Stated Complaint: WEAKNESS, CHEST PAIN, DIZZINESS, BRADYCARDIA ED Provider: Stacie Burris Discharge Problem: Bradycardia, Chest pain of uncertain etiology, Dizziness Forms Stand Alone Forms: My [facility] Prescriptions Prescriptions: No Action rivaroxaban 20 mg tablet 20 mg PO QPM Qty: 90 3RF amiodarone 200 mg tablet 200 mg PO QPM Qty: 90 3RF alprazolam 0.5 mg tablet 0.5 mg PO Q6H PRN (Reason: anxiety) Qty: 90 0RF Rx Instructions: NO MORE THAN 3 TABLETS DAILY esomeprazole magnesium 40 mg capsule,delayed release(DR/EC) 40 mg PO QAM valacyclovir 500 mg tablet 500 mg PO QPM ferrous sulfate 325 mg (65 mg iron) tablet 325 mg PO QAM zinc 50 mg tablet 50 mg PO QAM cholecalciferol (vitamin D3) 50 mcg (2,000 unit) capsule 50 mcg PO QPM atorvastatin 10 mg tablet 10 mg PO QAM psyllium Packet 1 packet PO HS PRN (Reason: Constipation) acetaminophen [Tylenol Extra Strength] 500 mg Tablet 500 mg PO Q6H PRN (Reason: Pain) docusate sodium [Colace] 100 mg Capsule 200 mg PO QPM ascorbic acid (vitamin C) [Vitamin C] 500 mg Tablet 500 mg PO QAM hydrochlorothiazide 25 mg Tablet 25 mg PO QAM lisinopril 20 mg tablet 20 mg PO HS levothyroxine 100 mcg tablet 100 mcg PO QAM Referrals Referrals: Nile Owens DO [Primary Care Provider] -
[2022-08-24 12:33] LABS: Troponin I High Sensitivity 14.6 pg/ml (0-20)
--- NOTE | 2022-08-24 12:41 | Electrocardiogram Report ---
Test Reason : Blood Pressure : / mmHG Vent. Rate : 054 BPM Atrial Rate : 054 BPM P-R Int : 226 ms QRS Dur : 114 ms QT Int : 480 ms P-R-T Axes : 079 036 123 degrees QTc Int : 455 ms Sinus bradycardia with 1st degree A-V block Poor R wave progression, consider anterior ME vs. lead placement vs. LVH Abnormal ECG When compared with ECG of 10-APR-2022 12:42, No significant change was found Confirmed by Russell Tripathi ([id number]) on 08/24/2022 12:40:54 PM Referred By: REFERRED SELF Confirmed By:Thaddeus Tripathi
[2022-08-24 12:42] LABS: Thyroid Stimulating Hormone 4.659 uIu/ml (0.300-4.500)
[2022-08-24 13:08] LABS: Hematocrit (blood only) 47.3 % (40.1-51.0); Hemoglobin 16.8 g/dl (14.0-18.0); Mean Corpuscular Hemoglobin 31.6 pg (25.0-34.0); Mean Corpuscular Hgb Conc 35.5 g/dL (32.0-36.0); Mean Corpuscular Volume 89.1 fL (80.0-100.0); Mean Platelet Volume 10.3 fL (9.4-12.4); Platelet Count 137 K/uL (130-400); RDW Coefficient of Variation 13.2 % (11.5-14.5); RDW Standard Deviation 42.9 fL (36.4-46.3); Red Blood Count 5.31 M/uL (4.63-6.08)
[2022-08-24 13:09] LABS: ALC (manual) 2.08 K/uL (1.2-3.4); ANC (manual) 5.08 K/uL (1.4-6.5); Eosinophils # (manual) 0.31 K/uL (0-0.50); Eosinophils % (manual) 4 %; Large Granular Lymph # (manua 1.31 K/uL; Large Granular Lymph % (manual) 17 %; Lymphocytes # (manual) 0.77 K/uL (1.2-3.4); Lymphocytes % (manual) 10 %; Monocytes # (manual) 0.31 K/uL (0.24-0.82); Monocytes % (manual) 4 %; Neutrophils # (manual) 5.08 K/uL (1.4-6.5); Neutrophils % (manual) 66 %; Platelet Estimate Decreased (Normal)
[2022-08-24 13:15] LABS: T4 Free Thyroxine 1.21 ng/dl (0.61-1.60)
--- NOTE | 2022-08-24 13:20 | History & Physical Report ---
Date of Service August 24, 2022 Assessment & Plan (1) Symptomatic bradycardia: Plan: - Temporary episode of epigastric pain, diaphoresis, nausea this morning with HR 30s, responsive to 0.5 mg atropine in the field. - EKG included first-degree AV block which is unchanged for patient. No evidence of ischemia or injury. HR 4050s since arrival, which is his baseline for several years. - Trend troponin, obtain echocardiogram, cardiology evaluation, SSS vs possible amiodarone toxicity? - 0.5 mg atropine ordered every 5 minutes symptomatic bradycardia. Please call provider if patient requires a dose. - Checking amiodarone level for ? toxicity. (2) PAF (paroxysmal atrial fibrillation): Plan: - 1st degree AV block today. - Continue Xarelto, hold amiodarone d/t possible toxicity. Level pending. (3) Hypertension: Plan: - Continue lisinopril and HCTZ. (4) Depression with anxiety: Plan: - Alprazolam 0.5 mg every 6 hours as needed. (5) Dyslipidemia: Plan: - Continue statin. (6) GERD (gastroesophageal reflux disease): Plan: - Continue PPI, switching esomeprazole to pantoprazole per hospitalist formulary. (7) Hypothyroidism (acquired): Plan: - Levothyroxine 100 mcg daily. - TSH minimally elevated, T4 within normal limits. Plan - Admit to PCU. - SCDs, Xarelto for VTE PPx. - DNR/DNI. History of Present Illness Primary Care Provider: DO Luis Corral Nima is an 87-year-old male with past medical history significant for CAD, paroxysmal A. fib, hypertension, GERD, AVR 2014, depression, and anxiety. He presents today via EMS from home after having an episode of chest pain with breakfast. Describes the event as sudden onset epigastric pain that came on suddenly while he was seated, associated dizziness and nauseous. Patient felt as though he was dying in this moment. Called EMS and on their arrival patient was pale diaphoretic heart rate in the 30s. They did give him atropine which brought his heart rate back to 4050s, which seems to be his baseline per chart review. He had been feeling well, he had a tooth extraction recently and had been recovering well until Thursday when the tooth in front of it started to become painful so he took an extra dose of his clindamycin. On presentation to the ED, his heart rate is in the 40s here which seems to be his baseline. Vital signs are otherwise all within normal limits and stable. Labs unrevealing. Glucose is mildly elevated at 148. And initial troponin is 14.6. TSH is elevated mildly at 4.6, free T4 within normal limits. COVID pending. Allergies Allergy/AdvReac Type Severity Reaction Status Date / Time oxycodone [From OxyContin] Allergy Unknown CAN'T Verified 07/11/22 09:57 REMEMBER Penicillins Allergy Unknown CAN'T Verified 07/11/22 09:57 REMEMBER codeine AdvReac Intermediate HALLUCINATI Verified 07/11/22 09:57 ONS hydrocodone AdvReac Intermediate hallucinati Verified 07/11/22 09:57 ons menthol AdvReac Mild "Can't Verified 07/11/22 09:57 [From explain Salonpas(m.salicylate-menthol)] it. Muscles Jittery, body nervous, sluggish" methyl salicylate AdvReac Mild "Can't Verified 07/11/22 09:57 [From explain Salonpas(m.salicylate-menthol)] it. Muscles Jittery, body nervous, sluggish" morphine AdvReac Mild Nervousness Verified 07/11/22 09:57 and Irritability Home Medications Medication Instructions Recorded Confirmed Type esomeprazole magnesium 40 mg 40 mg PO QAM 08/23/19 08/24/22 History capsule,delayed release ferrous sulfate 325 mg (65 mg 325 mg PO QAM 08/23/19 08/24/22 History iron) tablet valacyclovir 500 mg tablet 500 mg PO QPM 08/23/19 08/24/22 History docusate sodium 100 mg capsule 200 mg PO QPM 05/08/20 08/24/22 History (Colace) atorvastatin 10 mg tablet 10 mg PO QAM 06/27/20 08/24/22 History acetaminophen 500 mg tablet 500 mg PO Q6H PRN Pain 07/16/20 08/24/22 History (Tylenol Extra Strength) psyllium 1 packet PO HS PRN Constipation 07/16/20 08/24/22 History cholecalciferol (vitamin D3) 50 50 mcg PO QPM 03/19/21 08/24/22 History mcg (2,000 unit) capsule zinc 50 mg tablet 50 mg PO QAM 03/19/21 08/24/22 History ascorbic acid (vitamin C) 500 mg 500 mg PO QAM 05/13/21 08/24/22 History tablet (Vitamin C) hydrochlorothiazide 25 mg tablet 25 mg PO QAM 05/13/21 08/24/22 History rivaroxaban 20 mg tablet 20 mg PO QPM #90 tabs 12/23/21 08/24/22 Rx amiodarone 200 mg tablet 200 mg PO QPM #90 tabs 12/30/21 08/24/22 Rx levothyroxine 100 mcg tablet 100 mcg PO QAM 02/19/22 08/24/22 History lisinopril 20 mg tablet 20 mg PO HS 02/19/22 08/24/22 History alprazolam 0.5 mg tablet 0.5 mg PO Q6H PRN anxiety #90 tabs 08/22/22 08/24/22 Rx Past Med/Surg History Medical History Anxiety Aortic regurgitation due to bicuspid aortic valve 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 Beliefs That Will Affect Care: None marital status: / Current Living Situation: Alone Current Living Situation Comment: lives in [place] current occupational status: retired current occupation: [employer] Other Information That Helps Us Care for You: No other: 1 daughter Feels Safe at Home: Yes Diet Comment: regular Dental Care, Regularly: Yes Physical Activity Frequency: Daily Seatbelt Use: always Sunscreen Use: Yes Assistive Devices: Glasses Review of Systems Review of Systems: Constitutional: No fever/chills, weakness, fatigue, myalgias, anorexia, night sweats Eyes: No diplopia, no worsening or blurred vision ENT: normal hearing, no trouble swallowing Respiratory: No cough, sputum, dyspnea at rest or on exertion Cardiovascular: No chest pain, tightness or palpitations Abdomen:epigastric pain with nausea thia AM; no further symptoms, no vomiting, diarrhea or constipation : Denies dysuria, hematuria, increased urgency/frequency, urinary retention Musculoskeletal: No joint pain, calf pain, swelling Neurologic: No weakness, numbness/tingling, or balance problems Psychiatric: No anxiety or depression Skin: No rash or itch Physical Exam Physical Exam: General: awake, alert, no apparent distress Head: Normocephalic, atraumatic ENT: PERRL, EOMI, no pharyngeal exudate, mucous membranes moist; solid tooth extraction is without erythema, edema, or purulent discharge to suggest infection. Without mandibular pain Chest: Clear to auscultation, on room air, no adventitious breath sounds Cardiac: bradycardic rate and regular rhythm, no murmur, no JVD, normal peripheral pulses, good capillary refill Abdominal: NABS x 4 quadrants, soft, nontender to palpation, no rebound, guarding or tenderness Extremities: Normal inspection, no peripheral edema or erythema, calfs nontender to palpation Psych: Normal mood and affect Neuro: AAO x 3, strength intact bilaterally and rated 5/5, no motor deficits, speech is clear, no peripheral sensory deficits Skin: no rash or erythema Results & Data Results & Data ([facility]) Vital Signs (Past 12 Hours) Vital Signs Temp Pulse Resp BP Pulse Ox O2 Del Method 08/24/22 13:00 48 L 14 125/61 99 08/24/22 12:46 48 L 16 109/71 94 08/24/22 12:30 49 L 17 124/68 95 08/24/22 12:01 58 L 22 117/83 96 08/24/22 12:00 52 L 22 113/73 96 08/24/22 11:38 98 Room Air 08/24/22 11:38 36.6 C 54 L 18 126/75 98 Room Air Laboratory Results Abnormal lab results 08/24/22 08/24/22 08/24/22 Range/Units 11:30 11:30 11:30 Lymphocytes # (Manual) 0.77 L (1.2-3.4) K/uL Platelet Estimate Decreased L (Normal) Glucose 148 H (70-99(Fasting)) mg/dl Globulin 2.1 L (2.5-4.0) gm/dl TSH 4.659 H (0.300-4.500) uIu/ml ECG Additional Comments: Sinus bradycardia with 1st degree A-V block Poor R wave progression, consider anterior CT vs. lead placement vs. LVH Abnormal ECG When compared with ECG of 10-APR-2022 12:42, No significant change was found. Code Status & VTE Plan Code Status DNR/DNI. Supervising Physician Co-Signing Physician Notes Patient seen and examined, chart reviewed, case discussed with Sarah Lemus PA-C and I agree with the assessment and plan as above except as otherwise noted Labs and images reviewed Luis is a 87-year-old male with a past medical history of paroxysmal atrial flutter, GERD, hypertension, paroxysmal atrial fibrillation on Xarelto, prostate cancer 1990, aortic regurgitation, and anxiety who presented with epigastric pain and dizziness following breakfast. Patient felt diaphoretic and had a feeling of impending doom. Per EMS patient was found to be bradycardic in the 30s and diaphoretic, patient received atropine and then developed chest discomfort. No prior history of similar symptoms. No leukocytosis Hemoglobin normal Sodium, potassium, creatinine normal on admission Glucose 148 TSH mildly elevated with normal free T4 Admitting EKG 54, sinus bradycardia with first-degree AV block and poor R wave progression. No territorial ST segment changes are appreciated. No Symptomatic bradycardia, chest pain following atropine With history of paroxysmal atrial fibrillation and flutter. ? Developing SSS's vs supratherapeutic amiodarone/toxicity Patient on amiodarone 200mg qHS [employer]ER Hold amnio, levels pending. No hx pulmonary toxicity/O2 req, transaminases normal on admission Echo 2020 EF 50-55%, moderate LVH, functioning bioprosthetic aortic valve similar to prior EKG: Sinus bradycardia with first-degree AV block, no territorial ST segment changes. High-sensitivity troponin 14.6 on admission, 2-hour trend pending Atropine 0.5 mg as needed for symptomatic bradycardia/hypotension. Cardiology consulted. Paroxysmal atrial fibrillation/flutter Amnio held as above Continue rivaroxaban daily Currently bradycardic, follow on telemetry Hyperlipidemia Continue atorvastatin Hypertension Continue hydrochlorothiazide, lisinopril ? Daily aspirin Hypothyroidism Continue Synthroid 100 mcg daily TSH slightly elevated with normal free T4. Defer any dose adjustments at this time, can recheck in 4-6 weeks S/p aortic valve replacement Bioprosthetic AV valve Noted, no acute change at this time PG Care Time/CCT Total # of Minutes Spent Total Time Spent with Patient: Total time spent is greater than 50% in coordination of care (as documented) at patient's floor/unit and/or counseling patient: Coding Level of Care Code 06187 Initial Inpt Care Lvl 3 Diagnoses Symptomatic bradycardia R00.1 PAF (paroxysmal atrial fibrillation) I48.0 Hypertension I10 Hypertension type: essential hypertension Depression with anxiety F41.8 Dyslipidemia E78.5 GERD (gastroesophageal reflux disease) K21.9 Esophagitis presence: esophagitis presence not specified Hypothyroidism (acquired) E03.9 (1) GERD (gastroesophageal reflux disease) Esophagitis presence: esophagitis presence not specified Qualified Code(s): K21.9 - Gastro-esophageal reflux disease without esophagitis (2) Hypertension Hypertension type: essential hypertension Qualified Code(s): I10 - Essential (primary) hypertension
[2022-08-24] MEDS ORDERED: ACETAMINOPHEN 500 MG TAB PO PRN (15:56)
[2022-08-24] MEDS ORDERED: ALPRAZolam 0.5 MG TABLET PO PRN (15:56)
[2022-08-24] MEDS ORDERED: POLYETHYLENE (MIRALAX) 17 GM PACK PO PRN (15:56)
[2022-08-24] MEDS ORDERED: ONDANSETRON INJ 2 MG/ML 2 ML VIAL IV PRN (15:56)
[2022-08-24] MEDS ORDERED: ATROPINE SULFATE 0.1 MG/ML 10ML SYR IV PRN (15:56)
[2022-08-24] MEDS: LACTATED RINGER'S 1,000 ML IV SCH (16:08)
[2022-08-24] MEDS ORDERED: PSYLLIUM or GUAR GUM FIBER POWDER PACKET PO PRN (21:00)
[2022-08-24] MEDS ORDERED: DOCUSATE SODIUM 100 MG CAP PO SCH (21:00)
[2022-08-24] MEDS ORDERED: RIVAROXABAN 20 MG TAB PO SCH (21:00)
[2022-08-24] MEDS ORDERED: valACYclovir HCL 500 MG TABLET PO SCH (21:00)
[2022-08-24] MEDS ORDERED: lisinopril 20 MG TAB PO SCH (21:00)
[2022-08-24] MEDS ORDERED: CHOLECALCIFEROL 1,000 UNITS 25 MCG TAB PO SCH (21:00)
[2022-08-25] MEDS: LACTATED RINGER'S 1,000 ML IV SCH (01:55)
[2022-08-25 08:51] LABS: Creatinine Clr Calc Pharmacy 47.4 ml/min; Est GFR (African American) 70.9 ml/min; Est GFR (Non-African American) 61.1 ml/min
[2022-08-25] MEDS ORDERED: ZINC SULFATE 220 MG CAPSULE PO SCH (09:00)
[2022-08-25] MEDS ORDERED: ATORVASTATIN 10 MG TAB PO SCH (09:00)
[2022-08-25] MEDS ORDERED: FERROUS SULFATE 325 MG TAB PO SCH (09:00)
[2022-08-25] MEDS ORDERED: hydroCHLOROthiazide 25 MG TAB PO SCH (09:00)
[2022-08-25] MEDS ORDERED: PANTOprazole 40 MG TAB PO SCH (09:00)
[2022-08-25] MEDS ORDERED: ASCORBIC ACID 500 MG TAB PO SCH (09:00)
[2022-08-25] MEDS ORDERED: LEVOTHYROXINE SODIUM 100 MCG TABLET PO SCH (09:00)
--- NOTE | 2022-08-25 09:14 | XCELERA ---
[id number]
--- NOTE | 2022-08-25 09:21 | Electrocardiogram Report ---
Test Reason : Blood Pressure : / mmHG Vent. Rate : 049 BPM Atrial Rate : 049 BPM P-R Int : 264 ms QRS Dur : 112 ms QT Int : 476 ms P-R-T Axes : 083 026 086 degrees QTc Int : 429 ms Sinus bradycardia with 1st degree A-V block Poor R wave progression, consider anterior NE vs. lead placement vs. LVH Abnormal ECG When compared with ECG of 24-AUG-2022 11:34, No significant change was found Confirmed by Russell Tripathi ([id number]) on 08/25/2022 9:20:54 AM Referred By: REFERRED SELF Confirmed By:Thaddeus Tripathi
--- NOTE | 2022-08-25 10:40 | Cardiology Consultation ---
Date of Consultation August 25, 2022 Assessment & Plan (1) Bradycardia: (2) Dizziness: (3) PAF (paroxysmal atrial fibrillation): (4) CAD (coronary artery disease): (5) H/O aortic valve replacement with porcine valve: Plan 1. Dizziness: Patient had fairly acute onset of dizziness and lightheadedness. This occurred while seated. This occurred after eating. Suspect this was vagally mediated in some regard. The remainder of his symptoms are all consistent with high vagal tone including his diaphoresis, looking pale and being clammy. The fact that the symptoms or prolonged also suggests high vagal tone. 2. Bradycardia: He is known to have an element of baseline bradycardia. Many heart rates documented in his record or in the 40s or 50s. While he was reported as having bradycardia by the EMT is a, his degree of bradycardia does not appear grossly out of his baseline. The EMT tracings available in his record demonstrate heart rates in the 40s. 3. Coronary disease: Nonobstructive. Continue aggressive secondary prevention with moderate dose atorvastatin rivaroxaban 4. Prior aortic valve replacement: Normally functioning on current echocardiogram. Patient did take antibiotics for his recent dental infection. 5. Atrial fibrillation: Paroxysmal. On amiodarone. On systemic anticoagulation. No evidence of amiodarone toxicity. Liver function tests are normal. TSH is very mildly elevated. This could be monitored longitudinally. Free T4 was normal I think his episodes likely vagally mediated. He does have an element of bradycardia baseline but is otherwise very functional without symptoms. I do not think there is need for alteration in his medical regimen at this point. Will continue his amiodarone. We can provide him with some outpatient monitoring to see if there are any more significant arrhythmias. History of Present Illness Reason for Consultation: Bradycardia Requesting Physician: Mariah Attending Physician: Luis Lawton MD History of Present Illness The patient is an 87-year-old gentleman with a cardiac history significant for paroxysmal atrial fibrillation, hypertension, nonobstructive coronary disease and a prior aortic valve replacement with a root graft in 2013. Patient is known to have an element of bradycardia at baseline. However he is very active individual without symptoms of dizziness, lightheadedness, exertional dyspnea or exertional intolerance at baseline. He states that yesterday morning after eating breakfast he began to feel somewhat dizzy. This was associated with diaphoresis and feeling clammy. There were some reports of some gastrointestinal disturbance as well. Due to the nature of the episode in the fact that it did not resolve promptly contacted EMS who arrived at his house to find him somewhat bradycardic. They administered atropine and transferred him to the hospital for evaluation. Patient states that by the time he reached the hospital he was feeling better. He has not had any recurrent symptoms since being hospitalized. As noted above the patient reports being very active. He denied symptoms of dizziness or lightheadedness with the exception of 2 episodes recently that was very mild in nature. These are not associated with other symptoms. He is not aware of palpitations at baseline. He has some insomnia but no other sleep disturbance. He denies orthopnea or paroxysmal nocturnal dyspnea. He did recently have a tooth extracted and had some pain in the right jaw all as result. He has been taking clindamycin for tooth infection and some Tylenol for analgesia Allergies Allergy/AdvReac Type Severity Reaction Status Date / Time oxycodone [From OxyContin] Allergy Unknown CAN'T Verified 07/11/22 09:57 REMEMBER Penicillins Allergy Unknown CAN'T Verified 07/11/22 09:57 REMEMBER codeine AdvReac Intermediate HALLUCINATI Verified 07/11/22 09:57 ONS hydrocodone AdvReac Intermediate hallucinati Verified 07/11/22 09:57 ons menthol AdvReac Mild "Can't Verified 07/11/22 09:57 [From explain Salonpas(m.salicylate-menthol)] it. Muscles Jittery, body nervous, sluggish" methyl salicylate AdvReac Mild "Can't Verified 07/11/22 09:57 [From explain Salonpas(m.salicylate-menthol)] it. Muscles Jittery, body nervous, sluggish" morphine AdvReac Mild Nervousness Verified 07/11/22 09:57 and Irritability Home Medications Medication Instructions Recorded Confirmed Type esomeprazole magnesium 40 mg 40 mg PO QAM 08/23/19 08/24/22 History capsule,delayed release ferrous sulfate 325 mg (65 mg 325 mg PO QAM 08/23/19 08/24/22 History iron) tablet valacyclovir 500 mg tablet 500 mg PO QPM 08/23/19 08/24/22 History docusate sodium 100 mg capsule 200 mg PO QPM 05/08/20 08/24/22 History (Colace) atorvastatin 10 mg tablet 10 mg PO QAM 06/27/20 08/24/22 History acetaminophen 500 mg tablet 500 mg PO Q6H PRN Pain 07/16/20 08/24/22 History (Tylenol Extra Strength) psyllium 1 packet PO HS PRN Constipation 07/16/20 08/24/22 History cholecalciferol (vitamin D3) 50 50 mcg PO QPM 03/19/21 08/24/22 History mcg (2,000 unit) capsule zinc 50 mg tablet 50 mg PO QAM 03/19/21 08/24/22 History ascorbic acid (vitamin C) 500 mg 500 mg PO QAM 05/13/21 08/24/22 History tablet (Vitamin C) hydrochlorothiazide 25 mg tablet 25 mg PO QAM 05/13/21 08/24/22 History rivaroxaban 20 mg tablet 20 mg PO QPM #90 tabs 12/23/21 08/24/22 Rx amiodarone 200 mg tablet 200 mg PO QPM #90 tabs 12/30/21 08/24/22 Rx levothyroxine 100 mcg tablet 100 mcg PO QAM 02/19/22 08/24/22 History lisinopril 20 mg tablet 20 mg PO HS 02/19/22 08/24/22 History alprazolam 0.5 mg tablet 0.5 mg PO Q6H PRN anxiety #90 tabs 08/22/22 08/24/22 Rx Patient History Medical History Anxiety Aortic regurgitation due to bicuspid aortic valve Atrial flutter, paroxysmal - director drug Dr. Morelos Cholecystitis Depression GERD (gastroesophageal reflux disease) Hypertension Incontinence of urine PAF (paroxysmal atrial fibrillation) takes xarelto Piriformis syndrome of right side Prostate cancer 1990 Subconjunctival hematoma Surgical History H/O hernia repair inguinal H/O left cataract extraction H/O prostatectomy d/t prostate cancer in 1990 History of colonoscopy History of esophagogastroduodenoscopy (EGD) Hx of right cataract extraction S/P aortic valve replacement 2013 - director drug Dr. Morelos S/P laparoscopic cholecystectomy (05/28/20) Laparoscopic Cholecystectomy with Intraoperative Cholangiogram Dr. Koenig 05/10/20 Family History Mother Hypertension Diabetes Father , age 50 Myocardial infarction Other Heart disease No family history of adverse response to anesthesia No family history of bleeding disorder Social History Smoking Status: Never smoker Second Hand Exposure: No; Hx Alcohol Use: Yes Alcohol type: wine and other Alcohol type Comment: 1 glass wine Alcohol Intake Frequency: 4 or More x per/Week Hx Substance Use: No Preferred Language: Slovak Communication Ability: Effective Visual Impairment: No Limitations Hearing Ability: Normal [employer] Required: No Beliefs That Will Affect Care: None marital status: / Current Living Situation: Alone Current Living Situation Comment: lives in [place] current occupational status: retired current occupation: [employer] Other Information That Helps Us Care for You: No other: 1 daughter Feels Safe at Home: Yes Diet Comment: regular Dental Care, Regularly: Yes Physical Activity Frequency: Daily Seatbelt Use: always Sunscreen Use: Yes Assistive Devices: Glasses Review of Systems Review of Systems: Per HPI. No recent fevers or chills. Physical Exam Physical Exam: The patient is alert and oriented. Mood and affect appeared normal. He answered all questions appropriately. HEENT: Pupils are equal and reactive to light and accommodation. Extraocular movements are intact. The sclerae are anicteric. Neuro: Cranial nerves intact Lungs: Clear to auscultation bilaterally. He has good air movement without use of accessory muscles. No rales wheezes or rhonchi. Chest: Well-healed sternotomy scar Cardiac: Heart demonstrates a regular rate and rhythm. Normal S1 and S2. No murmurs on examination. Pulses: The patient has palpable radial pulses bilaterally that are equal in intensity Extremities: There was no evidence of hypoperfusion. There is no cyanosis or clubbing. There is no edema. Skin: I did not appreciate any rashes on examination today. Results & Data ([facility]) Vital Signs (Past 12 Hours) Vital Signs Temp Pulse Pulse Resp BP Pulse Ox O2 Del Method 08/25/22 09:58 Room Air 08/25/22 08:00 36.5 C 57 L 18 181/79 H 99 Room Air 08/25/22 07:18 56 L 08/25/22 03:00 36.8 C 58 L 20 120/72 98 Room Air 08/24/22 23:09 49 L 08/24/22 23:00 36.7 C 51 L 20 121/69 97 Room Air Laboratory Results Abnormal Lab Results 08/24/22 08/24/22 08/24/22 11:30 11:30 11:30 WBC 7.70 RBC 5.31 Hgb 16.8 Hct 47.3 MCV 89.1 MCH 31.6 MCHC 35.5 RDW Std Deviation 42.9 RDW Coeff of Tanvir 13.2 Plt Count 137 MPV 10.3 Neutrophils % (Manual) 66 Lymphocytes % (Manual) 10 Monocytes % (Manual) 4 Eosinophils % (Manual) 4 Neutrophils # (Manual) 5.08 Total Absolute Neuts 5.08 Lymphocytes # (Manual) 0.77 L Total Abs Lymphocytes 2.08 Monocytes # (Manual) 0.31 Eosinophils # (Manual) 0.31 Large Granular Lymphs 17 # Lrg Granular Lymphs 1.31 Platelet Estimate Decreased L Sodium 138 Potassium 3.7 Chloride 105 Carbon Dioxide 24 Anion Gap 9 BUN 21 Creatinine 1.15 Est Cr Clr Drug Dosing 41.6 Est GFR ( Amer) 66.4 Est GFR (Non-Af Amer) 57.3 BUN/Creatinine Ratio 18.3 Glucose 148 H Calcium 9.1 Magnesium 1.9 Total Bilirubin 0.8 AST 21 ALT 33 Alkaline Phosphatase 67 Troponin I High Sens 14.6 Total Protein 6.1 Albumin 4.0 Globulin 2.1 L Albumin/Globulin Ratio 1.9 TSH 4.659 H Free T4 1.21 SARS-CoV-2, RNA, NAAT 08/24/22 08/24/22 08/25/22 13:11 15:54 05:32 WBC RBC Hgb Hct MCV MCH MCHC RDW Std Deviation RDW Coeff of Tanvir Plt Count MPV Neutrophils % (Manual) Lymphocytes % (Manual) Monocytes % (Manual) Eosinophils % (Manual) Neutrophils # (Manual) Total Absolute Neuts Lymphocytes # (Manual) Total Abs Lymphocytes Monocytes # (Manual) Eosinophils # (Manual) Large Granular Lymphs # Lrg Granular Lymphs Platelet Estimate Sodium Potassium Chloride Carbon Dioxide Anion Gap BUN Creatinine Est Cr Clr Drug Dosing Est GFR ( Amer) Est GFR (Non-Af Amer) BUN/Creatinine Ratio Glucose Calcium Magnesium Total Bilirubin AST ALT Alkaline Phosphatase Troponin I High Sens 13.5 15.4 Total Protein Albumin Globulin Albumin/Globulin Ratio TSH Free T4 SARS-CoV-2, RNA, NAAT NEGATIVE 08/25/22 05:32 WBC RBC Hgb Hct MCV MCH MCHC RDW Std Deviation RDW Coeff of Tanvir Plt Count MPV Neutrophils % (Manual) Lymphocytes % (Manual) Monocytes % (Manual) Eosinophils % (Manual) Neutrophils # (Manual) Total Absolute Neuts Lymphocytes # (Manual) Total Abs Lymphocytes Monocytes # (Manual) Eosinophils # (Manual) Large Granular Lymphs # Lrg Granular Lymphs Platelet Estimate Sodium Potassium Chloride Carbon Dioxide Anion Gap BUN Creatinine 1.09 Est Cr Clr Drug Dosing 47.4 Est GFR ( Amer) 70.9 Est GFR (Non-Af Amer) 61.1 BUN/Creatinine Ratio Glucose Calcium Magnesium Total Bilirubin AST ALT Alkaline Phosphatase Troponin I High Sens Total Protein Albumin Globulin Albumin/Globulin Ratio TSH Free T4 SARS-CoV-2, RNA, NAAT Diagnostic Findings Echocardiogram was obtained today which revealed normal LV systolic function and mild LVH. There is mild dilation of the right-sided chambers. Mild left atrial dilation. Normally function bioprosthetic aortic valve. Mild aortic regurgit ation and mild mitral regurgitation. Essentially unchanged from study performed in August of last year. A chest x-ray, brain MRI and head CT were all performed. No acute abnormalities. No significant abnormalities. ECG Additional Comments: EKG obtained the time admission revealed sinus bradycardia with 1st degree AV block. Poor R-wave progression in the precordial leads. PG Care Time/CCT Total # of Minutes Spent Total Time Spent with Patient: Total time spent is greater than 50% in coordination of care (as documented) at patient's floor/unit and/or counseling patient: Coding Level of Care Code INT OBSERVATION CARE 70M LVL 3 Diagnoses Bradycardia R00.1 Dizziness R42 PAF (paroxysmal atrial fibrillation) I48.0 CAD (coronary artery disease) I25.10 H/O aortic valve replacement with porcine valve Z95.3
--- NOTE | 2022-08-25 13:09 | Discharge Summary ---
Date of Service August 25, 2022 Admission HPI Per Admitting Provider Luis Herring is an 87-year-old male with past medical history significant for CAD, paroxysmal A. fib, hypertension, GERD, AVR 2014, depression, and anxiety. He presents today via EMS from home after having an episode of chest pain with breakfast. Describes the event as sudden onset epigastric pain that came on suddenly while he was seated, associated dizziness and nauseous. Patient felt as though he was dying in this moment. Called EMS and on their arrival patient was pale diaphoretic heart rate in the 30s. They did give him atropine which brought his heart rate back to 4050s, which seems to be his baseline per chart review. He had been feeling well, he had a tooth extraction recently and had been recovering well until Thursday when the tooth in front of it started to become painful so he took an extra dose of his clindamycin. On presentation to the ED, his heart rate is in the 40s here which seems to be his baseline. Vital signs are otherwise all within normal limits and stable. Labs unrevealing. Glucose is mildly elevated at 148. And initial troponin is 14.6. TSH is elevated mildly at 4.6, free T4 within normal limits. COVID pending. Principal Diagnosis 1. Dizziness--suspect vagally mediated 2. Bradycardia Discharge Exam GENERAL: 87 yo Well-developed, well-nourished elderly WM. NAD. LUNGS: Clear to auscultation bilaterally. No W/R/R. CARDIOVASCULAR: Regular rate and rhythm. No M/G/R. No JVD. ABDOMEN: Soft, non-tender and non-distended. BS normoactive x 4 quad. EXTREMITIES: No edema. Non-tender. Peripheral pulses +2/4. NEUROLOGIC: A&O x3. PSYCHIATRIC: Cooperative. Appropriate mood and affect. SKIN: Warm, dry, intact. No rashes or lesions. Discharge Data Allergies Allergy/AdvReac Type Severity Reaction Status Date / Time oxycodone [From OxyContin] Allergy Unknown CAN'T Verified 07/11/22 09:57 REMEMBER Penicillins Allergy Unknown CAN'T Verified 07/11/22 09:57 REMEMBER codeine AdvReac Intermediate HALLUCINATI Verified 07/11/22 09:57 ONS hydrocodone AdvReac Intermediate hallucinati Verified 07/11/22 09:57 ons menthol AdvReac Mild "Can't Verified 07/11/22 09:57 [From explain Salonpas(m.salicylate-menthol)] it. Muscles Jittery, body nervous, sluggish" methyl salicylate AdvReac Mild "Can't Verified 07/11/22 09:57 [From explain Salonpas(m.salicylate-menthol)] it. Muscles Jittery, body nervous, sluggish" morphine AdvReac Mild Nervousness Verified 07/11/22 09:57 and Irritability Consultations 08/24/22 13:20 ED Decision to Admit Stat 08/24/22 15:56 Consult Cardiology Routine Ordered Studies 08/24/22 11:30 08/25/22 05:32 Echocardiogram: Left ventricular systolic function is normal. There is mild concentric LVH. The right ventricle is mildly dilated. There right ventricular systolic function is mildly reduced. The left atrium is mildly dilated. There is a bioprosthetic aortic valve. Mild aortic regurgitation. RVSP is elevated at 30-40 mmHg Mild aortic root dilatation. Compared to study from 08/26/21, no significant change Hospital Course (1) Symptomatic bradycardia: - Temporary episode of epigastric pain, diaphoresis, nausea this morning with HR 30s, responsive to 0.5 mg atropine in the field. - EKG included first-degree AV block which is unchanged for patient. No kirsten dence of ischemia or injury. HR 4050s since arrival, which is his baseline for several years. - Trended troponins which has been normal x3 - Echocardiogram obtained, results above- no significant change since last echo in Aug 2021 - 0.5 mg atropine ordered every 5 minutes symptomatic bradycardia. - Amiodarone level obtained for ? toxicity - Cardiology consulted, appreciate recommendations. Seen by Dr. Tripathi, felt that his episode of dizziness was not in fact d/t his bradycardia but more likely vagally mediated - He will set up for 30-day event monitor to be placed as outpatient to monitor for other arrhythmias (2) PAF (paroxysmal atrial fibrillation): - 1st degree AV block today. - Continue Xarelto - Amiodarone held d/t questionable toxicity but cardiology feels ok to resume as prescribed (3) Hypertension: - Continue lisinopril and HCTZ. (4) Depression with anxiety: - Alprazolam 0.5 mg every 6 hours as needed. (5) Dyslipidemia: - Continue statin. (6) GERD (gastroesophageal reflux disease): - Continue PPI, switching esomeprazole to pantoprazole per hospital formulary. (7) Hypothyroidism (acquired): - Levothyroxine 100 mcg daily. - TSH minimally elevated, T4 within normal limits. - F/u TFTs in 8 weeks. Plan Discussed case with cardiology, feels that patient may be discharged. He has had no further symptoms since admission and no arrhythmias noted on monitor. He will be arranged for o/p marble helper by Dr. Tripathi. Follow up with cardiology as arranged. Plan d/w Dr. Lawton who has also seen and evaluated this patient and agrees with aforementioned. Total Time Total Time Spent Total Time Spent (In Minutes): >30 minutes Discharge Plan Discharge Items Patient Disposition: Home - Self-Care Reason For Visit: SYMPTOMATIC BRADYCARDIA Discharge Diagnosis: slow heart rate dizziness Activity: Resume your previous activity Non-emergency contact: Primary Care Provider and Chief Legal Officer Call non-emergency contact if: you have any medication questions Follow-up/Referrals: Nile Owens DO [Primary Care Provider] - Russell Tripathi MD [Physician] - Diet: Heart Healthy Addtl Attending Provider Instructions: You were hospitalized due to symptoms of dizziness/lightheadedness which was felt to be due to the body overreacting to a certain stimulus. Cardiology does not recommend making any changes in your home medications. Therefore, medications can be continued as prescribed prior to hospitalization. Dr. Tripathi is going to arrange for a heart monitor to be placed to check your heart rhythm while you are at home. He will contact you with the directions. Follow up with him as directed. Follow up with your family healthcare provider within 1 week of discharge. If you have any questions/concerns following your discharge, call the nonemergency number listed on your discharge paperwork. In the event of a medical emergency, call 911. Pending Studies at Discharge: No Stand-Alone Forms: My [employer], Smoking Cessation Medications and DC Order Prescriptions: Continued rivaroxaban 20 mg tablet 20 mg PO QPM Qty: 90 3RF amiodarone 200 mg tablet 200 mg PO QPM Qty: 90 3RF alprazolam 0.5 mg tablet 0.5 mg PO Q6H PRN (Reason: anxiety) Qty: 90 0RF Rx Instructions: NO MORE THAN 3 TABLETS DAILY esomeprazole magnesium 40 mg capsule,delayed release(DR/EC) 40 mg PO QAM valacyclovir 500 mg tablet 500 mg PO QPM ferrous sulfate 325 mg (65 mg iron) tablet 325 mg PO QAM zinc 50 mg tablet 50 mg PO QAM cholecalciferol (vitamin D3) 50 mcg (2,000 unit) capsule 50 mcg PO QPM atorvastatin 10 mg tablet 10 mg PO QAM psyllium Packet 1 packet PO HS PRN (Reason: Constipation) acetaminophen [Tylenol Extra Strength] 500 mg Tablet 500 mg PO Q6H PRN (Reason: Pain) docusate sodium [Colace] 100 mg Capsule 200 mg PO QPM ascorbic acid (vitamin C) [Vitamin C] 500 mg Tablet 500 mg PO QAM hydrochlorothiazide 25 mg Tablet 25 mg PO QAM lisinopril 20 mg tablet 20 mg PO HS levothyroxine 100 mcg tablet 100 mcg PO QAM Discharge Orders: Discharge Order (Routine); Ordered 08/25/22 Ordered By: Ashleigh Green Admission Data Admit Date/Time: 08/24/22 13:43 Attending Provider: Luis Lawton Admit Provider: Sarah Lemus Primary Care Provider: Nile Owens Other Providers: Marcos Chery ; Russell Tripathi Coding Level of Care Code D/C DAY MANAGEMENT >30 MINS Diagnoses Symptomatic bradycardia R00.1 PAF (paroxysmal atrial fibrillation) I48.0 Hypertension I10 Hypertension type: essential hypertension Depression with anxiety F41.8 Dyslipidemia E78.5 GERD (gastroesophageal reflux disease) K21.9 Esophagitis presence: esophagitis presence not specified Hypothyroidism (acquired) E03.9
== END 2022-08-25 14:05 | disposition home or self-care (01) | DRG 310 ==
LOC: ED 11:27 → 2S 13:43 → SUATTDRO 13:43 → 2S 14:32
DX: K21.9 Gastro-esophageal reflux disease without esophagitis; Z88.5 Allergy status to narcotic agent; Z95.2 Presence of prosthetic heart valve; Z79.890 Hormone replacement therapy; Z79.899 Other long term (current) drug therapy; Z85.46 Personal history of malignant neoplasm of prostate; E03.9 Hypothyroidism, unspecified; I48.0 Paroxysmal atrial fibrillation; R00.1 Bradycardia, unspecified; Z66 Do not resuscitate; Z90.79 Acquired absence of other genital organ(s); I44.0 Atrioventricular block, first degree; I10 Essential (primary) hypertension; Z88.8 Allergy status to other drugs, medicaments and biological substances; I48.92 Unspecified atrial flutter; E78.5 Hyperlipidemia, unspecified; Z79.01 Long term (current) use of anticoagulants; F41.8 Other specified anxiety disorders; Z88.0 Allergy status to penicillin